=== PATIENT | female | born 1955 | race Caucasian/White ===

== ENCOUNTER → 2020-01-24 09:53 | Outpatient (BNVA) | payer OTHER, MEDICARE, SELFPAY | PROVIDERS: PCP Pediatrics; Referring Provider Pediatrics; Visit Provider Internal Medicine Cardiovascular Disease | DX: Z76.89 Persons encountering health services in other specified circumstances (principal) ==

== ENCOUNTER → 2020-04-17 13:30 | Outpatient (BNVA) | payer MEDICARE, OTHER, SELFPAY | PROVIDERS: PCP Pediatrics; Visit Provider Internal Medicine Cardiovascular Disease | DX: I10 Essential (primary) hypertension (principal); I63.9 Cerebral infarction, unspecified; R09.89 Other specified symptoms and signs involving the circulatory and respiratory systems | CPT/HCPCS: 93005; 99212 ==

== ENCOUNTER 2020-05-09 23:10 | Observation (INO) | payer MEDICARE, OTHER, SELFPAY ==
--- NOTE | ~2020-05-09 | CT_ITS ---
EXAMINATION: CT HEAD WITHOUT CONTRAST CLINICAL INFORMATION: Stroke protocol COMPARISON: 12/04/2018 TECHNIQUE: Contiguous axial imaging was performed from the skull base to vertex without intravenous contrast. This CT examination was performed using dose optimization techniques as appropriate, variously including the following: * Automated exposure control * Adjustment of mA and/or kV according to patient size (this includes techniques or standardized protocols for targeted exams where dose is matched to indication/reason for exam; i.e. extremities or head) Use of iterative reconstruction technique DLP: 652 mGy-cm. FINDINGS: There is no evidence of acute intracranial hemorrhage or territorial infarction. No abnormal mass effect or midline shift is seen. Garcia to white matter differentiation is well preserved. No extra-axial fluid collections are identified. No hydrocephalus. No significant volume loss. There is no abnormal attenuation within the brain parenchyma. The osseous structures and soft tissues are normal. The mastoid air cells and visualized portions of the paranasal sinuses are well aerated. CT/CT head for stroke IMPRESSION: No acute intracranial pathology. This critical result was discussed with KRISTEN Calvert by telephone at 05/09/2020 11:25 PM and it was ascertained that the content and urgency of the report was understood at the time of direct communication.
--- NOTE | 2020-05-09 23:13 | ECG_ITS ---
Test Reason : STROKE Blood Pressure : / mmHG Vent. Rate : 106 BPM Atrial Rate : 106 BPM P-R Int : 144 ms QRS Dur : 082 ms QT Int : 326 ms P-R-T Axes : 062 007 144 degrees QTc Int : 433 ms Sinus tachycardia Cannot rule out Inferior infarct (cited on or before 04-DEC-2018) Possible Anterior infarct , age undetermined T wave abnormality, consider lateral ischemia Abnormal ECG When compared with ECG of 04-DEC-2018 15:01, Inverted T waves have replaced nonspecific T wave abnormality in Inferior leads Referred By: Monie Tan Electronically Signed By:MAYA ROMO MD
--- NOTE | 2020-05-09 23:17 | ED_ITS ---
HPI - Neuro Symptoms/Deficit General Chief Complaint: Stroke Stated Complaint: stroke alert Time Seen by Provider: 05/09/20 23:13 Source: patient Mode of arrival: EMS History of Present Illness HPI Narrative: Reports similar symptoms as 3 weeks ago when she was diagnosed with stroke at [facility] although she said her entire right side at that time had numbness. Was in bed reading when she developed right upper facial numbness extending across the temporal region without speech or facial symmetry deficits, and reports of numbness into right upper extremity but denies any right lower extremity symptoms. Patient states that her symptoms have improved since onset and denies any visual deficits associated with this occurrence. Related Data Home Medications Medication Instructions Recorded Confirmed albuterol sulfate 90 mcg/actuation INHALATION 01/24/20 04/17/20 aerosol inhaler diltiazem HCl 360 mg capsule,24 mg PO 01/24/20 04/17/20 hr,extended release fenofibrate micronized 200 mg 200 mg PO DAILY 01/24/20 04/17/20 capsule fluticasone propionate 50 INTRANASAL 01/24/20 04/17/20 mcg/actuation nasal spray,suspension fluvastatin 80 mg tablet,extended 80 mg PO DAILY 01/24/20 04/17/20 release 24 hr losartan 50 mg tablet 50 mg PO DAILY 01/24/20 04/17/20 alprazolam 1 mg tablet 1 mg PO DAILY PRN 04/17/20 04/17/20 cyclobenzaprine 5 mg tablet 5 mg PO BID PRN 04/17/20 04/17/20 Allergies Allergy/AdvReac Type Severity Reaction Status Date / Time metoprolol [METOPROLOL] Allergy Severe angioedema Verified 05/09/20 23:31 acetaminophen [Percocet] Allergy Unknown Unknown Verified 05/09/20 23:31 amoxicillin [AMOXICILLIN] Allergy Unknown UNKNOWN Verified 05/09/20 23:31 bupropion [BUPROPION] Allergy Unknown UNKNOWN Verified 05/09/20 23:31 cephalexin [From KEFLEX] Allergy Unknown UNKNOWN Verified 05/09/20 23:31 Cephalosporins Allergy Unknown UNKNOWN Verified 05/09/20 23:31 [CEPHALOSPORINS] codeine [CODEINE] Allergy Unknown UNKNOWN Verified 05/09/20 23:31 dicyclomine [DICYCLOMINE] Allergy Unknown UNKNOWN Verified 05/09/20 23:31 doxycycline Allergy Unknown Unknown Verified 05/09/20 23:31 erythromycin base Allergy Unknown UNKNOWN Verified 05/09/20 23:31 [ERYTHROMYCIN BASE] Iodinated Contrast Media Allergy Unknown UNKNOWN Verified 05/09/20 23:31 [IV CONTRAST] lansoprazole [LANSOPRAZOLE] Allergy Unknown UNKNOWN Verified 05/09/20 23:31 meperidine [From DEMEROL] Allergy Unknown ANAPHYLAXIS Verified 05/09/20 23:31 oxycodone [OXYCODONE] Allergy Unknown UNKNOWN Verified 05/09/20 23:31 simvastatin [SIMVASTATIN] Allergy Unknown UNKNOWN Verified 05/09/20 23:31 Sulfa (Sulfonamide Allergy Unknown UNKNOWN Verified 05/09/20 23:31 Antibiotics) [SULFA (SULFONAMIDE ANTIBIOTICS)] tramadol [TRAMADOL] Allergy Unknown UNKNOWN Verified 05/09/20 23:31 verapamil [VERAPAMIL] Allergy Unknown ANAPHYLAXIS Verified 05/09/20 23:31 BuPROPion HCl Allergy Unknown Unknown Uncoded 05/09/20 23:31 cephalosporins Allergy Unknown Unknown Uncoded 05/09/20 23:31 Erythromycin Allergy Unknown Unknown Uncoded 05/09/20 23:31 IVP Dye Allergy Unknown Unknown Uncoded 05/09/20 23:31 Lansoprazole Allergy Unknown Unknown Uncoded 05/09/20 23:31 shellfish Allergy Unknown Unknown Uncoded 05/09/20 23:31 sulfa Allergy Unknown Unknown Uncoded 05/09/20 23:31 Review of Systems Review of Systems: Pertinent positives and negatives as stated in HPI and 10 point review of systems is otherwise negative. PMFSH Past Medical History Source: nursing notes reviewed Surgical History H/O pelvic surgery H/O: hysterectomy Social History Social History Smoking Status: Never smoker Advance Directives: No Physical Exam Vital Signs: Vital Signs: Last Vital Signs Temp 98.4 F 05/09/20 23:18 Pulse 102 H 05/09/20 23:51 Resp 16 05/09/20 23:51 BP 144/79 H 05/09/20 23:51 Pulse Ox 99 05/09/20 23:51 Body Mass Index 27.8 VITAL SIGNS: Reviewed. GENERAL: Well developed, well nourished, in no acute distress. HEAD: Normocephalic/atraumatic, EYES: PERRLA, EOMI intact without pain, no nystagmus OROPHARYNX: no oral lesions noted, posterior pharynx clear NECK: Supple, no adenopathy LUNGS: Normal breath sounds. No adventitious sounds or accessory muscle use. SpO2<99> CARDIOVASCULAR: Regular rate and rhythm without noted murmurs ABDOMEN: Soft, non-tender, non-distended with bowel sounds. MUSCULOSKELETAL: No tenderness, deformities, or effusions noted on gross inspection. SKIN: Inspection of the skin reveals no rashes NEUROLOGIC: Alert and oriented x 4. Please see NIH scale for details Course Course Course Narrative: This is a 65-year-old female with history and clinical presentation consistent with TIA-like symptoms. Please refer to discussion with Neurology below. I reviewed all documentation from [facility] in regards to patient's reports of stroke while at [facility] on or about April 16 as well as reported atrial fibrillation and mitral valve mass. 1. CVA: On review of all documentation it would appear that the identified ischemic area was likely the prior area identified by patient's PCP on imaging studies obtained in March 2020. 2. Atrial fibrillation: No documentation found of atrial fibrillation during chuyita diaz's stay at [facility] as well as review of available EKGs here at [facility] which primarily show SVT and would explain why patient does not have anticoagulation prescribed. 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 In addition, blood cultures were not noted to have any growth (however, this is not a definitive in terms of possible vegetation). Review of all investigations is negative for any acute findings and CT scan is negative for intracranial pathology. CTA was not completed secondary to patient's IV contrast allergy. This case was discussed with the inpatient hospitalist team who is agreeable for admission. Reevaluation(s) Reevaluation #1: I discussed the case with Neurology, Dr Grace, who recommen ds observation and has determined she is not a tPA candidate as symptoms are improving and there are no motor symptoms. Time: 23:30 [facility] - Neuro Symptoms/Deficit Lab Data Result diagrams: 05/09/20 23:42 05/09/20 23:42 Labs: Lab Results 05/09/20 05/09/20 05/09/20 Range/Units 23:39 23:42 23:42 WBC 8.7 (4.8-10.8) X10*3/uL RBC 4.19 L (4.20-5.50) X10*6/uL Hgb 12.6 (12.0-16.0) g/dl Hct 38.5 (37-47) % MCV 91.9 (80-98) fL MCH 30.1 (27.0-33.0) pg MCHC 32.7 (31.0-35.0) g/dl RDW 12.6 (11.0-16.0) % Plt Count 384 (160-400) X10*3/uL MPV 9.3 L (9.4-12.3) fL Immature Gran % (Auto) 0.1 (0.0-0.4) % Neut % (Auto) 45.0 (45-73) % Lymph % (Auto) 42.7 H (20-40) % [place] % (Auto) 9.6 (2-11) % Eos % (Auto) 2.4 (0-4) % Baso % (Auto) 0.2 (0-2) % Lymph # (Auto) 3.7 (1.2-4.9) X10*3/uL [place] # (Auto) 0.8 (0.1-1.2) X10*3/uL Eos # (Auto) 0.2 (0.0-0.4) X10*3/uL Baso # (Auto) 0.0 (0.0-0.2) X10*3/uL Abs Immat Gran (auto) 0.01 (0.00-0.03) X10*3/uL Absolute Neuts (auto) 3.9 (2.0-8.3) X10*3/uL Absolute Nucleated RBC 0.000 (0.0-0.012) X10*3/uL Nucleated RBC % (auto) 0.0 (0.0-0.2) /100WBC PT 11.8 (10.8-13.0) SEC INR 1.0 (0.9-1.1) APTT 35.0 (24.1-38.0) SEC Sodium (135-145) mmol/L Potassium (3.3-5.1) mmol/L Chloride (96-108) mmol/L Carbon Dioxide (22-29) mmol/L Anion Gap (12-20) BUN (9-16) mg/dL Creatinine (0.5-1.4) mg/dL Estim Creat Clear Calc Estimated GFR POC Glucose 129 H (60-115) mg/dL Random Glucose (60-115) mg/dL Calcium (8.4-10.2) mg/dL Total Creatine Kinase (26-140) U/L Troponin I High Sens (<3.5-17.0) ng/L COVID-19 (YAQUELIN) (Negative) COVID-19 Clin Com 05/09/20 05/09/20 05/09/20 Range/Units 23:42 23:42 23:45 WBC (4.8-10.8) X10*3/uL RBC (4.20-5.50) X10*6/uL Hgb (12.0-16.0) g/dl Hct (37-47) % MCV (80-98) fL MCH (27.0-33.0) pg MCHC (31.0-35.0) g/dl RDW (11.0-16.0) % Plt Count (160-400) X10*3/uL MPV (9.4-12.3) fL Immature Gran % (Auto) (0.0-0.4) % Neut % (Auto) (45-73) % Lymph % (Auto) (20-40) % [place] % (Auto) (2-11) % Eos % (Auto) (0-4) % Baso % (Auto) (0-2) % Lymph # (Auto) (1.2-4.9) X10*3/uL [place] # (Auto) (0.1-1.2) X10*3/uL Eos # (Auto) (0.0-0.4) X10*3/uL Baso # (Auto) (0.0-0.2) X10*3/uL Abs Immat Gran (auto) (0.00-0.03) X10*3/uL Absolute Neuts (auto) (2.0-8.3) X10*3/uL Absolute Nucleated RBC (0.0-0.012) X10*3/uL Nucleated RBC % (auto) (0.0-0.2) /100WBC PT (10.8-13.0) SEC INR (0.9-1.1) APTT (24.1-38.0) SEC Sodium 140 (135-145) mmol/L Potassium 4.0 (3.3-5.1) mmol/L Chloride 103 (96-108) mmol/L Carbon Dioxide 24 (22-29) mmol/L Anion Gap 17 (12-20) BUN 18 H (9-16) mg/dL Creatinine 0.81 (0.5-1.4) mg/dL Estim Creat Clear Calc 59.7 Estimated GFR > 60 POC Glucose (60-115) mg/dL Random Glucose 125 H (60-115) mg/dL Calcium 9.3 (8.4-10.2) mg/dL Total Creatine Kinase 55 (26-140) U/L Troponin I High Sens 3.9 (<3.5-17.0) ng/L COVID-19 (YAQUELIN) Negative (Negative) COVID-19 Clin Com See Note NIH Stroke Scale Internal: Initial- Upon Arrival Time: 23:05 Level of Consciousness: Alert Level of Consciousness Questions: Answers both questions correctly Level of Consciousness Commands: Performs both tasks correctly Best Gaze: Normal Visual: No visual loss Facial Palsy: Normal Motor Arm (Right): No drift Motor Arm (Left): No drift Motor Leg (Right): No drift Motor Leg (Left): No drift Limb Ataxia: Absent Sensory: Mild to moderate sensory loss Best Language: No aphasia Dysarthia: Normal Extinction and Inattention: No abnormality Score: 1 Discharge Plan Discharge Clinical Impression: CVA (cerebral vascular accident) Patient Disposition: Admitted As Inpatient Prescriptions: No Action diltiazem HCl 360 mg capsule,extended release 24 hr PO RF: 0 fluvastatin 80 mg tablet extended release 24 hr 80 mg PO DAILY RF: 0 fenofibrate micronized 200 mg capsule 200 mg PO DAILY RF: 0 fluticasone propionate 50 mcg/actuation spray,suspension intranasal RF: 0 albuterol sulfate 90 mcg/actuation HFA aerosol inhaler inhalation RF: 0 losartan 50 mg tablet 50 mg PO DAILY RF: 0 cyclobenzaprine 5 mg tablet 5 mg PO BID PRN (Reason: muscle spasm) RF: 0 alprazolam 1 mg tablet 1 mg PO DAILY PRN (Reason: anxiety) RF: 0
[2020-05-09 23:18] VITALS: BP 145/103; BP 176/77; PULSE 111; PULSE 120; RESP 18; TEMP 36.9; O2SAT 100; O2SAT 99; BMI 27.8
[2020-05-09 23:48] LABS: Glucose, Whole Blood 129 mg/dL (60-115)
[2020-05-09 23:51] VITALS: BP 144/79; PULSE 102; RESP 16; O2SAT 99
[2020-05-09 23:51] LABS: MANUAL DIFF FLAG NO
[2020-05-09 23:54] LABS: Basophils Percent Auto 0.2 % (0-2); Eosinophils Absolute Auto 0.2 X10*3/uL (0.0-0.4); Eosinophils Percent Auto 2.4 % (0-4); Hematocrit 38.5 % (37-47); Hemoglobin 12.6 g/dl (12.0-16.0); Imm Gran Abs Auto 0.01 X10*3/uL (0.00-0.03); Imm Gran Pct Auto 0.1 % (0.0-0.4); Lymphocytes Absolute Auto 3.7 X10*3/uL (1.2-4.9); Lymphocytes Percent Auto 42.7 % (20-40); Mean Corpuscular HGB Conc 32.7 g/dl (31.0-35.0); Mean Corpuscular Hemoglobin 30.1 pg (27.0-33.0); Mean Corpuscular Volume 91.9 fL (80-98); Mean Platelet Volume 9.3 fL (9.4-12.3); Monocytes Absolute Auto 0.8 X10*3/uL (0.1-1.2); Monocytes Percent Auto 9.6 % (2-11); Neutrophils Absolute Auto 3.9 X10*3/uL (2.0-8.3); Platelet Count 384 X10*3/uL (160-400); Red Blood Count 4.19 X10*6/uL (4.20-5.50); Red Cell Distribution Width 12.6 % (11.0-16.0); White Blood Count 8.7 X10*3/uL (4.8-10.8)
[2020-05-10 00:06] LABS: Prothrombin Time 11.8 SEC (10.8-13.0)
[2020-05-10 00:10] LABS: COVID-19 Test Negative (Negative)
[2020-05-10 00:17] LABS: Anion Gap 17 (12-20); Blood Urea Nitrogen 18 mg/dL (9-16); Calcium 9.3 mg/dL (8.4-10.2); Carbon Dioxide 24 mmol/L (22-29); Chloride 103 mmol/L (96-108); Creatinine Clr Calc Pharmacy 59.7; Estimated Glomerular Filt Rate > 60; Glucose Random 125 mg/dL (60-115); Sodium 140 mmol/L (135-145)
[2020-05-10 00:20] LABS: Troponin-I High Sensitivity 3.9 ng/L (<3.5-17.0)
[2020-05-10 00:39] LABS: Stroke Lab Use COMPLETE
[2020-05-10 01:59] VITALS: BP 133/73; PULSE 96; RESP 20; O2SAT 97
[2020-05-10] MEDS: Heparin Sodium,Porcine 5,000 UNIT/ML VIAL 5000 UNIT SUBCUT ×2 (02:11→14:39)
--- NOTE | 2020-05-10 03:58 | PC.NURSE ---
PT RESTING COMFORTABLY AT THIS TIME, HAS BEEN UPDATED ON PLAN OF CARE FOR ADMISSION TO HOSPITAL FOR OBSERVATION. PT AMBULATED TO AND FROM W/RN AT SIDE BUT NOT REQUIRING ANY ASSISTANCE, PT PASSED SWALLOW EVAL W/O DIFFCULTY
--- NOTE | 2020-05-10 05:13 | P.HPHOSP_ITS ---
History of Present Illness Date of Service: 05/10/20 Chief Complaint: Facial and upper extremity weakness This is a 65-year-old female with past medical history of migraine headaches, toxic multinodular goiter, hypertension, diet-controlled diabetes, hyperlipidemia who presents to the hospital with complaints of which she felt to be stroke. Patient reports that this is the 4th episode this happens to her since the new year's. She was laying in bed reading a book around 10 p.m. when she all of a sudden felt crawling numbness from her head to the rest of her right face, she then felt numbness and tingling as well as mild weakness in her right arm. She felt a weird sensation. The lasted till the time she reached to the ED and resolved but she still feels a very weird sensation in her head specially when she turns her head from side to side. She denies having any blurred or double vision, having any slurred or garbled speech, has any drooping of her face. She denies having any weakness in her leg. She denies any nausea or vomiting, no chest pain, shortness of breath, no abdominal pain , no diarrhea constipation. No urinary symptoms and no lower extremity edema. Of note patient was seen at [facility] few weeks ago for the same exact presentation but at that time she had right upper and lower extremity weakness. At that time she underwent MRI, MRA, echocardiogram and no real evidence of stroke was identified. She had no occlusion of any vessels on the MRA. She was also told that she may have had am mass on her heart, she underwent KATHY but that mass was not identified. Patient was told that she will have a consult with a different data management engineer but reports that that has not happened yet. She also reports that she was told the reasons for her recurrent strokes was AFib and when she asked her PCP why she is not on anticoagulation she was told that they believe her A fib is due to her thyroid ds and when they fix the thyroid, the a fib will resolve, therefore does not need AC. Patient already on aspirin as well as statin. Neurology was consulted by the ED and recommended patient be admitted for observation. Past medical history as below confirmed with patient Review of Systems Review of Systems: Yes all other systems are reviewed and are negative [facility] Medical History (Updated 05/10/20 @ 05:25 by Candido Marion MD) Diet-controlled diabetes mellitus Hyperlipidemia Hypertension Migraine headache Toxic multinodular goiter Pertinent family history: Father and mother both had coronary artery disease, father had CVA Surgical History H/O pelvic surgery H/O: hysterectomy Social History (Updated 05/10/20 @ 05:23 by Candido Marion MD) Alcohol intake: never Smoking Status: Never smoker Use of substances other than those prescribed or required for medical reasons: No Advance Directives: No Meds Allergies Allergy/AdvReac Type Severity Reaction Status Date / Time metoprolol [METOPROLOL] Allergy Severe angioedema Verified 05/09/20 23:31 acetaminophen [Percocet] Allergy Unknown Unknown Verified 05/09/20 23:31 amoxicillin [AMOXICILLIN] Allergy Unknown UNKNOWN Verified 05/09/20 23:31 bupropion [BUPROPION] Allergy Unknown UNKNOWN Verified 05/09/20 23:31 cephalexin [From KEFLEX] Allergy Unknown UNKNOWN Verified 05/09/20 23:31 Cephalosporins Allergy Unknown UNKNOWN Verified 05/09/20 23:31 [CEPHALOSPORINS] codeine [CODEINE] Allergy Unknown UNKNOWN Verified 05/09/20 23:31 dicyclomine [DICYCLOMINE] Allergy Unknown UNKNOWN Verified 05/09/20 23:31 doxycycline Allergy Unknown Unknown Verified 05/09/20 23:31 erythromycin base Allergy Unknown UNKNOWN Verified 05/09/20 23:31 [ERYTHROMYCIN BASE] Iodinated Contrast Media Allergy Unknown UNKNOWN Verified 05/09/20 23:31 [IV CONTRAST] lansoprazole [LANSOPRAZOLE] Allergy Unknown UNKNOWN Verified 05/09/20 23:31 meperidine [From DEMEROL] Allergy Unknown ANAPHYLAXIS Verified 05/09/20 23:31 oxycodone [OXYCODONE] Allergy Unknown UNKNOWN Verified 05/09/20 23:31 simvastatin [SIMVASTATIN] Allergy Unknown UNKNOWN Verified 05/09/20 23:31 Sulfa (Sulfonamide Allergy Unknown UNKNOWN Verified 05/09/20 23:31 Antibiotics) [SULFA (SULFONAMIDE ANTIBIOTICS)] tramadol [TRAMADOL] Allergy Unknown UNKNOWN Verified 05/09/20 23:31 verapamil [VERAPAMIL] Allergy Unknown ANAPHYLAXIS Verified 05/09/20 23:31 BuPROPion HCl Allergy Unknown Unknown Uncoded 05/09/20 23:31 cephalosporins Allergy Unknown Unknown Uncoded 05/09/20 23:31 Erythromycin Allergy Unknown Unknown Uncoded 05/09/20 23:31 IVP Dye Allergy Unknown Unknown Uncoded 05/09/20 23:31 Lansoprazole Allergy Unknown Unknown Uncoded 05/09/20 23:31 shellfish Allergy Unknown Unknown Uncoded 05/09/20 23:31 sulfa Allergy Unknown Unknown Uncoded 05/09/20 23:31 Active Medications: Current Medications Generic Name Dose Route Start Last Admin Trade Name Freq PRN Reason Stop Dose Admin Docusate Sodium 100 mg 05/10/20 01:32 Docusate Sodium 100 Mg Capsule PO DAILY PRN Constipation Heparin Sodium (Porcine) 5,000 unit 05/10/20 02:00 05/10/20 02:11 Heparin Sodium,Porcine 5,000 Unit/Ml Vial SUBCUT 5,000 unit Q12H SELENE Administration Ondansetron HCl 4 mg 05/10/20 01:32 Ondansetron Hcl 4 Mg/2 Ml Vial IVPUSH Q8H PRN Nausea and Vomiting Sodium Chloride 3 ml 05/10/20 08:00 0.9 % Sodium Chloride Flush 3 Ml Syringe IVFLUSH [facility] Home Medications Medication Instructions Recorded Confirmed Last Taken Type albuterol sulfate 90 mcg/actuation 90 mcg INHALATION NEEDED 01/24/20 05/10/20 05/09/20 History aerosol inhaler diltiazem HCl 360 mg capsule,24 360 mg PO DAILY 01/24/20 05/10/20 05/09/20 History hr,extended release fenofibrate micronized 200 mg 200 mg PO DAILY 01/24/20 05/10/20 05/09/20 History capsule fluticasone propionate 50 50 mcg INTRANASAL DAILY 01/24/20 05/10/20 05/09/20 History mcg/actuation nasal spray,suspension fluvastatin 80 mg tablet,extended 80 mg PO DAILY 01/24/20 05/10/20 05/09/20 History release 24 hr losartan 50 mg tablet 50 mg PO DAILY 01/24/20 05/10/20 05/09/20 History alprazolam 1 mg tablet 1 mg PO DAILY PRN 04/17/20 05/10/20 05/09/20 History cyclobenzaprine 5 mg tablet 5 mg PO BID PRN 04/17/20 05/10/20 05/09/20 History aspirin 1 tab PO DAILY 02/05/10/20 05/09/20 History Physical Exam Vital Signs and Narrative: Vital Signs: Last Vital Signs Temp 98.4 F 05/09/20 23:18 Pulse 96 05/10/20 01:59 Resp 20 05/10/20 01:59 BP 133/73 05/10/20 01:59 Pulse Ox 97 05/10/20 01:59 Body Mass Index 27.8 Const: General: cooperative and no acute distress Orientation/ consciousness: patient oriented x3 Eyes: Other: Has peripheral right visual field hemianopsia General: appearance normal, both eyes and all related structures Resp: Effort & Inspection: normal respiratory effort and able to speak in complete sentences Cardio: Rate: regular rate Rhythm: regular rhythm GI: Palpation (GI): Soft to palpation Auscultation: normal bowel sounds Skin: General skin exam: no rashes or lesions noted Neuro: Other: Strength is exact in all 4 extremities, no facial droop, no slurred or effected speech, General: patient oriented x3 Cognition (Neuro): normal cognition Extrem: General: Yes normal to inspection and Yes no pedal edema Results Labs CBC and Chem 7: 05/09/20 23:42 05/09/20 23:42 Labs: Laboratory Results - last 24 hr 05/09/20 05/09/20 05/09/20 23:39 23:42 23:42 MCV 91.9 MCH 30.1 MCHC 32.7 RDW 12.6 Plt Count 384 MPV 9.3 L Immature Gran % (Auto) 0.1 Neut % (Auto) 45.0 Lymph % (Auto) 42.7 H [place] % (Auto) 9.6 Eos % (Auto) 2.4 Baso % (Auto) 0.2 Lymph # (Auto) 3.7 [place] # (Auto) 0.8 Eos # (Auto) 0.2 Baso # (Auto) 0.0 Abs Immat Gran (auto) 0.01 Absolute Neuts (auto) 3.9 Absolute Nucleated RBC 0.000 Nucleated RBC % (auto) 0.0 PT 11.8 INR 1.0 APTT 35.0 Anion Gap Estim Creat Clear Calc Estimated GFR POC Glucose 129 H Random Glucose Calcium Total Creatine Kinase Troponin I High Sens COVID-19 (YAQUELIN) COVID-19 Clin Com 05/09/20 05/09/20 05/09/20 23:42 23:42 23:45 MCV MCH MCHC RDW Plt Count MPV Immature Gran % (Auto) Neut % (Auto) Lymph % (Auto) [place] % (Auto) Eos % (Auto) Baso % (Auto) Lymph # (Auto) [place] # (Auto) Eos # (Auto) Baso # (Auto) Abs Immat Gran (auto) Absolute Neuts (auto) Absolute Nucleated RBC Nucleated RBC % (auto) PT INR APTT Anion Gap 17 Estim Creat Clear Calc 59.7 Estimated GFR > 60 POC Glucose Random Glucose 125 H Calcium 9.3 Total Creatine Kinase 55 Troponin I High Sens 3.9 COVID-19 (YAQUELIN) Negative COVID-19 Clin Com See Note Imaging Radiologist's Impressions: Impressions Head CT 05/09/20 23:13 IMPRESSION: No acute intracranial pathology. This critical result was discussed with KRISTEN Calvert by telephone at 05/09/2020 11:25 PM and it was ascertained that the content and urgency of the report was understood at the time of direct communication. Assessment and Plan (1) CVA (cerebral vascular accident): Qualifiers: CVA mechanism: unspecified Qualified Code(s): I63.9 - Cerebral infarction, unspecified Status: Acute This is a 65-year-old female with past medical history as mentioned above who presents to the hospital with complaints of right facial and upper extremity weakness numbness and tingling # TIA? - patient reports that this is her 4th episode of a similar finding - according to the patient she has been told that this is due to AFib although no EKG evidence of above - she reports history of toxic multinodular goiter which according to the patie nt is leading to her strokes - she is already on aspirin and high dose statin Plan: - neurology to follow - will admit to telemetry - continue aspirin and statin - patient willing to undergo MRI if given Xanax to relax her as she has claustrophobia - may need a 30 day event monitor and discharge # toxic multinodular goiter - will obtain TSH # hypertension - stable - continue diltiazem and losartan DVT prophylaxis: Heparin subQ
--- NOTE | 2020-05-10 07:05 | PC.NURSE ---
Nurse to Nurse report received from Boyd RN. Pt alert, offers no complaints at this time. Respirations even/unlabored bilaterally. Will continue to monitor. Awaiting Bed Assignment.
[2020-05-10 07:36] LABS: Thyroid Stimulating Hormone < 0.01 uIU/mL (0.32-4.0)
[2020-05-10] MEDS: Fluticasone Propionate Nasal 16 GM SPRAY 1 SPRAY NOSTRIL-B (09:42)
[2020-05-10 09:43] VITALS: BP 142/60; PULSE 97
[2020-05-10] MEDS: Aspirin Enteric Coated 81 MG TABLET.DR PO (09:43)
[2020-05-10] MEDS: dilTIAZem HCL CD 180 MG CAP.ER.24H 360 MG PO (09:43)
[2020-05-10] MEDS: Losartan Potassium 50 MG TABLET PO (09:43)
[2020-05-10] MEDS: 0.9 % Sodium Chloride Flush 3 ML SYRINGE IVFLUSH (09:43)
[2020-05-10] MEDS: Pravastatin Sodium 40 MG TABLET PO (09:44)
--- NOTE | 2020-05-10 11:41 | MHC.STROKE ---
05/09/20 at 2307 EMS PRE-NOTIFICATION OF STROKE ALERT ARRIVED AT 2310, DIRECT TO CT. INITIAL NIHSS = 1. I MET WITH THE PATIENT AND CLARIFIED EVENTS. AT 2215 SHE WAS READING IN BED WHEN ALL OF A SUDDEN SHE BEGAN HAVING A RIGHT SIDED NAILS, RIGHT VISUAL DISTURBANCES TO HER PERIPHERAL VISION, RIGHT FACE/ARM TINGLING SENSATION AND HER DYSPHAGIA. SHE CALLED 911. 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 SHE HAS BEEN HAVING INTERMITTENT SYMPTOMS SINCE THAT EVENT AND THE SYMPTOMS SEEM TO BE GETTING WORSE. SHE IS ON ONLY ASPIRIN, ANTIHYPERTENSIVE AGENTS AND A STATIN. IN REVIEWING HER MEDICAL RECORD FROM [facility], THERE WAS A ? OF AFIB OR PAF, MITRAL VALVE MASS (KATHY DONE, NOT VERIFIED). LEFT PLUMBING CONTRACTOR STENOSIS AND + MRI FOR ACUTE STROKE. SHE ALSO HAS HASTIMOTO'S THYROIDITIS, HTN, HLD, DM, SVT,DYSPHAGIA, GERD, PROLAPSED BLADDER, SHE WAS INSTRUCTED NOT TO DRIVE AND HER GAIT IS TENUOUS. OT IS RECOMMENDED. STROKE EDUCATION PROVIDED. I GAVE HER A COPY OF THE [facility] RECORDS. I DID RELAY THE PATIENTS ANXIETY REGARDING THAT THE SYMPTOMS HAVE NOT GOTTEN ANY BETTER AND MORE SEVERE WHEN THEY OCCUR. THE SYMPTOMS COME AND GO. HR IS TACHYCARDIC IN THE ED, SHE IS FEELING VERY ANXIOUS, I PROVIDED REASSURANCE AND EDUCATION. WE REVIEWED THE PLAN OF CARE. I WALKED HER TO THE BATHROOM, HER GAIT IS SLOW AND SHE DOES C/O A SPINNING FEELING. SHE ASKED ABOUT ANTICOAGULATION, SHE IS REQUESTING A NO SALT, NO IODINE DIET. I REVIEWED ALL OF THIS INFORMATION TO DR CUETO. NEUROLOGY PENDING. RECOMMEND LIPID PANEL, CARDIOLOGY CONSULT FOR HOLTER MONITOR OR LINQ RECORDER POSSIBLE AFIB, PAF, I WILL CONTINUE TO FOLLOW.
--- NOTE | 2020-05-10 14:23 | MHC.CM.PN ---
pt lives alone in her home. she reports that she is independent in her care, including still driving car. pt has family that live in the area, including a son , which can help her c her needs including a ride home. pt is active [facility] for which a ref. has been made. dc plan is home [facility]. cm to cont. to follow.
[2020-05-10 14:32] LABS: ~PT, ~INR - Anti Coag Clinic 0.9 (0.9-1.1)
--- NOTE | 2020-05-10 16:14 | PM.NEUROCN ---
History of Present Illness Data of Consult Service Date: 05/10/20 Primary Care Provider: Unknown Physician HPI Reason for consult: Transient episode of right face and upper extremity numbness and weird sens This is a 65-year-old woman with a history of diet-controlled diabetes, hypertension and hyperlipidemia as well as migraines with visual aura x15 yrs, who comes in with a transient 45 min. episode, while reading last night, of numbness involving the right face and right arm followed by a headache which has still not cleared. The numbness has gone but she feels foggy in her head and has a headache. On April 22 , she was admitted with a similar but more severe episode to [facility] with right-sided numbness and weakness to the point that she fell to the floor but was able to get back up. She also had a headache with that. Work up during her admission to [facility] showed a normal brain MRI with no acute stroke. MRA showed no carotid disease. 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 The left vertebral artery is dominant, and the right vertebral artery only supplies cerebellar branches. MRI did not show any posterior circulation stroke. 3 weeks before that, an MRI of the brain on 03/31/20 after another episode of right-sided numbness showed nonspecific white matter abnormality and microangiopathic changes and on one slice a possibility of a 3 mm lacune in the vaughan radiate to her mid left frontal region. There was some issue with the echocardiogram showing a possible lesion on the mitral valve, however a KATHY subsequently showed no abnormality. The patient has not been on anticoagulants and is on aspirin only. Review of Systems Eyes: Eyes: Reports no additional eye complaints ENT: Reports system reviewed and no additional complaints, except as documented and Reports Normal hearing present Cardiovascular: Cardiovascular: Reports no additional cardiovascular complaints Respiratory: Respiratory: Reports no additional respiratory complaints Gastrointestinal: Gastrointestinal: Reports no additional gastrointestinal complaints Musculoskeletal: Musculoskeletal: Reports no additional musculoskeletal complaints Integumentary/Breasts: Skin/Breast: Reports system reviewed and no additional complaints, except as docu Neurologic: Reports as per HPI and Reports Normal hearing present Psychiatric: Psychiatric: Reports as per HPI Endocrine: Endocrine: Reports no additional endocrine complaints Hematologic/Lymphatic: Hematologic/Lymphatic: Reports no additional hematologic/lymphatic complaints Allergic/Immunologic: Allergic/Immunologic: Reports no additional allergic/immunologic complaints [facility] Past Medical History Medical History (Updated 05/10/20 @ 16:29 by Joanne Grace MD) Diet-controlled diabetes mellitus Hyperlipidemia Hypertension Migraine headache Toxic multinodular goiter Surgical History Surgical History H/O pelvic surgery H/O: hysterectomy Social History Social History (Updated 05/10/20 @ 05:23 by Candido Marion MD) Alcohol intake: never Smoking Status: Never smoker Use of substances other than those prescribed or required for medical reasons: No Advance Directives: No service: No Current occupational status: retired Meds Allergies Allergy/AdvReac Type Severity Reaction Status Date / Time metoprolol [METOPROLOL] Allergy Severe angioedema Verified 05/09/20 23:31 acetaminophen [Percocet] Allergy Unknown Unknown Verified 05/09/20 23:31 amoxicillin [AMOXICILLIN] Allergy Unknown UNKNOWN Verified 05/09/20 23:31 bupropion [BUPROPION] Allergy Unknown UNKNOWN Verified 05/09/20 23:31 cephalexin [From KEFLEX] Allergy Unknown UNKNOWN Verified 05/09/20 23:31 Cephalosporins Allergy Unknown UNKNOWN Verified 05/09/20 23:31 [CEPHALOSPORINS] codeine [CODEINE] Allergy Unknown UNKNOWN Verified 05/09/20 23:31 dicyclomine [DICYCLOMINE] Allergy Unknown UNKNOWN Verified 05/09/20 23:31 doxycycline Allergy Unknown Unknown Verified 05/09/20 23:31 erythromycin base Allergy Unknown UNKNOWN Verified 05/09/20 23:31 [ERYTHROMYCIN BASE] Iodinated Contrast Media Allergy Unknown UNKNOWN Verified 05/09/20 23:31 [IV CONTRAST] lansoprazole [LANSOPRAZOLE] Allergy Unknown UNKNOWN Verified 05/09/20 23:31 meperidine [From DEMEROL] Allergy Unknown ANAPHYLAXIS Verified 05/09/20 23:31 oxycodone [OXYCODONE] Allergy Unknown UNKNOWN Verified 05/09/20 23:31 simvastatin [SIMVASTATIN] Allergy Unknown UNKNOWN Verified 05/09/20 23:31 Sulfa (Sulfonamide Allergy Unknown UNKNOWN Verified 05/09/20 23:31 Antibiotics) [SULFA (SULFONAMIDE ANTIBIOTICS)] tramadol [TRAMADOL] Allergy Unknown UNKNOWN Verified 05/09/20 23:31 verapamil [VERAPAMIL] Allergy Unknown ANAPHYLAXIS Verified 05/09/20 23:31 BuPROPion HCl Allergy Unknown Unknown Uncoded 05/09/20 23:31 cephalosporins Allergy Unknown Unknown Uncoded 05/09/20 23:31 Erythromycin Allergy Unknown Unknown Uncoded 05/09/20 23:31 IVP Dye Allergy Unknown Unknown Uncoded 05/09/20 23:31 Lansoprazole Allergy Unknown Unknown Uncoded 05/09/20 23:31 shellfish Allergy Unknown Unknown Uncoded 05/09/20 23:31 sulfa Allergy Unknown Unknown Uncoded 05/09/20 23:31 Active Medications: Current Medications Generic Name Dose Route Start Last Admin Trade Name Freq PRN Reason Stop Dose Admin Albuterol Sulfate 1 puff 05/10/20 05:30 Albuterol Sulfate 90 Mcg 8 Gm Inhaler INHALE Q4H PRN Shortness of Breath/Wheezing Alprazolam 1 mg 05/10/20 05:27 Alprazolam 0.5 Mg Tablet PO DAILY PRN anxiety Aspirin 81 mg 05/10/20 09:00 05/10/20 09:43 Aspirin Enteric Coated 81 Mg Tablet.Dr PO 81 mg DAILY SELENE Administration Cyclobenzaprine HCl 5 mg 05/10/20 05:27 Cyclobenzaprine Hcl 5 Mg Tablet PO BID PRN muscle spasm Diltiazem HCl 360 mg 05/10/20 09:00 05/10/20 09:43 Diltiazem Hcl Cd 180 Mg Cap.Er.24h PO 360 mg DAILY SELENE Administration Protocol Docusate Sodium 100 mg 05/10/20 01:32 Docusate Sodium 100 Mg Capsule PO DAILY PRN Constipation Fluticasone Propionate 1 spray 05/10/20 09:00 05/10/20 09:42 Fluticasone Propionate Nasal 16 Gm [place] NOSTRIL-B 1 spray DAILY SELENE Administration Heparin Sodium (Porcine) 5,000 unit 05/10/20 02:00 05/10/20 14:39 Heparin Sodium,Porcine 5,000 Unit/Ml Vial SUBCUT 5,000 unit Q12H SELENE Administration Losartan Potassium 50 mg 05/10/20 09:00 05/10/20 09:43 Losartan Potassium 50 Mg Tablet PO 50 mg DAILY SELENE Administration Protocol Ondansetron HCl 4 mg 05/10/20 01:32 Ondansetron Hcl 4 Mg/2 Ml Vial IVPUSH Q8H PRN Nausea and Vomiting Pravastatin Sodium 40 mg 05/10/20 09:00 05/10/20 09:44 Pravastatin Sodium 40 Mg Tablet PO 40 mg DAILY [facility] Administration Sodium Chloride 3 ml 05/10/20 08:00 05/10/20 09:43 0.9 % Sodium Chloride Flush 3 Ml Syringe IVFLUSH 3 ml QSHIFT [facility] Administration Home Medications Medication Instructions Recorded Confirmed Last Taken Type albuterol sulfate 90 mcg/actuation 90 mcg INHALATION NEEDED 01/24/20 05/10/20 05/09/20 History aerosol inhaler diltiazem HCl 360 mg capsule,24 360 mg PO DAILY 01/24/20 05/10/20 05/09/20 History hr,extended release fenofibrate micronized 200 mg 200 mg PO DAILY 01/24/20 05/10/20 05/09/20 History capsule fluticasone propionate 50 50 mcg INTRANASAL DAILY 01/24/20 05/10/20 05/09/20 History mcg/actuation nasal spray,suspension fluvastatin 80 mg tablet,extended 80 mg PO DAILY 01/24/20 05/10/20 05/09/20 History release 24 hr losartan 50 mg tablet 50 mg PO DAILY 01/24/20 05/10/20 05/09/20 History alprazolam 1 mg tablet 1 mg PO DAILY PRN 04/17/20 05/10/20 05/09/20 History cyclobenzaprine 5 mg tablet 5 mg PO BID PRN 04/17/20 05/10/20 05/09/20 History aspirin 1 tab PO DAILY 05/10/20 05/10/20 05/09/20 History Physical Exam Vital Signs: Vital Signs: Last Vital Signs Temp 98.4 F 05/09/20 23:18 Pulse 97 05/10/20 09:43 Resp 20 05/10/20 01:59 BP 142/60 H 05/10/20 09:43 Pulse Ox 97 05/10/20 01:59 Body Mass Index 27.8 Const: General: cooperative, comfortable, no acute distress, well developed, alert and awake Nutritional Appearance: well nourished Orientation/consciousness: oriented to person, oriented to place and oriented to time Limitations: no limitations HENMT: Head: Yes normal to inspection, Yes normocephalic and Yes atraumatic Ears: hearing grossly normal bilaterally General nose exam: Normal external nose present Face and sinus: Yes normal facial exam Mouth: Normal oral and palatal mucosa present Eyes: General: appearance normal, both eyes and all related structures Visual De La Cruz: normal visual de la cruz by confrontation Alignment and Position: alignment normal Periorbital: periorbital findings normal Eyelids: Yes eyelids normal Conjunctivae: conjunctivae normal Sclerae: sclerae normal Corneas: corneas normal Pupils: Equal, round and reactive pupils present and Pupil accommodation reflex normal EOM: EOMs intact bilaterally Direct Ophthalmoscopy: normal light reflex Neck: Neck: Yes normal visual inspection, Yes full ROM and Yes no meningeal signs Thyroid: Thyroid normal Carotids: normal carotid upstroke and bounding pulses Chest: Chest palpation & inspection: normal inspection of the chest Resp: Effort & Inspection: normal respiratory effort Auscultation: clear to auscultation bilaterally Cardio: Rate: regular rate Rhythm: regular rhythm Heart sounds: S1 normal heart sound present and S2 normal heart sound present Peripheral pulses: Peripheral pulses 2+ throughout GI: Inspection: Yes normal to inspection Percussion: Yes normal to percussion Auscultation: normal bowel sounds Rectal Exam - Female: deferred Back/Spine/Pelvis: Cervical Spine: normal cervical lordosis and cervical ROM normal Thoracic/Lumbar Spine: thoracic and lumbar spine normal to inspection Skin: General skin exam: no rashes or lesions noted Neuro: General: oriented to person, oriented to place, oriented to time, gait normal, tone normal, moves all extremities, Normal light touch and pain sensation, no meningeal signs, no focal motor deficits, CN's II-XI intact bilaterally, normal sensation to monofilament and deep tendon reflexes 2+ bilaterally Cranial nerves: Yes CN's II-XII intact bilaterally, Yes Equal, round and reactive pupils present, Yes Bilaterally intact EOM present, Yes Nystagmus not present, Yes Normal facial strength present, Yes Midline tongue present, Yes Normal gag reflex present, Yes Symmetric palate elevation present, Yes Normal hearing present and Yes Ability to bilaterally rotate head present Cognition (Neuro): normal cognition Speech: Other speech findings present (Neuro) Gait exam (Neuro): Normal gait present Motor exam (neuro): 5/5 motor strength present throughout, Pronator motor function not present, no tremor noted, no asterixis, Motor fasciculations not present, Normal motor muscle tone present throughout and Motor abnormalities not present Sensory Exam: Bilaterally intact graphesthesia Deep tendon reflexes (DTR's): Right triceps reflex intensity grade: 2+, Left triceps reflex intensity grade: 2+, Rt Biceps (C5, C6): 2+, Left biceps reflex intensity grade: 2+, Right brachioradialis reflex intensity grade: 2+, Left brachioradialis reflex intensity grade: 2+, Right patellar reflex intensity grade: 2+, Left patellar reflex intensity grade: 2+, Right ankle reflex intensity grade: 2+ and Left ankle reflex intensity grade: 2+ Plantar Reflex Responses: downgoing: right, left and bilateral Coordination: [id number] test normal, [id number] test normal, tandem gait normal and Romberg test negative Pupils: Normal pupillary reactivity/response: bilateral Extrem: General: Yes normal to inspection, Yes normal exam except as noted and Yes no pedal edema Psych: Appearance: grossly normal Mental Status: mental status grossly normal Speech and movement: Normal speech and movement present and Clear speech present Affect: normal affect Attitude: cooperative Thought process: Normal thought process present Results Labs CBC & Chem 7: 05/09/20 23:42 05/09/20 23:42 Labs: Short CBC 05/09/20 Range/Units 23:42 WBC 8.7 (4.8-10.8) X10*3/uL Hgb 12.6 (12.0-16.0) g/dl Hct 38.5 (37-47) % Plt Count 384 (160-400) X10*3/uL BMP 05/09/20 23:42 Sodium 140 Potassium 4.0 Chloride 103 Carbon Dioxide 24 BUN 18 H Creatinine 0.81 Calcium 9.3 Cardiac Enzymes 05/09/20 Range/Units 23:42 Total Creatine Kinase 55 (26-140) U/L Assessment and Plan (1) Migraine equivalent syndrome: Problem details: In view of her long history of migraines since age 11 with visual auras in the last 15 years occurring frequently about twice a month, I believe her current symptomatology of right-sided numbness followed by headache on these last 3 occasions her also migraine equivalents rather than ischemic events. Status: Acute No specific treatment other than symptomatic treatment with Fioricet for her headache is recommended at this time (2) CVA (cerebral vascular accident): Qualifiers: CVA mechanism: unspecified Qualified Code(s): I63.9 - Cerebral infarction, unspecified Problem details: There is some evidence of her intracranial vascular disease in the posture circulation on MRA however this does not correlate with the patient's current symptoms. In the single possible acute silicone identified on the MRI of 04/04/20 also does not correlate with her symptoms. The patient is petrified of having a stroke. I discussed with her the possibility of intermittent atrial fibrillation and embolization although this seems unlikely. I gave her the option of anticoagulation which she seems to want at this point. She feels she would be more comfortable with it. Status: Acute Cardiac monitoring for 24-48 hours for atrial fibrillation. No further neurological workup necessary. She can be started on Eliquis 5mg bid in addition to the aspirin. Procedures Date of Service Date of Service: 05/10/20
[2020-05-10 18:53] VITALS: BP 146/69; PULSE 89; RESP 14; TEMP 36.1; O2SAT 95
[2020-05-10] MEDS: Cyclobenzaprine HCl 5 MG TABLET PO (19:57)
[2020-05-11] VITALS: BP 132/57; PULSE 87; RESP 16; TEMP 36.6; O2SAT 97
[2020-05-11 03:46] VITALS: BP 112/53; PULSE 90; RESP 15; TEMP 36.8; O2SAT 97
[2020-05-11] MEDS: 0.9 % Sodium Chloride Flush 3 ML SYRINGE IVFLUSH ×2 (04:37→09:03)
[2020-05-11 06:55] LABS: MANUAL DIFF FLAG NO
[2020-05-11 07:08] LABS: Basophils Percent Auto 0.4 % (0-2); Eosinophils Absolute Auto 0.2 X10*3/uL (0.0-0.4); Eosinophils Percent Auto 2.8 % (0-4); Hematocrit 39.7 % (37-47); Hemoglobin 13.1 g/dl (12.0-16.0); Imm Gran Abs Auto 0.02 X10*3/uL (0.00-0.03); Imm Gran Pct Auto 0.3 % (0.0-0.4); Lymphocytes Absolute Auto 3.4 X10*3/uL (1.2-4.9); Lymphocytes Percent Auto 45.9 % (20-40); Mean Corpuscular Hemoglobin 30.1 pg (27.0-33.0); Mean Corpuscular Volume 91.3 fL (80-98); Mean Platelet Volume 9.7 fL (9.4-12.3); Monocytes Absolute Auto 0.7 X10*3/uL (0.1-1.2); Monocytes Percent Auto 9.6 % (2-11); Platelet Count 368 X10*3/uL (160-400); Red Blood Count 4.35 X10*6/uL (4.20-5.50); Red Cell Distribution Width 12.6 % (11.0-16.0); White Blood Count 7.4 X10*3/uL (4.8-10.8)
[2020-05-11 07:37] LABS: Anion Gap 14 (12-20); Blood Urea Nitrogen 16 mg/dL (9-16); Calcium 9.3 mg/dL (8.4-10.2); Carbon Dioxide 24 mmol/L (22-29); Chloride 106 mmol/L (96-108); Cholesterol 184 mg/dL; Estimated Glomerular Filt Rate > 60; Glucose Random 104 mg/dL (60-115); HDL Cholesterol 24 mg/dL; Potassium 4.6 mmol/L (3.3-5.1); Sodium 139 mmol/L (135-145); Triglycerides 424 mg/dL
[2020-05-11 08:00] VITALS: BP 120/60; PULSE 88; RESP 16; TEMP 36.8; O2SAT 97
[2020-05-11] MEDS: Apixaban 5 MG TABLET PO (09:02)
[2020-05-11] MEDS: Aspirin Enteric Coated 81 MG TABLET.DR PO (09:02)
[2020-05-11] MEDS: Pravastatin Sodium 40 MG TABLET PO (09:02)
[2020-05-11] MEDS: dilTIAZem HCL CD 180 MG CAP.ER.24H 360 MG PO (09:02)
[2020-05-11] MEDS: Losartan Potassium 50 MG TABLET PO (09:02)
[2020-05-11] MEDS: Fluticasone Propionate Nasal 16 GM SPRAY 1 SPRAY NOSTRIL-B (09:07)
[2020-05-11] MEDS: Butalb/Acetamin/Caff 50/325/40 TABLET 1 TAB PO (10:09)
--- NOTE | 2020-05-11 12:19 | MHC.CM.PN ---
CM met with pt to discuss DC plans and new Eliquis prescription. Pt will DC home with resumption of [facility]. She will be on Eliquis and was provided with a 30 day free trial coupon however she reports her pharmacy has already filled the meds. Pt is aware she may have a $30 copay. Her secondary insurance may cover it but this can not be verified until she picks up the medication. Pt will DC home this afternoon with resumption of her [facility] services family will transport
--- NOTE | 2020-05-11 17:30 | P.DS_ITS ---
DS: Providers Provider Date of Service: 05/11/20 Date of admission: 05/10/20 00:36 Primary care physician: Unknown Physician Consults: 05/10/20 01:32 Consult to Neurology Routine Consulting Provider: [facility] Reason for consultation: TIA Has provider been notified: Yes DS: Diagnosis Discharge Diagnosis (1) Migraine equivalent syndrome: Status: Acute Problem details: In view of her long history of migraines since age 11 with visual auras in the last 15 years occurring frequently about twice a month, I believe her current symptomatology of right-sided numbness followed by headache on these last 3 occasions her also migraine equivalents rather than ischemic events. (2) CVA (cerebral vascular accident): Status: Acute Problem details: There is some evidence of her intracranial vascular disease in the posture circulation on MRA however this does not correlate with the patient's current symptoms. In the single possible acute silicone identified on the MRI of 04/04/20 also does not correlate with her symptoms. The patient is petrified of having a stroke. I discussed with her the possibility of intermittent atrial fibrillation and embolization although this seems unlikely. I gave her the option of anticoagulation which she seems to want at this point. She feels she would be more comfortable with it. DS: Medications Discharge Medications Home Medications: Home Medications Medication Instructions Recorded Confirmed albuterol sulfate 90 mcg/actuation 90 mcg INHALATION NEEDED 01/24/20 05/10/20 aerosol inhaler diltiazem HCl 360 mg capsule,24 360 mg PO DAILY 01/24/20 05/10/20 hr,extended release fenofibrate micronized 200 mg 200 mg PO DAILY 01/24/20 05/10/20 capsule fluticasone propionate 50 50 mcg INTRANASAL DAILY 01/24/20 05/10/20 mcg/actuation nasal spray,suspension fluvastatin 80 mg tablet,extended 80 mg PO DAILY 01/24/20 05/10/20 release 24 hr losartan 50 mg tablet 50 mg PO DAILY 01/24/20 05/10/20 alprazolam 1 mg tablet 1 mg PO DAILY PRN 04/17/20 05/10/20 cyclobenzaprine 5 mg tablet 5 mg PO BID PRN 04/17/20 05/10/20 aspirin 1 tab PO DAILY 05/10/20 05/10/20 Previous Rx's Medication Instructions Recorded apixaban [Eliquis] 5 mg PO BID #60 tab 05/11/20 DS: Summary Hospital Course Hospital Course: History of presenting illness Chief Complaint: Facial and upper extremity weakness This is a 65-year-old female with past medical history of migraine headaches, toxic multinodular goiter, hypertension, diet-controlled diabetes, hyperlipidemia who presents to the hospital with complaints of which she felt to be stroke. Patient reports that this is the 4th episode this happens to her since the new year's. She was laying in bed reading a book around 10 p.m. when she all of a sudden felt crawling numbness from her head to the rest of her right face, she then felt numbness and tingling as well as mild weakness in her right arm. She felt a weird sensation. The lasted till the time she reached to the ED and resolved but she still feels a very weird sensation in her head specially when she turns her head from side to side. She denies having any blurred or double vision, having any slurred or garbled speech, has any drooping of her face. She denies having any weakness in her leg. She denies any nausea or vomiting, no chest pain, shortness of breath, no abdominal pain , no diarrhea constipation. No urinary symptoms and no lower extremity edema. Of note patient was seen at [facility] few weeks ago for the same exact presentation but at that time she had right upper and lower extremity weakness. At that time she underwent MRI, MRA, echocardiogram and no real evidence of stroke was identified. She had no occlusion of any vessels on the MRA. She was also told that she may have had am mass on her heart, she underwent KATHY but that mass was not identified. Patient was told that she will have a consult with a different director independent but reports that that has not happened yet. She also reports that she was told the reasons for her recurrent strokes was AFib and when she asked h er PCP why she is not on anticoagulation she was told that they believe her A fib is due to her thyroid ds and when they fix the thyroid, the a fib will resolve, therefore does not need AC. Hospital course Migraine equivalent syndrome Due to symptoms of right facial and right upper extremity numbness associated with headache patient was admitted to medical floor her neurological examination was essentially unremarkable, tele monitor showed no arrhythmia, no atrial fibrillation noted, she remained in normal sinus rhythm, patient was seen in consultation by neurologist Dr. Grace he felt that patient current symptomatology of right-sided numbness followed by headaches on last 3 occasions is more consistent with migraine equivalents rather than ischemic events, patient was noted to have some evidence of intracranial vascular disease in posterior circulation as noted on MRA but it did not correlate with her current symptoms since patient was concerned about a stroke with the possibility of intermittent atrial fibrillation and embolization patient was placed on Eliquis since she felt she will be more comfortable being on anticoagulation, she has been recommended to have outpatient follow-up with Dr. Vargas for event recorder, patient has been instructed to use arm Fioricet/Imitrex for her migraine headache. Time Spent with Patient Time attestation: Total time spent providing and/or coordinating discharge services: Discharge coordination time: Greater than 30 minutes Physical Exam Vital Signs: Vital Signs: Last Vital Signs Temp 98.3 F 05/11/20 08:00 Pulse 88 05/11/20 08:00 Resp 16 05/11/20 08:00 BP 120/60 05/11/20 08:00 Pulse Ox 97 05/11/20 08:00 Body Mass Index 27.8 General patient resting comfortably in no acute distress. Neck is supple no JVD. CVS regular rate rhythm, Respiratory lungs clear to auscultation, no respiratory distress, no wheeze, no rhonchi. Gastrointestinal abdomen soft, nontender, bowel sounds audible, no no guarding , no rigidity. Extremities no clubbing cyanosis or edema. Neuro nonfocal no motor or sensory deficit noted, speech clear, steady gait Skin no rash DS: Data Data Completed and Pending Labs on day of discharge: Laboratory Results - last 24 hr 05/11/20 05/11/20 06:04 06:04 WBC 7.4 RBC 4.35 Hgb 13.1 Hct 39.7 MCV 91.3 MCH 30.1 MCHC 33.0 RDW 12.6 Plt Count 368 MPV 9.7 Immature Gran % (Auto) 0.3 Neut % (Auto) 41.0 L Lymph % (Auto) 45.9 H Nicholas % (Auto) 9.6 Eos % (Auto) 2.8 Baso % (Auto) 0.4 Lymph # (Auto) 3.4 Nicholas # (Auto) 0.7 Eos # (Auto) 0.2 Baso # (Auto) 0.0 Abs Immat Gran (auto) 0.02 Absolute Neuts (auto) 3.0 Absolute Nucleated RBC 0.000 Nucleated RBC % (auto) 0.0 Sodium 139 Potassium 4.6 Chloride 106 Carbon Dioxide 24 Anion Gap 14 BUN 16 Creatinine 0.70 Estim Creat Clear Calc 69.0 Estimated GFR > 60 Random Glucose 104 Calcium 9.3 Triglycerides 424 Cholesterol 184 LDL Cholesterol, Calc TNP HDL Cholesterol 24 Discharge Plan Discharge Patient Disposition: Home, Self-Care Referrals: Physician,Unknown [Primary Care Provider] - Discharge Medications: New Eliquis 5 mg Tablet 5 mg PO BID Qty: 60 RF: 0 Continued aspirin 81 mg tablet,delayed release (DR/EC) 1 tab PO DAILY RF: 0 diltiazem HCl 360 mg capsule,extended release 24 hr 360 mg PO DAILY RF: 0 fluvastatin 80 mg tablet extended release 24 hr 80 mg PO DAILY RF: 0 fenofibrate micronized 200 mg capsule 200 mg PO DAILY RF: 0 fluticasone propionate 50 mcg/actuation spray,suspension 50 mcg intranasal DAILY RF: 0 albuterol sulfate 90 mcg/actuation HFA aerosol inhaler 90 mcg inhalation NEEDED RF: 0 losartan 50 mg tablet 50 mg PO DAILY RF: 0 cyclobenzaprine 5 mg tablet 5 mg PO BID PRN (Reason: muscle spasm) RF: 0 alprazolam 1 mg tablet 1 mg PO DAILY PRN (Reason: anxiety) RF: 0 Discharge Orders: Discharge Order (Routine); Ordered 05/11/20 Ordered By: Lexus Monet Diet: advance to usual diet Activity on Discharge: As tolerated Stand Alone Forms: Patient Portal Discharge page Care Plan Goals: Outpatient follow-up with Cardiology Dr. Vargas for event recorder Health Concerns: Migraine syndrome/history of CVA take eliquis and asa Plan of Treatment: Outpatient follow-up with primary care physician cardiology Discharge Date/Time: 05/11/20 15:37
== END 2020-05-11 15:37 | disposition home or self-care (01) ==
LOC: HO.ED 05-10 00:45 → HO.EDOVER 05-10 00:50 → HO.IMC 05-10 17:22
PROVIDERS: Admitting Provider Internal Medicine; Emergency Provider Student in an Organized Health Care Education/Training Program; Visit Provider Hospitalist
DX: G43.109 Migraine with aura, not intractable, without status migrainosus (principal); R20.0 Anesthesia of skin; Z20.822 Contact with and (suspected) exposure to COVID-19; G83.21 Monoplegia of upper limb affecting right dominant side; E05.20 Thyrotoxicosis with toxic multinodular goiter without thyrotoxic crisis or storm; Z88.2 Allergy status to sulfonamides; Z88.5 Allergy status to narcotic agent; Z79.01 Long term (current) use of anticoagulants; Z79.52 Long term (current) use of systemic steroids; Z79.82 Long term (current) use of aspirin; Z79.899 Other long term (current) drug therapy
CPT/HCPCS: 36415; 70450; 80048; 80061; 82550; 82947; 84443; 84484; 85025; 85610; 85730; 87635; 93005; 99219; 99285

== ENCOUNTER → 2020-05-15 09:53 | Outpatient (BNVA) | payer MEDICARE, OTHER, SELFPAY | PROVIDERS: PCP Pediatrics; Visit Provider Nurse Practitioner Family | DX: I63.9 Cerebral infarction, unspecified (principal); R00.2 Palpitations; I10 Essential (primary) hypertension; R09.89 Other specified symptoms and signs involving the circulatory and respiratory systems; E78.5 Hyperlipidemia, unspecified; E05.20 Thyrotoxicosis with toxic multinodular goiter without thyrotoxic crisis or storm; G43.109 Migraine with aura, not intractable, without status migrainosus | CPT/HCPCS: 99212 ==

== ENCOUNTER 2020-06-04 09:50 | Outpatient (REF) | payer MEDICARE, OTHER, SELFPAY ==
[2020-06-04 13:45] LABS: TSH reflex Free T4 < 0.01 uIU/mL (0.32-4.0)
[2020-06-04 14:20] LABS: Free T4 (Free Thyroxine) 2.11 ng/dL (0.71-1.85)
[2020-06-05 18:41] LABS: Triiodothyronine T3 Free 8.2 pg/mL (2.3-4.2)
== END 2020-06-04 09:51 | disposition home or self-care (01) ==
LOC: HO.LAB 09:50
PROVIDERS: PCP Pediatrics; Visit Provider Nurse Practitioner Family
DX: R00.2 Palpitations (principal); R00.0 Tachycardia, unspecified; R09.89 Other specified symptoms and signs involving the circulatory and respiratory systems; G43.109 Migraine with aura, not intractable, without status migrainosus; I10 Essential (primary) hypertension; E78.5 Hyperlipidemia, unspecified; E05.20 Thyrotoxicosis with toxic multinodular goiter without thyrotoxic crisis or storm; Z86.73 Personal history of transient ischemic attack (TIA), and cerebral infarction without residual deficits
CPT/HCPCS: 36415; 84439; 84443; 84481; 93005; 99212

== ENCOUNTER → 2020-06-06 12:50 | Outpatient (REF) | payer MEDICARE, OTHER, SELFPAY ==
--- NOTE | ~2020-06-06 | US_ITS ---
EXAMINATION: US EXTRACRANIAL CAROTID DUPLEX, BILATERAL CLINICAL INFORMATION: Right carotid bruit COMPARISON: None TECHNIQUE: Real-time ultrasound and Doppler techniques (integrating B-mode 2-D vascular images, Doppler spectral analysis and color-flow Doppler imaging) were utilized to interrogate the extracranial carotid arteries, the vertebral arteries and proximal subclavian arteries bilaterally. The degree of stenosis is determined by criteria similar to NASCET. FINDINGS: Right Side: 1. There is hard shadowing atherosclerotic plaque seen in the bifurcation/proximal ICA region. 2. The common carotid artery PSV proximally is 114 cm/s and distally 74 cm/s. 3. The proximal internal carotid artery velocities are 58 cm/s systolic and 18 cm/s diastolic. 4. The proximal external carotid artery PSV is 103 cm/s. 5. The vertebral artery shows antegrade flow. 6. The subclavian artery waveforms are normal. Left Side: There is left high bifurcation limiting evaluation. 1. There is hard atherosclerotic plaque seen in the bifurcation/proximal ICA region. 2. The common carotid artery PSV proximally is 98 cm/s and distally 29 cm/s. 3. The proximal internal carotid artery velocities are 98 cm/s systolic and 29 cm/s diastolic. 4. The proximal external carotid artery PSV is 88 cm/s. 5. The vertebral artery shows 70 flow. 6. The subclavian artery waveforms are 115. US/US carotid duplex BI IMPRESSION: 1. RIGHT: 0-49% range stenosis right internal carotid. 2. LEFT: 0-49% range stenosis left internal carotid. 3. Antegrade flow seen in both vertebral arteries.
--- NOTE | 2020-06-06 12:54 | HM_ITS ---
REQUESTING PROVIDER: Abby Cooley NP INDICATION FOR THE TEST: Transient cerebral ischemic attack. TECHNIQUE: The patient was hooked up to cardiac event monitor with reporting and monitoring with enrollment period from 06/06/2020 to 07/09/2020 for a total period of 33 days. FINDINGS: Baseline rhythm is normal sinus rhythm with heart rate ranging from 71 beats per minute to 143 beats per minute. Rare isolated PACs and atrial couplets noted. There were also isolated PVCs noted. There was 1 episode of 8-beat run of PSVT at 142 beats per minute. The patient reported multiple events of palpitations most of which correlated with sinus rhythm or sinus tachycardia. One episode of racing fluttering correlated with PSVT of 8 beats. There were no episodes of atrial fibrillation noted. CONCLUSION: Event monitor is remarkable. 1. Baseline normal sinus rhythm. 2. Rare PACs, PVCs and 1 episode of 8-beat run of PSVT at 142 beats per minute. 3. The patient reported most of the events of palpitations correlated with sinus rhythm. One episode of correlating PSVT. 4. No episodes of atrial fibrillation. Herrera García MD NRS/MODL / [id number]
== END ==
LOC: HO.CARD 12:50
PROVIDERS: Visit Provider Nurse Practitioner Family
DX: R00.2 Palpitations (principal); I63.9 Cerebral infarction, unspecified; R09.89 Other specified symptoms and signs involving the circulatory and respiratory systems; E05.90 Thyrotoxicosis, unspecified without thyrotoxic crisis or storm; G43.109 Migraine with aura, not intractable, without status migrainosus; Z86.79 Personal history of other diseases of the circulatory system
CPT/HCPCS: 93270; 93272; 93880

== ENCOUNTER → 2020-07-22 13:36 | Outpatient (BNVA) | payer MEDICARE, OTHER, SELFPAY | PROVIDERS: PCP Pediatrics; Visit Provider Internal Medicine Cardiovascular Disease | DX: R00.0 Tachycardia, unspecified (principal); E05.90 Thyrotoxicosis, unspecified without thyrotoxic crisis or storm; Z86.79 Personal history of other diseases of the circulatory system; Z79.899 Other long term (current) drug therapy | CPT/HCPCS: 99212 ==

== ENCOUNTER 2020-07-24 13:38 | Outpatient (REF) | payer MEDICARE, OTHER, SELFPAY ==
[2020-07-24 13:39] VITALS: BP 129/61; PULSE 61; RESP 19; TEMP 36.7; O2SAT 98; BMI 28.0
--- NOTE | 2020-07-24 14:25 | P.BOP_ITS ---
Brief Operative Note Date of Service: 07/24/20 Pre-op diagnosis: CVA Post-op diagnosis: same Procedure: Implantable loop recorder placement Implants: After obtaining consent patient was brought to the minor surgery room. Patient was then laid in a supine position on the operating table. Patient's precordial area was then prepped and draped in a sterile fashion. Patient was then given 2% lidocaine with epinephrine intradermally and subcutaneously in the 4th intercostal space. A [employer] implantable loop recorder was then placed using Seldinger technique in the subcutaneous space. Serial number [id number]. measured R-wave 0.93-0.99 mV Surgeon: Herrera García MD Anesthesia: local Was an Staff Psychologist used for this Procedure?: No Estimated blood loss (mL): 1 Pathology: none sent Condition: stable Disposition: same day
== END 2020-07-24 13:39 | disposition home or self-care (01) ==
LOC: HO.MS 13:38
PROVIDERS: PCP Pediatrics; Visit Provider Internal Medicine Cardiovascular Disease
PROC: (CPT 33285; principal; 2020-07-24 14:00)
DX: I63.9 Cerebral infarction, unspecified (principal); I10 Essential (primary) hypertension; Z79.899 Other long term (current) drug therapy; Z88.0 Allergy status to penicillin; Z88.2 Allergy status to sulfonamides; Z88.8 Allergy status to other drugs, medicaments and biological substances
CPT/HCPCS: 33285; C1764

== ENCOUNTER → 2020-07-25 10:07 | Outpatient (BNVA) | payer MEDICARE, OTHER, SELFPAY | PROVIDERS: PCP Pediatrics; Visit Provider Nurse Practitioner Family | DX: Z51.89 Encounter for other specified aftercare (principal); I63.9 Cerebral infarction, unspecified | CPT/HCPCS: 99212 ==

== ENCOUNTER → 2020-07-31 09:51 | Outpatient (BNVA) | payer MEDICARE, OTHER, SELFPAY | PROVIDERS: PCP Pediatrics; Visit Provider Nurse Practitioner Family | DX: R00.0 Tachycardia, unspecified (principal); I63.9 Cerebral infarction, unspecified; G43.109 Migraine with aura, not intractable, without status migrainosus; R09.89 Other specified symptoms and signs involving the circulatory and respiratory systems; I10 Essential (primary) hypertension; R00.2 Palpitations; E78.5 Hyperlipidemia, unspecified; E05.20 Thyrotoxicosis with toxic multinodular goiter without thyrotoxic crisis or storm; Z51.89 Encounter for other specified aftercare | CPT/HCPCS: 99212 ==

== ENCOUNTER 2020-08-08 15:18 | Outpatient (REF) | payer MEDICARE, OTHER, SELFPAY ==
[2020-08-08 18:08] LABS: Free T4 (Free Thyroxine) 0.76 ng/dL (0.71-1.85); Thyroid Stimulating Hormone 35.32 uIU/mL (0.32-4.0); Vitamin D 25-OH Total 34.4 ng/mL (>30)
[2020-08-09 04:42] LABS: Triiodothyronine T3 Total 74 ng/dL (76-181)
[2020-08-09 07:07] LABS: Thyroglobulin Antibodies 2 IU/mL (< or = 1); Thyroid Peroxidase Antibodies >900 IU/mL (<9)
[2020-08-12 09:41] LABS: Thyrotropin Receptor Antibody 14.88 IU/L (<=2.00)
[2020-08-15 15:53] LABS: Thyroid Stimulating Immunoglob 192 % baseline (<140)
== END 2020-08-08 15:19 | disposition home or self-care (01) ==
LOC: HO.LAB 15:18
PROVIDERS: PCP Pediatrics; Visit Provider Internal Medicine
DX: E89.0 Postprocedural hypothyroidism (principal); E05.20 Thyrotoxicosis with toxic multinodular goiter without thyrotoxic crisis or storm; E55.9 Vitamin D deficiency, unspecified; Z79.899 Other long term (current) drug therapy
CPT/HCPCS: 36415; 82306; 83520; 84439; 84443; 84445; 84480; 86376; 86800; 99202

== ENCOUNTER 2020-08-14 16:25 | Outpatient (REF) | payer MEDICARE, OTHER, SELFPAY ==
[2020-08-14 17:16] LABS: Albumin Level 4.6 g/dL (3.5-5.0); Calcium 10.2 mg/dL (8.4-10.2); Phosphorus 4.3 mg/dL (2.7-4.5)
[2020-08-14 17:41] LABS: Free T4 (Free Thyroxine) 1.09 ng/dL (0.71-1.85); Thyroid Stimulating Hormone 12.35 uIU/mL (0.32-4.0); Vitamin D 25-OH Total 34.8 ng/mL (>30)
[2020-08-15 10:36] LABS: Triiodothyronine T3 Total 73 ng/dL (76-181)
[2020-08-15 13:27] LABS: Calcium (PTHI) 9.9 mg/dL (8.6-10.4); PTHI 25 pg/mL (14-64)
== END 2020-08-14 16:26 | disposition home or self-care (01) ==
LOC: HO.LAB 16:25
PROVIDERS: PCP Pediatrics; Visit Provider Internal Medicine
DX: E55.9 Vitamin D deficiency, unspecified (principal); E89.0 Postprocedural hypothyroidism; E05.20 Thyrotoxicosis with toxic multinodular goiter without thyrotoxic crisis or storm
CPT/HCPCS: 36415; 82040; 82306; 82310; 83970; 84100; 84439; 84443; 84480

== ENCOUNTER 2020-09-24 12:58 | Outpatient (REF) | payer MEDICARE, OTHER, SELFPAY ==
[2020-09-24 14:05] LABS: Free T4 (Free Thyroxine) 1.23 ng/dL (0.71-1.85); Thyroid Stimulating Hormone 0.06 uIU/mL (0.32-4.0)
[2020-09-26 01:33] LABS: Triiodothyronine T3 Total 97 ng/dL (76-181)
== END 2020-09-24 12:59 | disposition home or self-care (01) ==
LOC: HO.LAB 12:58
PROVIDERS: PCP Pediatrics; Visit Provider Internal Medicine
DX: E89.0 Postprocedural hypothyroidism (principal)
CPT/HCPCS: 36415; 84439; 84443; 84480

== ENCOUNTER 2020-11-05 14:00 | Outpatient (REF) | payer MEDICARE, OTHER, SELFPAY ==
[2020-11-05 15:18] LABS: Cholesterol 190 mg/dL; HDL Cholesterol 30 mg/dL; LDL Cholesterol Calculated 103 mg/dl; Triglycerides 288 mg/dL
[2020-11-05 15:40] LABS: Free T4 (Free Thyroxine) 1.12 ng/dL (0.71-1.85)
== END 2020-11-05 14:01 | disposition home or self-care (01) ==
LOC: HO.LAB 14:00
PROVIDERS: Absent Provider Nurse Practitioner Family; PCP Pediatrics; Visit Provider Internal Medicine
DX: E78.5 Hyperlipidemia, unspecified (principal); E89.0 Postprocedural hypothyroidism
CPT/HCPCS: 36415; 80061; 84439; 84443

== ENCOUNTER → 2020-12-04 09:17 | Outpatient (BNVA) | payer MEDICARE, OTHER, SELFPAY | PROVIDERS: PCP Pediatrics; Visit Provider Internal Medicine Cardiovascular Disease | DX: I63.9 Cerebral infarction, unspecified (principal); R00.2 Palpitations; Z86.79 Personal history of other diseases of the circulatory system | CPT/HCPCS: 99212 ==

== ENCOUNTER → 2020-12-11 09:31 | Outpatient (BNVA) | payer MEDICARE, OTHER, SELFPAY | PROVIDERS: PCP Pediatrics; Visit Provider Internal Medicine | DX: Z13.89 Encounter for screening for other disorder (principal) | CPT/HCPCS: Q3014 ==

== ENCOUNTER 2020-12-26 12:02 | Outpatient (REF) | payer MEDICARE, OTHER, SELFPAY ==
[2020-12-26 13:21] LABS: Free T4 (Free Thyroxine) 1.03 ng/dL (0.71-1.85)
== END 2020-12-26 12:03 | disposition home or self-care (01) ==
LOC: HO.LAB 12:02
PROVIDERS: PCP Pediatrics; Visit Provider Internal Medicine
DX: E89.0 Postprocedural hypothyroidism (principal); E05.20 Thyrotoxicosis with toxic multinodular goiter without thyrotoxic crisis or storm
CPT/HCPCS: 36415; 84439; 84443

== ENCOUNTER 2021-01-08 12:21 | Outpatient (REF) | payer MEDICARE, OTHER, SELFPAY ==
--- NOTE | ~2021-01-08 | US_ITS ---
EXAMINATION: US THYROID CLINICAL INFORMATION: Thyrotoxicosis with toxic multinodular goiter without thyrotoxic crisis or storm. COMPARISON: None TECHNIQUE: Linear transducer grayscale and color Doppler examination with attention to the region of the thyroid. FINDINGS: SIZE: Measurements of the thyroid lobes and nodules are given in sagittal, anteroposterior and transverse dimensions respectively. Right Thyroid Lobe: 2.1 x 0.7 x 1.0 cm, volume 0.7 mL. Parenchyma: The gland echotexture is homogeneous. Thyroid vascularity is normal. Left Thyroid Lobe: 2.2 x 0.7 x 1.0 cm, volume 0.9 mL. Parenchyma: The gland echotexture is homogeneous. Thyroid vascularity is normal. Isthmus: 0.2 cm in maximum AP dimension. Estimated total number of nodules greater than or equal to 1 cm: 0. Aquatic Facility Manager nodules are described as follows: 1. Location: Left lower pole. Size: 0.6 x 0.5 x 0.5 cm, volume 0.08 mL. Nodule characteristics: Composition: Solid/almost completely solid (2). Echogenicity: Hyperechoic (1). Shape: Not taller than wide (0). Margins: Smooth (0). Echogenic Foci: None (0). ACR TI-RADS total points: 3 ACR TI-RADS category: 3 NODES: No lymphadenopathy is seen in the tissue surrounding the thyroid gland. US/US thyroid IMPRESSION: Small thyroid gland. Solitary 6 mm left thyroid nodule. ACR TI-RADS RECOMMENDATION REFERENCE: Ultrasound-guided fine-needle aspiration, followup ultrasound, no further follow up. * TR1 (0 point) and TR 2 (2 points): No FNA or follow up * TR3 (3 points): FNA if more than or equal to 2.5 cm in maximum dimension, followup ultrasound in 1, 3 and 5 years if 1.5 to 2.4 cm in maximum dimension. * TR4 (4-6 points): FNA if more than or equal to 1.5 cm in maximum dimension, followup ultrasound in 1, 2, 3 and 5 years if 1 to 1.4 cm in maximum dimension. * TR5 (more than or equal to 7 points): FNA if more than or equal to 1 cm in maximum dimension, followup ultrasound every year for 5 years if 0.5 to 0.9 cm in maximum dimension. * TR3, TR4 or TR5 nodules that are below the size threshold for follow up receive no follow up.
== END 2021-01-08 12:22 | disposition home or self-care (01) ==
LOC: HO.US 12:21
PROVIDERS: PCP Pediatrics; Visit Provider Internal Medicine
DX: E05.20 Thyrotoxicosis with toxic multinodular goiter without thyrotoxic crisis or storm (principal)
CPT/HCPCS: 76536

== ENCOUNTER → 2021-04-03 13:33 | Outpatient (BNVA) | payer MEDICARE, OTHER, SELFPAY | PROVIDERS: PCP Pediatrics; Visit Provider Internal Medicine Cardiovascular Disease | DX: Z13.89 Encounter for screening for other disorder (principal) | CPT/HCPCS: 93005; 99212 ==

== ENCOUNTER 2021-04-03 14:20 | Outpatient (REF) | payer MEDICARE, OTHER, SELFPAY ==
[2021-04-03 15:39] LABS: Free T4 (Free Thyroxine) 1.23 ng/dL (0.71-1.85); Thyroid Stimulating Hormone 0.79 uIU/mL (0.32-4.0)
== END 2021-04-03 14:21 | disposition home or self-care (01) ==
LOC: HO.LAB 14:20
PROVIDERS: PCP Pediatrics; Visit Provider Internal Medicine
DX: E05.20 Thyrotoxicosis with toxic multinodular goiter without thyrotoxic crisis or storm (principal); E89.0 Postprocedural hypothyroidism; E55.9 Vitamin D deficiency, unspecified
CPT/HCPCS: 36415; 82306; 84439; 84443; 93005; 99212

== ENCOUNTER → 2021-04-10 09:32 | Outpatient (BNVA) | payer MEDICARE, OTHER, SELFPAY | PROVIDERS: PCP Pediatrics; Visit Provider Internal Medicine | DX: E04.1 Nontoxic single thyroid nodule (principal); E55.9 Vitamin D deficiency, unspecified; E89.0 Postprocedural hypothyroidism | CPT/HCPCS: Q3014 ==

== ENCOUNTER 2021-05-20 10:22 | Outpatient (REF) | payer MEDICARE, OTHER, SELFPAY ==
--- NOTE | ~2021-05-20 | XR_ITS ---
EXAMINATION: XR TIBIA AND FIBULA, LEFT CLINICAL INFORMATION: Fall COMPARISON: None TECHNIQUE: AP and lateral views of the left tibia and fibula were obtained. FINDINGS: The bones and soft tissues are normal. No fracture. No osseous lesions. XR/XR tibia fibula LT 2V IMPRESSION: Normal left tibia and fibula.
== END 2021-05-20 10:23 | disposition home or self-care (01) ==
LOC: HO.HMGCX 10:22
PROVIDERS: PCP Pediatrics; Visit Provider Physician Assistant
DX: Z91.81 History of falling (principal)
CPT/HCPCS: 73590

== ENCOUNTER 2021-07-08 10:15 | Outpatient (REF) | payer MEDICARE, OTHER, SELFPAY ==
[2021-07-08 12:51] LABS: Free T4 (Free Thyroxine) 1.12 ng/dL (0.71-1.85); Thyroid Stimulating Hormone 1.03 uIU/mL (0.32-4.0)
== END 2021-07-08 10:16 | disposition home or self-care (01) ==
LOC: HO.LAB 10:15
PROVIDERS: Visit Provider Internal Medicine
DX: E89.0 Postprocedural hypothyroidism (principal)
CPT/HCPCS: 36415; 84439; 84443

== ENCOUNTER → 2021-07-09 11:04 | Outpatient (BNVA) | payer MEDICARE, OTHER, SELFPAY | PROVIDERS: PCP Pediatrics; Visit Provider Internal Medicine | DX: E89.0 Postprocedural hypothyroidism (principal); E04.1 Nontoxic single thyroid nodule; E55.9 Vitamin D deficiency, unspecified | CPT/HCPCS: Q3014 ==

== ENCOUNTER → 2021-11-25 13:01 | Outpatient (BNVA) | payer MEDICARE, OTHER, SELFPAY | PROVIDERS: PCP Pediatrics; Visit Provider Nurse Practitioner Family | DX: I48.0 Paroxysmal atrial fibrillation (principal); I45.5 Other specified heart block; I10 Essential (primary) hypertension; E11.9 Type 2 diabetes mellitus without complications; Z86.73 Personal history of transient ischemic attack (TIA), and cerebral infarction without residual deficits; Z86.79 Personal history of other diseases of the circulatory system; Z79.01 Long term (current) use of anticoagulants; Z95.818 Presence of other cardiac implants and grafts | CPT/HCPCS: 99212 ==

== ENCOUNTER 2022-03-02 10:41 | Outpatient (REF) | payer MEDICARE, OTHER, SELFPAY ==
--- NOTE | ~2022-03-02 | XR_ITS ---
EXAMINATION: XR CHEST CLINICAL INFORMATION: Chest pain COMPARISON: 12/04/2018 TECHNIQUE: 2 views of the chest were obtained. FINDINGS: Lungs are clear. No focal consolidation or mass. Normal pulmonary vascularity. No pleural effusion or pneumothorax. Calcified aortic arch. Normal heart size. Implantable loop recorder. No acute osseous abnormality. XR/XR chest 2V IMPRESSION: No acute pulmonary disease.
== END 2022-03-02 10:42 | disposition home or self-care (01) ==
LOC: HO.HMGCX 10:41
PROVIDERS: PCP Pediatrics; Visit Provider Internal Medicine
DX: Z13.89 Encounter for screening for other disorder (principal)
CPT/HCPCS: 71046

== ENCOUNTER 2022-03-02 11:56 | Inpatient (IN) | payer MEDICARE, OTHER, SELFPAY ==
--- NOTE | ~2022-03-02 | XR_ITS ---
EXAMINATION: XR CHEST CLINICAL INFORMATION: Chest pain COMPARISON: 03/02/2022, earlier the same day at 10:52 AM TECHNIQUE: Frontal view of the chest was obtained at 12:45 PM. XR/XR chest 1V FINDINGS/IMPRESSION: No acute pulmonary disease. No significant change from prior study at 10:52 AM.
--- NOTE | 2022-03-02 12:01 | ECG_ITS ---
Test Reason : ches pain Blood Pressure : / mmHG Vent. Rate : 099 BPM Atrial Rate : 099 BPM P-R Int : 126 ms QRS Dur : 074 ms QT Int : 326 ms P-R-T Axes : 039 013 089 degrees QTc Int : 418 ms Normal sinus rhythm Nonspecific ST and T wave abnormality Abnormal ECG When compared with ECG of 09-MAY-2020 23:31, Minimal criteria for Inferior infarct are no longer Present T wave inversion no longer evident in Inferior leads T wave inversion no longer evident in Lateral leads Referred By: Generic ED Physician Electronically Signed By:Robles Vargas
[2022-03-02 12:04] VITALS: BP 151/76; PULSE 102; RESP 15; TEMP 37.2; O2SAT 97; BMI 28.9
[2022-03-02 12:37] LABS: MANUAL DIFF FLAG NO
[2022-03-02 12:39] LABS: Basophils Percent Auto 0.4 % (0-2); Eosinophils Absolute Auto 0.1 X10*3/uL (0.0-0.4); Eosinophils Percent Auto 0.9 % (0-4); Hemoglobin 13.7 g/dl (12.0-16.0); Imm Gran Abs Auto 0.02 X10*3/uL (0.00-0.03); Imm Gran Pct Auto 0.2 % (0.0-0.4); Lymphocytes Absolute Auto 2.2 X10*3/uL (1.2-4.9); Mean Corpuscular HGB Conc 32.6 g/dl (31.0-35.0); Mean Corpuscular Hemoglobin 29.9 pg (27.0-33.0); Mean Corpuscular Volume 91.7 fL (80.0-98.0); Mean Platelet Volume 9.2 fL (9.4-12.3); Monocytes Absolute Auto 0.6 X10*3/uL (0.1-1.2); Neutrophils Absolute Auto 6.3 x10*3/uL (2.0-8.3); Neutrophils Percent Auto 68.5 % (45-73); Platelet Count 400 X10*3/uL (160-400); Red Blood Count 4.58 X10*6/uL (4.20-5.50); Red Cell Distribution Width 13.2 % (11.0-16.0); White Blood Count 9.1 X10*3/uL (4.8-10.8)
[2022-03-02 12:45] LABS: INTERNATIONAL NORM RATIO 1.3 (0.9-1.1); Prothrombin Time 14.9 SEC (10.0-13.1)
[2022-03-02 12:47] LABS: Partial Thromboplastin Time 38.7 SEC (26.0-36.4)
[2022-03-02 13:04] LABS: B Type Natriuretic Peptide < 10 pg/mL (<100)
[2022-03-02 13:08] LABS: Alanine Aminotransferase 22 U/L (0-31); Albumin Level 4.6 g/dL (3.5-5.0); Alkaline Phosphatase 67 U/L (39-117); Anion Gap 14 (12-20); Aspartate Amino Transferase 31 U/L (5-31); Bilirubin Total 0.3 mg/dL (0.0-1.0); Blood Urea Nitrogen 18 mg/dL (9-16); Calcium 10.1 mg/dL (8.4-10.2); Carbon Dioxide 27 mmol/L (22-29); Chloride 101 mmol/L (96-108); Creatinine Clr Calc Pharmacy 59.2; Estimated Glomerular Filt Rate > 60; Glucose Random 92 mg/dL (60-115); Potassium 4.7 mmol/L (3.3-5.1); Sodium 137 mmol/L (135-145); Total Protein 7.6 g/dL (6.5-8.0); Troponin-I High Sensitivity 4.3 ng/L (<3.5-17.0)
--- NOTE | 2022-03-02 13:25 | PC.NURSE ---
patient alert, oriented x4. VSS. chest pain resolved. ambulating to and from bathroom with strong steady gait. able to make needs known. call rock within reach
[2022-03-02 13:31] LABS: Influenza A PCR NEGATIVE (Negative); Influenza B PCR NEGATIVE (Negative); Resp Syncy Virus RNA Qual PCR NEGATIVE (Negative); SARS COV2 PCR INHOUSE NEGATIVE (Negative)
--- NOTE | 2022-03-02 14:32 | ED_ITS ---
HPI - Chest Pain General Chief Complaint: Chest Pain Stated Complaint: CP X'S 3 DAYS FROM URGENT CARE PER EMS Time Seen by Provider: 03/02/22 12:13 Source: patient Mode of arrival: ambulatory Limitations: no limitations History of Present Illness HPI narrative: 66-year-old female history of stroke, SVT, palpitations, hypothyroidism presents to ED for intermittent pressure-like chest pain for the past 6 days. Patient states chest pain comes and go. She denies any leg swelling, calf pain, coughing up blood, or pleurisy. Patient was seen at urgent care who referred her to the hospital. Urgent care provider Dr. Rosario spoke with her rfid systems engineer Dr. Weston nielson recommend patient be sent to the ED for evaluation. Patient states presently she has no chest pain and the last time she had chest pain was on the ambulance. Patient was given aspirin at urgent care. Related Data Home Medications Medication Instructions Recorded Confirmed albuterol sulfate 90 mcg/actuation 90 mcg inhalation NEEDED 01/24/20 03/02/22 aerosol inhaler fenofibrate micronized 200 mg 200 mg PO BEDTIME 01/24/20 03/02/22 capsule fluticasone propionate 50 50 mcg intranasal DAILY 01/24/20 03/02/22 mcg/actuation nasal spray,suspension fluvastatin 80 mg tablet,extended 80 mg PO BEDTIME 01/24/20 03/02/22 release 24 hr cyclobenzaprine 5 mg tablet 5 mg PO BEDTIME 04/17/20 03/02/22 omeprazole 20 mg capsule,delayed 20 mg PO BEDTIME 08/08/20 03/02/22 release aspirin 81 mg tablet,delayed 81 mg PO DAILY 11/25/21 03/02/22 release riboflavin (vitamin B2) 100 mg 400 mg PO DAILY 11/25/21 03/02/22 tablet (Vitamin B-2) acetaminophen 325 mg tablet 650 mg PO Q6H PRN Pain 03/02/22 03/02/22 levothyroxine 75 mcg tablet 75 mcg PO DAILY@0600 03/02/22 03/02/22 ubrogepant 50 mg tablet (Ubrelvy) 50 mg PO DAILY 03/02/22 03/02/22 Previous Rx's Medication Instructions Recorded apixaban 5 mg tablet (Eliquis) 5 mg PO BID #60 tabs 05/11/20 diltiazem HCl 360 mg capsule,24 360 mg PO DAILY #90 caps 07/08/21 hr,extended release losartan 50 mg tablet 50 mg PO DAILY #90 tabs 11/12/21 Allergies Allergy/AdvReac Type Severity Reaction Status Date / Time metoprolol [METOPROLOL] Allergy Severe angioedema Verified 03/02/22 10:13 amoxicillin [AMOXICILLIN] Allergy Unknown UNKNOWN Verified 03/02/22 10:13 bupropion [BUPROPION] Allergy Unknown UNKNOWN Verified 03/02/22 10:13 cephalexin [From KEFLEX] Allergy Unknown UNKNOWN Verified 03/02/22 10:13 Cephalosporins Allergy Unknown UNKNOWN Verified 03/02/22 10:13 [CEPHALOSPORINS] codeine [CODEINE] Allergy Unknown UNKNOWN Verified 03/02/22 10:13 dicyclomine [DICYCLOMINE] Allergy Unknown UNKNOWN Verified 03/02/22 10:13 doxycycline Allergy Unknown Unknown Verified 03/02/22 10:13 erythromycin base Allergy Unknown UNKNOWN Verified 03/02/22 10:13 [ERYTHROMYCIN BASE] Iodinated Contrast Media Allergy Unknown UNKNOWN Verified 03/02/22 10:13 [IV CONTRAST] lansoprazole [LANSOPRAZOLE] Allergy Unknown UNKNOWN Verified 03/02/22 10:13 meperidine [From DEMEROL] Allergy Unknown ANAPHYLAXIS Verified 03/02/22 10:13 oxycodone [OXYCODONE] Allergy Unknown UNKNOWN Verified 03/02/22 10:13 shellfish derived Allergy Unknown Unknown Verified 03/02/22 16:31 simvastatin [SIMVASTATIN] Allergy Unknown UNKNOWN Verified 03/02/22 10:13 Sulfa (Sulfonamide Allergy Unknown UNKNOWN Verified 03/02/22 10:13 Antibiotics) [SULFA (SULFONAMIDE ANTIBIOTICS)] tramadol [TRAMADOL] Allergy Unknown UNKNOWN Verified 03/02/22 10:13 verapamil [VERAPAMIL] Allergy Unknown ANAPHYLAXIS Verified 03/02/22 10:13 Review of Systems Review of Systems: intermittent chest pain. Presently asymptomatic Yes all other systems are reviewed and are negative [facility] Past Medical History Medical History (Updated 03/02/22 @ 18:27 by Angella Kumar RN) CVA (cerebral vascular accident) Diet-controlled diabetes mellitus H/O paroxysmal supraventricular tachycardia Hyperlipidemia Hypertension Hypothyroidism Migraine headache PAF (paroxysmal atrial fibrillation) Postablative hypothyroidism Thyroid nodule Toxic multinodular goiter Vitamin D deficiency Surgical History H/O bladder repair surgery H/O pelvic surgery H/O: hysterectomy Hx of appendectomy Family History Family History (Updated 03/02/22 @ 16:19 by KRISTEN Hernandez) Mother High blood sugar Myocardial infarction Father Diabetes Myocardial infarction Stroke Brother Myocardial infarction Social History Social History Household Members: None Housing: House Do you presently have visiting nurse or other home services: No Alcohol intake: never Patient Tobacco Use Status: Never used Tobacco e-Cigarette/Vaping Use: Never Used Second Hand Smoke Exposure: No Advance Directives Date on File: 03/02/22 service: No Current occupational status: retired Physical Exam Vital Signs: Vital Signs: Last Vital Signs Temp 97.6 F 03/03/22 08:00 Pulse 76 03/03/22 08:00 Resp 20 03/03/22 08:00 BP 142/61 H 03/03/22 08:00 Pulse Ox 97 03/03/22 08:00 O2 Del Method 03/03/22 08:00 BMI result Body Mass Index 28.9 Const: General: cooperative, healthy appearing, comfortable, no acute distress, well developed, alert, awake and Physically active Orientation/consciousness: oriented to person, oriented to place, oriented to time and patient oriented x3 HEENT: Head: Yes normal to inspection, Yes No palpable skull fracture present, Yes normocephalic, Yes atraumatic and No abrasion Eyes: General: appearance normal, both eyes and all related structures Neck: Neck: Yes normal visual inspection, Yes full ROM, Yes no lymphadenopathy, Yes no meningeal signs, Yes trachea midline, Yes supple, No anterior neck swelling and No tender Chest: Chest palpation & inspection: normal inspection of the chest and normal palpation of entire chest wall Resp: Effort & Inspection: normal respiratory effort and able to speak in complete sentences Auscultation: clear to auscultation bilaterally Cardio: Jugular venous distension: no JVD Heart sounds: S1 normal heart sound present and S2 normal heart sound present GI: Inspection: Yes normal to inspection and No abdominal wall ecchymosis Palpation (GI): Soft to palpation, not firm, nontender, no guarding and not rigid : General: No CVA tenderness and Yes no CVA tenderness Back/Spine/Pelvis: Back: no CVA tenderness, No CVA tenderness and No back tenderness Skin: General skin exam: no rashes or lesions noted and elasticity normal Neuro: Other: Negative neuro deficits. General: oriented to person, oriented to place, oriented to time, patient oriented x3, gait normal, tone normal, moves all extremities, Normal light touch and pain sensation, no meningeal signs and CN's II-XI intact bilaterally Cranial nerves: Yes CN's II-XII intact bilaterally Extrem: Other: Bilateral lower extremities negative for swelling, pitting edema, calf tenderness General: Yes normal to inspection and Yes full ROM Psych: Appearance: grossly normal, well kempt and not disheveled Course Course Course Narrative: Patient is symptomatic but due to age and risk factors we will do cardiac evaluation. Reevaluation(s) Reevaluation #1: Dr. Vargas evaluated patient in the ER and patient informed him that this morning she had like a diaphoretic chest pain episode and has had them intermittently for the past couple of days. He reviewed patient's EKG and labs. Recommends patient be admitted as unstable angina also recommends trans echo to be ordered. Also recommends patient be started on heparin ACS does. Chest x-ray negative pneumonia. He is aware patient is on Eliquis and still recommends patient to receive heparin. Patient admitted to hospitalist. EKG negative STEMI Time: 14:42 Reevaluation #2: Normal sinus rhythm. Ventricular rate 99. CT interval 126. QRS 74. QTC 418. Negative STEMI Medications Administered Generic Name Dose Route Start Last Admin Trade Name Freq PRN Reason Stop Dose Admin Acetaminophen 650 mg 03/02/22 16:03 03/03/22 05:45 Acetaminophen 325 Mg Tablet PO 650 mg Q6H PRN Administration Pain, Mild (Pain Scale 1-3) Aspirin 81 mg 03/03/22 09:00 03/03/22 10:07 Aspirin Enteric Coated 81 Mg Tablet. PO 81 mg DAILY SELENE Administration Cyclobenzaprine HCl 5 mg 03/02/22 21:00 03/02/22 19:47 Cyclobenzaprine Hcl 5 Mg Tablet PO 5 mg BEDTIME SELENE Administration Diltiazem HCl 360 mg 03/03/22 09:00 03/03/22 10:08 Diltiazem Hcl Cd 180 Mg Cap.Er.24h PO 360 mg DAILY SELENE Administration Protocol Fenofibrate 134 mg 03/02/22 21:00 03/02/22 19:47 Fenofibrate,Micronized 134 Mg Capsule PO 134 mg BEDTIME SELENE Administration Heparin Sodium (Porcine) 2,800 unit 03/02/22 16:09 03/03/22 06:44 Heparin Sodium,Porcine 5,000 Unit/Ml Vial 40 unit/kg (2800 unit) 2,800 unit IVPUSH Administration PROTOCOL BOLUS PRN 40 unit/kg - Heparin Protocol Protocol Heparin Sodium/Sodium Chloride 25,000 unit in 250 mls @ 0 mls/hr 03/02/22 16:15 03/03/22 06:50 Heparin Sodium,Porcine/1/2ns IVCONT 10 units/kg/hr .Q0M SELENE 6.94 mls/hr Titration Protocol Per Protocol Insulin Human Lispro 0 unit 03/02/22 16:30 03/03/22 07:45 Insulin Lispro 100 Unit/Ml 3 Ml Vial SUBCUT Not Given QIDACHS SELENE Protocol Isosorbide Mononitrate 30 mg 03/02/22 16:30 03/03/22 10:08 Isosorbide Mononitrate 30 Mg Tab.Er.24h PO 30 mg DAILY SELENE Administration Protocol Levothyroxine Sodium 75 mcg 03/03/22 06:00 03/03/22 05:42 Levothyroxine Sodium 75 Mcg Tablet PO 75 mcg DAILY@0600 SELENE Administration Omeprazole 20 mg 03/02/22 21:00 03/02/22 19:48 Omeprazole 20 Mg Capsule.Dr PO 20 mg BEDTIME SELENE Administration Pravastatin Sodium 40 mg 03/02/22 21:00 03/02/22 19:47 Pravastatin Sodium 40 Mg Tablet PO 40 mg BEDTIME SELENE Administration Sodium Chloride 3 ml 03/02/22 16:00 03/03/22 10:09 0.9 % Sodium Chloride Flush 3 Ml Syringe IVFLUSH Not Given QSHIFT SELENE Discontinued Medications Generic Name Dose Route Start Last Admin Trade Name Freq PRN Reason Stop Dose Admin Heparin Sodium (Porcine) 4,000 unit 03/02/22 15:45 03/02/22 16:55 Heparin Sodium,Porcine 5,000 Unit/Ml Vial IVPUSH 03/02/22 15:46 4,000 unit ONCE ONE Administration Medical Decision Making Lab Data Result Diagrams: 03/03/22 05:46 03/02/22 12:21 Labs: Lab Results 03/02/22 03/02/22 03/02/22 Range/Units 12:21 12:21 12:21 WBC 9.1 (4.8-10.8) X10*3/uL RBC 4.58 (4.20-5.50) X10*6/uL Hgb 13.7 (12.0-16.0) g/dl Hct 42.0 (37.0-47.0) % MCV 91.7 (80.0-98.0) fL MCH 29.9 (27.0-33.0) pg MCHC 32.6 (31.0-35.0) g/dl RDW 13.2 (11.0-16.0) % Plt Count 400 (160-400) X10*3/uL MPV 9.2 L (9.4-12.3) fL Immature Gran % (Auto) 0.2 (0.0-0.4) % Neut % (Auto) 68.5 (45-73) % Lymph % (Auto) 24.0 (20-40) % [place] % (Auto) 6.0 (2-11) % Eos % (Auto) 0.9 (0-4) % Baso % (Auto) 0.4 (0-2) % Lymph # (Auto) 2.2 (1.2-4.9) X10*3/uL [place] # (Auto) 0.6 (0.1-1.2) X10*3/uL Eos # (Auto) 0.1 (0.0-0.4) X10*3/uL Baso # (Auto) 0.0 (0.0-0.2) X10*3/uL Abs Immat Gran (auto) 0.02 (0.00-0.03) X10*3/uL Absolute Neuts (auto) 6.3 (2.0-8.3) x10*3/uL Absolute Nucleated RBC 0.000 (0.0-0.012) X10*3/uL Nucleated RBC % (auto) 0.0 (0.0-0.2) /100WBC PT 14.9 H (10.0-13.1) SEC INR 1.3 H (0.9-1.1) APTT 38.7 H (26.0-36.4) SEC Sodium 137 (135-145) mmol/L Potassium 4.7 (3.3-5.1) mmol/L Chloride 101 (96-108) mmol/L Carbon Dioxide 27 (22-29) mmol/L Anion Gap 14 (12-20) BUN 18 H (9-16) mg/dL Creatinine 0.82 (0.5-1.4) mg/dL Estim Creat Clear Calc 59.2 Estimated GFR > 60 Random Glucose 92 (60-115) mg/dL Calcium 10.1 (8.4-10.2) mg/dL Total Bilirubin 0.3 (0.0-1.0) mg/dL AST 31 (5-31) U/L ALT 22 (0-31) U/L Alkaline Phosphatase 67 (39-117) U/L Troponin I High Sens (<3.5-17.0) ng/L B-Natriuretic Peptide (<100) pg/mL Total Protein 7.6 (6.5-8.0) g/dL Albumin 4.6 (3.5-5.0) g/dL Influenza Type A (PCR) (Negative) Influenza Type B (PCR) (Negative) RSV RNA Qual (PCR) (Negative) SARS-CoV-2 RNA (RT-PCR) (Negative) 03/02/22 03/02/22 03/02/22 Range/Units 12:21 12:21 12:39 WBC (4.8-10.8) X10*3/uL RBC (4.20-5.50) X10*6/uL Hgb (12.0-16.0) g/dl Hct (37.0-47.0) % MCV (80.0-98.0) fL MCH (27.0-33.0) pg MCHC (31.0-35.0) g/dl RDW (11.0-16.0) % Plt Count (160-400) X10*3/uL MPV (9.4-12.3) fL Immature Gran % (Auto) (0.0-0.4) % Neut % (Auto) (45-73) % Lymph % (Auto) (20-40) % [place] % (Auto) (2-11) % Eos % (Auto) (0-4) % Baso % (Auto) (0-2) % Lymph # (Auto) (1.2-4.9) X10*3/uL [place] # (Auto) (0.1-1.2) X10*3/uL Eos # (Auto) (0.0-0.4) X10*3/uL Baso # (Auto) (0.0-0.2) X10*3/uL Abs Immat Gran (auto) (0.00-0.03) X10*3/uL Absolute Neuts (auto) (2.0-8.3) x10*3/uL Absolute Nucleated RBC (0.0-0.012) X10*3/uL Nucleated RBC % (auto) (0.0-0.2) /100WBC PT (10.0-13.1) SEC INR (0.9-1.1) APTT (26.0-36.4) SEC Sodium (135-145) mmol/L Potassium (3.3-5.1) mmol/L Chloride (96-108) mmol/L Carbon Dioxide (22-29) mmol/L Anion Gap (12-20) BUN (9-16) mg/dL Creatinine (0.5-1.4) mg/dL Estim Creat Clear Calc Estimated GFR Random Glucose (60-115) mg/dL Calcium (8.4-10.2) mg/dL Total Bilirubin (0.0-1.0) mg/dL AST (5-31) U/L ALT (0-31) U/L Alkaline Phosphatase (39-117) U/L Troponin I High Sens 4.3 (<3.5-17.0) ng/L B-Natriuretic Peptide < 10 (<100) pg/mL Total Protein (6.5-8.0) g/dL Albumin (3.5-5.0) g/dL Influenza Type A (PCR) NEGATIVE (Negative) Influenza Type B (PCR) NEGATIVE (Negative) RSV RNA Qual (PCR) NEGATIVE (Negative) SARS-CoV-2 RNA (RT-PCR) NEGATIVE (Negative) Discharge Plan Discharge Clinical Impression: Chest pain Patient Disposition: Admitted As Inpatient Interventions: Admission Worksheet (ED) Last Done: 03/02/22 18:25 Discharge Date/Time: 03/02/22 18:27
[2022-03-02 15:14] VITALS: BP 149/68; PULSE 79; RESP 20; O2SAT 94
--- NOTE | 2022-03-02 16:07 | P.HPHOSP_ITS ---
History of Present Illness Date of Service: 03/02/22 Attending physician on admission: Emily Barbosa Chief Complaint: chest pain 66-year-old female with history of diet-controlled type 2 diabetes, hyperlipidemia, hypertension, postablative hypothyroidism, migraines, PSVT, paroxysmal atrial fibrillation anticoagulated with Eliquis, and history CVA in 2019 presented to the ED via EMS for evaluation of chest pain. She states that she has had intermittent retrosternal chest pressure and left-sided chest ache rated as a 7/10 without any radiation ongoing for the last week. States pain can present intermittently for several hours before resolving spontaneously. This morning, states chest pain is worse associated with nausea, headache, and breathlessness prompting her to contact her production maintenance mechanic, Dr. Vargas, who advised ED, but patient went to urgent care and then was transferred to ED via EMS. Prior to this past week, she denies any history of similar chest pains. States she has had 2 positive stress test historically but cardiac catheterization was negative. States last episode of chest pain was within the last hour. This is both exertional and at rest. Denies any fevers, chills, orthopnea, dyspnea on exertion, PND, diaphoresis, vomiting, abdominal pain. On arrival, mild tachycardia 108, vitals otherwise normal. She is now mildly hypertensive at 149/68. Hematology studies unremarkable. Renal function electrolyte levels normal. Troponin 4.3, BNP negative. PT 14.9/INR 1.3, PTT 30.7. EKG with normal sinus rhythm, rate 99, nonspecific ST/T-wave abnormality, no ROD or depressions suggestive of acute ischemia. CXR without acute abnormality. ED discussed with Dr. Vargas and patient will be admitted for unstable angina. Review of Systems Review of Systems: General: No fevers, malaise, unintentional weight loss HEENT: No blurred vision, diplopia. No sore throat, nasal congestion, rhinorrhea, sinus pain, ear pain Cardiovascular: +chest pain. No palpitations, or leg edema Respiratory: +shortness of breath. No PLATA, PND, wheezing, cough GI: +nausea. No abdominal pain, vomiting, diarrhea, constipation, melena, hematochezia : No dysuria, hematuria, increased urinary frequency MSK: No myalgia, back pain Neuro: No headaches, weakness, paresthesias Skin: No rashes or lesions [facility] Medical History (Updated 03/02/22 @ 18:27 by Angella Kumar RN) CVA (cerebral vascular accident) Diet-controlled diabetes mellitus H/O paroxysmal supraventricular tachycardia Hyperlipidemia Hypertension Hypothyroidism Migraine headache PAF (paroxysmal atrial fibrillation) Postablative hypothyroidism Thyroid nodule Toxic multinodular goiter Vitamin D deficiency Family History (Updated 03/02/22 @ 16:19 by KRISTEN Hernandez) Mother High blood sugar Myocardial infarction Father Diabetes Myocardial infarction Stroke Brother Myocardial infarction Surgical History H/O bladder repair surgery H/O pelvic surgery H/O: hysterectomy Hx of appendectomy Social History Household Members: None Housing: House Do you presently have visiting nurse or other home services: No Alcohol intake: never Patient Tobacco Use Status: Never used Tobacco e-Cigarette/Vaping Use: Never Used Second Hand Smoke Exposure: No Advance Directives Date on File: 03/02/22 service: No Current occupational status: retired [employer] Allergies Allergy/AdvReac Type Severity Reaction Status Date / Time metoprolol [METOPROLOL] Allergy Severe angioedema Verified 03/02/22 10:13 amoxicillin [AMOXICILLIN] Allergy Unknown UNKNOWN Verified 03/02/22 10:13 bupropion [BUPROPION] Allergy Unknown UNKNOWN Verified 03/02/22 10:13 cephalexin [From KEFLEX] Allergy Unknown UNKNOWN Verified 03/02/22 10:13 Cephalosporins Allergy Unknown UNKNOWN Verified 03/02/22 10:13 [CEPHALOSPORINS] codeine [CODEINE] Allergy Unknown UNKNOWN Verified 03/02/22 10:13 dicyclomine [DICYCLOMINE] Allergy Unknown UNKNOWN Verified 03/02/22 10:13 doxycycline Allergy Unknown Unknown Verified 03/02/22 10:13 erythromycin base Allergy Unknown UNKNOWN Verified 03/02/22 10:13 [ERYTHROMYCIN BASE] Iodinated Contrast Media Allergy Unknown UNKNOWN Verified 03/02/22 10:13 [IV CONTRAST] lansoprazole [LANSOPRAZOLE] Allergy Unknown UNKNOWN Verified 03/02/22 10:13 meperidine [From DEMEROL] Allergy Unknown ANAPHYLAXIS Verified 03/02/22 10:13 oxycodone [OXYCODONE] Allergy Unknown UNKNOWN Verified 03/02/22 10:13 shellfish derived Allergy Unknown Unknown Verified 03/02/22 16:31 simvastatin [SIMVASTATIN] Allergy Unknown UNKNOWN Verified 03/02/22 10:13 Sulfa (Sulfonamide Allergy Unknown UNKNOWN Verified 03/02/22 10:13 Antibiotics) [SULFA (SULFONAMIDE ANTIBIOTICS)] tramadol [TRAMADOL] Allergy Unknown UNKNOWN Verified 03/02/22 10:13 verapamil [VERAPAMIL] Allergy Unknown ANAPHYLAXIS Verified 03/02/22 10:13 Active Medications: Current Medications Acetaminophen (Acetaminophen 325 Mg Tablet) 650 mg PO Q6H PRN PRN Reason: Pain, Mild (Pain Scale 1-3) Heparin Sodium/Sodium Chloride (Heparin Sodium,Porcine/1/2ns) 25,000 unit in 250 mls @ 0 mls/hr IVCONT .Q0M [facility]; Protocol Ondansetron HCl (Ondansetron Hcl 4 Mg/2 Ml Vial) 4 mg IVPUSH Q8H PRN PRN Reason: Nausea and Vomiting Pharmacy Consult (Consult Rx Perform Med Rec) 1 each MISCELLANE ONCE PRN PRN Reason: Consult order Sodium Chloride (0.9 % Sodium Chloride Flush 3 Ml Syringe) 3 ml IVFLUSH QSHIFT [facility] Home Medications Medication Instructions Recorded Confirmed Last Taken Type albuterol sulfate 90 mcg/actuation 90 mcg inhalation NEEDED 01/24/20 03/02/22 05/09/20 History aerosol inhaler fenofibrate micronized 200 mg 200 mg PO BEDTIME 01/24/20 03/02/22 03/01/22 History capsule fluticasone propionate 50 50 mcg intranasal DAILY 01/24/20 03/02/22 03/02/22 History mcg/actuation nasal spray,suspension fluvastatin 80 mg tablet,extended 80 mg PO BEDTIME 01/24/20 03/02/22 03/01/22 History release 24 hr cyclobenzaprine 5 mg tablet 5 mg PO BEDTIME 04/17/20 03/02/22 03/01/22 History omeprazole 20 mg capsule,delayed 20 mg PO BEDTIME 08/08/20 03/02/22 03/01/22 History release aspirin 81 mg tablet,delayed 81 mg PO DAILY 11/25/21 03/02/22 03/02/22 History release riboflavin (vitamin B2) 100 mg 400 mg PO DAILY 11/25/21 03/02/22 03/02/22 History tablet (Vitamin B-2) acetaminophen 325 mg tablet 650 mg PO Q6H PRN Pain 03/02/22 03/02/22 Unknown History levothyroxine 75 mcg tablet 75 mcg PO DAILY@0600 03/02/22 03/02/22 03/02/22 History ubrogepant 50 mg tablet (Ubrelvy) 50 mg PO DAILY 03/02/22 03/02/22 03/02/22 History Physical Exam Vital Signs and Narrative: Vital Signs: Last Vital Signs Temp 98.9 F 03/02/22 12:04 Pulse 79 03/02/22 15:14 Resp 20 03/02/22 15:14 BP 149/68 H 03/02/22 15:14 Pulse Ox 94 03/02/22 15:14 O2 Del Method 03/02/22 15:14 BMI result Body Mass Index 28.9 Constitutional - Awake and Alert, No apparent distress Eyes - PERRLA, EOMI Cardiovascular - S1S2, RRR, No edema, 2+ radial pulses Respiratory - Normal lung expansion, Normal respiratory effort, No respiratory distress, CTA bilaterally Gastrointestinal - NT / ND; +BS; No rebound or guarding Extremities - no calf tenderness bilaterally, no swelling Skin - Warm/Dry Neurological - Alert & oriented x3 Psychological - Appropriate affect Results Labs CBC and Chem 7: 03/03/22 05:46 03/02/22 12:21 Labs: Laboratory Results - last 24 hr 03/02/22 03/02/22 03/02/22 12:21 12:21 12:21 MCV 91.7 MCH 29.9 MCHC 32.6 RDW 13.2 Plt Count 400 MPV 9.2 L Immature Gran % (Auto) 0.2 Neut % (Auto) 68.5 Lymph % (Auto) 24.0 [place] % (Auto) 6.0 Eos % (Auto) 0.9 Baso % (Auto) 0.4 Lymph # (Auto) 2.2 [place] # (Auto) 0.6 Eos # (Auto) 0.1 Baso # (Auto) 0.0 Abs Immat Gran (auto) 0.02 Absolute Neuts (auto) 6.3 Absolute Nucleated RBC 0.000 Nucleated RBC % (auto) 0.0 PT 14.9 H INR 1.3 H APTT 38.7 H Anion Gap 14 Estim Creat Clear Calc 59.2 Estimated GFR > 60 Random Glucose 92 Calcium 10.1 Total Bilirubin 0.3 AST 31 ALT 22 Alkaline Phosphatase 67 Troponin I High Sens B-Natriuretic Peptide Total Protein 7.6 Albumin 4.6 Influenza Type A (PCR) Influenza Type B (PCR) RSV RNA Qual (PCR) SARS-CoV-2 RNA (RT-PCR) 03/02/22 03/02/22 03/02/22 12:21 12:21 12:39 MCV MCH MCHC RDW Plt Count MPV Immature Gran % (Auto) Neut % (Auto) Lymph % (Auto) [place] % (Auto) Eos % (Auto) Baso % (Auto) Lymph # (Auto) [place] # (Auto) Eos # (Auto) Baso # (Auto) Abs Immat Gran (auto) Absolute Neuts (auto) Absolute Nucleated RBC Nucleated RBC % (auto) PT INR APTT Anion Gap Estim Creat Clear Calc Estimated GFR Random Glucose Calcium Total Bilirubin AST ALT Alkaline Phosphatase Troponin I High Sens 4.3 B-Natriuretic Peptide < 10 Total Protein Albumin Influenza Type A (PCR) NEGATIVE Influenza Type B (PCR) NEGATIVE RSV RNA Qual (PCR) NEGATIVE SARS-CoV-2 RNA (RT-PCR) NEGATIVE Imaging Radiologist's Impressions: Impressions Chest X-Ray 03/02/22 12:49 FINDINGS/IMPRESSION: No acute pulmonary disease. No significant change from prior study at 10:52 AM. Assessment and Plan (1) Chest pain: Status: Acute Plan 66-year-old female with history of diet-controlled type 2 diabetes, hyperlipidemia, hypertension, postablative hypothyroidism, migraines, PSVT, par oxysmal atrial fibrillation anticoagulated with Eliquis, and history CVA in 2019 admitted for further management of unstable angina. # unstable angina -patient with intermittent retrosternal chest pressure and left-sided chest ache nonradiating, both exertional and at rest x1 week -Initial trop 4.9, repeat pending. EKG without any ischemic changes -heparin drip per protocol per Cardiology -hold Eliquis -continue aspirin, statin -BB contraindicated due to allergy -Add imdur 30mg daily -cardiac diet -admit to telemetry -appreciate cardiology input # paroxysmal atrial fibrillation-rate controlled -hold Eliquis, patient on heparin -continue diltiazem # hypertension-reasonably controlled -continue home meds. Add imdur as above # diet-controlled type 2 diabetes -POC glucose -diabetic diet -Humalog on sliding scale p.r.n. with meals # hypothyroidism -continue levothyroxine # HLD -continue statin #Migraines -continue prophylactic medications # GERD -continue meds Full code DVT prophylax-heparin drip per protocol Patient requires inpatient stay for at least 2 midnights due to unstable angina being managed with heparin drip per protocol requiring close monitoring and expert consultation Time Spent With Patient Time: Total time managing care of this patient today ____ minutes. Quality Stroke Does the patient have a stroke diagnosis?: No VTE Prior VTE?: No VTE Risk Level:: Medical - moderate - high VTE Device Contraindication: Treatment Not Indicated VTE Drug Contraindication: N/A - Med Ordered
--- NOTE | 2022-03-02 16:09 | PM.EVENT ---
Event Note Date of Service: 03/02/22 Event Note: Patient seen and examined with APC Came with the chest pain she says the chest pain is positional and reproducible, she is having chest pain from 5-6 days duration, intermittent. Says that the pain is more pressure-like.Ed d/w cardio-recomended admission for iv heparin/cardiac workup Lab imaging, EKG reviewed. h/h:13.7/42,platelet 400 bun: 18/0.8 troponin x1 neg ekg -seems fine Physical exam and assessment and plan coordinated in APCs note, Agree with the plan in addition: chest pain-?unstable angina tropsx1 ,ekg seems fie started on iv heparin , continue aspirin ,statin,hold eliquis,started,added imdur Time Spent With Patient Time: Total time managing care of this patient today ____ minutes.
--- NOTE | 2022-03-02 16:14 | P.CONCA_ITS ---
History of Present Illness History of Present Illness Date of Service: 03/02/22 Requesting physician: Denisa Graff Chief complaint: unstable angina Narrative: 66-year-old female who is here for chest discomfort. She has known history of hypertension, previous CVA and paroxysmal atrial fibrillation for which she has been on Eliquis. She took Eliquis this morning. She has multiple allergies including shellfish in iodine. She is also allergic to metoprolol. She said she should hold snow a week ago when it snowed. She was fine that day but the day after or 2 days later she started feeling a dull ache on the left side of her chest at rest. This would come and go but was happening at rest mostly. She does not do any significant physical activities otherwise but with ambulation she has not felt significant pain. These episodes kept happening and today she had central pressure like feeling with nausea and sweating. With these symptoms she went to urgent care and was sent to the emergency department. Her EKG did not have any significant changes. Her troponin is 4.3. Repeat is pending. No recent bleeding concerns. [facility] Past Medical History Medical History Diet-controlled diabetes mellitus Hyperlipidemia Hypertension Hypothyroidism Migraine headache Postablative hypothyroidism Thyroid nodule Toxic multinodular goiter Vitamin D deficiency Family History Family History Mother High blood sugar Myocardial infarction Father Diabetes Myocardial infarction Stroke Surgical History Surgical History H/O bladder repair surgery H/O pelvic surgery H/O: hysterectomy Hx of appendectomy Social History Social History Household Members: None Housing: House Do you presently have visiting nurse or other home services: Yes ([employer]) Alcohol intake: never Patient Tobacco Use Status: Never used Tobacco Smoked in Last 30 Days: No Use of substances other than those prescribed or required for medical reasons: No Advance Directives: Yes Advance Directives on File: No service: No Current occupational status: retired Meds Allergies Allergy/AdvReac Type Severity Reaction Status Date / Time metoprolol [METOPROLOL] Allergy Severe angioedema Verified 03/02/22 10:13 amoxicillin [AMOXICILLIN] Allergy Unknown UNKNOWN Verified 03/02/22 10:13 bupropion [BUPROPION] Allergy Unknown UNKNOWN Verified 03/02/22 10:13 cephalexin [From KEFLEX] Allergy Unknown UNKNOWN Verified 03/02/22 10:13 Cephalosporins Allergy Unknown UNKNOWN Verified 03/02/22 10:13 [CEPHALOSPORINS] codeine [CODEINE] Allergy Unknown UNKNOWN Verified 03/02/22 10:13 dicyclomine [DICYCLOMINE] Allergy Unknown UNKNOWN Verified 03/02/22 10:13 doxycycline Allergy Unknown Unknown Verified 03/02/22 10:13 erythromycin base Allergy Unknown UNKNOWN Verified 03/02/22 10:13 [ERYTHROMYCIN BASE] Iodinated Contrast Media Allergy Unknown UNKNOWN Verified 03/02/22 10:13 [IV CONTRAST] lansoprazole [LANSOPRAZOLE] Allergy Unknown UNKNOWN Verified 03/02/22 10:13 meperidine [From DEMEROL] Allergy Unknown ANAPHYLAXIS Verified 03/02/22 10:13 oxycodone [OXYCODONE] Allergy Unknown UNKNOWN Verified 03/02/22 10:13 shellfish derived Allergy Unknown Unknown Verified 03/02/22 16:31 simvastatin [SIMVASTATIN] Allergy Unknown UNKNOWN Verified 03/02/22 10:13 Sulfa (Sulfonamide Allergy Unknown UNKNOWN Verified 03/02/22 10:13 Antibiotics) [SULFA (SULFONAMIDE ANTIBIOTICS)] tramadol [TRAMADOL] Allergy Unknown UNKNOWN Verified 03/02/22 10:13 verapamil [VERAPAMIL] Allergy Unknown ANAPHYLAXIS Verified 03/02/22 10:13 Active Medications: Current Medications Acetaminophen (Acetaminophen 325 Mg Tablet) 650 mg PO Q6H PRN PRN Reason: Pain, Mild (Pain Scale 1-3) Heparin Sodium (Porcine) (Heparin Sodium,Porcine 5,000 Unit/Ml Vial) 2,800 unit 40 unit/kg (2800 unit) IVPUSH PROTOCOL BOLUS PRN; Protocol PRN Reason: 40 unit/kg - Heparin Protocol Heparin Sodium (Porcine) (Heparin Sodium,Porcine 5,000 Unit/Ml Vial) 5,600 unit 80 unit/kg (5600 unit) IVPUSH PROTOCOL BOLUS PRN; Protocol PRN Reason: 80 unit/kg - Heparin Protocol Heparin Sodium/Sodium Chloride (Heparin Sodium,Porcine/1/2ns) 25,000 unit in 250 mls @ 0 mls/hr IVCONT .Q0M SELENE; Protocol Ondansetron HCl (Ondansetron Hcl 4 Mg/2 Ml Vial) 4 mg IVPUSH Q8H PRN PRN Reason: Nausea and Vomiting Pharmacy Consult (Consult Rx Perform Med Rec) 1 each MISCELLANE ONCE PRN PRN Reason: Consult order Sodium Chloride (0.9 % Sodium Chloride Flush 3 Ml Syringe) 3 ml IVFLUSH QSHIFT [facility] Home Medications Medication Instructions Recorded Confirmed Last Taken Type albuterol sulfate 90 mcg/actuation 90 mcg inhalation NEEDED 01/24/20 11/26/21 05/09/20 History aerosol inhaler fenofibrate micronized 200 mg 200 mg PO DAILY 01/24/20 11/26/21 05/09/20 History capsule fluticasone propionate 50 50 mcg intranasal DAILY 01/24/20 11/26/21 05/09/20 History mcg/actuation nasal spray,suspension fluvastatin 80 mg tablet,extended 80 mg PO DAILY 01/24/20 11/26/21 05/09/20 History release 24 hr cyclobenzaprine 5 mg tablet 5 mg PO BID PRN muscle spasm 04/17/20 11/26/21 05/09/20 History omeprazole 20 mg capsule,delayed 20 mg PO DAILY 08/08/20 11/26/21 Unknown History release aspirin 81 mg tablet,delayed 81 mg PO DAILY 11/25/21 11/26/21 Unknown History release riboflavin (vitamin B2) 100 mg 400 mg PO DAILY 11/25/21 11/26/21 Unknown History tablet (Vitamin B-2) acetaminophen 325 mg tablet 650 mg PO Q6H PRN Pain 03/02/22 03/02/22 Unknown History levothyroxine 75 mcg tablet 75 mcg PO DAILY@0600 03/02/22 03/02/22 03/02/22 History ubrogepant 50 mg tablet (Ubrelvy) 50 mg PO DAILY 03/02/22 03/02/22 03/02/22 History Physical Exam Vital Signs: Vital Signs: Last Vital Signs Temp 98.9 F 03/02/22 12:04 Pulse 79 03/02/22 15:14 Resp 20 03/02/22 15:14 BP 149/68 H 03/02/22 15:14 Pulse Ox 94 03/02/22 15:14 O2 Del Method 03/02/22 15:14 BMI result Body Mass Index 28.9 GENERAL APPEARANCE: in no acute distress, pleasant. NECK: no carotid bruit, no jugular venous distention. SKIN: no suspicious lesions, warm and dry. HEART: no murmurs, regular rate and rhythm. LUNGS: clear to auscultation bilaterally. ABDOMEN: soft, nontender. EXTREMITIES: no edema. PERIPHERAL PULSES: equal. NEUROLOGIC: No gross deficits, AAO X 3 Objective Labs and Meds Result diagrams: 03/02/22 12:03/02/22 12:21 Lab results: Laboratory Results - last 24 hr 03/02/22 03/02/22 03/02/22 12:21 12:21 12:21 WBC 9.1 RBC 4.58 Hgb 13.7 Hct 42.0 MCV 91.7 MCH 29.9 MCHC 32.6 RDW 13.2 Plt Count 400 MPV 9.2 L Immature Gran % (Auto) 0.2 Neut % (Auto) 68.5 Lymph % (Auto) 24.0 [place] % (Auto) 6.0 Eos % (Auto) 0.9 Baso % (Auto) 0.4 Lymph # (Auto) 2.2 [place] # (Auto) 0.6 Eos # (Auto) 0.1 Baso # (Auto) 0.0 Abs Immat Gran (auto) 0.02 Absolute Neuts (auto) 6.3 Absolute Nucleated RBC 0.000 Nucleated RBC % (auto) 0.0 PT 14.9 H INR 1.3 H APTT 38.7 H Sodium 137 Potassium 4.7 Chloride 101 Carbon Dioxide 27 Anion Gap 14 BUN 18 H Creatinine 0.82 Estim Creat Clear Calc 59.2 Estimated GFR > 60 Random Glucose 92 Calcium 10.1 Total Bilirubin 0.3 AST 31 ALT 22 Alkaline Phosphatase 67 Troponin I High Sens B-Natriuretic Peptide Total Protein 7.6 Albumin 4.6 Influenza Type A (PCR) Influenza Type B (PCR) RSV RNA Qual (PCR) SARS-CoV-2 RNA (RT-PCR) 03/02/22 03/02/22 03/02/22 12:21 12:21 12:39 WBC RBC Hgb Hct MCV MCH MCHC RDW Plt Count MPV Immature Gran % (Auto) Neut % (Auto) Lymph % (Auto) [place] % (Auto) Eos % (Auto) Baso % (Auto) Lymph # (Auto) [place] # (Auto) Eos # (Auto) Baso # (Auto) Abs Immat Gran (auto) Absolute Neuts (auto) Absolute Nucleated RBC Nucleated RBC % (auto) PT INR APTT Sodium Potassium Chloride Carbon Dioxide Anion Gap BUN Creatinine Estim Creat Clear Calc Estimated GFR Random Glucose Calcium Total Bilirubin AST ALT Alkaline Phosphatase Troponin I High Sens 4.3 B-Natriuretic Peptide < 10 Total Protein Albumin Influenza Type A (PCR) NEGATIVE Influenza Type B (PCR) NEGATIVE RSV RNA Qual (PCR) NEGATIVE SARS-CoV-2 RNA (RT-PCR) NEGATIVE Imaging Radiologist's impression: Impressions Chest X-Ray 03/02/22 12:49 FINDINGS/IMPRESSION: No acute pulmonary disease. No significant change from prior study at 10:52 AM. Assessment and Plan (1) Unstable angina: Status: Acute Plan Pleasant 66 year female presenting with chest discomfort starting on the last 4- 5 days with pain at rest. She had central pressure like feeling along with nausea and sweating today. EKG is nonspecific currently. She has multiple allergies including contrast allergy. High sensitivity troponin level were 4.3. Repeat is pending. Given significant symptoms and risk factors for coronary disease I think her presentation is consistent with unstable angina until at proven otherwise. I have discussed with her about doing a diagnostic cardiac catheterization. She is agreeable. She took Eliquis today and we will hold further Eliquis. Given the fact that she received Eliquis we will have to hold off on procedure for 48 hours. I will potentially transfer to [facility] tomorrow for potential cardiac catheterization on Wednesday. We will given a contrast prep tomorrow for potential catheterization on when his stay. Continue baby aspirin as before. Add isosorbide 30 mg once a day. Continue home medications as before. Please check the allergy list before adding any new medications as she has multiple drug allergies including metoprolol. Thank you for allowing me to participate in the care of your patient. Please feel free to contact me if you have any questions. Time Spent With Patient Time: Total time managing care of this patient today ____ minutes. Procedures Date of Service Date of Service: 03/02/22
--- NOTE | 2022-03-02 16:20 | PHA.MEDREC ---
Pharmacy Consult ? Medication Reconciliation Pharmacy has completed the medication reconciliation.
[2022-03-02 16:26] LABS: Hematocrit 38.6 % (37.0-47.0); Hemoglobin 12.7 g/dl (12.0-16.0); Mean Corpuscular HGB Conc 32.9 g/dl (31.0-35.0); Mean Corpuscular Hemoglobin 30.1 pg (27.0-33.0); Mean Corpuscular Volume 91.5 fL (80.0-98.0); Mean Platelet Volume 8.9 fL (9.4-12.3); Platelet Count 356 X10*3/uL (160-400); Red Blood Count 4.22 X10*6/uL (4.20-5.50); Red Cell Distribution Width 13.2 % (11.0-16.0); White Blood Count 10.1 X10*3/uL (4.8-10.8)
[2022-03-02 16:32] LABS: INTERNATIONAL NORM RATIO 1.3 (0.9-1.1); Prothrombin Time 14.5 SEC (10.0-13.1)
[2022-03-02 16:35] LABS: PTT Heparin Drip 38.2 SEC (53-77.9)
[2022-03-02] MEDS: Heparin Sodium,Porcine/1/2NS 25,000 UNIT/250 ML IV.SOLN 8.33 UNIT IVCONT (16:51)
[2022-03-02] MEDS: Heparin Sodium,Porcine 5,000 UNIT/ML VIAL 4000 UNIT IVPUSH (16:55)
[2022-03-02] MEDS: Isosorbide Mononitrate 30 MG TAB.ER.24H PO (16:55)
[2022-03-02 17:11] LABS: Glucose, Whole Blood 101 mg/dL (60-115)
--- NOTE | 2022-03-02 17:54 | PC.NURSE ---
nurse to nurse report to [facility] Inna MARTIN
[2022-03-02 18:38] VITALS: BP 133/65; PULSE 74; RESP 20; TEMP 37.1; O2SAT 94
[2022-03-02 19:16] LABS: Glucose, Whole Blood 104 mg/dL (60-115)
[2022-03-02] MEDS: Fenofibrate,Micronized 134 MG CAPSULE PO (19:47)
[2022-03-02] MEDS: Cyclobenzaprine HCl 5 MG TABLET PO (19:47)
[2022-03-02] MEDS: Pravastatin Sodium 40 MG TABLET PO (19:47)
[2022-03-02] MEDS: Omeprazole 20 MG CAPSULE.DR PO (19:48)
[2022-03-02] MEDS: 0.9 % Sodium Chloride Flush 3 ML SYRINGE IVFLUSH (19:49)
[2022-03-02 22:38] LABS: PTT Heparin Drip 130.6 SEC (53-77.9)
[2022-03-02 23:50] VITALS: BP 116/56; PULSE 63; RESP 18; TEMP 36.4; O2SAT 93
[2022-03-03 00:18] LABS: PTT Heparin Drip 51.8 SEC (53-77.9)
[2022-03-03 03:48] VITALS: BP 104/55; PULSE 76; RESP 16; TEMP 36.3; O2SAT 97
[2022-03-03] MEDS: Levothyroxine Sodium 75 MCG TABLET PO (05:42)
[2022-03-03] MEDS: Acetaminophen 325 MG TABLET 650 MG PO (05:45)
[2022-03-03 06:16] LABS: Hematocrit 37.3 % (37.0-47.0); Hemoglobin 12.2 g/dl (12.0-16.0); Mean Corpuscular HGB Conc 32.7 g/dl (31.0-35.0); Mean Corpuscular Hemoglobin 30.4 pg (27.0-33.0); Mean Platelet Volume 9.1 fL (9.4-12.3); Platelet Count 354 X10*3/uL (160-400); Red Blood Count 4.01 X10*6/uL (4.20-5.50); Red Cell Distribution Width 13.2 % (11.0-16.0); White Blood Count 8.4 X10*3/uL (4.8-10.8)
[2022-03-03 06:25] LABS: INTERNATIONAL NORM RATIO 1.1 (0.9-1.1); Prothrombin Time 12.7 SEC (10.0-13.1)
[2022-03-03 06:27] LABS: PTT Heparin Drip 45.5 SEC (53-77.9)
[2022-03-03] MEDS: Heparin Sodium,Porcine 5,000 UNIT/ML VIAL 2800 UNIT IVPUSH (06:44)
--- NOTE | 2022-03-03 07:00 | CA_ITS ---
Transthoracic Echocardiogram Patient (Last, First, Middle): Bethanie Dillard, Gender: Female Date of : 1955 Age: 66 Procedure Date: 03/03/2022 Procedure Type: Transthoracic Echocardiogram [place] [facility] Height: 154.94 cm Weight: 69.4 kg BSA: 1.69 m2 Heart Rate: bpm BP: 104 / 55 mmHg Resin Mixer: DARRELL Referring MD: Travis PETERSON Symptoms: Unstable angina Study Quality: Adequate Conclusions: - Normal left ventricular size and systolic function. There is mildly increased left ventricular wall thickness. The visually estimated ejection fraction is between 55-60%. - There is no evidence of regional wall motion abnormalities. - Normal right ventricular cavity size and systolic function. Findings Left Ventricle Normal left ventricular size and systolic function. There is mildly increased left ventricular wall thickness. The visually estimated ejection fraction is between 55-60%. There is no evidence of regional wall motion abnormalities. Abnormal diastolic function is noted. Spectral Doppler is indicative of an impaired relaxation filling pattern. E/E prime ratio is between 8 and 15 consistent with indeterminate filling pressures. Right Ventricle Normal right ventricular cavity size and systolic function. Atria The left atrium is normal in size. Aortic Valve Normal aortic valve structure and function. There is no aortic valve stenosis. There is mild aortic valve regurgitation. Mitral Valve There is moderate mitral annular calcification. There is trace mitral valve regurgitation. There is no mitral valve stenosis. Pulmonic Valve The pulmonic valve is likely normal. Tricuspid Valve Normal tricuspid valve structure. There is trace tricuspid valve regurgitation. Normal right atrial pressure. There is no evidence of pulmonary hypertension. Great Vessels All visible segments of the aorta are normal in size. The visualized portions of the pulmonary artery and branches are normal. Venous The inferior vena cava is normal in size and collapses greater than 50% with inspiration. Pericardium/Pleural There is no evidence of pericardial effusion. Measurements 2D Linear Measurements IVSd: 1.13 0.6-0.9/0.6-1.0 cm LVIDd: 3.86 3.9-5.3/4.2-5.9 cm LVIDd Index: 2.28 2.4-3.2/2.2-3.1 cm/m2 LVIDs: 2.51 2.0-3.6 cm LVPWd: 1.14 0.7-1.1 cm LA Diam: 2.50 2.7-3.8/3.0-4.0 cm LAIDs Index: 1.48 1.5-2.3 cm/m2 LV Mass: 179.75 67-162/88-224 g LV Mass Index: 106.36 43-95/49-115 g/m2 LVOT Diam: 2.00 3.0+(-)1.3 cm 2D Systolic Function EF 4C: 57.50 >55% EF 2C: 62.60 >55% EF BiP: 60.50 >55% Mitral Valve MV Pk E: 0.88 MV PK A: 1.09 MV Decel Time: 244.00 E/A: 0.80 E'Lateral: 6.74 E'Medial: 6.64 E/E' Med: 13.20 E/E' Lat: 13.00 PHT: 71.00 MVA PHT: 3.10 Decel [place]: 3.59 Aortic Valve AoV Pk Samson: 1.43 AoV Mn Samson: 0.91 AoV VTI: 0.25 AoV Pk Grad: 8.00 Aov Mn Grad: 4.00 ADITYA Cont.VTI: 2.70 AI Pk Samson: 3.94 AI [place]: 2.66 LVOT LVOT Pk Samson: 0.97 LVOT Mn Samson: 0.67 LVOT VTI: 0.21 LVOT Pk Grad: 4.00 LVOT Mn Grad: 2.00 LVOT Diam: 2.00 LVOT Area: 3.14 Diastolic Function MV Pk E: 0.88 MV Pk A: 1.09 E/A: 0.80 E'Medial: 6.64 E/E' Med: 13.20 E' Laterial: 6.74 E/E' Lat: 13.00 Right Ventricle TAPSE (mm): 20.00 TVS' Samson: 13.40 Tricuspid Valve TR Pk Samson: 1.98 TR Pk Grad: 16.00 RA Press: 3.00 RVSP: 19.00 Great Vessels Aorta Sinus of Valsalva: 2.84 2.0-3.[address] [place]: 2.47 1.7-3.4 cm Ao Asc: 3.00 2.1-3.4 cm Updated in Other Vendor System with Status of Final Robles Vargas MD electronically signed on 03/03/2022 9:46:35 PM with status of Final
[2022-03-03 07:24] LABS: Glucose, Whole Blood 115 mg/dL (60-115)
[2022-03-03 08:00] VITALS: BP 142/61; PULSE 76; RESP 20; TEMP 36.4; O2SAT 97
[2022-03-03] MEDS: Aspirin Enteric Coated 81 MG TABLET.DR PO (10:07)
[2022-03-03] MEDS: dilTIAZem HCL CD 180 MG CAP.ER.24H 360 MG PO (10:08)
[2022-03-03] MEDS: Isosorbide Mononitrate 30 MG TAB.ER.24H PO (10:08)
[2022-03-03] MEDS: TiZANidine HCL 4 MG TABLET PO (10:56)
[2022-03-03] MEDS: ondansetron HCL 4 MG/2 ML VIAL IVPUSH (10:57)
[2022-03-03 11:14] LABS: Glucose, Whole Blood 159 mg/dL (60-115)
[2022-03-03 11:23] VITALS: BP 130/62; PULSE 81; RESP 18; TEMP 36.4; O2SAT 94
[2022-03-03 11:27] LABS: Troponin-I High Sensitivity 3.3 ng/L (<3.5-17.0)
[2022-03-03 11:54] LABS: PTT Heparin Drip 62.4 SEC (53-77.9)
--- NOTE | 2022-03-03 13:19 | MHC.CM.PN ---
met with pt who lives alone she is independent is whit vax x 5 has own ride home will not need servceis when dcd
--- NOTE | 2022-03-03 13:48 | P.PNIM_ITS ---
Subjective Subjective Date of Service: 03/03/22 Interval History: Seen in follow up for unstable angina Interval history: Reports ongoing intermittent retrosternal chest pain described as ache/pressure, no radiation, at rest and with exertion. Endorsing nausea, no other associated symptoms as before. Continues on heparin drip. Denies bleeding episodes. Reporting persistent bandlike pressure headache bilaterally radiating from base of skull Review of Systems General: No fevers, malaise, unintentional weight loss Cardiovascular: +chest pain. No palpitations, or leg edema Respiratory: No shortness of breath, wheezing, cough GI: +nausea. No abdominal pain, vomiting, diarrhea, constipation, melena, hematochezia MSK: No myalgia, back pain Neuro: No headaches, weakness, paresthesias Skin: No rashes or lesions Physical Exam Vital Signs: Vital Signs: Last Vital Signs Temp 97.5 F 03/03/22 11:23 Pulse 81 03/03/22 11:23 Resp 18 03/03/22 11:23 BP 130/62 03/03/22 11:23 Pulse Ox 94 03/03/22 11:23 O2 Del Method 03/03/22 11:23 BMI result Body Mass Index 28.9 Constitutional - Awake and Alert, No apparent distress Eyes - PERRLA, EOMI Cardiovascular - S1S2, RRR, No edema Chest: mild ttp left chest Respiratory - Normal lung expansion, Normal respiratory effort, No respiratory distress, CTA bilaterally Gastrointestinal - NT / ND; +BS; No rebound or guarding Extremities - no calf tenderness bilaterally, no swelling Skin - Warm/Dry Neurological - Alert & oriented x3 Psychological - Appropriate affect Objective Data Active Medications Acetaminophen (Acetaminophen 325 Mg Tablet) 650 mg PO Q6H PRN PRN Reason: Pain, Mild (Pain Scale 1-3) Last Admin: 03/03/22 05:45 Dose: 650 mg Documented By: SEBAS Albuterol Sulfate (Albuterol Sulfate 90 Mcg 8 Gm Inhaler) 2 puff INHALE Q4H PRN PRN Reason: Wheezing Aspirin (Aspirin Enteric Coated 81 Mg Tablet.) 81 mg PO DAILY [facility] Last Admin: 03/03/22 10:07 Dose: 81 mg Documented By: RENA Cyclobenzaprine HCl (Cyclobenzaprine Hcl 5 Mg Tablet) 5 mg PO BEDTIME [facility] Last Admin: 03/02/22 19:47 Dose: 5 mg Documented By: SEBAS Dextrose (Dextrose 50 % 25 Gm/50 Ml Syringe) 25 gm IVPUSH Q15M PRN; Protocol PRN Reason: per Hypoglycemia Standing Ord. Diltiazem HCl (Diltiazem Hcl Cd 180 Mg Cap.Er.24h) 360 mg PO DAILY [facility]; Protocol Last Admin: 03/03/22 10:08 Dose: 360 mg Documented By: RENA Fenofibrate (Fenofibrate,Micronized 134 Mg Capsule) 134 mg PO BEDTIME [facility] Last Admin: 03/02/22 19:47 Dose: 134 mg Documented By: SEBAS Fluticasone Propionate (Fluticasone Propionate Nasal 16 Gm [place]) 1 spray NOSTRIL-B DAILY [facility] Last Admin: 03/03/22 11:00 Dose: Not Given Documented By: RENA Non-Admin Reason: not available at this time Glucose (Glucose Gel 15 Gm Gel..Gram.) 15 gm PO Q15M PRN; Protocol PRN Reason: per Hypoglycemia Standing Ord. Heparin Sodium (Porcine) (Heparin Sodium,Porcine 5,000 Unit/Ml Vial) 2,800 unit 40 unit/kg (2800 unit) IVPUSH PROTOCOL BOLUS PRN; Protocol PRN Reason: 40 unit/kg - Heparin Protocol Last Admin: 03/03/22 06:44 Dose: 2,800 unit Documented By: SEBAS Heparin Sodium (Porcine) (Heparin Sodium,Porcine 5,000 Unit/Ml Vial) 5,600 unit 80 unit/kg (5600 unit) IVPUSH PROTOCOL BOLUS PRN; Protocol PRN Reason: 80 unit/kg - Heparin Protocol Heparin Sodium/Sodium Chloride (Heparin Sodium,Porcine/1/2ns) 25,000 unit in 250 mls @ 0 mls/hr IVCONT .Q0M SELENE; Protocol Last Titration: 03/03/22 12:23 Dose: 10 units/kg/hr, 6.94 mls/hr Documented By: RENA Co-signed By: DEBBIPE Insulin Human Lispro (Insulin Lispro 100 Unit/Ml 3 Ml Vial) 0 unit SUBCUT QIDACHS [facility]; Protocol Last Admin: 03/03/22 12:59 Dose: Not Given Documented By: RENA Non-Admin Reason: Patient Refused Isosorbide Mononitrate (Isosorbide Mononitrate 30 Mg Tab.Er.24h) 30 mg PO DAILY [facility]; Protocol Last Admin: 03/03/22 10:08 Dose: 30 mg Documented By: RENA Levothyroxine Sodium (Levothyroxine Sodium 75 Mcg Tablet) 75 mcg PO DAILY@0600 [facility] Last Admin: 03/03/22 05:42 Dose: 75 mcg Documented By: SEBAS Morphine Sulfate (Morphine Sulfate 2 Mg/Ml Cartridge) 2 mg IVPUSH Q4H PRN; Protocol PRN Reason: Pain, Moderate (Pain Scale 4-6 Non-Formulary Medication (Ubrogepant [Ubrelvy]) 50 mg PO DAILY [facility] Omeprazole (Omeprazole 20 Mg Capsule.Dr) 20 mg PO BEDTIME [facility] Last Admin: 03/02/22 19:48 Dose: 20 mg Documented By: SEBAS Ondansetron HCl (Ondansetron Hcl 4 Mg/2 Ml Vial) 4 mg IVPUSH Q8H PRN PRN Reason: Nausea and Vomiting Last Admin: 03/03/22 10:57 Dose: 4 mg Documented By: RENA Pharmacy Consult (Consult Rx Perform Med Rec) 1 each MISCELLANE ONCE PRN PRN Reason: Consult order Pravastatin Sodium (Pravastatin Sodium 40 Mg Tablet) 40 mg PO BEDTIME [facility] Last Admin: 03/02/22 19:47 Dose: 40 mg Documented By: SEBAS Sodium Chloride (0.9 % Sodium Chloride Flush 3 Ml Syringe) 3 ml IVFLUSH QSHIFT [facility] Last Admin: 03/03/22 10:09 Dose: Not Given Documented By: RENA Non-Admin Reason: IV Running Labs CBC & Chem 7: 03/03/22 05:46 03/02/22 12:21 Labs: Laboratory Results - last 24 hr 03/02/22 03/02/22 03/02/22 12:39 16:21 16:21 MCV 91.5 MCH 30.1 MCHC 32.9 RDW 13.2 Plt Count 356 MPV 8.9 L Absolute Nucleated RBC 0.000 Nucleated RBC % (auto) 0.0 PT 14.5 H INR 1.3 H aPTT Heparin Protocol 38.2 L POC Glucose Troponin I High Sens Influenza Type A (PCR) NEGATIVE Influenza Type B (PCR) NEGATIVE RSV RNA Qual (PCR) NEGATIVE SARS-CoV-2 RNA (RT-PCR) NEGATIVE 03/02/22 03/02/22 03/02/22 17:05 18:52 21:53 MCV MCH MCHC RDW Plt Count MPV Absolute Nucleated RBC Nucleated RBC % (auto) PT INR aPTT Heparin Protocol 130.6 H* D POC Glucose 101 104 Troponin I High Sens Influenza Type A (PCR) Influenza Type B (PCR) RSV RNA Qual (PCR) SARS-CoV-2 RNA (RT-PCR) 03/02/22 03/03/22 03/03/22 23:49 05:46 05:46 MCV 93.0 MCH 30.4 MCHC 32.7 RDW 13.2 Plt Count 354 MPV 9.1 L Absolute Nucleated RBC 0.000 Nucleated RBC % (auto) 0.0 PT 12.7 INR 1.1 aPTT Heparin Protocol 51.8 L D POC Glucose Troponin I High Sens Influenza Type A (PCR) Influenza Type B (PCR) RSV RNA Qual (PCR) SARS-CoV-2 RNA (RT-PCR) 03/03/22 03/03/22 03/03/22 05:46 07:20 08:20 MCV MCH MCHC RDW Plt Count MPV Absolute Nucleated RBC Nucleated RBC % (auto) PT INR aPTT Heparin Protocol 45.5 L POC Glucose 115 Troponin I High Sens 3.3 Influenza Type A (PCR) Influenza Type B (PCR) RSV RNA Qual (PCR) SARS-CoV-2 RNA (RT-PCR) 03/03/22 03/03/22 11:08 11:30 MCV MCH MCHC RDW Plt Count MPV Absolute Nucleated RBC Nucleated RBC % (auto) PT INR aPTT Heparin Protocol 62.4 D POC Glucose 159 H Troponin I High Sens Influenza Type A (PCR) Influenza Type B (PCR) RSV RNA Qual (PCR) SARS-CoV-2 RNA (RT-PCR) Assessment and Plan (1) Unstable angina: Status: Acute Plan 66-year-old female with history of diet-controlled type 2 diabetes, hyperlipidemia, hypertension, postablative hypothyroidism, migraines, PSVT, paroxysmal atrial fibrillation anticoagulated with Eliquis, and history CVA in 2019 admitted for further management of unstable angina. # unstable angina -patient with intermittent retrosternal chest pressure and left-sided chest ache nonradiating, both exertional and at rest x1 week -Trops flat EKG without any ischemic changes -heparin drip per protocol per Cardiology -hold Eliquis -continue aspirin, statin -BB contraindicated due to allergy -Continue imdur 30mg daily -cardiac diet -appreciate cardiology input- ?[facility] #Headache- consistent with tension headache -Tizanidine 4mg -Tylenol prn # paroxysmal atrial fibrillation-rate controlled -hold Eliquis, patient on heparin -continue diltiazem # hypertension-reasonably controlled -continue home meds.? Add imdur as above # diet-controlled type 2 diabetes -POC glucose -diabetic diet -Humalog on sliding scale p.r.n. with meals # hypothyroidism -continue levothyroxine # HLD -continue statin #Migraines -continue prophylactic medications # GERD -continue meds Full code DVT prophylax-heparin drip per protocol Patient requires ongoing inpatient stay for management of unstable angina being managed with heparin drip per protocol requiring close monitoring and expert consultation Time Spent With Patient Time: Total time managing care of this patient today ____ minutes. Quality Stroke Does the patient have a stroke diagnosis?: No VTE Prior VTE?: No VTE Risk Level:: Medical - moderate - high VTE Device Contraindication: Treatment Not Indicated VTE Drug Contraindication: N/A - Med Ordered
--- NOTE | 2022-03-03 14:30 | PM.PNCARD ---
Subjective Subjective Date of Service: 03/03/22 Interval history: Seen and examined at bedside. Clinically stable. On heparin drip. For transfer to [facility] today Physical Exam Vital Signs: Last Vital Signs Temp 97.5 F 03/03/22 11:23 Pulse 81 03/03/22 11:23 Resp 18 03/03/22 11:23 BP 130/62 03/03/22 11:23 Pulse Ox 94 03/03/22 11:23 O2 Del Method 03/03/22 11:23 BMI result Body Mass Index 28.9 GENERAL APPEARANCE: in no acute distress, pleasant. NECK: no carotid bruit, no jugular venous distention. SKIN: no suspicious lesions, warm and dry. HEART: no murmurs, regular rate and rhythm. LUNGS: clear to auscultation bilaterally. ABDOMEN: soft, nontender. EXTREMITIES: no edema. PERIPHERAL PULSES: equal. NEUROLOGIC: No gross deficits, AAO X 3 Objective Labs and Meds Result diagrams: 03/03/22 05:46 03/02/22 12:21 Lab results: Laboratory Results - last 24 hr 03/02/22 03/02/22 03/02/22 16:21 16:21 17:05 WBC 10.1 RBC 4.22 Hgb 12.7 Hct 38.6 MCV 91.5 MCH 30.1 MCHC 32.9 RDW 13.2 Plt Count 356 MPV 8.9 L Absolute Nucleated RBC 0.000 Nucleated RBC % (auto) 0.0 PT 14.5 H INR 1.3 H aPTT Heparin Protocol 38.2 L POC Glucose 101 Troponin I High Sens 03/02/22 03/02/22 03/02/22 18:52 21:53 23:49 WBC RBC Hgb Hct MCV MCH MCHC RDW Plt Count MPV Absolute Nucleated RBC Nucleated RBC % (auto) PT INR aPTT Heparin Protocol 130.6 H* D 51.8 L D POC Glucose 104 Troponin I High Sens 03/03/22 03/03/22 03/03/22 05:46 05:46 05:46 WBC 8.4 RBC 4.01 L Hgb 12.2 Hct 37.3 MCV 93.0 MCH 30.4 MCHC 32.7 RDW 13.2 Plt Count 354 MPV 9.1 L Absolute Nucleated RBC 0.000 Nucleated RBC % (auto) 0.0 PT 12.7 INR 1.1 aPTT Heparin Protocol 45.5 L POC Glucose Troponin I High Sens 03/03/22 03/03/22 03/03/22 07:20 08:20 11:08 WBC RBC Hgb Hct MCV MCH MCHC RDW Plt Count MPV Absolute Nucleated RBC Nucleated RBC % (auto) PT INR aPTT Heparin Protocol POC Glucose 115 159 H Troponin I High Sens 3.3 03/03/22 11:30 WBC RBC Hgb Hct MCV MCH MCHC RDW Plt Count MPV Absolute Nucleated RBC Nucleated RBC % (auto) PT INR aPTT Heparin Protocol 62.4 D POC Glucose Troponin I High Sens Progress Note: A&P Assessment and plan (1) Unstable angina: Status: Acute (2) PAF (paroxysmal atrial fibrillation): Status: Acute Plan Pleasant 66 female presenting with chest pain and unstable angina. She has been on heparin drip. Clinically stable. She has been on Eliquis for atrial fibrillation and took last dose yesterday morning. She has been off Eliquis since yesterday morning. Our plan is to transfer to [facility] and do cardiac catheterization tomorrow. She has contrast allergy. She also has prednisone allergy. We will use Decadron 7.5 mg 13 hours, 7 hours and 1 hour before the procedure. She will also receive some Pepcid and Benadryl. I will relay her care at [facility]. She has already been added to the cath this for tomorrow. Thank you for allowing me to participate in the care of your patient. Please feel free to contact me if you have any questions. Time Spent With Patient Time: Total time managing care of this patient today ____ minutes. Progress Note: Quality Stroke Does the patient have a stroke diagnosis?: No Procedures Date of Service Date of Service: 03/03/22
[2022-03-03 15:25] VITALS: BP 103/55; PULSE 86; RESP 16; TEMP 36; O2SAT 96
[2022-03-03 15:33] LABS: Glucose, Whole Blood 123 mg/dL (60-115)
--- NOTE | 2022-03-03 16:34 | PM.DS ---
DS: Providers Provider Date of Service: 03/03/22 Date of admission: 03/02/22 16:00 Date of discharge: 03/03/22 Primary care physician: Karo Tang MD Admitting clinician: Denisa Graff Attending physician on admission: Emily Barbosa Consults: 03/02/22 14:26 Consult to Cardiology Stat Consulting Provider: Robles Vargas Reason for consultation: unstable angina Has provider been notified: Yes 03/02/22 16:06 Consult to Cardiology Routine Consulting Provider: Robles Vargas Reason for consultation: unstable angina [facility] Denisa Graff DS: Diagnosis Discharge Diagnosis (1) Unstable angina: Status: Acute (2) PAF (paroxysmal atrial fibrillation): Status: Acute DS: Summary Hospital Course Hospital Course: HPI on admission 03/03/22: 66-year-old female with history of diet-controlled type 2 diabetes, hyperlipidemia, hypertension, postablative hypothyroidism, migraines, PSVT, paroxysmal atrial fibrillation anticoagulated with Eliquis, and history CVA in 2019 presented to the ED via EMS for evaluation of chest pain.? She states that she has had intermittent retrosternal chest pressure and left-sided chest ache rated as a 7/10 without any radiation ongoing for the last week.? States pain can present intermittently for several hours before resolving spontaneously.? 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 Vargas, who advised ED, but patient went to urgent care and then was transferred to ED via EMS.? Prior to this past week, she denies any history of similar chest pains.? States she has had 2 positive stress test historically but cardiac catheterization was negative.? States last episode of chest pain was within the last hour.? This is both exertional and at rest.? Denies any fevers, chills, orthopnea, dyspnea on exertion, PND, diaphoresis, vomiting, abdominal pain.? On arrival, mild tachycardia 108, vitals otherwise normal.? She is now mildly hypertensive at 149/68.? Hematology studies unremarkable.? Renal function electrolyte levels normal.? Troponin 4.3, BNP negative.? PT 14.9/INR 1.3, PTT 30.7.? EKG with normal sinus rhythm, rate 99, nonspecific ST/T-wave abnormality, no ROD or depressions suggestive of acute ischemia. CXR without acute abnormality. ED discussed with Dr. Vargas and patient will be admitted for unstable angina. Hospital Course: Patient placed on heparin drip per protocol. PTT 62.4 this am. H/H & PLT stable 12.2/37.3%, 354. Throughout admission, patient continues with report retrosternal chest pain described as ache/pressure, also in left chest. Nonradiating, both at rest and exertional. Associated with nausea. Has also been started on Imdur 30mg daily. VS on discharge: BP 103/55, 96.8, HR 86, 16, 96% on RA. AFib remained rate controlled with po dilt. Eliquis on hold. Continued on asa 81mg daily. Followed by cardiology, Dr. Vargas, during admission (also follows with her outpt), recommending transfer to [facility] for cardiac catheterization and he will continue following patient in consult at [facility] and perform procedure tomorrow. Of note, patient has a significant number of allergies and will require contrast prior to procedure tomorrow. Allergic to prednisone. Dr. Vargas recommending Decadron 7.5 mg 13 hours, 7 hours, and 1 hour prior to procedure and should also receive pepcid and benadryl. She will be transferring to [facility] via EMS on heparin drip. Status at Discharge Functional status at discharge: independent ambulation Overall status at discharge: patient is not back to baseline Time Spent with Patient Time attestation: Total time managing care of this patient today ____ minutes. Discharge coordination time: Greater than 30 minutes Quality: Safe Use of Opioids Does Pt have an Active Cancer Diagnosis on the Problem List?: No Quality: Stroke Does the patient have a stroke diagnosis?: No Physical Exam Vital Signs: Vital Signs: Last Vital Signs Temp 96.8 F 03/03/22 15:25 Pulse 86 03/03/22 15:25 Resp 16 03/03/22 15:25 BP 103/55 L 03/03/22 15:25 Pulse Ox 96 03/03/22 15:25 O2 Del Method 03/03/22 15:25 BMI result Body Mass Index 28.9 Constitutional - Awake and Alert, No apparent distress Eyes - PERRLA, EOMI Cardiovascular - S1S2, RRR, No edema Respiratory - Normal lung expansion, Normal respiratory effort, No respiratory distress, CTA bilaterally Gastrointestinal - NT / ND; +BS; No rebound or guarding Extremities - no calf tenderness bilaterally, no swelling Skin - Warm/Dry Neurological - Alert & oriented x 3 Psychological - Appropriate affect DS: Data Data Completed and Pending Labs on day of discharge: Laboratory Results - last 24 hr 03/02/22 03/02/22 03/02/22 16:21 17:05 18:52 WBC RBC Hgb Hct MCV MCH MCHC RDW Plt Count MPV Absolute Nucleated RBC Nucleated RBC % (auto) PT 14.5 H INR 1.3 H aPTT Heparin Protocol 38.2 L POC Glucose 101 104 Troponin I High Sens 03/02/22 03/02/22 03/03/22 21:53 23:49 05:46 WBC 8.4 RBC 4.01 L Hgb 12.2 Hct 37.3 MCV 93.0 MCH 30.4 MCHC 32.7 RDW 13.2 Plt Count 354 MPV 9.1 L Absolute Nucleated RBC 0.000 Nucleated RBC % (auto) 0.0 PT INR aPTT Heparin Protocol 130.6 H* D 51.8 L D POC Glucose Troponin I High Sens 03/03/22 03/03/22 03/03/22 05:46 05:46 07:20 WBC RBC Hgb Hct MCV MCH MCHC RDW Plt Count MPV Absolute Nucleated RBC Nucleated RBC % (auto) PT 12.7 INR 1.1 aPTT Heparin Protocol 45.5 L POC Glucose 115 Troponin I High Sens 03/03/22 03/03/22 03/03/22 08:20 11:08 11:30 WBC RBC Hgb Hct MCV MCH MCHC RDW Plt Count MPV Absolute Nucleated RBC Nucleated RBC % (auto) PT INR aPTT Heparin Protocol 62.4 D POC Glucose 159 H Troponin I High Sens 3.3 03/03/22 15:28 WBC RBC Hgb Hct MCV MCH MCHC RDW Plt Count MPV Absolute Nucleated RBC Nucleated RBC % (auto) PT INR aPTT Heparin Protocol POC Glucose 123 H Troponin I High Sens Discharge Plan Discharge Anticipated Discharge Date/Time: 03/03/22 16:21 Patient Disposition: Home, Self-Care Discharge Diagnosis: Unstable angina Referrals: Karo Tang MD [Primary Care Provider] - 1 Week Sam,Robles, MD [Physician] - 1 Week Discharge Medications: New heparin(porcine) in 0.45% NaCl 25,000 unit/250 mL Parenteral Solution 25,000 unit continuous IV infusion .Q0M Qty: 250 0RF heparin (porcine) 5,000 unit/mL Solution 5,600 unit IVPUSH PROTOCOL BOLUS PRN (Reason: 80 Unit/Kg - Heparin Protocol) Qty: 1.12 0RF heparin (porcine) 5,000 unit/mL Solution 2,800 unit IVPUSH PROTOCOL BOLUS PRN (Reason: 40 Unit/Kg - Heparin Protocol) Qty: 0.56 0RF Continued diltiazem HCl 360 mg capsule,extended release 24 hr 360 mg PO DAILY Qty: 90 2RF losartan 50 mg tablet 50 mg PO DAILY Qty: 90 2RF aspirin 81 mg tablet,delayed release (DR/EC) 81 mg PO DAILY levothyroxine 75 mcg tablet 75 mcg PO DAILY@0600 acetaminophen 325 mg Tablet 650 mg PO Q6H PRN (Reason: Pain) Ubrelvy 50 mg tablet 50 mg PO DAILY fluvastatin 80 mg tablet extended release 24 hr 80 mg PO BEDTIME fenofibrate micronized 200 mg capsule 200 mg PO BEDTIME fluticasone propionate 50 mcg/actuation spray,suspension 50 mcg intranasal DAILY albuterol sulfate 90 mcg/actuation HFA aerosol inhaler 90 mcg inhalation NEEDED cyclobenzaprine 5 mg tablet 5 mg PO BEDTIME omeprazole 20 mg capsule,delayed release(DR/EC) 20 mg PO BEDTIME riboflavin (vitamin B2) [Vitamin B-2] 100 mg tablet 400 mg PO DAILY Held Eliquis 5 mg Tablet 5 mg PO BID Qty: 60 0RF Hold Instructions: Resume on 03/04/22. Discharge Orders: Discharge Order (Routine); Ordered 03/03/22 Ordered By: Denisa Graff Diet: cardiac diet Activity on Discharge: As tolerated Stand Alone Forms: Patient Portal Discharge page Care Plan Goals: Transfer to [facility] for cardiac catheterization tomorrow Follow up outpatient with Dr. Vargas on discharge Health Concerns: Unstable angina Plan of Treatment: You were treated with heparin, a blood thinner, to manage your chest pains which are likely related to unstable angina. Your cardiac enzymes have all been normal and your EKG was unremarkable overall. We will continue holding your eliquis while you are on the heparin. You will be transferred to [facility] for a cardiac catheterization. Given your allergies we will treat you prior to the catheterization to prevent reaction. Assessment: As above
--- NOTE | 2022-03-03 17:25 | PC.NURSE ---
Attempted to call report to [facility] RN not able to take report ,requested to call back in 1/2 hr
[2022-03-03 17:33] LABS: PTT Heparin Drip 54.3 SEC (53-77.9)
== END 2022-03-03 19:07 | disposition short-term general hospital (02) | DRG 311 ==
LOC: HO.ED 13:13 → HO.EDOVER 16:09 → HO.IMC 16:56
PROVIDERS: Internal Medicine; Physician Assistant; Admitting Provider Physician Assistant; Emergency Provider Emergency Medicine; PCP Pediatrics; Visit Provider Physician Assistant
DX: I20.0 Unstable angina (principal); E78.5 Hyperlipidemia, unspecified; I10 Essential (primary) hypertension; E11.9 Type 2 diabetes mellitus without complications; E89.0 Postprocedural hypothyroidism; G44.209 Tension-type headache, unspecified, not intractable; Z20.822 Contact with and (suspected) exposure to COVID-19; Z86.73 Personal history of transient ischemic attack (TIA), and cerebral infarction without residual deficits; Z88.1 Allergy status to other antibiotic agents; Z88.2 Allergy status to sulfonamides; Z88.5 Allergy status to narcotic agent; Z88.8 Allergy status to other drugs, medicaments and biological substances; Z79.01 Long term (current) use of anticoagulants; Z79.82 Long term (current) use of aspirin; Z79.890 Hormone replacement therapy; Z79.899 Other long term (current) drug therapy
CPT/HCPCS: 0241U; 36415; 71045; 71046; 80053; 82947; 83880; 84484; 85025; 85027; 85610; 85730; 93005; 93306; 99285; J2405; Q9957

== ENCOUNTER → 2022-03-18 14:55 | Outpatient (BNVA) | payer MEDICARE, OTHER, SELFPAY | PROVIDERS: PCP Pediatrics; Visit Provider Internal Medicine Cardiovascular Disease | DX: I48.0 Paroxysmal atrial fibrillation (principal); I20.0 Unstable angina; Z79.01 Long term (current) use of anticoagulants; Z79.02 Long term (current) use of antithrombotics/antiplatelets; Z98.61 Coronary angioplasty status | CPT/HCPCS: 99212 ==

== ENCOUNTER 2022-03-24 12:19 | Emergency (ER) | payer MEDICARE, OTHER, SELFPAY ==
--- NOTE | ~2022-03-24 | US_ITS ---
EXAMINATION: US VENOUS WITH DOPPLER UPPER EXTREMITY, RIGHT CLINICAL INFORMATION: Swelling. Pain. History of cardiac catheterization 3 weeks ago. COMPARISON: None TECHNIQUE: Ultrasound of the upper extremity is performed using compression sonography and color and pulse Doppler flow with assessment of augmentation of flow. There is also imaging and Doppler assessment of the jugular and subclavian veins. Spectral analysis with color-flow imaging is performed. FINDINGS: Respiratory variation, normal compression, and augmented flow are noted throughout the upper extremity including the axillary, brachial, cubital, and radial and ulnar veins. There is normal flow in the internal jugular and subclavian veins. There is no visible deep or superficial thrombophlebitis. If the patient's symptoms progress, a followup ultrasound in 5 -7 days might be of value to exclude proximal propagation from a nonvisualized distal arm vein. US/US venous duplex UE RT IMPRESSION: No DVT demonstrated in the right upper extremity
--- NOTE | ~2022-03-24 | XR_ITS ---
EXAMINATION: XR CHEST CLINICAL INFORMATION: Chest pain COMPARISON: 03/02/2022 TECHNIQUE: Frontal view of the chest was obtained. FINDINGS: No significant abnormality is noted involving the heart, lungs, mediastinum, bony thorax or soft tissues. Implantable loop recorder. XR/XR chest 1V IMPRESSION: No acute cardiopulmonary process.
--- NOTE | 2022-03-24 12:20 | ECG_ITS ---
Test Reason : CHEST PAIN Blood Pressure : / mmHG Vent. Rate : 102 BPM Atrial Rate : 102 BPM P-R Int : 148 ms QRS Dur : 070 ms QT Int : 340 ms P-R-T Axes : 063 020 119 degrees QTc Int : 443 ms Sinus tachycardia Low voltage QRS Cannot rule out Anterior infarct , age undetermined Abnormal ECG When compared with ECG of 02-MAR-2022 12:06, No significant change was found Referred By: Naya Medina Electronically Signed By:Robles Vargas
[2022-03-24 12:22] VITALS: BP 184/76; PULSE 100; RESP 19; TEMP 36.6; O2SAT 99; BMI 28.0
--- NOTE | 2022-03-24 12:22 | ED.CHESTPAIN ---
HPI - Chest Pain General Chief Complaint: Chest Pain <KRISTEN Burns - Last Filed: 03/24/22 12:24> Stated Complaint: Heart attack? <KRISTEN Burns - Last Filed: 03/24/22 12:24> Time Seen by Provider: 03/24/22 13:04 <KRISTEN Burns - Last Filed: 03/24/22 12:24> Source: patient <Jean Angel MD - Last Filed: 03/24/22 23:50> Mode of arrival: ambulatory <Jean Angel MD - Last Filed: 03/24/22 23:50> Limitations: no limitations <Jean Angel MD - Last Filed: 03/24/22 23:50> History of Present Illness HPI narrative: 66-year-old female who presents emergency department for evaluation of 4 days of chest pain, 2 days of right distal forearm and wrist pain with numbness of her right thumb, index, middle and ring finger. The patient had a myocardial infarction on 03/02/2023 after shoveling. She came to the emergency department and was transferred to [facility] where she had a cardiac catheterization, the patient had a mid LAD lesion which was treated with a drug-eluting stent. The patient has been on Eliquis for atrial fibrillation and she is now also on Plavix. He states the chest pain started 4 days prior while she was at rest, came on gradually, the pain is been constant but waxes and wanes in intensity. The pain is 8/10 at its worst. Currently the pain is 2/10. Patient states that 3 days prior she had some left shoulder pain but this resolved, she had no associated back pain. She states that the pain does not change with respiration but she does feel short of breath and does have dyspnea on exertion. Pain is not worse lying down flat, seems to be worse if she is sitting up. Patient states that yesterday she developed right distal forearm pain and wrist pain in the area where she had the cardiac catheterization. She states she is also feeling numbness of her thumb, index, middle and ring fingers. She has had no loss of strength. She states that she may have had a low-grade fever, she denied chills. She states she has had rhinorrhea, sore throat and a cough x4 days which is nonproductive. Patient has had nausea with no vomiting. States yesterday she had at least 10 loose stools with no dark stools or bloody stools. She states that she does have myalgias arthralgias but she attributes this to her fibromyalgia. <Jean Angel MD - Last Filed: 03/24/22 23:50> Related Data Home Medications: Home Medications Medication Instructions Recorded Confirmed albuterol sulfate 90 mcg/actuation 90 mcg inhalation NEEDED 01/24/20 03/18/22 aerosol inhaler fenofibrate micronized 200 mg 200 mg PO BEDTIME 01/24/20 03/18/22 capsule fluticasone propionate 50 50 mcg intranasal DAILY 01/24/20 03/18/22 mcg/actuation nasal spray,suspension fluvastatin 80 mg tablet,extended 80 mg PO BEDTIME 01/24/20 03/18/22 release 24 hr cyclobenzaprine 5 mg tablet 5 mg PO BEDTIME 04/17/20 03/18/22 omeprazole 20 mg capsule,delayed 20 mg PO BEDTIME 08/08/20 03/18/22 release riboflavin (vitamin B2) 100 mg 400 mg PO DAILY 11/25/21 03/18/22 tablet (Vitamin B-2) acetaminophen 325 mg tablet 650 mg PO Q6H PRN Pain 03/02/22 03/18/22 levothyroxine 75 mcg tablet 75 mcg PO DAILY@0600 03/02/22 03/18/22 ubrogepant 50 mg tablet (Ubrelvy) 50 mg PO DAILY 03/02/22 03/18/22 Previous Rx's Medication Instructions Recorded apixaban 5 mg tablet (Eliquis) 5 mg PO BID #60 tabs 05/11/20 diltiazem HCl 360 mg capsule,24 360 mg PO DAILY #90 caps 07/08/21 hr,extended release losartan 50 mg tablet 50 mg PO DAILY #90 tabs 11/12/21 clopidogrel 75 mg tablet 75 mg PO DAILY #90 tabs 03/18/22 <KRISTEN Burns - Last Filed: 03/24/22 12:24> Allergies/Adverse Reactions: Allergies Allergy/AdvReac Type Severity Reaction Status Date / Time metoprolol [METOPROLOL] Allergy Severe angioedema Verified 03/18/22 15:18 amoxicillin [AMOXICILLIN] Allergy Unknown UNKNOWN Verified 03/18/22 15:18 bupropion [BUPROPION] Allergy Unknown UNKNOWN Verified 03/18/22 15:18 cephalexin [From KEFLEX] Allergy Unknown UNKNOWN Verified 03/18/22 15:18 Cephalosporins Allergy Unknown UNKNOWN Verified 03/18/22 15:18 [CEPHALOSPORINS] codeine [CODEINE] Allergy Unknown UNKNOWN Verified 03/18/22 15:18 dicyclomine [DICYCLOMINE] Allergy Unknown UNKNOWN Verified 03/18/22 15:18 doxycycline Allergy Unknown Unknown Verified 03/18/22 15:18 erythromycin base Allergy Unknown UNKNOWN Verified 03/18/22 15:18 [ERYTHROMYCIN BASE] Iodinated Contrast Media Allergy Unknown UNKNOWN Verified 03/18/22 15:18 [IV CONTRAST] lansoprazole [LANSOPRAZOLE] Allergy Unknown UNKNOWN Verified 03/18/22 15:18 meperidine [From DEMEROL] Allergy Unknown ANAPHYLAXIS Verified 03/18/22 15:18 oxycodone [OXYCODONE] Allergy Unknown UNKNOWN Verified 03/18/22 15:18 shellfish derived Allergy Unknown Unknown Verified 03/18/22 15:18 simvastatin [SIMVASTATIN] Allergy Unknown UNKNOWN Verified 03/18/22 15:18 Sulfa (Sulfonamide Allergy Unknown UNKNOWN Verified 03/18/22 15:18 Antibiotics) [SULFA (SULFONAMIDE ANTIBIOTICS)] tramadol [TRAMADOL] Allergy Unknown UNKNOWN Verified 03/18/22 15:18 verapamil [VERAPAMIL] Allergy Unknown ANAPHYLAXIS Verified 03/18/22 15:18 <KRISTEN Burns - Last Filed: 03/24/22 12:24> Review of Systems Review of Systems: Yes all other systems are reviewed and are negative <Jean Angel MD - Last Filed: 03/24/22 23:50> [facility] Past Medical History Medical History: Medical History CVA (cerebral vascular accident) Diet-controlled diabetes mellitus H/O paroxysmal supraventricular tachycardia Hyperlipidemia Hypertension Hypothyroidism Migraine headache PAF (paroxysmal atrial fibrillation) Postablative hypothyroidism Thyroid nodule Toxic multinodular goiter Vitamin D deficiency <KRISTEN Burns - Last Filed: 03/24/22 12:24> Surgical History: Surgical History H/O bladder repair surgery H/O pelvic surgery H/O: hysterectomy History of cardiac cath Hx of appendectomy <KRISTEN Burns - Last Filed: 03/24/22 12:24> Family History Family History: Family History Mother High blood sugar Myocardial infarction Father Diabetes Myocardial infarction Stroke Brother Myocardial infarction <KRISTEN Burns - Last Filed: 03/24/22 12:24> Social History Social History: Social History Household Members: None Housing: House Do you presently have visiting nurse or other home services: No Alcohol intake: never Patient Tobacco Use Status: Never used Tobacco e-Cigarette/Vaping Use: Never Used Second Hand Smoke Exposure: No Advance Directives: Yes Advance Directives on File: Yes Advance Directives Date on File: 03/02/22 service: No Current occupational status: retired <KRISTEN Burns - Last Filed: 03/24/22 12:24> Physical Exam Vital Signs: Vital Signs: Last Vital Signs Temp 98.9 F 03/24/22 15:38 Pulse 94 03/24/22 15:38 Resp 20 03/24/22 15:38 BP 142/73 H 03/24/22 15:38 Pulse Ox 97 03/24/22 15:38 O2 Del Method 03/24/22 15:38 BMI result Body Mass Index 28.0 <KRISTEN Burns - Last Filed: 03/24/22 12:24> Vital Signs: Last Vital Signs Temp 98.9 F 03/24/22 15:38 Pulse 94 03/24/22 15:38 Resp 20 03/24/22 15:38 BP 142/73 H 03/24/22 15:38 Pulse Ox 97 03/24/22 15:38 O2 Del Method 03/24/22 15:38 BMI result Body Mass Index 28.0 <Jean Angel MD - Last Filed: 03/24/22 23:50> Const: General: cooperative and no acute distress <Jean Angel MD - Last Filed: 03/24/22 23:50> Orientation/consciousness: oriented to person and oriented to place <Jean Angel MD - Last Filed: 03/24/22 23:50> Limitations: no limitations <MD Quan Parr Last Filed: 03/24/22 23:50> HEENT: Head: Yes normal to inspection, Yes normocephalic and Yes atraumatic <Jean Angel MD - Last Filed: 03/24/22 23:50> Ears: external ears normal <Jean Angel MD - Last Filed: 03/24/22 23:50> General nose exam: Normal external nose present <MD Quan Parr Last Filed: 03/24/22 23:50> Face and sinus: Yes normal facial exam <MD Quan Parr Last Filed: 03/24/22 23:50> Mouth: Normal oral and palatal mucosa present <MD Quan Parr Last Filed: 03/24/22 23:50> Throat: Yes posterior oropharynx normal <MD Quan Parr Last Filed: 03/24/22 23:50> Eyes: General: appearance normal, both eyes and all related structures <MD Quan Parr Last Filed: 03/24/22 23:50> Pupils: Equal, round and reactive pupils present <MD Quan Parr Last Filed: 03/24/22 23:50> Neck: Neck: Yes normal visual inspection, Yes no lymphadenopathy, Yes trachea midline and Yes supple <MD Quan Parr Last Filed: 03/24/22 23:50> Chest: Chest palpation & inspection: normal inspection of the chest and normal palpation of entire chest wall <MD Quan Parr Last Filed: 03/24/22 23:50> Resp: Effort & Inspection: normal respiratory effort and able to speak in complete sentences <MD Quan Parr Last Filed: 03/24/22 23:50> Auscultation: clear to auscultation bilaterally <MD Quan Parr Last Filed: 03/24/22 23:50> Cardio: Rate: regular rate <Jean Angel MD - Last Filed: 03/24/22 23:50> Rhythm: regular rhythm <Jean Angel MD - Last Filed: 03/24/22 23:50> Heart sounds: S1 normal heart sound present, S2 normal heart sound present and no murmurs <Jean Angel MD - Last Filed: 03/24/22 23:50> GI: Inspection: Yes normal to inspection <Jean Angel MD - Last Filed: 03/24/22 23:50> Palpation (GI): Soft to palpation, nontender and no guarding <Jean Angel MD - Last Filed: 03/24/22 23:50> Auscultation: normal bowel sounds <Jean Angel MD - Last Filed: 03/24/22 23:50> : General: Yes no CVA tenderness <Jean Angel MD - Last Filed: 03/24/22 23:50> Back/Spine/Pelvis: Back: no CVA tenderness <Jean Angel MD - Last Filed: 03/24/22 23:50> Skin: General skin exam: no rashes or lesions noted <Jean Angel MD - Last Filed: 03/24/22 23:50> Neuro: General: oriented to person and oriented to place <Jean Angel MD - Last Filed: 03/24/22 23:50> Cranial nerves: Yes CN's II-XII intact bilaterally and Yes Equal, round and reactive pupils present <Jean Angel MD - Last Filed: 03/24/22 23:50> Cognition (Neuro): normal cognition <MD Quan Parr Last Filed: 03/24/22 23:50> Motor exam (neuro): 5/5 motor strength present throughout <Jean Angel MD - Last Filed: 03/24/22 23:50> Extrem: Other: The puncture site on the flexor aspect the wrist is detectable. Patient has symmetric radial and ulnar pulses bilaterally, there is no change in warmth between the right versus left upper extremity. The patient has normal strength of her right hand, she can make an okay sign and has good opponents with normal strength. <Jean Angel MD - Last Filed: 03/24/22 23:50> Psych: Appearance: grossly normal <Jean Angel MD - Last Filed: 03/24/22 23:50> Speech and movement: Normal speech and movement present <Jean Angel MD - Last Filed: 03/24/22 23:50> Affect: normal affect <Jean Angel MD - Last Filed: 03/24/22 23:50> Attitude: cooperative <Jean Angel MD - Last Filed: 03/24/22 23:50> Thought process: Normal thought process present <Jean Angel MD - Last Filed: 03/24/22 23:50> Thought content: Normal thought content present <Jean Angel MD - Last Filed: 03/24/22 23:50> Course Course Course Narrative: RME - 66 yo female with history of unstable angina with recent UT s/p GRISEL to the mid LAD a few weeks ago currently on Plavix and Eliquis, hx paroxysmal AFib who presents to the ER for evaluation of worsening central chest pain for the last [address] Vargas instructed her to come to the ER. Patient brought back to get EKG & labs done. <KRISTEN Burns - Last Filed: 03/24/22 12:24> Medical Decision Making Medical Decision Making MDM Narrative: 66-year-old female with multiple medical problems, was approximately 3 weeks post myocardial infarction, status post cardiac catheterization with mid LAD GRISEL stent who is currently on Plavix and also has been taking Eliquis for years for her atrial fibrillation who presents emergency department for evaluation of 4 days of constant midsternal burning like chest pain and 2 days of right distal forearm and wrist pain with numbness of her right thumb, index, middle and 4th finger. Patient's physical exam is unremarkable and her extremities are neurovascular intact. I ordered a CBC, CMP, PT/INR, PTT, D-dimer, troponin, 12 EKG, chest x-ray. 1714: My independent interpretation of the patient's laboratory and radiology studies are as follows: CBC was normal.CMP was normal. The patient's 1st high sensitivity troponin I was detectable at 7.3, the repeat 3 hour was 6.0 which not reveal a significant change which is reassuring suggesting she does not have myocardial injury is the cause of her chest pain. Patient's D-dimer was not elevated suggests she does not have pulmonary embolism as to cause for pain. One-view chest x-ray, my interpretation was that there was no acute disease Ms. Correlates with the radiology interpretation. Radiology interpretation of the patient's duplex ultrasound of the right upper extremity revealed no acute findings. 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 Also I believe that the patient's right wrist/forearm pain and numbness of her fingers secondary to median nerve inflammation possibly carpal tunnel syndrome or possibly related to the cardiac catheterization. Patient was placed in a wrist splint and told to wear this for 2 weeks. She is on Eliquis so she cannot take anti-inflammatory medications but she was advised to take Tylenol for her wrist pain in her chest pain. <Jean Angel MD - Last Filed: 03/24/22 23:50> Differential Diagnosis Differential diagnosis includes was not limited to Preethi's syndrome, myocardial infarction, angina, pericarditis, pulmonary embolism, right upper extremity DVT, right upper extremity arterial compromise, right median nerve hematoma or swelling costochondritis, pneumonia <Jean Angel MD - Last Filed: 03/24/22 23:50> Lab Data [facility] Lab Attestation statement: I reviewed the patient's lab results. <Jean Angel MD - Last Filed: 03/24/22 23:50> Please see [facility] for my discussion <Jean Angel MD - Last Filed: 03/24/22 23:50> Result Diagrams: 03/24/22 12:35 03/24/22 12:35 <KRISTEN Burns - Last Filed: 03/24/22 12:24> Labs: Lab Results 03/24/22 03/24/22 03/24/22 Range/Units 12:35 12:35 12:35 WBC 9.6 (4.8-10.8) X10*3/uL RBC 4.22 (4.20-5.50) X10*6/uL Hgb 12.8 (12.0-16.0) g/dl Hct 39.3 (37.0-47.0) % MCV 93.1 (80.0-98.0) fL MCH 30.3 (27.0-33.0) pg MCHC 32.6 (31.0-35.0) g/dl RDW 13.4 (11.0-16.0) % Plt Count 405 H (160-400) X10*3/uL MPV 8.8 L (9.4-12.3) fL Immature Gran % (Auto) 0.3 (0.0-0.4) % Neut % (Auto) 65.9 (45-73) % Lymph % (Auto) 24.8 (20-40) % [place] % (Auto) 6.7 (2-11) % Eos % (Auto) 1.9 (0-4) % Baso % (Auto) 0.4 (0-2) % Lymph # (Auto) 2.4 (1.2-4.9) X10*3/uL [place] # (Auto) 0.7 (0.1-1.2) X10*3/uL Eos # (Auto) 0.2 (0.0-0.4) X10*3/uL Baso # (Auto) 0.0 (0.0-0.2) X10*3/uL Abs Immat Gran (auto) 0.03 (0.00-0.03) X10*3/uL Absolute Neuts (auto) 6.3 (2.0-8.3) x10*3/uL Absolute Nucleated RBC 0.000 (0.0-0.012) X10*3/uL Nucleated RBC % (auto) 0.0 (0.0-0.2) /100WBC PT (10.0-13.1) SEC INR (0.9-1.1) APTT (26.0-36.4) SEC D-Dimer High Sensitivty NG/ML Sodium 137 (135-145) mmol/L Potassium 4.3 (3.3-5.1) mmol/L Chloride 102 (96-108) mmol/L Carbon Dioxide 25 (22-29) mmol/L Anion Gap 14 (12-20) BUN 17 H (9-16) mg/dL Creatinine 0.81 (0.5-1.4) mg/dL Estim Creat Clear Calc 61.5 Estimated GFR > 60 Random Glucose 138 H (60-115) mg/dL Calcium 9.9 (8.4-10.2) mg/dL Magnesium 1.9 (1.6-2.6) mg/dL Total Bilirubin 0.4 (0.0-1.0) mg/dL Direct Bilirubin < 0.2 (0.0-0.5) mg/dL AST 26 (5-31) U/L ALT 19 (0-31) U/L Alkaline Phosphatase 68 (39-117) U/L Troponin I High Sens 7.3 D (<3.5-17.0) ng/L B-Natriuretic Peptide (<100) pg/mL Total Protein 7.2 (6.5-8.0) g/dL Albumin 4.4 (3.5-5.0) g/dL Urine Color Urine Appearance Urine pH (5.0-9.0) Ur Specific [place] (1.005-1.025) Urine Protein (Neg-Trace) mg/dL Urine Glucose (UA) (Negative) mg/dL Urine Ketones (Negative) mg/dL Urine Blood (Negative) Urine Nitrite (Negative) Ur Leukocyte Esterase (Negative) Urine RBC (0-2) /HPF Urine WBC (0-5) /HPF Ur Squamous Epith Cells (0-2) /HPF Urine Bacteria (None Seen) Hyaline Casts (0-2) /LPF COVID-19 (YAQUELIN) (Negative) COVID-19 Clin Com 03/24/22 03/24/22 03/24/22 Range/Units 12:35 12:35 12:35 WBC (4.8-10.8) X10*3/uL RBC (4.20-5.50) X10*6/uL Hgb (12.0-16.0) g/dl Hct (37.0-47.0) % MCV (80.0-98.0) fL MCH (27.0-33.0) pg MCHC (31.0-35.0) g/dl RDW (11.0-16.0) % Plt Count (160-400) X10*3/uL MPV (9.4-12.3) fL Immature Gran % (Auto) (0.0-0.4) % Neut % (Auto) (45-73) % Lymph % (Auto) (20-40) % [place] % (Auto) (2-11) % Eos % (Auto) (0-4) % Baso % (Auto) (0-2) % Lymph # (Auto) (1.2-4.9) X10*3/uL [place] # (Auto) (0.1-1.2) X10*3/uL Eos # (Auto) (0.0-0.4) X10*3/uL Baso # (Auto) (0.0-0.2) X10*3/uL Abs Immat Gran (auto) (0.00-0.03) X10*3/uL Absolute Neuts (auto) (2.0-8.3) x10*3/uL Absolute Nucleated RBC (0.0-0.012) X10*3/uL Nucleated RBC % (auto) (0.0-0.2) /100WBC PT 14.5 H (10.0-13.1) SEC INR 1.3 H (0.9-1.1) APTT 37.6 H (26.0-36.4) SEC D-Dimer High Sensitivty < 150 NG/ML Sodium (135-145) mmol/L Potassium (3.3-5.1) mmol/L Chloride (96-108) mmol/L Carbon Dioxide (22-29) mmol/L Anion Gap (12-20) BUN (9-16) mg/dL Creatinine (0.5-1.4) mg/dL Estim Creat Clear Calc Estimated GFR Random Glucose (60-115) mg/dL Calcium (8.4-10.2) mg/dL Magnesium (1.6-2.6) mg/dL Total Bilirubin (0.0-1.0) mg/dL Direct Bilirubin (0.0-0.5) mg/dL AST (5-31) U/L ALT (0-31) U/L Alkaline Phosphatase (39-117) U/L Troponin I High Sens (<3.5-17.0) ng/L B-Natriuretic Peptide < 10 (<100) pg/mL Total Protein (6.5-8.0) g/dL Albumin (3.5-5.0) g/dL Urine Color Urine Appearance Urine pH (5.0-9.0) Ur Specific [place] (1.005-1.025) Urine Protein (Neg-Trace) mg/dL Urine Glucose (UA) (Negative) mg/dL Urine Ketones (Negative) mg/dL Urine Blood (Negative) Urine Nitrite (Negative) Ur Leukocyte Esterase (Negative) Urine RBC (0-2) /HPF Urine WBC (0-5) /HPF Ur Squamous Epith Cells (0-2) /HPF Urine Bacteria (None Seen) Hyaline Casts (0-2) /LPF COVID-19 (YAQUELIN) Negative (Negative) COVID-19 Clin Com See Note 03/24/22 03/24/22 Range/Units 14:02 14:54 WBC (4.8-10.8) X10*3/uL RBC (4.20-5.50) X10*6/uL Hgb (12.0-16.0) g/dl Hct (37.0-47.0) % MCV (80.0-98.0) fL MCH (27.0-33.0) pg MCHC (31.0-35.0) g/dl RDW (11.0-16.0) % Plt Count (160-400) X10*3/uL MPV (9.4-12.3) fL Immature Gran % (Auto) (0.0-0.4) % Neut % (Auto) (45-73) % Lymph % (Auto) (20-40) % [place] % (Auto) (2-11) % Eos % (Auto) (0-4) % Baso % (Auto) (0-2) % Lymph # (Auto) (1.2-4.9) X10*3/uL [place] # (Auto) (0.1-1.2) X10*3/uL Eos # (Auto) (0.0-0.4) X10*3/uL Baso # (Auto) (0.0-0.2) X10*3/uL Abs Immat Gran (auto) (0.00-0.03) X10*3/uL Absolute Neuts (auto) (2.0-8.3) x10*3/uL Absolute Nucleated RBC (0.0-0.012) X10*3/uL Nucleated RBC % (auto) (0.0-0.2) /100WBC PT (10.0-13.1) SEC INR (0.9-1.1) APTT (26.0-36.4) SEC D-Dimer High Sensitivty NG/ML Sodium (135-145) mmol/L Potassium (3.3-5.1) mmol/L Chloride (96-108) mmol/L Carbon Dioxide (22-29) mmol/L Anion Gap (12-20) BUN (9-16) mg/dL Creatinine (0.5-1.4) mg/dL Estim Creat Clear Calc Estimated GFR Random Glucose (60-115) mg/dL Calcium (8.4-10.2) mg/dL Magnesium (1.6-2.6) mg/dL Total Bilirubin (0.0-1.0) mg/dL Direct Bilirubin (0.0-0.5) mg/dL AST (5-31) U/L ALT (0-31) U/L Alkaline Phosphatase (39-117) U/L Troponin I High Sens 6.0 (<3.5-17.0) ng/L B-Natriuretic Peptide (<100) pg/mL Total Protein (6.5-8.0) g/dL Albumin (3.5-5.0) g/dL Urine Color Yellow Urine Appearance Clear Urine pH 6.0 (5.0-9.0) Ur Specific [place] <= 1.005 (1.005-1.025) Urine Protein Negative (Neg-Trace) mg/dL Urine Glucose (UA) Negative (Negative) mg/dL Urine Ketones Negative (Negative) mg/dL Urine Blood Negative (Negative) Urine Nitrite Negative (Negative) Ur Leukocyte Esterase Trace H (Negative) Urine RBC 0-2 (0-2) /HPF Urine WBC 0-5 (0-5) /HPF Ur Squamous Epith Cells 0-2 (0-2) /HPF Urine Bacteria None Seen (None Seen) Hyaline Casts 0-2 (0-2) /LPF COVID-19 (YAQUELIN) (Negative) COVID-19 Clin Com <KRISTEN Burns - Last Filed: 03/24/22 12:24> Lab Results 03/24/22 03/24/22 03/24/22 Range/Units 12:35 12:35 12:35 WBC 9.6 (4.8-10.8) X10*3/uL RBC 4.22 (4.20-5.50) X10*6/uL Hgb 12.8 (12.0-16.0) g/dl Hct 39.3 (37.0-47.0) % MCV 93.1 (80.0-98.0) fL MCH 30.3 (27.0-33.0) pg MCHC 32.6 (31.0-35.0) g/dl RDW 13.4 (11.0-16.0) % Plt Count 405 H (160-400) X10*3/uL MPV 8.8 L (9.4-12.3) fL Immature Gran % (Auto) 0.3 (0.0-0.4) % Neut % (Auto) 65.9 (45-73) % Lymph % (Auto) 24.8 (20-40) % [place] % (Auto) 6.7 (2-11) % Eos % (Auto) 1.9 (0-4) % Baso % (Auto) 0.4 (0-2) % Lymph # (Auto) 2.4 (1.2-4.9) X10*3/uL [place] # (Auto) 0.7 (0.1-1.2) X10*3/uL Eos # (Auto) 0.2 (0.0-0.4) X10*3/uL Baso # (Auto) 0.0 (0.0-0.2) X10*3/uL Abs Immat Gran (auto) 0.03 (0.00-0.03) X10*3/uL Absolute Neuts (auto) 6.3 (2.0-8.3) x10*3/uL Absolute Nucleated RBC 0.000 (0.0-0.012) X10*3/uL Nucleated RBC % (auto) 0.0 (0.0-0.2) /100WBC PT (10.0-13.1) SEC INR (0.9-1.1) APTT (26.0-36.4) SEC D-Dimer High Sensitivty NG/ML Sodium 137 (135-145) mmol/L Potassium 4.3 (3.3-5.1) mmol/L Chloride 102 (96-108) mmol/L Carbon Dioxide 25 (22-29) mmol/L Anion Gap 14 (12-20) BUN 17 H (9-16) mg/dL Creatinine 0.81 (0.5-1.4) mg/dL Estim Creat Clear Calc 61.5 Estimated GFR > 60 Random Glucose 138 H (60-115) mg/dL Calcium 9.9 (8.4-10.2) mg/dL Magnesium 1.9 (1.6-2.6) mg/dL Total Bilirubin 0.4 (0.0-1.0) mg/dL Direct Bilirubin < 0.2 (0.0-0.5) mg/dL AST 26 (5-31) U/L ALT 19 (0-31) U/L Alkaline Phosphatase 68 (39-117) U/L Troponin I High Sens 7.3 D (<3.5-17.0) ng/L B-Natriuretic Peptide (<100) pg/mL Total Protein 7.2 (6.5-8.0) g/dL Albumin 4.4 (3.5-5.0) g/dL Urine Color Urine Appearance Urine pH (5.0-9.0) Ur Specific [place] (1.005-1.025) Urine Protein (Neg-Trace) mg/dL Urine Glucose (UA) (Negative) mg/dL Urine Ketones (Negative) mg/dL Urine Blood (Negative) Urine Nitrite (Negative) Ur Leukocyte Esterase (Negative) Urine RBC (0-2) /HPF Urine WBC (0-5) /HPF Ur Squamous Epith Cells (0-2) /HPF Urine Bacteria (None Seen) Hyaline Casts (0-2) /LPF COVID-19 (YAQUELIN) (Negative) COVID-19 Clin Com 03/24/22 03/24/22 03/24/22 Range/Units 12:35 12:35 12:35 WBC (4.8-10.8) X10*3/uL RBC (4.20-5.50) X10*6/uL Hgb (12.0-16.0) g/dl Hct (37.0-47.0) % MCV (80.0-98.0) fL MCH (27.0-33.0) pg MCHC (31.0-35.0) g/dl RDW (11.0-16.0) % Plt Count (160-400) X10*3/uL MPV (9.4-12.3) fL Immature Gran % (Auto) (0.0-0.4) % Neut % (Auto) (45-73) % Lymph % (Auto) (20-40) % [place] % (Auto) (2-11) % Eos % (Auto) (0-4) % Baso % (Auto) (0-2) % Lymph # (Auto) (1.2-4.9) X10*3/uL [place] # (Auto) (0.1-1.2) X10*3/uL Eos # (Auto) (0.0-0.4) X10*3/uL Baso # (Auto) (0.0-0.2) X10*3/uL Abs Immat Gran (auto) (0.00-0.03) X10*3/uL Absolute Neuts (auto) (2.0-8.3) x10*3/uL Absolute Nucleated RBC (0.0-0.012) X10*3/uL Nucleated RBC % (auto) (0.0-0.2) /100WBC PT 14.5 H (10.0-13.1) SEC INR 1.3 H (0.9-1.1) APTT 37.6 H (26.0-36.4) SEC D-Dimer High Sensitivty < 150 NG/ML Sodium (135-145) mmol/L Potassium (3.3-5.1) mmol/L Chloride (96-108) mmol/L Carbon Dioxide (22-29) mmol/L Anion Gap (12-20) BUN (9-16) mg/dL Creatinine (0.5-1.4) mg/dL Estim Creat Clear Calc Estimated GFR Random Glucose (60-115) mg/dL Calcium (8.4-10.2) mg/dL Magnesium (1.6-2.6) mg/dL Total Bilirubin (0.0-1.0) mg/dL Direct Bilirubin (0.0-0.5) mg/dL AST (5-31) U/L ALT (0-31) U/L Alkaline Phosphatase (39-117) U/L Troponin I High Sens (<3.5-17.0) ng/L B-Natriuretic Peptide < 10 (<100) pg/mL Total Protein (6.5-8.0) g/dL Albumin (3.5-5.0) g/dL Urine Color Urine Appearance Urine pH (5.0-9.0) Ur Specific [place] (1.005-1.025) Urine Protein (Neg-Trace) mg/dL Urine Glucose (UA) (Negative) mg/dL Urine Ketones (Negative) mg/dL Urine Blood (Negative) Urine Nitrite (Negative) Ur Leukocyte Esterase (Negative) Urine RBC (0-2) /HPF Urine WBC (0-5) /HPF Ur Squamous Epith Cells (0-2) /HPF Urine Bacteria (None Seen) Hyaline Casts (0-2) /LPF COVID-19 (YAQUELIN) Negative (Negative) COVID-19 Clin Com See Note 03/24/22 03/24/22 Range/Units 14:02 14:54 WBC (4.8-10.8) X10*3/uL RBC (4.20-5.50) X10*6/uL Hgb (12.0-16.0) g/dl Hct (37.0-47.0) % MCV (80.0-98.0) fL MCH (27.0-33.0) pg MCHC (31.0-35.0) g/dl RDW (11.0-16.0) % Plt Count (160-400) X10*3/uL MPV (9.4-12.3) fL Immature Gran % (Auto) (0.0-0.4) % Neut % (Auto) (45-73) % Lymph % (Auto) (20-40) % [place] % (Auto) (2-11) % Eos % (Auto) (0-4) % Baso % (Auto) (0-2) % Lymph # (Auto) (1.2-4.9) X10*3/uL [place] # (Auto) (0.1-1.2) X10*3/uL Eos # (Auto) (0.0-0.4) X10*3/uL Baso # (Auto) (0.0-0.2) X10*3/uL Abs Immat Gran (auto) (0.00-0.03) X10*3/uL Absolute Neuts (auto) (2.0-8.3) x10*3/uL Absolute Nucleated RBC (0.0-0.012) X10*3/uL Nucleated RBC % (auto) (0.0-0.2) /100WBC PT (10.0-13.1) SEC INR (0.9-1.1) APTT (26.0-36.4) SEC D-Dimer High Sensitivty NG/ML Sodium (135-145) mmol/L Potassium (3.3-5.1) mmol/L Chloride (96-108) mmol/L Carbon Dioxide (22-29) mmol/L Anion Gap (12-20) BUN (9-16) mg/dL Creatinine (0.5-1.4) mg/dL Estim Creat Clear Calc Estimated GFR Random Glucose (60-115) mg/dL Calcium (8.4-10.2) mg/dL Magnesium (1.6-2.6) mg/dL Total Bilirubin (0.0-1.0) mg/dL Direct Bilirubin (0.0-0.5) mg/dL AST (5-31) U/L ALT (0-31) U/L Alkaline Phosphatase (39-117) U/L Troponin I High Sens 6.0 (<3.5-17.0) ng/L B-Natriuretic Peptide (<100) pg/mL Total Protein (6.5-8.0) g/dL Albumin (3.5-5.0) g/dL Urine Color Yellow Urine Appearance Clear Urine pH 6.0 (5.0-9.0) Ur Specific [place] <= 1.005 (1.005-1.025) Urine Protein Negative (Neg-Trace) mg/dL Urine Glucose (UA) Negative (Negative) mg/dL Urine Ketones Negative (Negative) mg/dL Urine Blood Negative (Negative) Urine Nitrite Negative (Negative) Ur Leukocyte Esterase Trace H (Negative) Urine RBC 0-2 (0-2) /HPF Urine WBC 0-5 (0-5) /HPF Ur Squamous Epith Cells 0-2 (0-2) /HPF Urine Bacteria None Seen (None Seen) Hyaline Casts 0-2 (0-2) /LPF COVID-19 (YAQUELIN) (Negative) COVID-19 Clin Com <Jean Angel MD - Last Filed: 03/24/22 23:50> Independent Interpretation I performed an independent interpretation of an: EKG <Jean Angel MD - Last Filed: 03/24/22 23:50> Interpretation: My independent interpretation of the patient's 12 EKG done at 12:29 is as follows: Sinus tachycardia rate 102, normal MO interval, QRS duration QTC interval, no ST segment elevation, no ST segment depression, Q-waves in lead 3, V1 and V3 compared to EKG dated 03/02/2022 there is no significant change. <Jean Angel MD - Last Filed: 03/24/22 23:50> Discharge Plan Discharge Clinical Impression: Chest pain, Preethi syndrome, Right median nerve neuropathy <KRISTEN Burns - Last Filed: 03/24/22 12:24> Patient Disposition: Home, Self-Care <KRISTEN Burns - Last Filed: 03/24/22 12:24> Instructions: Chest Pain (ED), Peripheral Neuropathy (ED) <KRISTEN Burns - Last Filed: 03/24/22 12:24> Additional Instructions: Your high sensitivity troponin I was normal at 7.3 and the repeat 3 hour troponin was also normal at 6.0 without a significant change from the 1st troponin. This suggests that your chest pain is not secondary to a heart attack. This time I believe that your pain is caused by inflammation in the scab and surrounding the heart (pericarditis), this sometimes happens after a heart attack and this is called Preethi syndrome. Take Tylenol (acetaminophen) 500 mg pills, 2 pills every 4 to 6 hours as needed for pain. I believe that the numbness in the fingers of your right hand and the pain in your wrist is caused by inflammation of the median nerve (neuropathy). This is sometimes caused by over use of your wrist or this may be related to the cardiac catheterization. Wear the wrist splint for 2 weeks. Follow-up with your doctor in 2 days. Please return to the emergency department if your symptoms get worse or if you develop any symptoms that are concerning to you. <KRISTEN Burns - Last Filed: 03/24/22 12:24> Prescriptions: No Action diltiazem HCl 360 mg capsule,extended release 24 hr 360 mg PO DAILY Qty: 90 2RF losartan 50 mg tablet 50 mg PO DAILY Qty: 90 2RF clopidogrel 75 mg tablet 75 mg PO DAILY Qty: 90 1RF Eliquis 5 mg Tablet 5 mg PO BID Qty: 60 0RF Hold Instructions: Resume on 03/04/22. levothyroxine 75 mcg tablet 75 mcg PO DAILY@0600 acetaminophen 325 mg Tablet 650 mg PO Q6H PRN (Reason: Pain) Ubrelvy 50 mg tablet 50 mg PO DAILY fluvastatin 80 mg tablet extended release 24 hr 80 mg PO BEDTIME fenofibrate micronized 200 mg capsule 200 mg PO BEDTIME fluticasone propionate 50 mcg/actuation spray,suspension 50 mcg intranasal DAILY albuterol sulfate 90 mcg/actuation HFA aerosol inhaler 90 mcg inhalation NEEDED cyclobenzaprine 5 mg tablet 5 mg PO BEDTIME omeprazole 20 mg capsule,delayed release(DR/EC) 20 mg PO BEDTIME riboflavin (vitamin B2) [Vitamin B-2] 100 mg tablet 400 mg PO DAILY <KRISTEN Burns - Last Filed: 03/24/22 12:24> Interventions: ED Discharge Assessment Last Done: 03/24/22 18:00 <KRISTEN Burns - Last Filed: 03/24/22 12:24> Discharge Date/Time: 03/24/22 18:00 <KRISTEN Burns - Last Filed: 03/24/22 12:24>
[2022-03-24 12:47] LABS: MANUAL DIFF FLAG NO
[2022-03-24 12:52] LABS: Basophils Percent Auto 0.4 % (0-2); Eosinophils Absolute Auto 0.2 X10*3/uL (0.0-0.4); Eosinophils Percent Auto 1.9 % (0-4); Hematocrit 39.3 % (37.0-47.0); Hemoglobin 12.8 g/dl (12.0-16.0); Imm Gran Abs Auto 0.03 X10*3/uL (0.00-0.03); Imm Gran Pct Auto 0.3 % (0.0-0.4); Lymphocytes Absolute Auto 2.4 X10*3/uL (1.2-4.9); Lymphocytes Percent Auto 24.8 % (20-40); Mean Corpuscular HGB Conc 32.6 g/dl (31.0-35.0); Mean Corpuscular Hemoglobin 30.3 pg (27.0-33.0); Mean Corpuscular Volume 93.1 fL (80.0-98.0); Mean Platelet Volume 8.8 fL (9.4-12.3); Monocytes Absolute Auto 0.7 X10*3/uL (0.1-1.2); Monocytes Percent Auto 6.7 % (2-11); Neutrophils Absolute Auto 6.3 x10*3/uL (2.0-8.3); Neutrophils Percent Auto 65.9 % (45-73); Platelet Count 405 X10*3/uL (160-400); Red Blood Count 4.22 X10*6/uL (4.20-5.50); Red Cell Distribution Width 13.4 % (11.0-16.0); White Blood Count 9.6 X10*3/uL (4.8-10.8)
[2022-03-24 12:55] LABS: INTERNATIONAL NORM RATIO 1.3 (0.9-1.1); Prothrombin Time 14.5 SEC (10.0-13.1)
[2022-03-24 12:58] LABS: Partial Thromboplastin Time 37.6 SEC (26.0-36.4)
[2022-03-24 13:11] LABS: Alanine Aminotransferase 19 U/L (0-31); Albumin Level 4.4 g/dL (3.5-5.0); Alkaline Phosphatase 68 U/L (39-117); Anion Gap 14 (12-20); Aspartate Amino Transferase 26 U/L (5-31); Bilirubin Direct < 0.2 mg/dL (0.0-0.5); Bilirubin Total 0.4 mg/dL (0.0-1.0); Blood Urea Nitrogen 17 mg/dL (9-16); COVID-19 Test Negative (Negative); Calcium 9.9 mg/dL (8.4-10.2); Carbon Dioxide 25 mmol/L (22-29); Chloride 102 mmol/L (96-108); Creatinine Clr Calc Pharmacy 61.5; Estimated Glomerular Filt Rate > 60; Glucose Random 138 mg/dL (60-115); IDNOW Serial# 9DB6401D; Magnesium 1.9 mg/dL (1.6-2.6); Potassium 4.3 mmol/L (3.3-5.1); Sodium 137 mmol/L (135-145); Total Protein 7.2 g/dL (6.5-8.0)
[2022-03-24 13:12] LABS: B Type Natriuretic Peptide < 10 pg/mL (<100)
[2022-03-24 13:13] LABS: Troponin-I High Sensitivity 7.3 ng/L (<3.5-17.0)
[2022-03-24 13:54] VITALS: BP 144/82; PULSE 94; RESP 18; TEMP 37.3; O2SAT 96
[2022-03-24 14:28] LABS: Appearance Urine Clear; Color Urine Yellow; Glucose Urine UA Negative (Negative); Leukocyte Esterase Urine Trace (Negative); Nitrite Urine Negative (Negative); Specific Gravity - Urine <= 1.005 (1.005-1.025); UMIC TRIGGER UACC YES; Urine Blood Negative (Negative); Urine Ketones Negative (Negative); Urine Protein Negative (Neg-Trace)
[2022-03-24 14:31] LABS: Bacteria Urine None Seen (None Seen); Hyaline Casts Urine 0-2 /LPF (0-2); RBC Urine 0-2 /HPF (0-2); Squamous Epithelial Cell Urine 0-2 /HPF (0-2); WBC Urine 0-5 /HPF (0-5)
[2022-03-24 14:32] LABS: D Dimer High Sensitivity < 150 NG/ML
[2022-03-24 15:38] VITALS: BP 142/73; PULSE 94; RESP 20; TEMP 37.2; O2SAT 97
--- NOTE | 2022-03-24 17:59 | PC.NURSE ---
pt a&ox3, vss, pt currently declining pain medication, d/c instructions reviewed w pt, pt plans to follow up w cardiology.
== END 2022-03-24 18:00 | disposition home or self-care (01) ==
PROVIDERS: Physician Assistant; Emergency Provider Emergency Medicine Emergency Medical Services; PCP Pediatrics
DX: R07.9 Chest pain, unspecified (principal); I24.1 Dressler's syndrome; G56.11 Other lesions of median nerve, right upper limb; R00.0 Tachycardia, unspecified; R06.02 Shortness of breath; Z20.822 Contact with and (suspected) exposure to COVID-19; I10 Essential (primary) hypertension; E78.5 Hyperlipidemia, unspecified; I48.0 Paroxysmal atrial fibrillation; Z98.61 Coronary angioplasty status; Z86.73 Personal history of transient ischemic attack (TIA), and cerebral infarction without residual deficits; Z79.01 Long term (current) use of anticoagulants; Z79.02 Long term (current) use of antithrombotics/antiplatelets; Z79.899 Other long term (current) drug therapy
CPT/HCPCS: 36415; 71045; 80048; 80076; 81001; 83735; 83880; 84484; 85025; 85379; 85610; 85730; 87635; 93005; 93971; 99284

== ENCOUNTER → 2022-04-01 13:59 | Outpatient (BNVA) | payer MEDICARE, OTHER, SELFPAY | PROVIDERS: PCP Pediatrics; Visit Provider Internal Medicine Cardiovascular Disease | DX: I20.8 Other forms of angina pectoris (principal); I48.0 Paroxysmal atrial fibrillation; Z98.61 Coronary angioplasty status; Z79.01 Long term (current) use of anticoagulants; Z79.02 Long term (current) use of antithrombotics/antiplatelets | CPT/HCPCS: 99212 ==

== ENCOUNTER → 2022-09-03 13:37 | Outpatient (BNVA) | payer MEDICARE, OTHER, SELFPAY ==
[2022-08-04 10:18] VITALS: BP 122/60; BP 136/84; BP 144/70; BMI 28.1
== END ==
PROVIDERS: PCP Pediatrics; Referring Provider Pediatrics; Visit Provider Internal Medicine Cardiovascular Disease
DX: I20.8 Other forms of angina pectoris (principal); I10 Essential (primary) hypertension; I48.0 Paroxysmal atrial fibrillation; Z98.890 Other specified postprocedural states; Z98.61 Coronary angioplasty status
CPT/HCPCS: 93005; 99212

== ENCOUNTER → 2022-10-14 23:59 | Outpatient (BNV) | payer MEDICARE, OTHER, SELFPAY ==
[2022-08-04 10:18] VITALS: BP 122/60; BP 136/84; BP 144/70; BMI 28.1
--- NOTE | 2022-10-19 15:14 | MHC.OFFVIS ---
Intake Intake Visit Reasons: Remote ILR Check- [employer] Allergies metoprolol [METOPROLOL] Allergy (Severe, Verified 09/03/22 13:53) angioedema amoxicillin [AMOXICILLIN] Allergy (Unknown, Verified 09/03/22 13:53) UNKNOWN bupropion [BUPROPION] Allergy (Unknown, Verified 09/03/22 13:53) UNKNOWN cephalexin [From KEFLEX] Allergy (Unknown, Verified 09/03/22 13:53) UNKNOWN Cephalosporins [CEPHALOSPORINS] Allergy (Unknown, Verified 09/03/22 13:53) UNKNOWN codeine [CODEINE] Allergy (Unknown, Verified 09/03/22 13:53) UNKNOWN dicyclomine [DICYCLOMINE] Allergy (Unknown, Verified 09/03/22 13:53) UNKNOWN doxycycline Allergy (Unknown, Verified 09/03/22 13:53) Unknown erythromycin base [ERYTHROMYCIN BASE] Allergy (Unknown, Verified 09/03/22 13:53) UNKNOWN Iodinated Contrast Media [IV CONTRAST] Allergy (Unknown, Verified 09/03/22 13:53) UNKNOWN lansoprazole [LANSOPRAZOLE] Allergy (Unknown, Verified 09/03/22 13:53) UNKNOWN meperidine [From DEMEROL] Allergy (Unknown, Verified 09/03/22 13:53) ANAPHYLAXIS oxycodone [OXYCODONE] Allergy (Unknown, Verified 09/03/22 13:53) UNKNOWN shellfish derived Allergy (Unknown, Verified 09/03/22 13:53) Unknown simvastatin [SIMVASTATIN] Allergy (Unknown, Verified 09/03/22 13:53) UNKNOWN Sulfa (Sulfonamide Antibiotics) [SULFA (SULFONAMIDE ANTIBIOTICS)] Allergy (Unknown, Verified 09/03/22 13:53) UNKNOWN tramadol [TRAMADOL] Allergy (Unknown, Verified 09/03/22 13:53) UNKNOWN verapamil [VERAPAMIL] Allergy (Unknown, Verified 09/03/22 13:53) ANAPHYLAXIS PFSH Medical History CVA (cerebral vascular accident) Diet-controlled diabetes mellitus H/O paroxysmal supraventricular tachycardia Hyperlipidemia Hypertension Hypothyroidism Migraine headache PAF (paroxysmal atrial fibrillation) Postablative hypothyroidism Thyroid nodule Toxic multinodular goiter Vitamin D deficiency Surgical History H/O bladder repair surgery H/O pelvic surgery H/O: hysterectomy History of cardiac cath Hx of appendectomy Family History Mother High blood sugar Myocardial infarction Father Diabetes Myocardial infarction Stroke Brother Myocardial infarction Social History Household Members: None Housing: House Do you presently have visiting nurse or other home services: No Alcohol intake: never Patient Tobacco Use Status: Never used Tobacco e-Cigarette/Vaping Use: Never Used Second Hand Smoke Exposure: No Advance Directives Date on File: 03/02/22 service: No Current occupational status: retired Office Procedures Cardiac Device Check Cardiac Device Check Details: ILR No new alerts. [id number] Cardiac Interrogation, subcut cardiac rhythm monitor Procedure code (CPT) selection complete Assessment & Plan Assessment & Plan (1) History of loop recorder: Code(s): Z98.890 - Other specified postprocedural states Orders: Orders AMB Cardiac Device Follow-up 10/14/22 Z98.890 - Other specified postprocedural states Coding Level of Care Code Procedure Only Diagnoses History of loop recorder Z98.890 CPT Codes Cardiac Device Check - Cardiac Device 16: [id number] Cardiac Interrogation, subcut cardiac rhythm monitor ([id number])
== END ==
PROVIDERS: PCP Pediatrics; Visit Provider Internal Medicine Cardiovascular Disease
DX: I48.0 Paroxysmal atrial fibrillation (principal); Z98.890 Other specified postprocedural states
CPT/HCPCS: 93298

== ENCOUNTER 2022-10-19 14:29 | Outpatient (AMB) | payer MEDICARE, OTHER, SELFPAY ==
[2022-08-04 10:18] VITALS: BP 122/60; BP 136/84; BP 144/70; BMI 28.1
--- NOTE | 2022-10-19 14:34 | MHC.OFFVIS ---
Intake Vital Signs 10/19/22 14:35 10/19/22 14:45 10/19/22 14:46 Height 5 ft 1 in Weight 149 lb 7.574 oz BMI 28.2 BP 118/50 L 128/70 117/58 L Blood Pressure Location Lt brachial Lt brachial Lt brachial Position Supine Sitting Standing Pulse 85 79 84 Pulse Source Pulse Oximeter Pulse Oximeter Pulse Oximeter Pulse Oximetry (%) 96 96 97 Oxygen Delivery Method Room Air Intake Visit Reasons: [facility] [place] Intake Note: Patient is here for a [facility] [place], patient stated she had to go to [facility] after feeling dizzy and falling at home. Allergies metoprolol [METOPROLOL] Allergy (Severe, Verified 09/03/22 13:53) angioedema amoxicillin [AMOXICILLIN] Allergy (Unknown, Verified 09/03/22 13:53) UNKNOWN bupropion [BUPROPION] Allergy (Unknown, Verified 09/03/22 13:53) UNKNOWN cephalexin [From KEFLEX] Allergy (Unknown, Verified 09/03/22 13:53) UNKNOWN Cephalosporins [CEPHALOSPORINS] Allergy (Unknown, Verified 09/03/22 13:53) UNKNOWN codeine [CODEINE] Allergy (Unknown, Verified 09/03/22 13:53) UNKNOWN dicyclomine [DICYCLOMINE] Allergy (Unknown, Verified 09/03/22 13:53) UNKNOWN doxycycline Allergy (Unknown, Verified 09/03/22 13:53) Unknown erythromycin base [ERYTHROMYCIN BASE] Allergy (Unknown, Verified 09/03/22 13:53) UNKNOWN Iodinated Contrast Media [IV CONTRAST] Allergy (Unknown, Verified 09/03/22 13:53) UNKNOWN lansoprazole [LANSOPRAZOLE] Allergy (Unknown, Verified 09/03/22 13:53) UNKNOWN meperidine [From DEMEROL] Allergy (Unknown, Verified 09/03/22 13:53) ANAPHYLAXIS oxycodone [OXYCODONE] Allergy (Unknown, Verified 09/03/22 13:53) UNKNOWN shellfish derived Allergy (Unknown, Verified 09/03/22 13:53) Unknown simvastatin [SIMVASTATIN] Allergy (Unknown, Verified 09/03/22 13:53) UNKNOWN Sulfa (Sulfonamide Antibiotics) [SULFA (SULFONAMIDE ANTIBIOTICS)] Allergy (Unknown, Verified 09/03/22 13:53) UNKNOWN tramadol [TRAMADOL] Allergy (Unknown, Verified 09/03/22 13:53) UNKNOWN verapamil [VERAPAMIL] Allergy (Unknown, Verified 09/03/22 13:53) ANAPHYLAXIS Medication List - Last Reconciled 10/19/22 by Robles Vargas MD acetaminophen 650 mg PO Q6H PRN albuterol sulfate 90 mcg/actuation 90 mcg inhalation NEEDED apixaban (Eliquis) 5 mg PO BID clopidogrel 75 mg PO DAILY cyclobenzaprine 5 mg PO BEDTIME diltiazem HCl ER (Tiadylt ER) 360 mg PO DAILY fenofibrate micronized 200 mg PO BEDTIME fluticasone propionate 50 mcg/actuation 50 mcg intranasal DAILY fluvastatin ER 80 mg PO BEDTIME levothyroxine 75 mcg PO DAILY@0600 losartan 50 mg PO DAILY omeprazole 20 mg PO BEDTIME riboflavin (vitamin B2) (Vitamin B-2) 400 mg PO DAILY ubrogepant (Ubrelvy) 50 mg PO DAILY HPI HPI Comments History of Present Illness Details Pleasant 67-year-old female here for follow-up. She was recently seen at [facility] when she presented with chest discomfort. Her clinical story was consistent with unstable angina. After discussion she was taken for cardiac catheterization. Cardiac catheterization showed hazy 65-70% mid LAD lesion. We performed IFR which was abnormal and we stented with a drug-eluting stent. She was started on Plavix along with Eliquis and was discharged home. On follow-up she was doing well. After she some in the clinic she had sharp left-sided chest discomfort as well as some burning sensation the chest with chest pressure. She went to the emergency department with these symptoms and was ruled out. EKG did not show any dynamic changes 2. No CRP or ESR was performed and no echocardiography/imaging was done of the heart but she was felt to have pericarditis. She was sent home with this diagnosis. She is saying she has felt better since then on her own. On follow up doing well. No CP or SOB. Taking medications regularly. 10/19/22: She returns for follow-up. She was at [facility] end of September with dizziness and presyncope. She said she was feeling fine and went out to throw some vegetables in her composter when she started feeling nauseous and dizzy. She said she had on to something to prevent herself from falling. She said she was very weak and unsteady walking back to the house. She said she checked her blood pressure and it was high. She went to [facility] with she had workup which did not show any obvious issues. She was told that she probably had vasovagal syncope. She was feeling quite hot and was sweating 2. I agree that she likely had vasovagal syncope. She is saying that she drinks a lot of water. She is compliant with medications. She also had some chest pain in ambulance but workup was okay at [facility]. She has not had any further chest discomfort. [facility] Medical History CVA (cerebral vascular accident) Diet-controlled diabetes mellitus H/O paroxysmal supraventricular tachycardia Hyperlipidemia Hypertension Hypothyroidism Migraine headache PAF (paroxysmal atrial fibrillation) Postablative hypothyroidism Thyroid nodule Toxic multinodular goiter Vitamin D deficiency Surgical History H/O bladder repair surgery H/O pelvic surgery H/O: hysterectomy History of cardiac cath Hx of appendectomy Family History Mother High blood sugar Myocardial infarction Father Diabetes Myocardial infarction Stroke Brother Myocardial infarction Social History Household Members: None Housing: House Do you presently have visiting nurse or other home services: No Alcohol intake: never Patient Tobacco Use Status: Never used Tobacco e-Cigarette/Vaping Use: Never Used Second Hand Smoke Exposure: No Advance Directives Date on File: 03/02/22 service: No Current occupational status: retired Review of Systems Const Denies fatigue, Denies fever(s), Denies frequent falls, Denies weight gain and Denies weight loss ENT Reports dizziness Card Denies chest pain, Denies leg edema, Reports lightheadedness, Denies dyspnea, Denies dyspnea on exertion, Denies orthopnea and Reports other (loss of consciousness) Resp Denies cough, Denies dyspnea and Denies dyspnea on exertion GI Denies hematochezia and Denies change in bowel habits Musc Denies abnormal gait, Denies muscle weakness, Denies numbness, Denies radiating pain into limb and Denies tingling Neuro Denies abnormal gait, Reports dizziness, Denies frequent falls, Denies numbness and Denies tingling Endo Denies fatigue Physical Exam Vital Signs: Last Vital Signs Pulse 84 10/19/22 14:46 BP 117/58 L 10/19/22 14:46 Pulse Ox 97 10/19/22 14:46 Oxygen Delivery Method Room Air 10/19/22 14:35 BMI result Body Mass Index 28.2 GENERAL APPEARANCE: in no acute distress, pleasant. NECK: no carotid bruit, no jugular venous distention. SKIN: no suspicious lesions, warm and dry. HEART: no murmurs, regular rate and rhythm. LUNGS: clear to auscultation bilaterally. ABDOMEN: soft, nontender. EXTREMITIES: no edema. PERIPHERAL PULSES: equal. NEUROLOGIC: No gross deficits, AAO X 3 Assessment & Plan Assessment & Plan (1) Stable angina: Code(s): I20.8 - Other forms of angina pectoris (2) Vasovagal syncope: Code(s): R55 - Syncope and collapse Plan Pleasant 67 year female who is here for follow-up. She has background history of paroxysmal atrial fibrillation and TIA. She has been on apixaban and clopidogrel. She had LAD PCI and is currently on Plavix for that reason. Recent admission at [facility] with vasovagal syncope. I have advised her to decrease her diltiazem to 240 mg daily. I have also advised her to hydrate herself with water as well as 2 times a week Gatorade. She should avoid heat as much as possible as that can trigger vasovagal syncope. She will see us back in few months. Thank you for allowing me to participate in the care of your patient. Please feel free to contact me if you have any questions. Medications: New diltiazem HCl ER (Tiadylt ER) 240 mg PO DAILY 90 caps 3RF Discontinued diltiazem HCl ER (Tiadylt ER) Discontinued Reason: None 360 mg PO DAILY 90 caps 3RF Coding Level of Care Code Est Pt Level 4 (16206) Diagnoses Stable angina I20.8 Vasovagal syncope R55
[2022-10-19 14:35] VITALS: BP 118/50; PULSE 85; O2SAT 96; BMI 28.2
[2022-10-19 14:45] VITALS: BP 128/70; PULSE 79; O2SAT 96
[2022-10-19 14:46] VITALS: BP 117/58; PULSE 84; O2SAT 97
== END 2022-10-19 15:04 | disposition home or self-care (01) ==
PROVIDERS: PCP Pediatrics; Visit Provider Internal Medicine Cardiovascular Disease
DX: I20.8 Other forms of angina pectoris (principal); R55 Syncope and collapse
CPT/HCPCS: 99214

== ENCOUNTER → 2022-10-19 14:29 | Outpatient (BNVA) | payer MEDICARE, OTHER, SELFPAY ==
[2022-08-04 10:18] VITALS: BP 122/60; BP 136/84; BP 144/70; BMI 28.1
== END ==
PROVIDERS: PCP Pediatrics; Visit Provider Internal Medicine Cardiovascular Disease
DX: I20.8 Other forms of angina pectoris (principal); R55 Syncope and collapse; I48.0 Paroxysmal atrial fibrillation; Z86.73 Personal history of transient ischemic attack (TIA), and cerebral infarction without residual deficits; Z98.890 Other specified postprocedural states; Z95.5 Presence of coronary angioplasty implant and graft; Z79.01 Long term (current) use of anticoagulants
CPT/HCPCS: 99212

== ENCOUNTER 2022-11-11 09:39 | Outpatient (AMB) | payer MEDICARE, OTHER, SELFPAY ==
[2022-08-04 10:18] VITALS: BP 122/60; BP 136/84; BP 144/70; BMI 28.1
--- NOTE | 2022-11-11 11:11 | AM.OFFVISNUR ---
Intake Vital Signs 11/11/22 11:13 Height 5 ft 1 in Weight 149 lb BMI 28.2 BP 136/80 Blood Pressure Location Lt brachial Position Sitting Pulse 106 H Pulse Source Monitor Intake Visit Reasons: BP Check w home cuff comparison Bridal Gown Fitter Required: No Accompanied by: Self / Same As Patient Allergies metoprolol [METOPROLOL] Allergy (Severe, Verified 11/11/22 11:14) angioedema amoxicillin [AMOXICILLIN] Allergy (Unknown, Verified 11/11/22 11:14) UNKNOWN bupropion [BUPROPION] Allergy (Unknown, Verified 11/11/22 11:14) UNKNOWN cephalexin [From KEFLEX] Allergy (Unknown, Verified 11/11/22 11:14) UNKNOWN Cephalosporins [CEPHALOSPORINS] Allergy (Unknown, Verified 11/11/22 11:14) UNKNOWN codeine [CODEINE] Allergy (Unknown, Verified 11/11/22 11:14) UNKNOWN dicyclomine [DICYCLOMINE] Allergy (Unknown, Verified 11/11/22 11:14) UNKNOWN doxycycline Allergy (Unknown, Verified 11/11/22 11:14) Unknown erythromycin base [ERYTHROMYCIN BASE] Allergy (Unknown, Verified 11/11/22 11:14) UNKNOWN Iodinated Contrast Media [IV CONTRAST] Allergy (Unknown, Verified 11/11/22 11:14) UNKNOWN lansoprazole [LANSOPRAZOLE] Allergy (Unknown, Verified 11/11/22 11:14) UNKNOWN meperidine [From DEMEROL] Allergy (Unknown, Verified 11/11/22 11:14) ANAPHYLAXIS oxycodone [OXYCODONE] Allergy (Unknown, Verified 11/11/22 11:14) UNKNOWN shellfish derived Allergy (Unknown, Verified 11/11/22 11:14) Unknown simvastatin [SIMVASTATIN] Allergy (Unknown, Verified 11/11/22 11:14) UNKNOWN Sulfa (Sulfonamide Antibiotics) [SULFA (SULFONAMIDE ANTIBIOTICS)] Allergy (Unknown, Verified 11/11/22 11:14) UNKNOWN tramadol [TRAMADOL] Allergy (Unknown, Verified 11/11/22 11:14) UNKNOWN verapamil [VERAPAMIL] Allergy (Unknown, Verified 11/11/22 11:14) ANAPHYLAXIS Nursing Note Patient was seen in office for BP check and comparison of BP with her home BP cuff. Patient's home BP cuff reported 138/82 w/ HR 111BPM. Manual BP taken in office 136/80 pulse ox gave a heart rate of 95BPM. Pt reported episodes of lightheadedness more so when she is standing. I completed an EKG due to high heart rate on pulse ox/BP cuff. EKG showed auto reading of sinus tachycardia with heart rate of 106BPM. EKG and BP readings reviewed by Dr. Vargas he will start her on Meclizine 25mg QD for lightheadedness she will call us on Wednesday with an update. Pt verbalized understanding. Office Procedures EKG [id number], Complete Coding Diagnoses CPT Codes EKG - CPT: 83659-[id number], Complete ([id number])
[2022-11-11 11:13] VITALS: BP 136/80; PULSE 106; BMI 28.2
== END 2022-11-11 10:12 | disposition home or self-care (01) ==
PROVIDERS: PCP Pediatrics; Referring Provider Pediatrics; Visit Provider Internal Medicine Cardiovascular Disease
DX: R00.0 Tachycardia, unspecified (principal); R94.31 Abnormal electrocardiogram [ECG] [EKG]
CPT/HCPCS: 93010

== ENCOUNTER → 2022-11-11 09:39 | Outpatient (BNVA) | payer MEDICARE, OTHER, SELFPAY ==
[2022-08-04 10:18] VITALS: BP 122/60; BP 136/84; BP 144/70; BMI 28.1
== END ==
PROVIDERS: PCP Pediatrics; Referring Provider Pediatrics; Visit Provider Internal Medicine Cardiovascular Disease
DX: Z01.31 Encounter for examination of blood pressure with abnormal findings (principal)
CPT/HCPCS: 93005

== ENCOUNTER → 2022-11-18 23:59 | Outpatient (BNV) | payer MEDICARE, OTHER, SELFPAY ==
[2022-08-04 10:18] VITALS: BP 122/60; BP 136/84; BP 144/70; BMI 28.1
--- NOTE | 2022-12-09 21:08 | MHC.OFFVIS ---
Intake Intake Visit Reasons: Remote ILR Check- [employer] Allergies metoprolol [METOPROLOL] Allergy (Severe, Verified 11/11/22 11:14) angioedema amoxicillin [AMOXICILLIN] Allergy (Unknown, Verified 11/11/22 11:14) UNKNOWN bupropion [BUPROPION] Allergy (Unknown, Verified 11/11/22 11:14) UNKNOWN cephalexin [From KEFLEX] Allergy (Unknown, Verified 11/11/22 11:14) UNKNOWN Cephalosporins [CEPHALOSPORINS] Allergy (Unknown, Verified 11/11/22 11:14) UNKNOWN codeine [CODEINE] Allergy (Unknown, Verified 11/11/22 11:14) UNKNOWN dicyclomine [DICYCLOMINE] Allergy (Unknown, Verified 11/11/22 11:14) UNKNOWN doxycycline Allergy (Unknown, Verified 11/11/22 11:14) Unknown erythromycin base [ERYTHROMYCIN BASE] Allergy (Unknown, Verified 11/11/22 11:14) UNKNOWN Iodinated Contrast Media [IV CONTRAST] Allergy (Unknown, Verified 11/11/22 11:14) UNKNOWN lansoprazole [LANSOPRAZOLE] Allergy (Unknown, Verified 11/11/22 11:14) UNKNOWN meperidine [From DEMEROL] Allergy (Unknown, Verified 11/11/22 11:14) ANAPHYLAXIS oxycodone [OXYCODONE] Allergy (Unknown, Verified 11/11/22 11:14) UNKNOWN shellfish derived Allergy (Unknown, Verified 11/11/22 11:14) Unknown simvastatin [SIMVASTATIN] Allergy (Unknown, Verified 11/11/22 11:14) UNKNOWN Sulfa (Sulfonamide Antibiotics) [SULFA (SULFONAMIDE ANTIBIOTICS)] Allergy (Unknown, Verified 11/11/22 11:14) UNKNOWN tramadol [TRAMADOL] Allergy (Unknown, Verified 11/11/22 11:14) UNKNOWN verapamil [VERAPAMIL] Allergy (Unknown, Verified 11/11/22 11:14) ANAPHYLAXIS PFSH Medical History CVA (cerebral vascular accident) Diet-controlled diabetes mellitus H/O paroxysmal supraventricular tachycardia Hyperlipidemia Hypertension Hypothyroidism Migraine headache PAF (paroxysmal atrial fibrillation) Postablative hypothyroidism Thyroid nodule Toxic multinodular goiter Vitamin D deficiency Surgical History H/O bladder repair surgery H/O pelvic surgery H/O: hysterectomy History of cardiac cath Hx of appendectomy Family History Mother High blood sugar Myocardial infarction Father Diabetes Myocardial infarction Stroke Brother Myocardial infarction Social History Household Members: None Housing: House Do you presently have visiting nurse or other home services: No Alcohol intake: never Patient Tobacco Use Status: Never used Tobacco e-Cigarette/Vaping Use: Never Used Second Hand Smoke Exposure: No Advance Directives Date on File: 03/02/22 service: No Current occupational status: retired Office Procedures Cardiac Device Check Cardiac Device Check Details: ILR No new alerts. [id number] Cardiac Interrogation, subcut cardiac rhythm monitor Procedure code (CPT) selection complete Assessment & Plan Assessment & Plan (1) PAF (paroxysmal atrial fibrillation): Code(s): I48.0 - Paroxysmal atrial fibrillation Coding Level of Care Code Procedure Only Diagnoses PAF (paroxysmal atrial fibrillation) I48.0 CPT Codes Cardiac Device Check - Cardiac Device 16: [id number] Cardiac Interrogation, subcut cardiac rhythm monitor ([id number])
== END ==
PROVIDERS: PCP Pediatrics; Visit Provider Internal Medicine Cardiovascular Disease
DX: I48.0 Paroxysmal atrial fibrillation (principal)
CPT/HCPCS: 93298

== ENCOUNTER → 2022-12-23 23:59 | Outpatient (BNV) | payer MEDICARE, OTHER, SELFPAY ==
[2022-08-04 10:18] VITALS: BP 122/60; BP 136/84; BP 144/70; BMI 28.1
--- NOTE | 2023-01-02 17:58 | MHC.OFFVIS ---
Intake Intake Visit Reasons: Remote ILR Check- [employer] Allergies metoprolol [METOPROLOL] Allergy (Severe, Verified 11/11/22 11:14) angioedema amoxicillin [AMOXICILLIN] Allergy (Unknown, Verified 11/11/22 11:14) UNKNOWN bupropion [BUPROPION] Allergy (Unknown, Verified 11/11/22 11:14) UNKNOWN cephalexin [From KEFLEX] Allergy (Unknown, Verified 11/11/22 11:14) UNKNOWN Cephalosporins [CEPHALOSPORINS] Allergy (Unknown, Verified 11/11/22 11:14) UNKNOWN codeine [CODEINE] Allergy (Unknown, Verified 11/11/22 11:14) UNKNOWN dicyclomine [DICYCLOMINE] Allergy (Unknown, Verified 11/11/22 11:14) UNKNOWN doxycycline Allergy (Unknown, Verified 11/11/22 11:14) Unknown erythromycin base [ERYTHROMYCIN BASE] Allergy (Unknown, Verified 11/11/22 11:14) UNKNOWN Iodinated Contrast Media [IV CONTRAST] Allergy (Unknown, Verified 11/11/22 11:14) UNKNOWN lansoprazole [LANSOPRAZOLE] Allergy (Unknown, Verified 11/11/22 11:14) UNKNOWN meperidine [From DEMEROL] Allergy (Unknown, Verified 11/11/22 11:14) ANAPHYLAXIS oxycodone [OXYCODONE] Allergy (Unknown, Verified 11/11/22 11:14) UNKNOWN shellfish derived Allergy (Unknown, Verified 11/11/22 11:14) Unknown simvastatin [SIMVASTATIN] Allergy (Unknown, Verified 11/11/22 11:14) UNKNOWN Sulfa (Sulfonamide Antibiotics) [SULFA (SULFONAMIDE ANTIBIOTICS)] Allergy (Unknown, Verified 11/11/22 11:14) UNKNOWN tramadol [TRAMADOL] Allergy (Unknown, Verified 11/11/22 11:14) UNKNOWN verapamil [VERAPAMIL] Allergy (Unknown, Verified 11/11/22 11:14) ANAPHYLAXIS PFSH Medical History CVA (cerebral vascular accident) Diet-controlled diabetes mellitus H/O paroxysmal supraventricular tachycardia Hyperlipidemia Hypertension Hypothyroidism Migraine headache PAF (paroxysmal atrial fibrillation) Postablative hypothyroidism Thyroid nodule Toxic multinodular goiter Vitamin D deficiency Surgical History H/O bladder repair surgery H/O pelvic surgery H/O: hysterectomy History of cardiac cath Hx of appendectomy Family History Mother High blood sugar Myocardial infarction Father Diabetes Myocardial infarction Stroke Brother Myocardial infarction Social History Household Members: None Housing: House Do you presently have visiting nurse or other home services: No Alcohol intake: never Patient Tobacco Use Status: Never used Tobacco e-Cigarette/Vaping Use: Never Used Second Hand Smoke Exposure: No Advance Directives Date on File: 03/02/22 service: No Current occupational status: retired Office Procedures Cardiac Device Check Cardiac Device Check Details: ILR No new alerts. [id number] Cardiac Interrogation, subcut cardiac rhythm monitor Procedure code (CPT) selection complete Assessment & Plan Assessment & Plan (1) Encounter for loop recorder check: Code(s): Z45.09 - Encounter for adjustment and management of other cardiac device Coding Level of Care Code Procedure Only Diagnoses Encounter for loop recorder check Z45.09 CPT Codes Cardiac Device Check - Cardiac Device 16: [id number] Cardiac Interrogation, subcut cardiac rhythm monitor ([id number])
== END ==
PROVIDERS: PCP Pediatrics; Visit Provider Internal Medicine Cardiovascular Disease
DX: I48.0 Paroxysmal atrial fibrillation (principal)
CPT/HCPCS: 93298

== ENCOUNTER → 2023-01-27 23:59 | Outpatient (BNV) | payer MEDICARE, OTHER, SELFPAY ==
[2022-08-04 10:18] VITALS: BP 122/60; BP 136/84; BP 144/70; BMI 28.1
--- NOTE | 2023-01-29 16:08 | MHC.OFFVIS ---
Intake Intake Visit Reasons: Remote ILR Check- [employer] Allergies metoprolol [METOPROLOL] Allergy (Severe, Verified 11/11/22 11:14) angioedema amoxicillin [AMOXICILLIN] Allergy (Unknown, Verified 11/11/22 11:14) UNKNOWN bupropion [BUPROPION] Allergy (Unknown, Verified 11/11/22 11:14) UNKNOWN cephalexin [From KEFLEX] Allergy (Unknown, Verified 11/11/22 11:14) UNKNOWN Cephalosporins [CEPHALOSPORINS] Allergy (Unknown, Verified 11/11/22 11:14) UNKNOWN codeine [CODEINE] Allergy (Unknown, Verified 11/11/22 11:14) UNKNOWN dicyclomine [DICYCLOMINE] Allergy (Unknown, Verified 11/11/22 11:14) UNKNOWN doxycycline Allergy (Unknown, Verified 11/11/22 11:14) Unknown erythromycin base [ERYTHROMYCIN BASE] Allergy (Unknown, Verified 11/11/22 11:14) UNKNOWN Iodinated Contrast Media [IV CONTRAST] Allergy (Unknown, Verified 11/11/22 11:14) UNKNOWN lansoprazole [LANSOPRAZOLE] Allergy (Unknown, Verified 11/11/22 11:14) UNKNOWN meperidine [From DEMEROL] Allergy (Unknown, Verified 11/11/22 11:14) ANAPHYLAXIS oxycodone [OXYCODONE] Allergy (Unknown, Verified 11/11/22 11:14) UNKNOWN shellfish derived Allergy (Unknown, Verified 11/11/22 11:14) Unknown simvastatin [SIMVASTATIN] Allergy (Unknown, Verified 11/11/22 11:14) UNKNOWN Sulfa (Sulfonamide Antibiotics) [SULFA (SULFONAMIDE ANTIBIOTICS)] Allergy (Unknown, Verified 11/11/22 11:14) UNKNOWN tramadol [TRAMADOL] Allergy (Unknown, Verified 11/11/22 11:14) UNKNOWN verapamil [VERAPAMIL] Allergy (Unknown, Verified 11/11/22 11:14) ANAPHYLAXIS PFSH Medical History CVA (cerebral vascular accident) Diet-controlled diabetes mellitus H/O paroxysmal supraventricular tachycardia Hyperlipidemia Hypertension Hypothyroidism Migraine headache PAF (paroxysmal atrial fibrillation) Postablative hypothyroidism Thyroid nodule Toxic multinodular goiter Vitamin D deficiency Surgical History H/O bladder repair surgery H/O pelvic surgery H/O: hysterectomy History of cardiac cath Hx of appendectomy Family History Mother High blood sugar Myocardial infarction Father Diabetes Myocardial infarction Stroke Brother Myocardial infarction Social History Household Members: None Housing: House Do you presently have visiting nurse or other home services: No Alcohol intake: never Patient Tobacco Use Status: Never used Tobacco e-Cigarette/Vaping Use: Never Used Second Hand Smoke Exposure: No Advance Directives Date on File: 03/02/22 service: No Current occupational status: retired Office Procedures Cardiac Device Check Cardiac Device Check Details: ILR No new alerts. [id number] Cardiac Interrogation, subcut cardiac rhythm monitor Procedure code (CPT) selection complete Assessment & Plan Assessment & Plan (1) Encounter for loop recorder check: Code(s): Z45.09 - Encounter for adjustment and management of other cardiac device Orders: Orders AMB Cardiac Device Follow-up 01/27/23 Z45.09 - Encounter for adjustment and management of other cardiac device Coding Level of Care Code Procedure Only Diagnoses Encounter for loop recorder check Z45.09 CPT Codes Cardiac Device Check - Cardiac Device 16: [id number] Cardiac Interrogation, subcut cardiac rhythm monitor ([id number])
== END ==
PROVIDERS: PCP Pediatrics; Visit Provider Internal Medicine Cardiovascular Disease
DX: I45.5 Other specified heart block (principal); Z95.818 Presence of other cardiac implants and grafts
CPT/HCPCS: 93298

== ENCOUNTER → 2023-03-03 23:59 | Outpatient (BNV) | payer MEDICARE, OTHER, SELFPAY ==
[2022-08-04 10:18] VITALS: BP 122/60; BP 136/84; BP 144/70; BMI 28.1
--- NOTE | 2023-03-04 20:36 | MHC.OFFVIS ---
Intake Intake Visit Reasons: Remote ILR Check- [employer] Allergies metoprolol [METOPROLOL] Allergy (Severe, Verified 11/11/22 11:14) angioedema amoxicillin [AMOXICILLIN] Allergy (Unknown, Verified 11/11/22 11:14) UNKNOWN bupropion [BUPROPION] Allergy (Unknown, Verified 11/11/22 11:14) UNKNOWN cephalexin [From KEFLEX] Allergy (Unknown, Verified 11/11/22 11:14) UNKNOWN Cephalosporins [CEPHALOSPORINS] Allergy (Unknown, Verified 11/11/22 11:14) UNKNOWN codeine [CODEINE] Allergy (Unknown, Verified 11/11/22 11:14) UNKNOWN dicyclomine [DICYCLOMINE] Allergy (Unknown, Verified 11/11/22 11:14) UNKNOWN doxycycline Allergy (Unknown, Verified 11/11/22 11:14) Unknown erythromycin base [ERYTHROMYCIN BASE] Allergy (Unknown, Verified 11/11/22 11:14) UNKNOWN Iodinated Contrast Media [IV CONTRAST] Allergy (Unknown, Verified 11/11/22 11:14) UNKNOWN lansoprazole [LANSOPRAZOLE] Allergy (Unknown, Verified 11/11/22 11:14) UNKNOWN meperidine [From DEMEROL] Allergy (Unknown, Verified 11/11/22 11:14) ANAPHYLAXIS oxycodone [OXYCODONE] Allergy (Unknown, Verified 11/11/22 11:14) UNKNOWN shellfish derived Allergy (Unknown, Verified 11/11/22 11:14) Unknown simvastatin [SIMVASTATIN] Allergy (Unknown, Verified 11/11/22 11:14) UNKNOWN Sulfa (Sulfonamide Antibiotics) [SULFA (SULFONAMIDE ANTIBIOTICS)] Allergy (Unknown, Verified 11/11/22 11:14) UNKNOWN tramadol [TRAMADOL] Allergy (Unknown, Verified 11/11/22 11:14) UNKNOWN verapamil [VERAPAMIL] Allergy (Unknown, Verified 11/11/22 11:14) ANAPHYLAXIS PFSH Medical History CVA (cerebral vascular accident) Diet-controlled diabetes mellitus H/O paroxysmal supraventricular tachycardia Hyperlipidemia Hypertension Hypothyroidism Migraine headache PAF (paroxysmal atrial fibrillation) Postablative hypothyroidism Thyroid nodule Toxic multinodular goiter Vitamin D deficiency Surgical History H/O bladder repair surgery H/O pelvic surgery H/O: hysterectomy History of cardiac cath Hx of appendectomy Family History Mother High blood sugar Myocardial infarction Father Diabetes Myocardial infarction Stroke Brother Myocardial infarction Social History Household Members: None Housing: House Do you presently have visiting nurse or other home services: No Alcohol intake: never Comment: [phone] Patient Tobacco Use Status: Never used Tobacco e-Cigarette/Vaping Use: Never Used Second Hand Smoke Exposure: No Advance Directives Date on File: 03/02/22 service: No Current occupational status: retired Office Procedures Cardiac Device Check Cardiac Device Check Details: ILR No new alerts, [id number] Cardiac Interrogation, subcut cardiac rhythm monitor Procedure code (CPT) selection complete Assessment & Plan Assessment & Plan (1) PAF (paroxysmal atrial fibrillation): Code(s): I48.0 - Paroxysmal atrial fibrillation Plan: Orders: Orders AMB Cardiac Device Follow-up 03/03/23 I48.0 - Paroxysmal atrial fibrillation Coding Level of Care Code Procedure Only Diagnoses PAF (paroxysmal atrial fibrillation) I48.0 CPT Codes Cardiac Device Check - Cardiac Device 16: [id number] Cardiac Interrogation, subcut cardiac rhythm monitor ([id number])
== END ==
PROVIDERS: PCP Pediatrics; Visit Provider Internal Medicine Cardiovascular Disease
DX: I48.0 Paroxysmal atrial fibrillation (principal); Z95.818 Presence of other cardiac implants and grafts
CPT/HCPCS: 93298

== ENCOUNTER 2023-03-10 12:31 | Outpatient (AMB) | payer MEDICARE, OTHER, SELFPAY ==
[2022-08-04 10:18] VITALS: BP 122/60; BP 136/84; BP 144/70; BMI 28.1
--- NOTE | 2023-03-10 12:54 | MHC.OFFVIS ---
Intake Vital Signs 03/10/23 12:57 Height 5 ft 1 in Weight 154 lb 5.177 oz BMI 29.2 BP 120/82 Blood Pressure Location Lt brachial Position Sitting Pulse 90 Intake Visit Reasons: 6 MON FUP Intake Note: 6 month follow-up [employer] [place] feeling good Ty[employer] Retreader Required: No Allergies metoprolol [METOPROLOL] Allergy (Severe, Verified 11/11/22 11:14) angioedema amoxicillin [AMOXICILLIN] Allergy (Unknown, Verified 11/11/22 11:14) UNKNOWN bupropion [BUPROPION] Allergy (Unknown, Verified 11/11/22 11:14) UNKNOWN cephalexin [From KEFLEX] Allergy (Unknown, Verified 11/11/22 11:14) UNKNOWN Cephalosporins [CEPHALOSPORINS] Allergy (Unknown, Verified 11/11/22 11:14) UNKNOWN codeine [CODEINE] Allergy (Unknown, Verified 11/11/22 11:14) UNKNOWN dicyclomine [DICYCLOMINE] Allergy (Unknown, Verified 11/11/22 11:14) UNKNOWN doxycycline Allergy (Unknown, Verified 11/11/22 11:14) Unknown erythromycin base [ERYTHROMYCIN BASE] Allergy (Unknown, Verified 11/11/22 11:14) UNKNOWN Iodinated Contrast Media [IV CONTRAST] Allergy (Unknown, Verified 11/11/22 11:14) UNKNOWN lansoprazole [LANSOPRAZOLE] Allergy (Unknown, Verified 11/11/22 11:14) UNKNOWN meperidine [From DEMEROL] Allergy (Unknown, Verified 11/11/22 11:14) ANAPHYLAXIS oxycodone [OXYCODONE] Allergy (Unknown, Verified 11/11/22 11:14) UNKNOWN shellfish derived Allergy (Unknown, Verified 11/11/22 11:14) Unknown simvastatin [SIMVASTATIN] Allergy (Unknown, Verified 11/11/22 11:14) UNKNOWN Sulfa (Sulfonamide Antibiotics) [SULFA (SULFONAMIDE ANTIBIOTICS)] Allergy (Unknown, Verified 11/11/22 11:14) UNKNOWN tramadol [TRAMADOL] Allergy (Unknown, Verified 11/11/22 11:14) UNKNOWN verapamil [VERAPAMIL] Allergy (Unknown, Verified 11/11/22 11:14) ANAPHYLAXIS Medication List - Last Reconciled 03/10/23 by Robles Vargas MD acetaminophen 650 mg PO Q6H PRN albuterol sulfate 90 mcg/actuation 90 mcg inhalation NEEDED apixaban (Eliquis) 5 mg PO BID citalopram 10 mg PO DAILY clopidogrel 75 mg PO DAILY cyclobenzaprine 5 mg PO BEDTIME diltiazem HCl ER (Tiadylt ER) 240 mg PO DAILY fenofibrate micronized 200 mg PO BEDTIME fluticasone propionate 50 mcg/actuation 50 mcg intranasal DAILY fluvastatin ER 80 mg PO BEDTIME levothyroxine 75 mcg PO DAILY@0600 losartan 50 mg PO DAILY omeprazole 20 mg PO BEDTIME riboflavin (vitamin B2) (Vitamin B-2) 400 mg PO DAILY ubrogepant (Ubrelvy) 50 mg PO DAILY HPI HPI Comments History of Present Illness Details Pleasant 67-year-old female here for follow-up. She was recently seen at [facility] when she presented with chest discomfort. Her clinical story was consistent with unstable angina. After discussion she was taken for cardiac catheterization. Cardiac catheterization showed hazy 65-70% mid LAD lesion. We performed IFR which was abnormal and we stented with a drug-eluting stent. She was started on Plavix along with Eliquis and was discharged home. On follow-up she was doing well. After she some in the clinic she had sharp left-sided chest discomfort as well as some burning sensation the chest with chest pressure. She went to the emergency department with these symptoms and was ruled out. EKG did not show any dynamic changes 2. No CRP or ESR was performed and no echocardiography/imaging was done of the heart but she was felt to have pericarditis. She was sent home with this diagnosis. She is saying she has felt better since then on her own. On follow up doing well. No CP or SOB. Taking medications regularly. 10/19/22: She returns for follow-up. She was at [facility] end of September with dizziness and presyncope. She said she was feeling fine and went out to throw some vegetables in her composter when she started feeling nauseous and dizzy. She said she had on to something to prevent herself from falling. She said she was very weak and unsteady walking back to the house. She said she checked her blood pressure and it was high. She went to [facility] with she had workup which did not show any obvious issues. She was told that she probably had vasovagal syncope. She was feeling quite hot and was sweating 2. I agree that she likely had vasovagal syncope. She is saying that she drinks a lot of water. She is compliant with medications. She also had some chest pain in ambulance but workup was okay at [facility]. She has not had any further chest discomfort. 03/10/2023: She returns for follow-up. She has been under lot of stress because of her father who is 91 years old and at the end of his life. Denying any palpitations. She continues to get some vertigo like feeling. She tried meclizine but developed headache and stop using it. She has never seen ENT for vertigo. She has also asking whether Plavix can be stopped or not. [facility] Medical History CVA (cerebral vascular accident) Diet-controlled diabetes mellitus H/O paroxysmal supraventricular tachycardia Hyperlipidemia Hypertension Hypothyroidism Migraine headache PAF (paroxysmal atrial fibrillation) Postablative hypothyroidism Thyroid nodule Toxic multinodular goiter Vitamin D deficiency Surgical History H/O bladder repair surgery H/O pelvic surgery H/O: hysterectomy History of cardiac cath Hx of appendectomy Family History Mother High blood sugar Myocardial infarction Father Diabetes Myocardial infarction Stroke Brother Myocardial infarction Social History Household Members: None Housing: House Do you presently have visiting nurse or other home services: No Alcohol intake: never Comment: 457 Patient Tobacco Use Status: Never used Tobacco e-Cigarette/Vaping Use: Never Used Second Hand Smoke Exposure: No Advance Directives Date on File: 03/02/22 service: No Current occupational status: retired Review of Systems Const Denies chills, Denies fatigue, Denies fever(s), Denies frequent falls, Denies weakness, Denies weight gain and Denies weight loss ENT Denies dizziness Card Denies chest pain, Denies leg edema, Denies lightheadedness, Denies palpitations, Denies dyspnea, Denies dyspnea on exertion, Denies orthopnea and Denies other (loss of consciousness) Resp Denies cough, Denies dyspnea and Denies dyspnea on exertion GI Denies hematochezia and Denies change in stool character Musc Denies abnormal gait, Denies muscle weakness, Denies numbness, Denies radiating pain into limb and Denies tingling Neuro Denies abnormal gait, Denies dizziness, Denies frequent falls, Denies numbness, Denies tingling and Denies weakness Endo Denies fatigue and Denies palpitations Physical Exam Vital Signs: Last Vital Signs Pulse 90 03/10/23 12:57 BP 120/82 03/10/23 12:57 BMI result Body Mass Index 29.2 GENERAL APPEARANCE: in no acute distress, pleasant. NECK: no carotid bruit, no jugular venous distention. SKIN: no suspicious lesions, warm and dry. HEART: no murmurs, regular rate and rhythm. LUNGS: clear to auscultation bilaterally. ABDOMEN: soft, nontender. EXTREMITIES: no edema. PERIPHERAL PULSES: equal. NEUROLOGIC: No gross deficits, AAO X 3 Office Procedures Cardiac Device Check Cardiac Device Check Details: Implantable loop. Good battery life. No new alerts. [id number] Cardiac Interrogation, subcut cardiac rhythm monitor Procedure code (CPT) selection complete Assessment & Plan Assessment & Plan (1) Stable angina: Code(s): I20.8 - Other forms of angina pectoris (2) Vasovagal syncope: Code(s): R55 - Syncope and collapse Plan Pleasant 67 year female who is here for follow-up. She has background history of paroxysmal atrial fibrillation and TIA. She has been on apixaban and clopidogrel. She had LAD PCI and is currently on Plavix for that reason. We decrease the diltiazem previously to see if her dizziness improved but she continues to get dizziness and is describing more like a vertigo. She was given meclizine but developed headache due to meclizine. I think she would benefit from seeing ENT. Blood pressure control is good. She can continue Plavix for a year from her PCI and after that Plavix can be changed to baby aspirin. Alternatively she can continue Plavix but she feels that Plavix is more expensive than [id number] baby aspirin and she wishes to change to aspirin. Continue apixaban as before. Thank you for allowing me to participate in the care of your patient. Please feel free to contact me if you have any questions. Orders: Orders AMB Cardiac Device Follow-up Today Z45.09 - Encounter for adjustment and management of other cardiac device Robles Vargas MD Medications: Resumed apixaban (Eliquis) 5 mg PO BID 60 tabs 0RF Lexus Monet MD Coding Level of Care Code Est Pt Level 4 (06068) Diagnoses Stable angina I20.8 Vasovagal syncope R55 CPT Codes Cardiac Device Check - Cardiac Device 16: [id number] Cardiac Interrogation, subcut cardiac rhythm monitor ([id number])
[2023-03-10 12:57] VITALS: BP 120/82; PULSE 90; BMI 29.2
== END 2023-03-10 13:38 | disposition home or self-care (01) ==
PROVIDERS: PCP Pediatrics; Visit Provider Internal Medicine Cardiovascular Disease
DX: I20.8 Other forms of angina pectoris (principal); R55 Syncope and collapse
CPT/HCPCS: 99214

== ENCOUNTER → 2023-03-10 12:31 | Outpatient (BNVA) | payer MEDICARE, OTHER, SELFPAY ==
[2022-08-04 10:18] VITALS: BP 122/60; BP 136/84; BP 144/70; BMI 28.1
== END ==
PROVIDERS: PCP Pediatrics; Visit Provider Internal Medicine Cardiovascular Disease
DX: Z45.09 Encounter for adjustment and management of other cardiac device (principal); I20.89 Other forms of angina pectoris; R55 Syncope and collapse
CPT/HCPCS: 99212

== ENCOUNTER → 2023-04-07 23:59 | Outpatient (BNV) | payer MEDICARE, SELFPAY ==
[2022-08-04 10:18] VITALS: BP 122/60; BP 136/84; BP 144/70; BMI 28.1
--- NOTE | 2023-04-12 14:13 | MHC.OFFVIS ---
Intake Intake Visit Reasons: Remote ILR Check- [employer] Allergies metoprolol [METOPROLOL] Allergy (Severe, Verified 11/11/22 11:14) angioedema amoxicillin [AMOXICILLIN] Allergy (Unknown, Verified 11/11/22 11:14) UNKNOWN bupropion [BUPROPION] Allergy (Unknown, Verified 11/11/22 11:14) UNKNOWN cephalexin [From KEFLEX] Allergy (Unknown, Verified 11/11/22 11:14) UNKNOWN Cephalosporins [CEPHALOSPORINS] Allergy (Unknown, Verified 11/11/22 11:14) UNKNOWN codeine [CODEINE] Allergy (Unknown, Verified 11/11/22 11:14) UNKNOWN dicyclomine [DICYCLOMINE] Allergy (Unknown, Verified 11/11/22 11:14) UNKNOWN doxycycline Allergy (Unknown, Verified 11/11/22 11:14) Unknown erythromycin base [ERYTHROMYCIN BASE] Allergy (Unknown, Verified 11/11/22 11:14) UNKNOWN Iodinated Contrast Media [IV CONTRAST] Allergy (Unknown, Verified 11/11/22 11:14) UNKNOWN lansoprazole [LANSOPRAZOLE] Allergy (Unknown, Verified 11/11/22 11:14) UNKNOWN meperidine [From DEMEROL] Allergy (Unknown, Verified 11/11/22 11:14) ANAPHYLAXIS oxycodone [OXYCODONE] Allergy (Unknown, Verified 11/11/22 11:14) UNKNOWN shellfish derived Allergy (Unknown, Verified 11/11/22 11:14) Unknown simvastatin [SIMVASTATIN] Allergy (Unknown, Verified 11/11/22 11:14) UNKNOWN Sulfa (Sulfonamide Antibiotics) [SULFA (SULFONAMIDE ANTIBIOTICS)] Allergy (Unknown, Verified 11/11/22 11:14) UNKNOWN tramadol [TRAMADOL] Allergy (Unknown, Verified 11/11/22 11:14) UNKNOWN verapamil [VERAPAMIL] Allergy (Unknown, Verified 11/11/22 11:14) ANAPHYLAXIS PFSH Medical History CVA (cerebral vascular accident) Diet-controlled diabetes mellitus H/O paroxysmal supraventricular tachycardia Hyperlipidemia Hypertension Hypothyroidism Migraine headache PAF (paroxysmal atrial fibrillation) Postablative hypothyroidism Thyroid nodule Toxic multinodular goiter Vitamin D deficiency Surgical History H/O bladder repair surgery H/O pelvic surgery H/O: hysterectomy History of cardiac cath Hx of appendectomy Family History Mother High blood sugar Myocardial infarction Father Diabetes Myocardial infarction Stroke Brother Myocardial infarction Social History Household Members: None Housing: House Do you presently have visiting nurse or other home services: No Alcohol intake: never Comment: [phone] Patient Tobacco Use Status: Never used Tobacco e-Cigarette/Vaping Use: Never Used Second Hand Smoke Exposure: No Advance Directives Date on File: 03/02/22 service: No Current occupational status: retired Office Procedures Cardiac Device Check Cardiac Device Check Details: ILR No new alerts [id number] Cardiac Interrogation, subcut cardiac rhythm monitor Procedure code (CPT) selection complete Assessment & Plan Assessment & Plan (1) PAF (paroxysmal atrial fibrillation): Code(s): I48.0 - Paroxysmal atrial fibrillation Plan: Orders: Orders AMB Cardiac Device Follow-up 04/07/23 I48.0 - Paroxysmal atrial fibrillation Coding Level of Care Code Procedure Only Diagnoses PAF (paroxysmal atrial fibrillation) I48.0 CPT Codes Cardiac Device Check - Cardiac Device 16: [id number] Cardiac Interrogation, subcut cardiac rhythm monitor ([id number])
== END ==
PROVIDERS: PCP Pediatrics; Visit Provider Internal Medicine Cardiovascular Disease
DX: I48.0 Paroxysmal atrial fibrillation (principal); Z95.818 Presence of other cardiac implants and grafts
CPT/HCPCS: 93298

== ENCOUNTER → 2023-05-12 23:59 | Outpatient (BNV) | payer MEDICARE, OTHER, SELFPAY ==
[2022-08-04 10:18] VITALS: BP 122/60; BP 136/84; BP 144/70; BMI 28.1
--- NOTE | 2023-05-26 11:47 | MHC.OFFVIS ---
Intake Intake Visit Reasons: Remote ILR Check- [employer] Allergies metoprolol [METOPROLOL] Allergy (Severe, Verified 11/11/22 11:14) angioedema amoxicillin [AMOXICILLIN] Allergy (Unknown, Verified 11/11/22 11:14) UNKNOWN bupropion [BUPROPION] Allergy (Unknown, Verified 11/11/22 11:14) UNKNOWN cephalexin [From KEFLEX] Allergy (Unknown, Verified 11/11/22 11:14) UNKNOWN Cephalosporins [CEPHALOSPORINS] Allergy (Unknown, Verified 11/11/22 11:14) UNKNOWN codeine [CODEINE] Allergy (Unknown, Verified 11/11/22 11:14) UNKNOWN dicyclomine [DICYCLOMINE] Allergy (Unknown, Verified 11/11/22 11:14) UNKNOWN doxycycline Allergy (Unknown, Verified 11/11/22 11:14) Unknown erythromycin base [ERYTHROMYCIN BASE] Allergy (Unknown, Verified 11/11/22 11:14) UNKNOWN Iodinated Contrast Media [IV CONTRAST] Allergy (Unknown, Verified 11/11/22 11:14) UNKNOWN lansoprazole [LANSOPRAZOLE] Allergy (Unknown, Verified 11/11/22 11:14) UNKNOWN meperidine [From DEMEROL] Allergy (Unknown, Verified 11/11/22 11:14) ANAPHYLAXIS oxycodone [OXYCODONE] Allergy (Unknown, Verified 11/11/22 11:14) UNKNOWN shellfish derived Allergy (Unknown, Verified 11/11/22 11:14) Unknown simvastatin [SIMVASTATIN] Allergy (Unknown, Verified 11/11/22 11:14) UNKNOWN Sulfa (Sulfonamide Antibiotics) [SULFA (SULFONAMIDE ANTIBIOTICS)] Allergy (Unknown, Verified 11/11/22 11:14) UNKNOWN tramadol [TRAMADOL] Allergy (Unknown, Verified 11/11/22 11:14) UNKNOWN verapamil [VERAPAMIL] Allergy (Unknown, Verified 11/11/22 11:14) ANAPHYLAXIS PFSH Medical History CVA (cerebral vascular accident) Diet-controlled diabetes mellitus H/O paroxysmal supraventricular tachycardia Hyperlipidemia Hypertension Hypothyroidism Migraine headache PAF (paroxysmal atrial fibrillation) Postablative hypothyroidism Thyroid nodule Toxic multinodular goiter Vitamin D deficiency Surgical History H/O bladder repair surgery H/O pelvic surgery H/O: hysterectomy History of cardiac cath Hx of appendectomy Family History Mother High blood sugar Myocardial infarction Father Diabetes Myocardial infarction Stroke Brother Myocardial infarction Social History Household Members: None Housing: House Do you presently have visiting nurse or other home services: No Alcohol intake: never Comment: [phone] Patient Tobacco Use Status: Never used Tobacco e-Cigarette/Vaping Use: Never Used Second Hand Smoke Exposure: No Advance Directives Date on File: 03/02/22 service: No Current occupational status: retired Office Procedures Cardiac Device Check Cardiac Device Check Details: ILR No new alerts. [id number] Cardiac Interrogation, subcut cardiac rhythm monitor Procedure code (CPT) selection complete Assessment & Plan Assessment & Plan (1) PAF (paroxysmal atrial fibrillation): Code(s): I48.0 - Paroxysmal atrial fibrillation Plan Coding Level of Care Code Procedure Only Diagnoses PAF (paroxysmal atrial fibrillation) I48.0 CPT Codes Cardiac Device Check - Cardiac Device 16: [id number] Cardiac Interrogation, subcut cardiac rhythm monitor ([id number])
== END ==
PROVIDERS: PCP Pediatrics; Visit Provider Internal Medicine Cardiovascular Disease
DX: I48.0 Paroxysmal atrial fibrillation (principal)
CPT/HCPCS: 93298

== ENCOUNTER 2023-06-10 22:02 | Inpatient (IN) | payer MEDICARE, OTHER, SELFPAY ==
[2022-08-04 10:18] VITALS: BP 122/60; BP 136/84; BP 144/70; BMI 28.1
[2023-06-10 22:13] VITALS: BP 116/80; BP 122/78; PULSE 118; PULSE 128; RESP 16; TEMP 36.6; O2SAT 94; BMI 29.3
[2023-06-10 22:28] VITALS: BP 116/67; PULSE 118; RESP 16; TEMP 37.3; O2SAT 95
[2023-06-10 22:32] LABS: MANUAL DIFF FLAG NO
[2023-06-10 22:36] LABS: Basophils Absolute Auto 0.1 X10*3/uL (0.0-0.2); Basophils Percent Auto 0.3 % (0-2); Eosinophils Percent Auto 0.2 % (0-4); Hematocrit 39.8 % (37.0-47.0); Hemoglobin 13.3 g/dl (12.0-16.0); Imm Gran Abs Auto 0.05 X10*3/uL (0.00-0.03); Imm Gran Pct Auto 0.3 % (0.0-0.4); Lymphocytes Percent Auto 19.6 % (20-40); Mean Corpuscular HGB Conc 33.4 g/dl (31.0-35.0); Mean Corpuscular Hemoglobin 30.4 pg (27.0-33.0); Mean Corpuscular Volume 91.1 fL (80.0-98.0); Mean Platelet Volume 9.1 fL (9.4-12.3); Monocytes Absolute Auto 0.9 X10*3/uL (0.1-1.2); Monocytes Percent Auto 5.8 % (2-11); Neutrophils Absolute Auto 11.1 x10*3/uL (2.0-8.3); Neutrophils Percent Auto 73.8 % (45-73); Platelet Count 376 X10*3/uL (160-400); Red Blood Count 4.37 X10*6/uL (4.20-5.50); White Blood Count 15.1 X10*3/uL (4.8-10.8)
[2023-06-10 22:51] LABS: Alanine Aminotransferase 32 U/L (0-31); Albumin Level 4.4 g/dL (3.5-5.0); Alkaline Phosphatase 61 U/L (39-117); Anion Gap 21 (12-20); Aspartate Amino Transferase 45 U/L (5-31); Bilirubin Total 0.5 mg/dL (0.0-1.0); Blood Urea Nitrogen 15 mg/dL (9-16); Calcium 9.8 mg/dL (8.4-10.2); Carbon Dioxide 21 mmol/L (22-29); Chloride 104 mmol/L (96-108); Creatinine Clr Calc Pharmacy 64.3; Estimated Glomerular Filt Rate > 60; Glucose Random 183 mg/dL (60-115); Sodium 142 mmol/L (135-145); Total Protein 7.3 g/dL (6.5-8.0)
--- NOTE | 2023-06-10 23:06 | ECG_ITS ---
Test Reason : CHEST PAIN Blood Pressure : / mmHG Vent. Rate : 108 BPM Atrial Rate : 108 BPM P-R Int : 142 ms QRS Dur : 078 ms QT Int : 328 ms P-R-T Axes : 063 024 053 degrees QTc Int : 439 ms Sinus tachycardia Low voltage QRS Borderline ECG When compared with ECG of 10-JUN-2023 22:13, Criteria for Septal infarct are no longer Present Referred By: Homer Cabello Electronically Signed By:Robles Vargas
[2023-06-10 23:22] LABS: Troponin-I High Sensitivity 4090.5 ng/L (<3.5-17.0)
--- NOTE | 2023-06-11 | ED.CHESTPAIN ---
HPI - Chest Pain General Chief Complaint: Chest Pain Stated Complaint: CHEST PAIN,NAUSEA Time Seen by Provider: 06/10/23 23:06 Source: patient and RN notes reviewed Mode of arrival: EMS Limitations: no limitations History of Present Illness HPI narrative: 68-year-old female with past medical history significant for AFib on Eliquis, coronary artery disease status post stenting x1, CVA history presents for evaluation of chest pain. Patient reports doing lots of family related stress over the last couple of weeks. She states that a family member this morning. The patient got into an argument with her sister in law around 3:00 p.m. today She states ?I was the Maddest I have ever been and when I was screaming I started to have chest pain. ? She states the pain was initially 10/10. Currently her pain is a 6/10 and has been constant for the last 7 hours or so The pain radiates to her back but does not radiate to her arm or jaw She had some associated shortness of breath No other complaints or concerns at this time Related Data Home Medications Medication Instructions Recorded Confirmed albuterol sulfate 90 mcg/actuation 90 mcg inhalation NEEDED 01/24/20 03/10/23 aerosol inhaler fenofibrate micronized 200 mg 200 mg PO BEDTIME 01/24/20 03/10/23 capsule fluticasone propionate 50 50 mcg intranasal DAILY 01/24/20 03/10/23 mcg/actuation nasal spray,suspension fluvastatin 80 mg tablet,extended 80 mg PO BEDTIME 01/24/20 03/10/23 release 24 hr cyclobenzaprine 5 mg tablet 5 mg PO BEDTIME 04/17/20 03/10/23 omeprazole 20 mg capsule,delayed 20 mg PO BEDTIME 08/08/20 03/10/23 release riboflavin (vitamin B2) 100 mg 400 mg PO DAILY 11/25/21 03/10/23 tablet (Vitamin B-2) acetaminophen 325 mg tablet 650 mg PO Q6H PRN Pain 03/02/22 03/10/23 levothyroxine 75 mcg tablet 75 mcg PO DAILY@0600 03/02/22 03/10/23 ubrogepant 50 mg tablet (Ubrelvy) 50 mg PO DAILY 03/02/22 03/10/23 citalopram 10 mg tablet 10 mg PO DAILY 03/10/23 03/10/23 Previous Rx's Medication Instructions Recorded apixaban 5 mg tablet (Eliquis) 5 mg PO BID #60 tabs 05/11/20 losartan 50 mg tablet 50 mg PO DAILY #90 tabs 08/31/22 diltiazem HCl 240 mg capsule,24 240 mg PO DAILY #90 caps 10/19/22 hr,extended release (Tiadylt ER) clopidogrel 75 mg tablet 75 mg PO DAILY #90 tabs 06/08/23 Allergies Allergy/AdvReac Type Severity Reaction Status Date / Time metoprolol [METOPROLOL] Allergy Severe angioedema Verified 11/11/22 11:14 amoxicillin [AMOXICILLIN] Allergy Unknown UNKNOWN Verified 11/11/22 11:14 bupropion [BUPROPION] Allergy Unknown UNKNOWN Verified 11/11/22 11:14 cephalexin [From KEFLEX] Allergy Unknown UNKNOWN Verified 11/11/22 11:14 Cephalosporins Allergy Unknown UNKNOWN Verified 11/11/22 11:14 [CEPHALOSPORINS] codeine [CODEINE] Allergy Unknown UNKNOWN Verified 11/11/22 11:14 dicyclomine [DICYCLOMINE] Allergy Unknown UNKNOWN Verified 11/11/22 11:14 doxycycline Allergy Unknown Unknown Verified 11/11/22 11:14 erythromycin base Allergy Unknown UNKNOWN Verified 11/11/22 11:14 [ERYTHROMYCIN BASE] Iodinated Contrast Media Allergy Unknown UNKNOWN Verified 11/11/22 11:14 [IV CONTRAST] lansoprazole [LANSOPRAZOLE] Allergy Unknown UNKNOWN Verified 11/11/22 11:14 meperidine [From DEMEROL] Allergy Unknown ANAPHYLAXIS Verified 11/11/22 11:14 oxycodone [OXYCODONE] Allergy Unknown UNKNOWN Verified 11/11/22 11:14 shellfish derived Allergy Unknown Unknown Verified 11/11/22 11:14 simvastatin [SIMVASTATIN] Allergy Unknown UNKNOWN Verified 11/11/22 11:14 Sulfa (Sulfonamide Allergy Unknown UNKNOWN Verified 11/11/22 11:14 Antibiotics) [SULFA (SULFONAMIDE ANTIBIOTICS)] tramadol [TRAMADOL] Allergy Unknown UNKNOWN Verified 11/11/22 11:14 verapamil [VERAPAMIL] Allergy Unknown ANAPHYLAXIS Verified 11/11/22 11:14 Review of Systems Constitutional: Constitutional: Denies body ache(s), Denies chills and Denies fever(s) Eyes: Eyes: Denies blurry vision ENT: Denies sore throat Cardiovascular: Cardiovascular: Reports chest pain and Reports dyspnea Respiratory: Respiratory: Denies cough and Reports dyspnea Gastrointestinal: Gastrointestinal: Denies abdominal pain, Denies nausea and Denies vomiting Musculoskeletal: Musculoskeletal: Denies back pain Integumentary/Breasts: Skin/Breast: Denies rash PMFSH Past Medical History Medical History CVA (cerebral vascular accident) Diet-controlled diabetes mellitus H/O paroxysmal supraventricular tachycardia Hyperlipidemia Hypertension Hypothyroidism Migraine headache PAF (paroxysmal atrial fibrillation) Postablative hypothyroidism Thyroid nodule Toxic multinodular goiter Vitamin D deficiency Surgical History H/O bladder repair surgery H/O pelvic surgery H/O: hysterectomy History of cardiac cath Hx of appendectomy Family History Family History Mother High blood sugar Myocardial infarction Father Diabetes Myocardial infarction Stroke Brother Myocardial infarction Social History Social History Household Members: None Housing: House Do you presently have visiting nurse or other home services: No Alcohol intake: never Comment: [phone] Patient Tobacco Use Status: Never used Tobacco e-Cigarette/Vaping Use: Never Used Second Hand Smoke Exposure: No Advance Directives: Yes Advance Directives Information Provided: No Advance Directives on File: No Advance Directives Date on File: 03/02/22 service: No Current occupational status: retired Physical Exam Vital Signs: Vital Signs: Last Vital Signs Temp 98 F 06/11/23 00:48 Pulse 113 H 06/11/23 00:48 Resp 16 06/11/23 00:48 BP 101/52 L 06/11/23 00:48 Pulse Ox 95 06/10/23 22:28 O2 Del Method Room Air 06/10/23 22:28 BMI result Body Mass Index 29.3 Const: General: healthy appearing, comfortable, no acute distress, alert and awake Nutritional Appearance: well nourished Orientation/consciousness: patient oriented x3 HEENT: Head: Yes normocephalic and Yes atraumatic Eyes: Eyelids: Yes eyelids normal Conjunctivae: conjunctivae normal Sclerae: sclerae normal Corneas: corneas normal Pupils: Equal, round and reactive pupils present EOM: EOMs intact bilaterally Neck: Neck: Yes full ROM Resp: Effort & Inspection: normal respiratory effort, able to speak in complete sentences, no audible wheezes and not labored Auscultation: clear to auscultation bilaterally Cardio: Rate: regular rate Rhythm: regular rhythm GI: Inspection: No distended Palpation (GI): Soft to palpation, not firm, nontender, no guarding and not rigid Skin: General skin exam: elasticity normal Neuro: General: patient oriented x3 Cranial nerves: Yes Equal, round and reactive pupils present and Yes Bilaterally intact EOM present Cognition (Neuro): normal cognition Course Course Course Narrative: I received a critical from the lab the patient's troponin was over 4000. I immediately ordered a repeat EKG and discussed with Cardiology, Dr. Vargas. Repeat EKG appear slightly improved with improved morphology of lead 3 and AVF. Reevaluation(s) Reevaluation #1: Discussed with Dr. Pitt who agrees with current plan of heparin. He recommends giving the patient chest pain-free. If we can can not get her chest pain-free the patient may require transfer to tertiary facility Time: 00:01 Reevaluation #2: Patient is chest pain-free on re-evaluation. She has not yet received nitro Time: 00:29 Reevaluation #3: Patient's repeat troponin slightly elevated compared to previous at 4657.4. She reports that she is chest pain-free. Plan discussed with the hospitalist for admission Time: 01:48 Medications Administered Generic Name Dose Route Start Last Admin Trade Name Freq PRN Reason Stop Dose Admin Heparin Sodium/Sodium Chloride 25,000 unit in 250 mls @ 0 mls/hr 06/10/23 23:45 06/11/23 00:44 Heparin Sodium,Porcine/1/2ns IVCONT 12 units/kg/hr .Q0M SELENE 8.44 mls/hr Administration Protocol Per Protocol Nitroglycerin 0.4 mg 06/11/23 00:00 06/11/23 01:14 Nitroglycerin 0.4 Mg Tab.Subl SUBLINGUAL 0.4 mg Q5MX3 PRN Administration Chest Pain Discontinued Medications Generic Name Dose Route Start Last Admin Trade Name Freq PRN Reason Stop Dose Admin Fentanyl 50 mcg 06/10/23 23:35 06/11/23 00:13 Fentanyl Citrate/Pf 100 Mcg/2 Ml Vial IVPUSH 06/10/23 23:36 50 mcg ONCE ONE Administration Protocol Sodium Chloride 1,000 mls @ 999 mls/hr 06/10/23 23:45 06/11/23 00:48 Ns IV 06/11/23 00:45 999 mls/hr .Q1H1M SELENE Administration Medical Decision Making Medical Decision Making [facility] Narrative: Patient with significant cardiac history presents for evaluation of chest pain. Initial EKG shows sinus tachycardia with a rate of 119 beats minute. She has questionable ST depressions in leads 3 and AVF.. Plan for labs including troponin. She took aspirin 324 mg at home prior to arriving after being instructed to do so by EMS. Differential Diagnosis Differential Diagnoses: The differential diagnosis associated with the presentation includes Chest pain ACS Costochondritis Anxiety Stress Admission/Observation Consideration of admission/observation: Escalation of care including admission/observation considered Patient will require admission for ACS Consult Healthcare Provider Management of the patient was discussed with: Events Intern (Cardiology) Lab Data [facility] Lab Attestation statement: I reviewed the patient's lab results. Patient has a leukocytosis to 15.1 K. No anemia. Normal platelet count. No significant electrolyte abnormalities. The patient's glucose is elevated to 183. Most notably, her troponin is 4090.5. 06/10/23 22:27 06/10/23 22:27 Labs: Lab Results 06/10/23 06/11/23 Range/Units 22:27 00:21 WBC 15.1 H (4.8-10.8) X10*3/uL RBC 4.37 (4.20-5.50) X10*6/uL Hgb 13.3 (12.0-16.0) g/dl Hct 39.8 (37.0-47.0) % MCV 91.1 (80.0-98.0) fL MCH 30.4 (27.0-33.0) pg MCHC 33.4 (31.0-35.0) g/dl RDW 13.0 (11.0-16.0) % Plt Count 376 (160-400) X10*3/uL MPV 9.1 L (9.4-12.3) fL Immature Gran % (Auto) 0.3 (0.0-0.4) % Neut % (Auto) 73.8 H (45-73) % Lymph % (Auto) 19.6 L (20-40) % Franklin % (Auto) 5.8 (2-11) % Eos % (Auto) 0.2 (0-4) % Baso % (Auto) 0.3 (0-2) % Lymph # (Auto) 3.0 (1.2-4.9) X10*3/uL Franklin # (Auto) 0.9 (0.1-1.2) X10*3/uL Eos # (Auto) 0.0 (0.0-0.4) X10*3/uL Baso # (Auto) 0.1 (0.0-0.2) X10*3/uL Abs Immat Gran (auto) 0.05 H (0.00-0.03) X10*3/uL Absolute Neuts (auto) 11.1 H (2.0-8.3) x10*3/uL Absolute Nucleated RBC 0.000 (0.0-0.012) X10*3/uL Nucleated RBC % (auto) 0.0 (0.0-0.2) /100WBC PT 17.0 H (11.1-13.3) SEC INR 1.4 H (0.9-1.1) aPTT Heparin Protocol 36.6 L D (53-77.9) SEC Sodium 142 (135-145) mmol/L Potassium 4.0 (3.3-5.1) mmol/L Chloride 104 (96-108) mmol/L Carbon Dioxide 21 L (22-29) mmol/L Anion Gap 21 H (12-20) BUN 15 (9-16) mg/dL Creatinine 0.74 (0.5-1.4) mg/dL Estim Creat Clear Calc 64.3 Estimated GFR > 60 Random Glucose 183 H (60-115) mg/dL Calcium 9.8 (8.4-10.2) mg/dL Total Bilirubin 0.5 (0.0-1.0) mg/dL AST 45 H (5-31) U/L ALT 32 H (0-31) U/L Alkaline Phosphatase 61 (39-117) U/L Troponin I High Sens 4090.5 H* D (<3.5-17.0) ng/L Total Protein 7.3 (6.5-8.0) g/dL Albumin 4.4 (3.5-5.0) g/dL Independent Interpretation I performed an independent interpretation of an: EKG (See above) Critical Care Time Critical Care Time Critical Care Time: Yes Total Critical Care Time: 50 Attestation: 68-year-old female presents for evaluation of chest pain. She is extensive cardiac history requiring review. She had a critical troponin of 4000, she required cardiology consultation and frequent re-evaluations Discharge Plan Discharge Clinical Impression: Non-ST elevation [place] (NSTEMI) Patient Disposition: Admitted As Inpatient
[2023-06-11 00:13] VITALS: RESP 16
[2023-06-11] MEDS: fentaNYL citrate/PF 100 MCG/2 ML VIAL 50 MCG IVPUSH (00:13)
[2023-06-11 00:34] LABS: INTERNATIONAL NORM RATIO 1.4 (0.9-1.1)
[2023-06-11 00:36] LABS: PTT Heparin Drip 36.6 SEC (53-77.9)
[2023-06-11] MEDS: Heparin Sodium,Porcine/1/2NS 25,000 UNIT/250 ML IV.SOLN 8.44 UNIT IVCONT (00:44)
[2023-06-11 00:48] VITALS: BP 101/52; PULSE 113; RESP 16; TEMP 36.6
[2023-06-11] MEDS: 0.9 % Sodium Chloride 1,000 ML 999 ML IV (00:48)
[2023-06-11] MEDS: Nitroglycerin 0.4 MG TAB.SUBL SUBLINGUAL (01:14)
[2023-06-11 01:48] LABS: Troponin-I High Sensitivity 4657.4 ng/L (<3.5-17.0)
--- NOTE | 2023-06-11 01:57 | P.HPHOSP_ITS ---
History of Present Illness Date of Service: 06/11/23 Chief Complaint: Chest pain This is a 68-year-old female with pertinent history of CAD status post stent, paroxysmal atrial fibrillation on Eliquis, essential hypertension, mixed hyperlipidemia, hypothyroidism, gastroesophageal reflux disease, mood disorder, history of CVA who presents to the emergency department for evaluation of chest discomfort. She has had stress due to her eujipa-tw-mup for the last few days. Patient states chest pain started when she was having an argument with her sister in law. It was midsternal and radiated to the left shoulder, neck and back. It was constant and lasted till the patient came to the ER. She took aspirin prior to coming to the ER. No fever, chills, palpitations, shortness of breath. Patient denies orthopnea, PND, abdominal pain, changes in urinary or bowel habits. In the emergency department, troponin was found to be elevated. Cardiology was consulted and patient was initiated on IV heparin. Review of Systems 2 Constitutional: Constitutional: Reports no additional constitutional complaints Cardiovascular: Cardiovascular: Reports chest pain and Reports chest pain at rest Respiratory: Respiratory: Reports no additional respiratory complaints Gastrointestinal: Gastrointestinal: Reports no additional gastrointestinal complaints Genitourinary: Genitourinary: Reports no additional female genitourinary complaints REPLACED BY [facility] Medical History Hypothyroidism Thyroid nodule PAF (paroxysmal atrial fibrillation) Vitamin D deficiency Postablative hypothyroidism H/O paroxysmal supraventricular tachycardia Migraine headache Hyperlipidemia Diet-controlled diabetes mellitus Toxic multinodular goiter CVA (cerebral vascular accident) Hypertension Family History Mother High blood sugar Myocardial infarction Father Diabetes Myocardial infarction Stroke Brother Myocardial infarction Surgical History History of cardiac cath H/O bladder repair surgery Hx of appendectomy H/O: hysterectomy H/O pelvic surgery Social History Household Members: None Housing: House Do you presently have visiting nurse or other home services: No Alcohol intake: never Comment: [phone] Patient Tobacco Use Status: Never used Tobacco e-Cigarette/Vaping Use: Never Used Second Hand Smoke Exposure: No Advance Directives: Yes Advance Directives Information Provided: No Advance Directives on File: No Advance Directives Date on File: 03/02/22 service: No Current occupational status: retired Meds Allergies Allergy/AdvReac Type Severity Reaction Status Date / Time metoprolol [METOPROLOL] Allergy Severe angioedema Verified 11/11/22 11:14 amoxicillin [AMOXICILLIN] Allergy Unknown UNKNOWN Verified 11/11/22 11:14 bupropion [BUPROPION] Allergy Unknown UNKNOWN Verified 11/11/22 11:14 cephalexin [From KEFLEX] Allergy Unknown UNKNOWN Verified 11/11/22 11:14 Cephalosporins Allergy Unknown UNKNOWN Verified 11/11/22 11:14 [CEPHALOSPORINS] codeine [CODEINE] Allergy Unknown UNKNOWN Verified 11/11/22 11:14 dicyclomine [DICYCLOMINE] Allergy Unknown UNKNOWN Verified 11/11/22 11:14 doxycycline Allergy Unknown Unknown Verified 11/11/22 11:14 erythromycin base Allergy Unknown UNKNOWN Verified 11/11/22 11:14 [ERYTHROMYCIN BASE] Iodinated Contrast Media Allergy Unknown UNKNOWN Verified 11/11/22 11:14 [IV CONTRAST] lansoprazole [LANSOPRAZOLE] Allergy Unknown UNKNOWN Verified 11/11/22 11:14 meperidine [From DEMEROL] Allergy Unknown ANAPHYLAXIS Verified 11/11/22 11:14 oxycodone [OXYCODONE] Allergy Unknown UNKNOWN Verified 11/11/22 11:14 shellfish derived Allergy Unknown Unknown Verified 11/11/22 11:14 simvastatin [SIMVASTATIN] Allergy Unknown UNKNOWN Verified 11/11/22 11:14 Sulfa (Sulfonamide Allergy Unknown UNKNOWN Verified 11/11/22 11:14 Antibiotics) [SULFA (SULFONAMIDE ANTIBIOTICS)] tramadol [TRAMADOL] Allergy Unknown UNKNOWN Verified 11/11/22 11:14 verapamil [VERAPAMIL] Allergy Unknown ANAPHYLAXIS Verified 11/11/22 11:14 Active Medications: Current Medications Heparin Sodium (Porcine) (Heparin Sodium,Porcine 5,000 Unit/Ml Vial) 2,800 unit 40 unit/kg (2800 unit) IVPUSH PROTOCOL BOLUS PRN; Protocol PRN Reason: 40 unit/kg - Heparin Protocol Heparin Sodium (Porcine) (Heparin Sodium,Porcine 5,000 Unit/Ml Vial) 5,600 unit 80 unit/kg (5600 unit) IVPUSH PROTOCOL BOLUS PRN; Protocol PRN Reason: 80 unit/kg - Heparin Protocol Heparin Sodium/Sodium Chloride (Heparin Sodium,Porcine/1/2ns) 25,000 unit in 250 mls @ 0 mls/hr IVCONT .Q0M SELENE; Protocol Last Admin: 06/11/23 00:44 Dose: 12 units/kg/hr, 8.44 mls/hr Nitroglycerin (Nitroglycerin 0.4 Mg Tab.Subl) 0.4 mg SUBLINGUAL Q5MX3 PRN PRN Reason: Chest Pain Last Admin: 06/11/23 01:14 Dose: 0.4 mg Home Medications Medication Instructions Recorded Confirmed Last Taken Type albuterol sulfate 90 mcg/actuation 90 mcg inhalation NEEDED 01/24/20 03/10/23 05/09/20 History aerosol inhaler fenofibrate micronized 200 mg 200 mg PO BEDTIME 01/24/20 03/10/23 03/01/22 History capsule fluticasone propionate 50 50 mcg intranasal DAILY 01/24/20 03/10/23 03/02/22 History mcg/actuation nasal spray,suspension fluvastatin 80 mg tablet,extended 80 mg PO BEDTIME 01/24/20 03/10/23 03/01/22 History release 24 hr cyclobenzaprine 5 mg tablet 5 mg PO BEDTIME 04/17/20 03/10/23 03/01/22 History omeprazole 20 mg capsule,delayed 20 mg PO BEDTIME 08/08/20 03/10/23 03/01/22 History release riboflavin (vitamin B2) 100 mg 400 mg PO DAILY 11/25/21 03/10/23 03/02/22 History tablet (Vitamin B-2) acetaminophen 325 mg tablet 650 mg PO Q6H PRN Pain 03/02/22 03/10/23 Unknown History levothyroxine 75 mcg tablet 75 mcg PO DAILY@0600 03/02/22 03/10/23 03/02/22 History ubrogepant 50 mg tablet (Ubrelvy) 50 mg PO DAILY 03/02/22 03/10/23 03/02/22 History citalopram 10 mg tablet 10 mg PO DAILY 03/10/23 03/10/23 Unknown History Physical Exam 2 Vital Signs and Narrative: Vital Signs: Last Vital Signs Temp 98 F 06/11/23 00:48 Pulse 113 H 06/11/23 00:48 Resp 16 06/11/23 00:48 BP 101/52 L 06/11/23 00:48 Pulse Ox 95 06/10/23 22:28 O2 Del Method Room Air 06/10/23 22:28 BMI result Body Mass Index 29.3 Middle-aged female lying in bed in no distress Neck supple, no JVD Regular rate and rhythm, S1-S2 heard Regular breath sounds bilaterally, no wheezing or crackles appreciated Abdomen soft nontender, no guarding, no rigidity Patient is awake, alert and oriented to self, place, time and person ; no focal motor deficit Psych: Normal mood No pedal edema Results Labs 06/10/23 22:27 06/10/23 22:27 Labs: Laboratory Results - last 24 hr 06/10/23 06/11/23 06/11/23 22:27 00:21 01:05 MCV 91.1 MCH 30.4 MCHC 33.4 RDW 13.0 Plt Count 376 MPV 9.1 L Immature Gran % (Auto) 0.3 Neut % (Auto) 73.8 H Lymph % (Auto) 19.6 L Larue % (Auto) 5.8 Eos % (Auto) 0.2 Baso % (Auto) 0.3 Lymph # (Auto) 3.0 Larue # (Auto) 0.9 Eos # (Auto) 0.0 Baso # (Auto) 0.1 Abs Immat Gran (auto) 0.05 H Absolute Neuts (auto) 11.1 H Absolute Nucleated RBC 0.000 Nucleated RBC % (auto) 0.0 PT 17.0 H INR 1.4 H aPTT Heparin Protocol 36.6 L D Anion Gap 21 H Estim Creat Clear Calc 64.3 Estimated GFR > 60 Random Glucose 183 H Calcium 9.8 Total Bilirubin 0.5 AST 45 H ALT 32 H Alkaline Phosphatase 61 Troponin I High Sens 4090.5 H* D 4657.4 H* Total Protein 7.3 Albumin 4.4 Assessment and Plan (1) Non-ST elevation [place] (NSTEMI): Status: Acute Plan This is a 68-year-old female with pertinent history of CAD status post stent, paroxysmal atrial fibrillation on Eliquis, essential hypertension, mixed hyperlipidemia, hypothyroidism, gastroesophageal reflux disease, mood disorder, history of CVA who presents to the emergency department for evaluation of chest discomfort. #. NSTEMI: Will admit patient with cardiac monitoring. Patient took aspirin prior to coming to the ER. Initiated on IV heparin. Not on beta-eric. Consulting Cardiology and obtaining echocardiogram. Patient is on antiplatelet agent and statin. #. Paroxysmal atrial fibrillation: Rate controlled in the ER. On Eliquis at home, continue anticoagulation with IV heparin #. Hypothyroidism: On Synthroid #. Gastroesophageal reflux disease: On PPI #. Mood disorder: Continue home mood stabilizers #. Essential hypertension: Continue home antihypertensives #. Reactive leukocytosis and tachycardia due to NSTEMI. Not due to sepsis #. Diet controlled type 2 diabetes mellitus with hyperglycemia: Initiating Accu-Cheks with sliding scale insulin Med rec pending DVT prophylaxis: IV heparin Full code Admit as inpatient and will require two night minimum hospital stay for IV heparin (as above), which is not possible in a lesser acute setting. Specialist consult pending Quality Stroke Does the patient have a stroke diagnosis?: No VTE Prior VTE?: No VTE Risk Level:: Medical - moderate - high VTE Device Contraindication: Treatment Not Indicated VTE Drug Contraindication: N/A - Med Ordered
[2023-06-11 05:34] LABS: Hematocrit 35.2 % (37.0-47.0); Hemoglobin 11.7 g/dl (12.0-16.0); Mean Corpuscular HGB Conc 33.2 g/dl (31.0-35.0); Mean Corpuscular Hemoglobin 30.9 pg (27.0-33.0); Mean Corpuscular Volume 92.9 fL (80.0-98.0); Mean Platelet Volume 9.2 fL (9.4-12.3); Platelet Count 311 X10*3/uL (160-400); Red Blood Count 3.79 X10*6/uL (4.20-5.50); Red Cell Distribution Width 13.2 % (11.0-16.0); White Blood Count 10.2 X10*3/uL (4.8-10.8)
[2023-06-11 05:49] LABS: INTERNATIONAL NORM RATIO 1.3 (0.9-1.1); Prothrombin Time 15.3 SEC (11.1-13.3)
[2023-06-11 05:55] LABS: Anion Gap 13 (12-20); Blood Urea Nitrogen 14 mg/dL (9-16); Calcium 8.8 mg/dL (8.4-10.2); Carbon Dioxide 22 mmol/L (22-29); Chloride 109 mmol/L (96-108); Creatinine Clr Calc Pharmacy 61.8; Estimated Glomerular Filt Rate > 60; Glucose Random 126 mg/dL (60-115); Potassium 4.5 mmol/L (3.3-5.1); Sodium 139 mmol/L (135-145)
--- NOTE | 2023-06-11 07:00 | CA_ITS ---
Transthoracic Echocardiogram Patient (Last, First, Middle): Bethanie Dillard, Gender: Female Date of : 1955 Age: 68 Procedure Date: 06/11/2023 Procedure Type: Transthoracic Echocardiogram Location: ER Height: 154.94 cm Weight: 70.31 kg BSA: 1.70 m2 Heart Rate: bpm BP: 108 / 65 mmHg Java Engineer: Referring MD: Stacey Cervantes MD Symptoms: NSTEMI Study Quality: Good ECG Rhythm: Sinus Conclusions: - severe LV dysfunction. Jyzy-lq-dlqxxjzi RV dysfunction. 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 Findings Procedure Information Contrast agent, definity, is being given per protocol without apparent complications. Left Ventricle Normal left ventricular cavity size. There is normal left ventricular wall thickness. The left ventricular systolic function is severely decreased. The visually estimated ejection fraction is between 15-20%. There is evidence of regional wall motion abnormalities. Wall Motion Rest Echo Findings The entire apex, the mid anterior, mid inferior, mid anterolateral, mid inferoseptal, mid anteroseptal, and mid inferolateral segments are akinetic. Right Ventricle Normal right ventricular cavity size. There is mild to moderately decreased right ventricular systolic function. Basal segment of right ventricular has normal function. Distal segment of the right ventricle is akinetic. Prior Study Comparison Changes noted compared to prior study. Severe LV dysfunction and mild-to moderate RV dysfunction. Measurements 2D Linear Measurements IVSd: 1.17 0.6-0.9/0.6-1.0 cm LVIDd: 4.76 3.9-5.3/4.2-5.9 cm LVIDd Index: 2.80 2.4-3.2/2.2-3.1 cm/m2 LVIDs: 4.17 2.0-3.6 cm LVPWd: 1.17 0.7-1.1 cm LV Mass: 260.06 67-162/88-224 g LV Mass Index: 152.98 43-95/49-115 g/m2 2D Systolic Function EF 4C: 28.70 >55% EF 2C: 28.60 >55% EF BiP: 29.30 >55% Updated in Other Vendor System with Status of Final Robles Vargas MD electronically signed on 06/11/2023 3:51:16 PM with status of Final
[2023-06-11] MEDS: Clopidogrel Bisulfate 75 MG TABLET PO (07:14)
[2023-06-11 08:01] LABS: Glucose, Whole Blood 150 mg/dL (60-115)
--- NOTE | 2023-06-11 08:01 | PC.NURSE ---
Report given to MARIO Desir at [facility]
--- NOTE | 2023-06-11 08:06 | PM.DS ---
DS: Providers Provider Date of Service: 06/11/23 Date of admission: 06/11/23 01:56 Date of discharge: 06/11/23 Primary care physician: Karo Tang MD Consults: 06/11/23 02:04 Consult to Cardiology Routine Consulting Provider: [facility] Cardiovascular Services Reason for consultation: NSTEMI Has provider been notified: Yes Attending physician on discharge: David Snyder Discharging clinician: Radha Chilel DS: Transfer Hospital Acceptance Reason for Transfer: Higher level of care Name of Facility: [facility] DS: Diagnosis Discharge Diagnosis (1) Non-ST elevation LA (NSTEMI): Status: Acute DS: Summary Hospital Course Hospital Course: From the H&P on the day of admission This is a 68-year-old female with pertinent history of CAD status post stent, paroxysmal atrial fibrillation on Eliquis, essential hypertension, mixed hyperlipidemia, hypothyroidism, gastroesophageal reflux disease, mood disorder, history of CVA who presents to the emergency department for evaluation of chest discomfort. She has had stress due to her njvgvr-qf-nez for the last few days. Patient states chest pain started when she was having an argument with her sister in law. It was midsternal and radiated to the left shoulder, neck and back. It was constant and lasted till the patient came to the ER. She took aspirin prior to coming to the ER. No fever, chills, palpitations, shortness of breath. Patient denies orthopnea, PND, abdominal pain, changes in urinary or bowel habits. In the emergency department, troponin was found to be elevated. Cardiology was consulted and patient was initiated on IV heparin. NSTEMI: Patient took aspirin prior to coming to the ER. High sensitivity Troponin 4090, 4657, 3948. Discussed with cardiology and started on IV heparin drip, started at around 11pm 06/09. Patient is on antiplatelet agent and statin at baseline although her med rec has not yet been completed. She received a dose of plavix 75 mg at 6:15 am 06/10. She reports ongoing chest and back discomfort. Plan to transfer to [facility] this morning for further management. #. Paroxysmal atrial fibrillation: Rate controlled in the ER. On Eliquis at home, continue anticoagulation with IV heparin. hold diltiazem per unit manager convenience stores #. Hypothyroidism: On Synthroid #. Gastroesophageal reflux disease: On PPI #. Mood disorder: Continue home mood stabilizers (med rec not yet complete) #. Essential hypertension: Hold diltiazem per Cardiology recommendation #. Reactive leukocytosis and tachycardia due to NSTEMI. Not due to sepsis #. Diet controlled type 2 diabetes mellitus with hyperglycemia: Initiating Accu-Cheks with sliding scale insulin Time Attestation Total time managing care of this patient today: 38 mintues. Discharge Coordination Time (in mins): 38 Quality: Safe Use of Opioids Does Pt have an Active Cancer Diagnosis on the Problem List?: No Quality: Stroke Does the patient have a stroke diagnosis?: No Physical Exam Vital Signs: Vital Signs: Last Vital Signs Temp 98 F 06/11/23 00:48 Pulse 113 H 06/11/23 00:48 Resp 16 06/11/23 00:48 BP 101/52 L 06/11/23 00:48 Pulse Ox 95 06/10/23 22:28 O2 Del Method Room Air 06/10/23 22:28 BMI result Body Mass Index 29.3 Const: General: cooperative, comfortable, no acute distress, alert and awake Nutritional Appearance: average body habitus Orientation/consciousness: patient oriented x3 Resp: Effort & Inspection: normal respiratory effort, able to speak in complete sentences, no respiratory distress and no use of accessory muscles Neuro: Other: grossly non-focal General: patient oriented x3 DS: Data Data Completed and Pending Labs on day of discharge: Laboratory Results - last 24 hr 06/10/23 06/11/23 06/11/23 22:27 00:21 01:05 WBC 15.1 H RBC 4.37 Hgb 13.3 Hct 39.8 MCV 91.1 MCH 30.4 MCHC 33.4 RDW 13.0 Plt Count 376 MPV 9.1 L Immature Gran % (Auto) 0.3 Neut % (Auto) 73.8 H Lymph % (Auto) 19.6 L [place] % (Auto) 5.8 Eos % (Auto) 0.2 Baso % (Auto) 0.3 Lymph # (Auto) 3.0 [place] # (Auto) 0.9 Eos # (Auto) 0.0 Baso # (Auto) 0.1 Abs Immat Gran (auto) 0.05 H Absolute Neuts (auto) 11.1 H Absolute Nucleated RBC 0.000 Nucleated RBC % (auto) 0.0 PT 17.0 H INR 1.4 H aPTT Heparin Protocol 36.6 L D Sodium 142 Potassium 4.0 Chloride 104 Carbon Dioxide 21 L Anion Gap 21 H BUN 15 Creatinine 0.74 Estim Creat Clear Calc 64.3 Estimated GFR > 60 POC Glucose Random Glucose 183 H Calcium 9.8 Total Bilirubin 0.5 AST 45 H ALT 32 H Alkaline Phosphatase 61 Troponin I High Sens 4090.5 H* D 4657.4 H* Total Protein 7.3 Albumin 4.4 06/11/23 06/11/23 05:04 07:56 WBC 10.2 RBC 3.79 L Hgb 11.7 L Hct 35.2 L MCV 92.9 MCH 30.9 MCHC 33.2 RDW 13.2 Plt Count 311 MPV 9.2 L Immature Gran % (Auto) Neut % (Auto) Lymph % (Auto) [place] % (Auto) Eos % (Auto) Baso % (Auto) Lymph # (Auto) [place] # (Auto) Eos # (Auto) Baso # (Auto) Abs Immat Gran (auto) Absolute Neuts (auto) Absolute Nucleated RBC 0.000 Nucleated RBC % (auto) 0.0 PT 15.3 H INR 1.3 H aPTT Heparin Protocol Sodium 139 Potassium 4.5 Chloride 109 H Carbon Dioxide 22 Anion Gap 13 BUN 14 Creatinine 0.77 Estim Creat Clear Calc 61.8 Estimated GFR > 60 POC Glucose 150 H Random Glucose 126 H Calcium 8.8 D Total Bilirubin AST ALT Alkaline Phosphatase Troponin I High Sens 3948.8 H* Total Protein Albumin Discharge Plan Discharge Anticipated Discharge Date/Time: 06/11/23 08:23 Patient Disposition: Xfer Acute Care Hospital Discharge Diagnosis: NSTEMI, ACS Referrals: Karo Tang MD [Primary Care Provider] - 1 Week Discharge Medications: Continued losartan 50 mg tablet 50 mg PO DAILY Qty: 90 3RF clopidogrel 75 mg tablet 75 mg PO DAILY Qty: 90 3RF levothyroxine 75 mcg tablet 75 mcg PO DAILY@0600 acetaminophen 325 mg Tablet 650 mg PO Q6H PRN (Reason: Pain) Ubrelvy 50 mg tablet 50 mg PO DAILY fluvastatin 80 mg tablet extended release 24 hr 80 mg PO BEDTIME fenofibrate micronized 200 mg capsule 200 mg PO BEDTIME fluticasone propionate 50 mcg/actuation spray,suspension 50 mcg intranasal DAILY albuterol sulfate 90 mcg/actuation HFA aerosol inhaler 90 mcg inhalation NEEDED cyclobenzaprine 5 mg tablet 5 mg PO BEDTIME omeprazole 20 mg capsule,delayed release(DR/EC) 20 mg PO BEDTIME riboflavin (vitamin B2) [Vitamin B-2] 100 mg tablet 400 mg PO DAILY citalopram 10 mg tablet 10 mg PO DAILY Held Eliquis 5 mg Tablet 5 mg PO BID Qty: 60 0RF Hold Instructions: Resume on 03/04/22. Discontinued diltiazem HCl [Tiadylt ER] 240 mg capsule,extended release 24 hr 240 mg PO DAILY Qty: 90 3RF Discharge Orders: Discharge Order (Routine); Ordered 06/11/23 Ordered By: Radha Chilel Activity on Discharge: As tolerated Stand Alone Forms: Patient Portal Discharge page Care Plan Goals: see below Health Concerns: NSTEMI on heparin drip Plan of Treatment: Transferred to [facility] for higher level of care/further workup, including cardiac catheterization Assessment: see discharge summary
[2023-06-11 08:53] VITALS: BP 122/68; PULSE 116; RESP 16; TEMP 37; O2SAT 94
--- NOTE | 2023-06-11 09:02 | MHC.CM.PN ---
Patient transferred to [facility] before being seen by case management.
--- NOTE | 2023-06-11 15:00 | ECG_ITS ---
Test Reason : cp Blood Pressure : / mmHG Vent. Rate : 119 BPM Atrial Rate : 119 BPM P-R Int : 148 ms QRS Dur : 074 ms QT Int : 316 ms P-R-T Axes : 078 065 059 degrees QTc Int : 444 ms Sinus tachycardia Low voltage QRS Septal infarct (cited on or before 24-MAR-2022) Subtle lateral ST elevations Abnormal ECG When compared with ECG of 24-MAR-2022 12:29, Subtle lateral ST elevations present Referred By: Lance Cannon Electronically Signed By:Robles Vargas
== END 2023-06-11 17:37 | disposition short-term general hospital (02) | DRG 282 ==
LOC: HO.ED 06-11 00:39 → HO.EDOVER 06-11 02:19
PROVIDERS: Physician Assistant; Admitting Provider Student in an Organized Health Care Education/Training Program; Emergency Provider Emergency Medicine; PCP Pediatrics; Visit Provider Physician Assistant Medical
DX: I21.4 Non-ST elevation (NSTEMI) myocardial infarction (principal); E03.9 Hypothyroidism, unspecified; I25.10 Atherosclerotic heart disease of native coronary artery without angina pectoris; Z95.5 Presence of coronary angioplasty implant and graft; I48.0 Paroxysmal atrial fibrillation; E78.2 Mixed hyperlipidemia; K21.9 Gastro-esophageal reflux disease without esophagitis; F39 Unspecified mood [affective] disorder; E11.65 Type 2 diabetes mellitus with hyperglycemia; Z91.041 Radiographic dye allergy status; Z79.01 Long term (current) use of anticoagulants; Z79.51 Long term (current) use of inhaled steroids; Z79.890 Hormone replacement therapy; Z79.899 Other long term (current) drug therapy
CPT/HCPCS: 36415; 80048; 80053; 82947; 84484; 85025; 85027; 85610; 85730; 93005; 93308; 99285; J1644; J3010; Q9957

== ENCOUNTER → 2023-06-10 22:51 | Outpatient (BNV) | payer MEDICARE, OTHER, SELFPAY ==
[2022-08-04 10:18] VITALS: BP 122/60; BP 136/84; BP 144/70; BMI 28.1
== END ==
PROVIDERS: Emergency Provider Emergency Medicine; PCP Pediatrics; Visit Provider Student in an Organized Health Care Education/Training Program
DX: I21.4 Non-ST elevation (NSTEMI) myocardial infarction (principal)
CPT/HCPCS: 99235; 99499

== ENCOUNTER → 2023-06-10 23:06 | Outpatient (BNV) | payer MEDICARE, OTHER, SELFPAY ==
[2022-08-04 10:18] VITALS: BP 122/60; BP 136/84; BP 144/70; BMI 28.1
== END ==
PROVIDERS: Admitting Provider Student in an Organized Health Care Education/Training Program; Emergency Provider Emergency Medicine; PCP Pediatrics; Visit Provider Internal Medicine Cardiovascular Disease
DX: R00.0 Tachycardia, unspecified (principal)
CPT/HCPCS: 93010

== ENCOUNTER → 2023-06-11 23:59 | Outpatient (BNV) | payer MEDICARE, OTHER, SELFPAY ==
[2022-08-04 10:18] VITALS: BP 122/60; BP 136/84; BP 144/70; BMI 28.1
== END ==
PROVIDERS: PCP Pediatrics; Visit Provider Internal Medicine Cardiovascular Disease
DX: R00.0 Tachycardia, unspecified (principal); I51.81 Takotsubo syndrome
CPT/HCPCS: 93010; 93308; 93458; 99152

== ENCOUNTER → 2023-06-16 23:59 | Outpatient (BNV) | payer MEDICARE, OTHER, SELFPAY ==
[2022-08-04 10:18] VITALS: BP 122/60; BP 136/84; BP 144/70; BMI 28.1
--- NOTE | 2023-06-18 20:34 | A.OFFVIS_ITS ---
Intake Intake Visit Reasons: Remote ILR- [employer] Allergies metoprolol [METOPROLOL] Allergy (Severe, Verified 11/11/22 11:14) angioedema amoxicillin [AMOXICILLIN] Allergy (Unknown, Verified 11/11/22 11:14) UNKNOWN bupropion [BUPROPION] Allergy (Unknown, Verified 11/11/22 11:14) UNKNOWN cephalexin [From KEFLEX] Allergy (Unknown, Verified 11/11/22 11:14) UNKNOWN Cephalosporins [CEPHALOSPORINS] Allergy (Unknown, Verified 11/11/22 11:14) UNKNOWN codeine [CODEINE] Allergy (Unknown, Verified 11/11/22 11:14) UNKNOWN dicyclomine [DICYCLOMINE] Allergy (Unknown, Verified 11/11/22 11:14) UNKNOWN doxycycline Allergy (Unknown, Verified 11/11/22 11:14) Unknown erythromycin base [ERYTHROMYCIN BASE] Allergy (Unknown, Verified 11/11/22 11:14) UNKNOWN Iodinated Contrast Media [IV CONTRAST] Allergy (Unknown, Verified 11/11/22 11:14) UNKNOWN lansoprazole [LANSOPRAZOLE] Allergy (Unknown, Verified 11/11/22 11:14) UNKNOWN meperidine [From DEMEROL] Allergy (Unknown, Verified 11/11/22 11:14) ANAPHYLAXIS oxycodone [OXYCODONE] Allergy (Unknown, Verified 11/11/22 11:14) UNKNOWN shellfish derived Allergy (Unknown, Verified 11/11/22 11:14) Unknown simvastatin [SIMVASTATIN] Allergy (Unknown, Verified 11/11/22 11:14) UNKNOWN Sulfa (Sulfonamide Antibiotics) [SULFA (SULFONAMIDE ANTIBIOTICS)] Allergy (Unknown, Verified 11/11/22 11:14) UNKNOWN tramadol [TRAMADOL] Allergy (Unknown, Verified 11/11/22 11:14) UNKNOWN verapamil [VERAPAMIL] Allergy (Unknown, Verified 11/11/22 11:14) ANAPHYLAXIS [facility] Medical History Hypothyroidism Thyroid nodule PAF (paroxysmal atrial fibrillation) Vitamin D deficiency Postablative hypothyroidism H/O paroxysmal supraventricular tachycardia Migraine headache Hyperlipidemia Diet-controlled diabetes mellitus Toxic multinodular goiter CVA (cerebral vascular accident) Hypertension Surgical History History of cardiac cath H/O bladder repair surgery Hx of appendectomy H/O: hysterectomy H/O pelvic surgery Family History Mother High blood sugar Myocardial infarction Father Diabetes Myocardial infarction Stroke Brother Myocardial infarction Social History Household Members: None Housing: House Do you presently have visiting nurse or other home services: No Alcohol intake: never Comment: [phone] Patient Tobacco Use Status: Never used Tobacco e-Cigarette/Vaping Use: Never Used Second Hand Smoke Exposure: No Advance Directives Date on File: 03/02/22 service: No Current occupational status: retired Office Procedures Cardiac Device Check Cardiac Device Check Details: ILR No new alerts [id number] Cardiac Interrogation, subcut cardiac rhythm monitor Procedure code (CPT) selection complete Assessment & Plan Assessment & Plan (1) PAF (paroxysmal atrial fibrillation): Code(s): I48.0 - Paroxysmal atrial fibrillation Plan: Orders: Orders AMB Cardiac Device Follow-up 06/16/23 I48.0 - Paroxysmal atrial fibrillation Coding Level of Care Code Procedure Only Diagnoses PAF (paroxysmal atrial fibrillation) I48.0 CPT Codes Cardiac Device Check - Cardiac Device 16: [id number] Cardiac Interrogation, subcut cardiac rhythm monitor ([id number])
== END ==
PROVIDERS: PCP Pediatrics; Visit Provider Internal Medicine Cardiovascular Disease
DX: I48.0 Paroxysmal atrial fibrillation (principal); Z95.818 Presence of other cardiac implants and grafts
CPT/HCPCS: 93298

== ENCOUNTER 2023-07-09 10:44 | Outpatient (AMB) | payer MEDICARE, OTHER, SELFPAY ==
[2022-08-04 10:18] VITALS: BP 122/60; BP 136/84; BP 144/70; BMI 28.1
[2023-07-09 10:57] VITALS: BP 120/62; PULSE 73; BMI 29.2
--- NOTE | 2023-07-09 10:57 | A.OFFVIS_ITS ---
Vital Signs 07/09/23 10:57 Height 5 ft 1 in Weight 154 lb 12.232 oz BMI 29.2 BP 120/62 Blood Pressure Location Lt brachial Position Sitting Pulse 73 Pulse Source Pulse Oximeter Intake Visit Reasons: fu cardiac cath Automotive Customer Experience Advisor Required: No Accompanied by: Self / Same As Patient Allergies metoprolol [METOPROLOL] Allergy (Severe, Verified 11/11/22 11:14) angioedema amoxicillin [AMOXICILLIN] Allergy (Unknown, Verified 11/11/22 11:14) UNKNOWN bupropion [BUPROPION] Allergy (Unknown, Verified 11/11/22 11:14) UNKNOWN cephalexin [From KEFLEX] Allergy (Unknown, Verified 11/11/22 11:14) UNKNOWN Cephalosporins [CEPHALOSPORINS] Allergy (Unknown, Verified 11/11/22 11:14) UNKNOWN codeine [CODEINE] Allergy (Unknown, Verified 11/11/22 11:14) UNKNOWN dicyclomine [DICYCLOMINE] Allergy (Unknown, Verified 11/11/22 11:14) UNKNOWN doxycycline Allergy (Unknown, Verified 11/11/22 11:14) Unknown erythromycin base [ERYTHROMYCIN BASE] Allergy (Unknown, Verified 11/11/22 11:14) UNKNOWN Iodinated Contrast Media [IV CONTRAST] Allergy (Unknown, Verified 11/11/22 11:14) UNKNOWN lansoprazole [LANSOPRAZOLE] Allergy (Unknown, Verified 11/11/22 11:14) UNKNOWN meperidine [From DEMEROL] Allergy (Unknown, Verified 11/11/22 11:14) ANAPHYLAXIS oxycodone [OXYCODONE] Allergy (Unknown, Verified 11/11/22 11:14) UNKNOWN shellfish derived Allergy (Unknown, Verified 11/11/22 11:14) Unknown simvastatin [SIMVASTATIN] Allergy (Unknown, Verified 11/11/22 11:14) UNKNOWN Sulfa (Sulfonamide Antibiotics) [SULFA (SULFONAMIDE ANTIBIOTICS)] Allergy (Unknown, Verified 11/11/22 11:14) UNKNOWN tramadol [TRAMADOL] Allergy (Unknown, Verified 11/11/22 11:14) UNKNOWN verapamil [VERAPAMIL] Allergy (Unknown, Verified 11/11/22 11:14) ANAPHYLAXIS Medication List - Last Reconciled 07/09/23 by Robles Vargas MD acetaminophen 650 mg PO Q6H PRN albuterol sulfate 90 mcg/actuation 90 mcg inhalation NEEDED amlodipine 5 mg PO DAILY apixaban (Eliquis) 5 mg PO BID citalopram 10 mg PO DAILY clopidogrel 75 mg PO DAILY cyclobenzaprine 5 mg PO BEDTIME dapagliflozin propanediol (Farxiga) 10 mg PO DAILY fenofibrate micronized 200 mg PO BEDTIME fluticasone propionate 50 mcg/actuation 50 mcg intranasal DAILY fluvastatin ER 80 mg PO BEDTIME levothyroxine 75 mcg PO DAILY@0600 losartan 50 mg PO DAILY omeprazole 20 mg PO BEDTIME riboflavin (vitamin B2) (Vitamin B-2) 400 mg PO DAILY ubrogepant (Ubrelvy) 50 mg PO DAILY HPI Comments Details: Pleasant 67-year-old female here for follow-up. She was recently seen at [facility] when she presented with chest discomfort. Her clinical story was consistent with unstable angina. After discussion she was taken for cardiac catheterization. Cardiac catheterization showed hazy 65-70% mid LAD lesion. We performed IFR which was abnormal and we stented with a drug-eluting stent. She was started on Plavix along with Eliquis and was discharged home. On follow-up she was doing well. After she some in the clinic she had sharp left-sided chest discomfort as well as some burning sensation the chest with chest pressure. She went to the emergency department with these symptoms and was ruled out. EKG did not show any dynamic changes 2. No CRP or ESR was performed and no echocardiography/imaging was done of the heart but she was felt to have pericarditis. She was sent home with this diagnosis. She is saying she has felt better since then on her own. On follow up doing well. No CP or SOB. Taking medications regularly. 10/19/22: She returns for follow-up. She was at [facility] end of September with dizziness and presyncope. She said she was feeling fine and went out to throw some vegetables in her composter when she started feeling nauseous and dizzy. She said she had on to something to prevent herself from falling. She said she was very weak and unsteady walking back to the house. She said she checked her blood pressure and it was high. She went to [facility] with she had workup which did not show any obvious issues. She was told that she probably had vasovagal syncope. She was feeling quite hot and was sweating 2. I agree that she likely had vasovagal syncope. She is saying that she drinks a lot of water. She is compliant with medications. She also had some chest pain in ambulance but workup was okay at [facility]. She has not had any further chest discomfort. 03/10/2023: She returns for follow-up. She has been under lot of stress because of her father who is 91 years old and at the end of his life. Denying any palpitations. She continues to get some vertigo like feeling. She tried meclizine but developed headache and stop using it. She has never seen ENT for vertigo. She has also asking whether Plavix can be stopped or not. 07/09/23: She returns for follow-up. She had recent presentation to [facility] with chest discomfort and NSTEMI. Echocardiography showed tpoy-bq-[id number] RV dysfunction and severe LV dysfunction. 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 She underwent cardiac catheterization which confirmed takotsubo as there was no significant coronary artery disease and previous LAD stent was also patent. She is getting some shortness of breath when going upstairs. No significant chest discomfort. [facility] Medical History Hypothyroidism Thyroid nodule PAF (paroxysmal atrial fibrillation) Vitamin D deficiency Postablative hypothyroidism H/O paroxysmal supraventricular tachycardia Migraine headache Hyperlipidemia Diet-controlled diabetes mellitus Toxic multinodular goiter CVA (cerebral vascular accident) Hypertension Surgical History History of cardiac cath H/O bladder repair surgery Hx of appendectomy H/O: hysterectomy H/O pelvic surgery Family History Mother High blood sugar Myocardial infarction Father Diabetes Myocardial infarction Stroke Brother Myocardial infarction Social History Household Members: None Housing: House Do you presently have visiting nurse or other home services: No Alcohol intake: never Comment: 457 Patient Tobacco Use Status: Never used Tobacco e-Cigarette/Vaping Use: Never Used Second Hand Smoke Exposure: No Advance Directives Date on File: 03/02/22 service: No Current occupational status: retired Review of Systems Const Denies chills, Denies fatigue, Denies fever(s), Denies frequent falls, Denies weakness, Denies weight gain and Denies weight loss ENT Denies dizziness Card Denies chest pain, Denies leg edema, Denies lightheadedness, Denies palpitations, Denies dyspnea and Denies dyspnea on exertion Resp Denies cough, Denies dyspnea and Denies dyspnea on exertion GI Denies hematochezia Musc Denies abnormal gait, Denies muscle weakness, Denies numbness, Denies radiating pain into limb and Denies tingling Neuro Denies abnormal gait, Denies dizziness, Denies frequent falls, Denies numbness, Denies tingling and Denies weakness Endo Denies fatigue and Denies palpitations Physical Exam Vital Signs: Last Vital Signs Pulse 73 07/09/23 10:57 BP 120/62 07/09/23 10:57 BMI result Body Mass Index 29.2 GENERAL APPEARANCE: in no acute distress, pleasant. NECK: no carotid bruit, no jugular venous distention. SKIN: no suspicious lesions, warm and dry. HEART: no murmurs, regular rate and rhythm. LUNGS: clear to auscultation bilaterally. ABDOMEN: soft, nontender. EXTREMITIES: no edema. PERIPHERAL PULSES: equal. NEUROLOGIC: No gross deficits, AAO X 3 Assessment & Plan Assessment & Plan (1) Non-ST elevation SD (NSTEMI): Code(s): I21.4 - Non-ST elevation (NSTEMI) myocardial infarction Category: Medical (2) Takotsubo cardiomyopathy: Code(s): I51.81 - Takotsubo syndrome Category: Medical Plan Pleasant 68-year-old female who is here for follow-up. She has known history of coronary disease with previous LAD PCI. Recent admission to [facility] after argument with her sister in law. She ruled in for NSTEMI and had biventricular takotsubo by echocardiography. She was transferred to [facility] where she underwent cardiac catheterization which confirmed absence of plaque rupture and her previous LAD stent was patent. She was started on medications and was discharged back home. She has been doing reasonably okay since then. Some shortness of breath when she goes up hill otherwise no symptoms. I have explained to her that emotional stress is the reason that she developed takotsubo cardiomyopathy. I have also explained to her that in variably takotsubo cardiomyopathy improves over few months. We will repeat echocardiography in 1 month to reassess ejection fraction. Continue same medications in the meantime. Thank you for allowing me to participate in the care of your patient. Please feel free to contact me if you have any questions. Orders: Orders CA echo limited 1 Month I51.81 - Takotsubo syndrome Coding Level of Care Code Est Pt Level 4 (20912) Diagnoses Non-ST elevation SD (NSTEMI) I21.4 Takotsubo cardiomyopathy I51.81
== END 2023-07-09 11:23 | disposition home or self-care (01) ==
PROVIDERS: PCP Pediatrics; Visit Provider Internal Medicine Cardiovascular Disease
DX: I21.4 Non-ST elevation (NSTEMI) myocardial infarction (principal); I51.81 Takotsubo syndrome
CPT/HCPCS: 99214

== ENCOUNTER → 2023-07-09 10:44 | Outpatient (BNVA) | payer MEDICARE, OTHER, SELFPAY ==
[2022-08-04 10:18] VITALS: BP 122/60; BP 136/84; BP 144/70; BMI 28.1
== END ==
PROVIDERS: PCP Pediatrics; Visit Provider Internal Medicine Cardiovascular Disease
DX: I21.4 Non-ST elevation (NSTEMI) myocardial infarction (principal); I51.81 Takotsubo syndrome; I25.10 Atherosclerotic heart disease of native coronary artery without angina pectoris
CPT/HCPCS: 99212

== ENCOUNTER → 2023-08-11 09:54 | Outpatient (REF) | payer MEDICARE, OTHER, SELFPAY ==
[2022-08-04 10:18] VITALS: BP 122/60; BP 136/84; BP 144/70; BMI 28.1
--- NOTE | 2023-08-11 09:56 | CA_ITS ---
Transthoracic Echocardiogram Patient (Last, First, Middle): Bethanie Dillard, Gender: Female Date of : 1955 Age: 68 Procedure Date: 08/11/2023 Procedure Type: Transthoracic Echocardiogram Location: OP Height: 154.94 cm Weight: 67.59 kg BSA: 1.67 m2 Heart Rate: bpm BP: 124 / 80 mmHg Merchandising Execution Associate: Referring MD: Robles Vargas MD Symptoms: I51.81 - Takotsubo syndrome Study Quality: Good ECG Rhythm: Sinus Conclusions: - Normal left ventricular size and systolic function. There is mildly increased left ventricular wall thickness. The visually estimated ejection fraction is between 55-60%. There is no evidence of regional wall motion abnormalities. Findings Left Ventricle Normal left ventricular size and systolic function. There is mildly increased left ventricular wall thickness. The visually estimated ejection fraction is between 55-60%. There is no evidence of regional wall motion abnormalities. Right Ventricle Normal right ventricular cavity size and systolic function. Pericardium/Pleural There is no evidence of pericardial effusion. Prior Study Comparison Changes noted compared to prior study dated: 06/11/2023. Normal LVEF. No RWMA. Measurements 2D Linear Measurements IVSd: 0.98 0.6-0.9/0.6-1.0 cm LVIDd: 4.23 3.9-5.3/4.2-5.9 cm LVIDd Index: 2.53 2.4-3.2/2.2-3.1 cm/m2 LVIDs: 2.62 2.0-3.6 cm LVPWd: 0.99 0.7-1.1 cm LV Mass: 169.15 67-162/88-224 g LV Mass Index: 101.29 43-95/49-115 g/m2 LVOT Diam: 2.00 3.0+(-)1.3 cm 2D Systolic Function EF 4C: 55.90 >55% EF 2C: 61.90 >55% EF BiP: 58.70 >55% LVOT LVOT Pk Samson: 0.85 LVOT Mn Samson: 0.56 LVOT VTI: 0.19 LVOT Pk Grad: 3.00 LVOT Mn Grad: 1.00 LVOT Diam: 2.00 LVOT Area: 3.14 Updated in Other Vendor System with Status of Final Robles Vargas MD electronically signed on 08/11/2023 4:19:55 PM with status of Final
== END ==
LOC: HO.CARD 09:54
PROVIDERS: PCP Pediatrics; Visit Provider Internal Medicine Cardiovascular Disease
DX: I51.81 Takotsubo syndrome (principal)
CPT/HCPCS: 93308

== ENCOUNTER → 2023-08-11 09:56 | Outpatient (BNV) | payer MEDICARE, OTHER, SELFPAY ==
[2022-08-04 10:18] VITALS: BP 122/60; BP 136/84; BP 144/70; BMI 28.1
== END ==
PROVIDERS: PCP Pediatrics; Visit Provider Internal Medicine Cardiovascular Disease
DX: I51.81 Takotsubo syndrome (principal)
CPT/HCPCS: 93308

== ENCOUNTER → 2023-09-29 23:59 | Outpatient (BNV) | payer MEDICARE, OTHER, SELFPAY ==
[2022-08-04 10:18] VITALS: BP 122/60; BP 136/84; BP 144/70; BMI 28.1
--- NOTE | 2023-11-16 18:29 | MHC.OFFVIS ---
Intake Visit Reasons: Remote ILR check- [employer] Allergies metoprolol [METOPROLOL] Allergy (Severe, Verified 11/11/22 11:14) angioedema amoxicillin [AMOXICILLIN] Allergy (Unknown, Verified 11/11/22 11:14) UNKNOWN bupropion [BUPROPION] Allergy (Unknown, Verified 11/11/22 11:14) UNKNOWN cephalexin [From KEFLEX] Allergy (Unknown, Verified 11/11/22 11:14) UNKNOWN Cephalosporins [CEPHALOSPORINS] Allergy (Unknown, Verified 11/11/22 11:14) UNKNOWN codeine [CODEINE] Allergy (Unknown, Verified 11/11/22 11:14) UNKNOWN dicyclomine [DICYCLOMINE] Allergy (Unknown, Verified 11/11/22 11:14) UNKNOWN doxycycline Allergy (Unknown, Verified 11/11/22 11:14) Unknown erythromycin base [ERYTHROMYCIN BASE] Allergy (Unknown, Verified 11/11/22 11:14) UNKNOWN Iodinated Contrast Media [IV CONTRAST] Allergy (Unknown, Verified 11/11/22 11:14) UNKNOWN lansoprazole [LANSOPRAZOLE] Allergy (Unknown, Verified 11/11/22 11:14) UNKNOWN meperidine [From DEMEROL] Allergy (Unknown, Verified 11/11/22 11:14) ANAPHYLAXIS oxycodone [OXYCODONE] Allergy (Unknown, Verified 11/11/22 11:14) UNKNOWN shellfish derived Allergy (Unknown, Verified 11/11/22 11:14) Unknown simvastatin [SIMVASTATIN] Allergy (Unknown, Verified 11/11/22 11:14) UNKNOWN Sulfa (Sulfonamide Antibiotics) [SULFA (SULFONAMIDE ANTIBIOTICS)] Allergy (Unknown, Verified 11/11/22 11:14) UNKNOWN tramadol [TRAMADOL] Allergy (Unknown, Verified 11/11/22 11:14) UNKNOWN verapamil [VERAPAMIL] Allergy (Unknown, Verified 11/11/22 11:14) ANAPHYLAXIS [facility] Medical History Hypothyroidism Thyroid nodule PAF (paroxysmal atrial fibrillation) Vitamin D deficiency Postablative hypothyroidism H/O paroxysmal supraventricular tachycardia Migraine headache Hyperlipidemia Diet-controlled diabetes mellitus Toxic multinodular goiter CVA (cerebral vascular accident) Hypertension Surgical History History of cardiac cath H/O bladder repair surgery Hx of appendectomy H/O: hysterectomy H/O pelvic surgery Family History Mother High blood sugar Myocardial infarction Father Diabetes Myocardial infarction Stroke Brother Myocardial infarction Social History Household Members: None Housing: House Do you presently have visiting nurse or other home services: No Alcohol intake: never Comment: 457 Patient Tobacco Use Status: Never used Tobacco e-Cigarette/Vaping Use: Never Used Second Hand Smoke Exposure: No Advance Directives Date on File: 03/02/22 service: No Current occupational status: retired Office Procedures Cardiac Device Check Cardiac Device Check Details: ILR No new alerts [id number] Cardiac Interrogation, subcut cardiac rhythm monitor Procedure code (CPT) selection complete Assessment & Plan Assessment & Plan (1) PAF (paroxysmal atrial fibrillation): Code(s): I48.0 - Paroxysmal atrial fibrillation Category: Medical Plan: Coding Level of Care Code Procedure Only Diagnoses PAF (paroxysmal atrial fibrillation) I48.0 CPT Codes Cardiac Device Check - Cardiac Device 16: [id number] Cardiac Interrogation, subcut cardiac rhythm monitor ([id number])
== END ==
PROVIDERS: PCP Pediatrics; Visit Provider Internal Medicine Cardiovascular Disease
DX: I48.0 Paroxysmal atrial fibrillation (principal); Z95.818 Presence of other cardiac implants and grafts
CPT/HCPCS: 93298

== ENCOUNTER → 2023-11-03 23:59 | Outpatient (BNV) | payer MEDICARE, OTHER, SELFPAY ==
[2022-08-04 10:18] VITALS: BP 122/60; BP 136/84; BP 144/70; BMI 28.1
--- NOTE | 2023-11-16 18:24 | MHC.OFFVIS ---
Intake Visit Reasons: Remote ILR check- [employer] Allergies metoprolol [METOPROLOL] Allergy (Severe, Verified 11/11/22 11:14) angioedema amoxicillin [AMOXICILLIN] Allergy (Unknown, Verified 11/11/22 11:14) UNKNOWN bupropion [BUPROPION] Allergy (Unknown, Verified 11/11/22 11:14) UNKNOWN cephalexin [From KEFLEX] Allergy (Unknown, Verified 11/11/22 11:14) UNKNOWN Cephalosporins [CEPHALOSPORINS] Allergy (Unknown, Verified 11/11/22 11:14) UNKNOWN codeine [CODEINE] Allergy (Unknown, Verified 11/11/22 11:14) UNKNOWN dicyclomine [DICYCLOMINE] Allergy (Unknown, Verified 11/11/22 11:14) UNKNOWN doxycycline Allergy (Unknown, Verified 11/11/22 11:14) Unknown erythromycin base [ERYTHROMYCIN BASE] Allergy (Unknown, Verified 11/11/22 11:14) UNKNOWN Iodinated Contrast Media [IV CONTRAST] Allergy (Unknown, Verified 11/11/22 11:14) UNKNOWN lansoprazole [LANSOPRAZOLE] Allergy (Unknown, Verified 11/11/22 11:14) UNKNOWN meperidine [From DEMEROL] Allergy (Unknown, Verified 11/11/22 11:14) ANAPHYLAXIS oxycodone [OXYCODONE] Allergy (Unknown, Verified 11/11/22 11:14) UNKNOWN shellfish derived Allergy (Unknown, Verified 11/11/22 11:14) Unknown simvastatin [SIMVASTATIN] Allergy (Unknown, Verified 11/11/22 11:14) UNKNOWN Sulfa (Sulfonamide Antibiotics) [SULFA (SULFONAMIDE ANTIBIOTICS)] Allergy (Unknown, Verified 11/11/22 11:14) UNKNOWN tramadol [TRAMADOL] Allergy (Unknown, Verified 11/11/22 11:14) UNKNOWN verapamil [VERAPAMIL] Allergy (Unknown, Verified 11/11/22 11:14) ANAPHYLAXIS [facility] Medical History Hypothyroidism Thyroid nodule PAF (paroxysmal atrial fibrillation) Vitamin D deficiency Postablative hypothyroidism H/O paroxysmal supraventricular tachycardia Migraine headache Hyperlipidemia Diet-controlled diabetes mellitus Toxic multinodular goiter CVA (cerebral vascular accident) Hypertension Surgical History History of cardiac cath H/O bladder repair surgery Hx of appendectomy H/O: hysterectomy H/O pelvic surgery Family History Mother High blood sugar Myocardial infarction Father Diabetes Myocardial infarction Stroke Brother Myocardial infarction Social History Household Members: None Housing: House Do you presently have visiting nurse or other home services: No Alcohol intake: never Comment: 457 Patient Tobacco Use Status: Never used Tobacco e-Cigarette/Vaping Use: Never Used Second Hand Smoke Exposure: No Advance Directives Date on File: 03/02/22 service: No Current occupational status: retired Office Procedures Cardiac Device Check Cardiac Device Check Details: ILR No new alerts [id number] Cardiac Interrogation, subcut cardiac rhythm monitor Procedure code (CPT) selection complete Assessment & Plan Assessment & Plan (1) PAF (paroxysmal atrial fibrillation): Code(s): I48.0 - Paroxysmal atrial fibrillation Category: Medical Plan: Coding Level of Care Code Procedure Only Diagnoses PAF (paroxysmal atrial fibrillation) I48.0 CPT Codes Cardiac Device Check - Cardiac Device 16: [id number] Cardiac Interrogation, subcut cardiac rhythm monitor ([id number])
== END ==
PROVIDERS: PCP Pediatrics; Visit Provider Internal Medicine Cardiovascular Disease
DX: I48.0 Paroxysmal atrial fibrillation (principal); Z95.818 Presence of other cardiac implants and grafts
CPT/HCPCS: 93298

== ENCOUNTER 2023-11-17 10:14 | Outpatient (AMB) | payer MEDICARE, OTHER, SELFPAY ==
[2022-08-04 10:18] VITALS: BP 122/60; BP 136/84; BP 144/70; BMI 28.1
[2023-11-17 10:33] VITALS: BP 120/70; PULSE 75; BMI 28.8
--- NOTE | 2023-11-17 10:33 | A.OFFVIS_ITS ---
Vital Signs 11/17/23 10:33 Height 5 ft 1 in Weight 152 lb 8.958 oz BMI 28.8 BP 120/70 Blood Pressure Location Lt brachial Position Sitting Pulse 75 Pulse Source Pulse Oximeter Intake Visit Reasons: 4m follow up Intake Note: 4 mth f/up Telescope Repairer Required: No Accompanied by: Self / Same As Patient Allergies metoprolol [METOPROLOL] Allergy (Severe, Verified 11/11/22 11:14) angioedema amoxicillin [AMOXICILLIN] Allergy (Unknown, Verified 11/11/22 11:14) UNKNOWN bupropion [BUPROPION] Allergy (Unknown, Verified 11/11/22 11:14) UNKNOWN cephalexin [From KEFLEX] Allergy (Unknown, Verified 11/11/22 11:14) UNKNOWN Cephalosporins [CEPHALOSPORINS] Allergy (Unknown, Verified 11/11/22 11:14) UNKNOWN codeine [CODEINE] Allergy (Unknown, Verified 11/11/22 11:14) UNKNOWN dicyclomine [DICYCLOMINE] Allergy (Unknown, Verified 11/11/22 11:14) UNKNOWN doxycycline Allergy (Unknown, Verified 11/11/22 11:14) Unknown erythromycin base [ERYTHROMYCIN BASE] Allergy (Unknown, Verified 11/11/22 11:14) UNKNOWN Iodinated Contrast Media [IV CONTRAST] Allergy (Unknown, Verified 11/11/22 11:14) UNKNOWN lansoprazole [LANSOPRAZOLE] Allergy (Unknown, Verified 11/11/22 11:14) UNKNOWN meperidine [From DEMEROL] Allergy (Unknown, Verified 11/11/22 11:14) ANAPHYLAXIS oxycodone [OXYCODONE] Allergy (Unknown, Verified 11/11/22 11:14) UNKNOWN shellfish derived Allergy (Unknown, Verified 11/11/22 11:14) Unknown simvastatin [SIMVASTATIN] Allergy (Unknown, Verified 11/11/22 11:14) UNKNOWN Sulfa (Sulfonamide Antibiotics) [SULFA (SULFONAMIDE ANTIBIOTICS)] Allergy (Unknown, Verified 11/11/22 11:14) UNKNOWN tramadol [TRAMADOL] Allergy (Unknown, Verified 11/11/22 11:14) UNKNOWN verapamil [VERAPAMIL] Allergy (Unknown, Verified 11/11/22 11:14) ANAPHYLAXIS Medication List - Last Reconciled 11/17/23 by Robles Vargas MD acetaminophen 650 mg PO Q6H PRN albuterol sulfate 90 mcg/actuation 90 mcg inhalation NEEDED amlodipine 5 mg PO DAILY apixaban (Eliquis) 5 mg PO BID citalopram 10 mg PO DAILY clopidogrel 75 mg PO DAILY cyclobenzaprine 5 mg PO BEDTIME dapagliflozin propanediol (Farxiga) 10 mg PO DAILY fenofibrate micronized 200 mg PO BEDTIME fluticasone propionate 50 mcg/actuation 50 mcg intranasal DAILY fluvastatin ER 80 mg PO BEDTIME levothyroxine 75 mcg PO DAILY@0600 losartan 50 mg PO DAILY omeprazole 20 mg PO BEDTIME riboflavin (vitamin B2) (Vitamin B-2) 400 mg PO DAILY ubrogepant (Ubrelvy) 50 mg PO DAILY HPI Comments Details: Pleasant 67-year-old female here for follow-up. She was recently seen at [facility] when she presented with chest discomfort. Her clinical story was consistent with unstable angina. After discussion she was taken for cardiac catheterization. Cardiac catheterization showed hazy 65-70% mid LAD lesion. We performed IFR which was abnormal and we stented with a drug-eluting stent. She was started on Plavix along with Eliquis and was discharged home. On follow-up she was doing well. After she some in the clinic she had sharp left-sided chest discomfort as well as some burning sensation the chest with chest pressure. She went to the emergency department with these symptoms and was ruled out. EKG did not show any dynamic changes 2. No CRP or ESR was performed and no echocardiogr aphy/imaging was done of the heart but she was felt to have pericarditis. She was sent home with this diagnosis. She is saying she has felt better since then on her own. On follow up doing well. No CP or SOB. Taking medications regularly. 10/19/22: She returns for follow-up. She was at [facility] end of September with dizziness and presyncope. She said she was feeling fine and went out to throw some vegetables in her composter when she started feeling nauseous and dizzy. She said she had on to something to prevent herself from falling. She said she was very weak and unsteady walking back to the house. She said she checked her blood pressure and it was high. She went to [facility] with she had workup which did not show any obvious issues. She was told that she probably had vasovagal syncope. She was feeling quite hot and was sweating 2. I agree that she likely had vasovagal syncope. She is saying that she drinks a lot of water. She is compliant with medications. She also had some chest pain in ambulance but workup was okay at [facility]. She has not had any further chest discomfort. 03/10/2023: She returns for follow-up. She has been under lot of stress because of her father who is 91 years old and at the end of his life. Denying any palpitations. She continues to get some vertigo like feeling. She tried meclizine but developed headache and stop using it. She has never seen ENT for vertigo. She has also asking whether Plavix can be stopped or not. 07/09/23: She returns for follow-up. She had recent presentation to [facility] with chest discomfort and NSTEMI. Echocardiography showed [id number] RV dysfunction and severe LV dysfunction. 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 She underwent cardiac catheterization which confirmed takotsubo as there was no significant coronary artery disease and previous LAD stent was also patent. She is getting some shortness of breath when going upstairs. No significant chest discomfort. 11/17/23: She is here for f/u. No significant symptoms on follow up. Taking meds regularly. No concerns for bleeding. [facility] Medical History Hypothyroidism Thyroid nodule PAF (paroxysmal atrial fibrillation) Vitamin D deficiency Postablative hypothyroidism H/O paroxysmal supraventricular tachycardia Migraine headache Hyperlipidemia Diet-controlled diabetes mellitus Toxic multinodular goiter CVA (cerebral vascular accident) Hypertension Surgical History History of cardiac cath H/O bladder repair surgery Hx of appendectomy H/O: hysterectomy H/O pelvic surgery Family History Mother High blood sugar Myocardial infarction Father Diabetes Myocardial infarction Stroke Brother Myocardial infarction Social History Household Members: None Housing: House Do you presently have visiting nurse or other home services: No Alcohol intake: never Comment: 457 Patient Tobacco Use Status: Never used Tobacco e-Cigarette/Vaping Use: Never Used Second Hand Smoke Exposure: No Advance Directives Date on File: 03/02/22 service: No Current occupational status: retired Review of Systems Const Denies chills, Denies fatigue, Denies fever(s), Denies frequent falls, Denies weakness, Denies weight gain and Denies weight loss ENT Denies dizziness Card Denies chest pain, Denies leg edema, Denies lightheadedness, Denies palpitations, Denies dyspnea and Denies dyspnea on exertion Resp Denies cough, Denies dyspnea and Denies dyspnea on exertion GI Denies hematochezia Musc Denies abnormal gait, Denies muscle weakness, Denies numbness, Denies radiating pain into limb and Denies tingling Neuro Denies abnormal gait, Denies dizziness, Denies frequent falls, Denies numbness, Denies tingling and Denies weakness Endo Denies fatigue and Denies palpitations Physical Exam Vital Signs: Last Vital Signs Pulse 75 11/17/23 10:33 BP 120/70 11/17/23 10:33 BMI result Body Mass Index 28.8 GENERAL APPEARANCE: in no acute distress, pleasant. NECK: no carotid bruit, no jugular venous distention. SKIN: no suspicious lesions, warm and dry. HEART: no murmurs, regular rate and rhythm. LUNGS: clear to auscultation bilaterally. ABDOMEN: soft, nontender. EXTREMITIES: no edema. PERIPHERAL PULSES: equal. NEUROLOGIC: No gross deficits, AAO X 3 Assessment & Plan Assessment & Plan (1) Non-ST elevation NH (NSTEMI): Code(s): I21.4 - Non-ST elevation (NSTEMI) myocardial infarction Category: Medical (2) Takotsubo cardiomyopathy: Code(s): I51.81 - Takotsubo syndrome Category: Medical Plan Pleasant 68-year-old female who is here for follow-up. She has known history of coronary disease with previous LAD PCI. Recent admission to [facility] after argument with her sister in law. She ruled in for NSTEMI and had biventricular takotsubo by echocardiography. She was transferred to [facility] where she underwent cardiac catheterization which confirmed absence of plaque rupture and her previous LAD stent was patent. She was started on medications and was discharged back home. She has been doing reasonably okay since then. Repeat echo has shown resolution of Takotsubo. Same medications for now. Thank you for allowing me to participate in the care of your patient. Please feel free to contact me if you have any questions. Coding Level of Care Code Est Pt Level 4 (73699) Diagnoses Non-ST elevation NH (NSTEMI) I21.4 Takotsubo cardiomyopathy I51.81
== END 2023-11-17 11:10 | disposition home or self-care (01) ==
PROVIDERS: PCP Pediatrics; Visit Provider Internal Medicine Cardiovascular Disease
DX: I21.4 Non-ST elevation (NSTEMI) myocardial infarction (principal); I51.81 Takotsubo syndrome
CPT/HCPCS: 99214

== ENCOUNTER → 2023-11-17 10:14 | Outpatient (BNVA) | payer MEDICARE, OTHER, SELFPAY ==
[2022-08-04 10:18] VITALS: BP 122/60; BP 136/84; BP 144/70; BMI 28.1
== END ==
PROVIDERS: PCP Pediatrics; Visit Provider Internal Medicine Cardiovascular Disease
DX: I21.4 Non-ST elevation (NSTEMI) myocardial infarction (principal); I51.81 Takotsubo syndrome
CPT/HCPCS: 99212

== ENCOUNTER → 2023-12-08 23:59 | Outpatient (BNV) | payer MEDICARE, OTHER, SELFPAY ==
[2022-08-04 10:18] VITALS: BP 122/60; BP 136/84; BP 144/70; BMI 28.1
--- NOTE | 2023-12-26 18:57 | MHC.OFFVIS ---
Intake Visit Reasons: Remote ILR check- [employer] Allergies metoprolol [METOPROLOL] Allergy (Severe, Verified 11/11/22 11:14) angioedema amoxicillin [AMOXICILLIN] Allergy (Unknown, Verified 11/11/22 11:14) UNKNOWN bupropion [BUPROPION] Allergy (Unknown, Verified 11/11/22 11:14) UNKNOWN cephalexin [From KEFLEX] Allergy (Unknown, Verified 11/11/22 11:14) UNKNOWN Cephalosporins [CEPHALOSPORINS] Allergy (Unknown, Verified 11/11/22 11:14) UNKNOWN codeine [CODEINE] Allergy (Unknown, Verified 11/11/22 11:14) UNKNOWN dicyclomine [DICYCLOMINE] Allergy (Unknown, Verified 11/11/22 11:14) UNKNOWN doxycycline Allergy (Unknown, Verified 11/11/22 11:14) Unknown erythromycin base [ERYTHROMYCIN BASE] Allergy (Unknown, Verified 11/11/22 11:14) UNKNOWN Iodinated Contrast Media [IV CONTRAST] Allergy (Unknown, Verified 11/11/22 11:14) UNKNOWN lansoprazole [LANSOPRAZOLE] Allergy (Unknown, Verified 11/11/22 11:14) UNKNOWN meperidine [From DEMEROL] Allergy (Unknown, Verified 11/11/22 11:14) ANAPHYLAXIS oxycodone [OXYCODONE] Allergy (Unknown, Verified 11/11/22 11:14) UNKNOWN shellfish derived Allergy (Unknown, Verified 11/11/22 11:14) Unknown simvastatin [SIMVASTATIN] Allergy (Unknown, Verified 11/11/22 11:14) UNKNOWN Sulfa (Sulfonamide Antibiotics) [SULFA (SULFONAMIDE ANTIBIOTICS)] Allergy (Unknown, Verified 11/11/22 11:14) UNKNOWN tramadol [TRAMADOL] Allergy (Unknown, Verified 11/11/22 11:14) UNKNOWN verapamil [VERAPAMIL] Allergy (Unknown, Verified 11/11/22 11:14) ANAPHYLAXIS [facility] Medical History Hypothyroidism Thyroid nodule PAF (paroxysmal atrial fibrillation) Vitamin D deficiency Postablative hypothyroidism H/O paroxysmal supraventricular tachycardia Migraine headache Hyperlipidemia Diet-controlled diabetes mellitus Toxic multinodular goiter CVA (cerebral vascular accident) Hypertension Surgical History History of cardiac cath H/O bladder repair surgery Hx of appendectomy H/O: hysterectomy H/O pelvic surgery Family History Mother High blood sugar Myocardial infarction Father Diabetes Myocardial infarction Stroke Brother Myocardial infarction Social History Household Members: None Housing: House Do you presently have visiting nurse or other home services: No Alcohol intake: never Comment: 457 Patient Tobacco Use Status: Never used Tobacco e-Cigarette/Vaping Use: Never Used Second Hand Smoke Exposure: No Advance Directives Date on File: 03/02/22 service: No Current occupational status: retired Office Procedures Cardiac Device Check Cardiac Device Check Details: ILR No new alerts. [id number] Cardiac Device Check, subcut cardiac rhythm monitor Procedure code (CPT) selection complete Assessment & Plan Assessment & Plan (1) PAF (paroxysmal atrial fibrillation): Code(s): I48.0 - Paroxysmal atrial fibrillation Category: Medical Plan: Coding Level of Care Code Procedure Only Diagnoses PAF (paroxysmal atrial fibrillation) I48.0 CPT Codes Cardiac Device Check - Cardiac Device 7: [id number] Cardiac Device Check, subcut cardiac rhythm monitor ([id number])
== END ==
PROVIDERS: PCP Pediatrics; Visit Provider Internal Medicine Cardiovascular Disease
DX: I48.0 Paroxysmal atrial fibrillation (principal); Z95.818 Presence of other cardiac implants and grafts
CPT/HCPCS: 93298

== ENCOUNTER 2024-01-06 12:50 | Outpatient (AMB) | payer MEDICARE, OTHER, SELFPAY ==
[2022-08-04 10:18] VITALS: BP 122/60; BP 136/84; BP 144/70; BMI 28.1
--- NOTE | 2024-01-06 12:52 | A.OFFVIS_ITS ---
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: No Accompanied by: Self / Same As Patient Allergies metoprolol [METOPROLOL] Allergy (Severe, Verified 11/11/22 11:14) angioedema amoxicillin [AMOXICILLIN] Allergy (Unknown, Verified 11/11/22 11:14) UNKNOWN bupropion [BUPROPION] Allergy (Unknown, Verified 11/11/22 11:14) UNKNOWN cephalexin [From KEFLEX] Allergy (Unknown, Verified 11/11/22 11:14) UNKNOWN Cephalosporins [CEPHALOSPORINS] Allergy (Unknown, Verified 11/11/22 11:14) UNKNOWN codeine [CODEINE] Allergy (Unknown, Verified 11/11/22 11:14) UNKNOWN dicyclomine [DICYCLOMINE] Allergy (Unknown, Verified 11/11/22 11:14) UNKNOWN doxycycline Allergy (Unknown, Verified 11/11/22 11:14) Unknown erythromycin base [ERYTHROMYCIN BASE] Allergy (Unknown, Verified 11/11/22 11:14) UNKNOWN Iodinated Contrast Media [IV CONTRAST] Allergy (Unknown, Verified 11/11/22 11:14) UNKNOWN lansoprazole [LANSOPRAZOLE] Allergy (Unknown, Verified 11/11/22 11:14) UNKNOWN meperidine [From DEMEROL] Allergy (Unknown, Verified 11/11/22 11:14) ANAPHYLAXIS oxycodone [OXYCODONE] Allergy (Unknown, Verified 11/11/22 11:14) UNKNOWN shellfish derived Allergy (Unknown, Verified 11/11/22 11:14) Unknown simvastatin [SIMVASTATIN] Allergy (Unknown, Verified 11/11/22 11:14) UNKNOWN Sulfa (Sulfonamide Antibiotics) [SULFA (SULFONAMIDE ANTIBIOTICS)] Allergy (Unknown, Verified 11/11/22 11:14) UNKNOWN tramadol [TRAMADOL] Allergy (Unknown, Verified 11/11/22 11:14) UNKNOWN verapamil [VERAPAMIL] Allergy (Unknown, Verified 11/11/22 11:14) ANAPHYLAXIS Medication List - Last Reconciled 01/09/24 by Robles Vargas MD acetaminophen 650 mg PO Q6H PRN albuterol sulfate 90 mcg/actuation 90 mcg inhalation NEEDED amlodipine 5 mg PO DAILY apixaban (Eliquis) 5 mg PO BID citalopram 10 mg PO DAILY clopidogrel 75 mg PO DAILY cyclobenzaprine 5 mg PO BEDTIME dapagliflozin propanediol (Farxiga) 10 mg PO DAILY fenofibrate micronized 200 mg PO BEDTIME fluticasone propionate 50 mcg/actuation 50 mcg intranasal DAILY fluvastatin ER 80 mg PO BEDTIME levothyroxine 75 mcg PO DAILY@0600 losartan 50 mg PO DAILY omeprazole 20 mg PO BEDTIME riboflavin (vitamin B2) (Vitamin B-2) 400 mg PO DAILY ubrogepant (Ubrelvy) 50 mg PO DAILY HPI Comments Details: Pleasant 67-year-old female here for follow-up. She was recently seen at [facility] when she presented with chest discomfort. Her clinical story was consistent with unstable angina. After discussion she was taken for cardiac catheterization. Cardiac catheterization showed hazy 65-70% mid LAD lesion. We performed IFR which was abnormal and we stented with a drug-eluting stent. She was started on Plavix along with Eliquis and was discharged home. On follow-up she was doing well. After she some in the clinic she had sharp left-sided chest discomfort as well as some burning sensation the chest with chest pressure. She went to the [facility] department with these symptoms and was ruled out. EKG did not show any dynamic changes 2. No CRP or ESR was performed and no echocardiography/imaging was done of the heart but she was felt to have pericarditis. She was sent home with this diagnosis. She is saying she has felt better since then on her own. On follow up doing well. No CP or SOB. Taking medications regularly. 10/19/22: She returns for follow-up. She was at [facility] end of September with dizziness and presyncope. She said she was feeling fine and went out to throw some vegetables in her composter when she started feeling nauseous and dizzy. She said she had on to something to prevent herself from falling. She said she was very weak and unsteady walking back to the house. She said she checked her blood pressure and it was high. She went to [facility] with she had workup which did not show any obvious issues. She was told that she probably had vasovagal syncope. She was feeling quite hot and was sweating 2. I agree that she likely had vasovagal syncope. She is saying that she drinks a lot of water. She is compliant with medications. She also had some chest pain in ambulance but workup was okay at [facility]. She has not had any further chest discomfort. 03/10/2023: She returns for follow-up. She has been under lot of stress because of her father who is 91 years old and at the end of his life. Denying any palpitations. She continues to get some vertigo like feeling. She tried meclizine but developed headache and stop using it. She has never seen ENT for vertigo. She has also asking whether Plavix can be stopped or not. 07/09/23: She returns for follow-up. She had recent presentation to [facility] with chest discomfort and NSTEMI. Echocardiography showed [id number]-[id number] RV dysfunction and severe LV dysfunction. 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 She underwent cardiac catheterization which confirmed takotsubo as there was no significant coronary artery disease and previous LAD stent was also patent. She is getting some shortness of breath when going upstairs. No significant chest discomfort. 11/17/23: She is here for f/u. No significant symptoms on follow up. Taking meds regularly. No concerns for bleeding. 01/06/2024: she is here for follow-up. She is complaining of some shortness of breath. She has been under lot of stress. One of her dogs has been having seizures at nighttime and she is worried that the dog has brain tumor. She also has been taking care of family members who are sick. She is quite stressed and has been noticing shortness of breath at times. She has sometimes gets short of breath even talking. No concerning symptoms otherwise. [facility] Medical History Hypothyroidism Thyroid nodule PAF (paroxysmal atrial fibrillation) Vitamin D deficiency Postablative hypothyroidism H/O paroxysmal supraventricular tachycardia Migraine headache Hyperlipidemia Diet-controlled diabetes mellitus Toxic multinodular goiter CVA (cerebral vascular accident) Hypertension Surgical History History of cardiac cath H/O bladder repair surgery Hx of appendectomy H/O: hysterectomy H/O pelvic surgery Family History Mother High blood sugar Myocardial infarction Father Diabetes Myocardial infarction Stroke Brother Myocardial infarction Social History Household Members: None Housing: House Do you presently have visiting nurse or other home services: No Alcohol intake: never Comment: 457 Patient Tobacco Use Status: Never used Tobacco e-Cigarette/Vaping Use: Never Used Second Hand Smoke Exposure: No Advance Directives Date on File: 03/02/22 service: No Current occupational status: retired Review of Systems Const Denies chills, Denies fatigue, Denies fever(s), Denies weight gain and Denies weight loss ENT Denies dizziness Card Reports chest pain, Denies leg edema, Denies lightheadedness, Denies palpitations, Reports dyspnea on exertion, Denies orthopnea and Denies other Resp Denies cough and Reports dyspnea on exertion GI Denies hematochezia and Denies change in stool character Musc Denies abnormal gait, Denies muscle weakness, Denies numbness, Denies radiating pain into limb and Denies tingling Neuro Denies abnormal gait, Denies dizziness, Denies numbness and Denies tingling Endo Denies fatigue and Denies palpitations Physical Exam Vital Signs: Last Vital Signs Pulse 93 01/06/24 12:53 BP 132/60 01/06/24 12:53 BMI result Body Mass Index 29.1 GENERAL APPEARANCE: in no acute distress, pleasant. NECK: no carotid bruit, no jugular venous distention. SKIN: no suspicious lesions, warm and dry. HEART: no murmurs, regular rate and rhythm. LUNGS: clear to auscultation bilaterally. ABDOMEN: soft, nontender. EXTREMITIES: no edema. PERIPHERAL PULSES: equal. NEUROLOGIC: No gross deficits, AAO X 3 Office Procedures EKG Details: Sinus rhythm 93 beats per minute, normal axis, nonspecific ST changes, QTC 427 milliseconds. [id number]-[id number], Complete Assessment & Plan Assessment & Plan (1) Takotsubo cardiomyopathy: Code(s): I51.81 - Takotsubo syndrome Category: Medical (2) Stable angina: Code(s): I20.8 - Other forms of angina pectoris Category: Medical (3) Shortness of breath: Code(s): R06.02 - Shortness of breath Category: Medical Plan 68 year female who is here for follow-up. She has known history of coronary disease with previous LAD PCI. She subsequently had episode of chest pain and mild NSTEMI in the setting of emotional stress and was noticed to have takotsubo cardiomyopathy. Her LAD stent was patent at that time. She has recovered from that. She is returning and is under lot of stress and has been short of breath. These symptoms are mostly when she is under stress and can happen at rest and even while talking. With activity she does not have any significant symptoms at this point. she will continue her citalopram. She will continue rest of her medications for now. I have advised her that if she has any exertional symptoms then she will reach out to us otherwise these symptoms are related to significant stress and anxiety at this point. Thank you for allowing me to participate in the care of your patient. Please feel free to contact me if you have any questions. Coding Level of Care Code Est Pt Level 4 (24319) Diagnoses Takotsubo cardiomyopathy I51.81 Stable angina I20.8 Shortness of breath R06.02 CPT Codes EKG - CPT: 51778-[id number], Complete ([id number])
[2024-01-06 12:53] VITALS: BP 132/60; PULSE 93; BMI 29.1
== END 2024-01-06 13:22 | disposition home or self-care (01) ==
PROVIDERS: PCP Pediatrics; Visit Provider Internal Medicine Cardiovascular Disease
DX: R94.31 Abnormal electrocardiogram [ECG] [EKG] (principal)
CPT/HCPCS: 93010; 99214

== ENCOUNTER → 2024-01-06 12:50 | Outpatient (BNVA) | payer MEDICARE, OTHER, SELFPAY ==
[2022-08-04 10:18] VITALS: BP 122/60; BP 136/84; BP 144/70; BMI 28.1
== END ==
PROVIDERS: PCP Pediatrics; Visit Provider Internal Medicine Cardiovascular Disease
DX: R06.02 Shortness of breath (principal); I51.81 Takotsubo syndrome; I20.89 Other forms of angina pectoris
CPT/HCPCS: 93005; 99212

== ENCOUNTER → 2024-01-12 23:59 | Outpatient (BNV) | payer MEDICARE, OTHER, SELFPAY ==
[2022-08-04 10:18] VITALS: BP 122/60; BP 136/84; BP 144/70; BMI 28.1
--- NOTE | 2024-01-17 20:36 | A.OFFVIS_ITS ---
Intake Visit Reasons: Remote ILR- [employer] Allergies metoprolol [METOPROLOL] Allergy (Severe, Verified 11/11/22 11:14) angioedema amoxicillin [AMOXICILLIN] Allergy (Unknown, Verified 11/11/22 11:14) UNKNOWN bupropion [BUPROPION] Allergy (Unknown, Verified 11/11/22 11:14) UNKNOWN cephalexin [From KEFLEX] Allergy (Unknown, Verified 11/11/22 11:14) UNKNOWN Cephalosporins [CEPHALOSPORINS] Allergy (Unknown, Verified 11/11/22 11:14) UNKNOWN codeine [CODEINE] Allergy (Unknown, Verified 11/11/22 11:14) UNKNOWN dicyclomine [DICYCLOMINE] Allergy (Unknown, Verified 11/11/22 11:14) UNKNOWN doxycycline Allergy (Unknown, Verified 11/11/22 11:14) Unknown erythromycin base [ERYTHROMYCIN BASE] Allergy (Unknown, Verified 11/11/22 11:14) UNKNOWN Iodinated Contrast Media [IV CONTRAST] Allergy (Unknown, Verified 11/11/22 11:14) UNKNOWN lansoprazole [LANSOPRAZOLE] Allergy (Unknown, Verified 11/11/22 11:14) UNKNOWN meperidine [From DEMEROL] Allergy (Unknown, Verified 11/11/22 11:14) ANAPHYLAXIS oxycodone [OXYCODONE] Allergy (Unknown, Verified 11/11/22 11:14) UNKNOWN shellfish derived Allergy (Unknown, Verified 11/11/22 11:14) Unknown simvastatin [SIMVASTATIN] Allergy (Unknown, Verified 11/11/22 11:14) UNKNOWN Sulfa (Sulfonamide Antibiotics) [SULFA (SULFONAMIDE ANTIBIOTICS)] Allergy (Unknown, Verified 11/11/22 11:14) UNKNOWN tramadol [TRAMADOL] Allergy (Unknown, Verified 11/11/22 11:14) UNKNOWN verapamil [VERAPAMIL] Allergy (Unknown, Verified 11/11/22 11:14) ANAPHYLAXIS [facility] Medical History Hypothyroidism Thyroid nodule PAF (paroxysmal atrial fibrillation) Vitamin D deficiency Postablative hypothyroidism H/O paroxysmal supraventricular tachycardia Migraine headache Hyperlipidemia Diet-controlled diabetes mellitus Toxic multinodular goiter CVA (cerebral vascular accident) Hypertension Surgical History History of cardiac cath H/O bladder repair surgery Hx of appendectomy H/O: hysterectomy H/O pelvic surgery Family History Mother High blood sugar Myocardial infarction Father Diabetes Myocardial infarction Stroke Brother Myocardial infarction Social History Household Members: None Housing: House Do you presently have visiting nurse or other home services: No Alcohol intake: never Comment: 457 Patient Tobacco Use Status: Never used Tobacco e-Cigarette/Vaping Use: Never Used Second Hand Smoke Exposure: No Advance Directives Date on File: 03/02/22 service: No Current occupational status: retired Office Procedures Cardiac Device Check Cardiac Device Check Details: ILR No new alerts [id number] Cardiac Device Check, subcut cardiac rhythm monitor Procedure code (CPT) selection complete Assessment & Plan Assessment & Plan (1) PAF (paroxysmal atrial fibrillation): Code(s): I48.0 - Paroxysmal atrial fibrillation Category: Medical Plan Orders: Orders AMB Cardiac Device Follow-up 01/12/24 I48.0 - Paroxysmal atrial fibrillation Coding Level of Care Code Procedure Only Diagnoses PAF (paroxysmal atrial fibrillation) I48.0 CPT Codes Cardiac Device Check - Cardiac Device 7: [id number] Cardiac Device Check, subcut cardiac rhythm monitor ([id number])
== END ==
PROVIDERS: PCP Pediatrics; Visit Provider Internal Medicine Cardiovascular Disease
DX: I48.0 Paroxysmal atrial fibrillation (principal); Z95.818 Presence of other cardiac implants and grafts
CPT/HCPCS: 93298

== ENCOUNTER → 2024-01-31 23:59 | Outpatient (BNV) | payer MEDICARE, OTHER, SELFPAY ==
[2022-08-04 10:18] VITALS: BP 122/60; BP 136/84; BP 144/70; BMI 28.1
--- NOTE | 2024-02-05 20:17 | A.OFFVIS_ITS ---
Intake Visit Reasons: Remote ILR check- [employer] Allergies metoprolol [METOPROLOL] Allergy (Severe, Verified 11/11/22 11:14) angioedema amoxicillin [AMOXICILLIN] Allergy (Unknown, Verified 11/11/22 11:14) UNKNOWN bupropion [BUPROPION] Allergy (Unknown, Verified 11/11/22 11:14) UNKNOWN cephalexin [From KEFLEX] Allergy (Unknown, Verified 11/11/22 11:14) UNKNOWN Cephalosporins [CEPHALOSPORINS] Allergy (Unknown, Verified 11/11/22 11:14) UNKNOWN codeine [CODEINE] Allergy (Unknown, Verified 11/11/22 11:14) UNKNOWN dicyclomine [DICYCLOMINE] Allergy (Unknown, Verified 11/11/22 11:14) UNKNOWN doxycycline Allergy (Unknown, Verified 11/11/22 11:14) Unknown erythromycin base [ERYTHROMYCIN BASE] Allergy (Unknown, Verified 11/11/22 11:14) UNKNOWN Iodinated Contrast Media [IV CONTRAST] Allergy (Unknown, Verified 11/11/22 11:14) UNKNOWN lansoprazole [LANSOPRAZOLE] Allergy (Unknown, Verified 11/11/22 11:14) UNKNOWN meperidine [From DEMEROL] Allergy (Unknown, Verified 11/11/22 11:14) ANAPHYLAXIS oxycodone [OXYCODONE] Allergy (Unknown, Verified 11/11/22 11:14) UNKNOWN shellfish derived Allergy (Unknown, Verified 11/11/22 11:14) Unknown simvastatin [SIMVASTATIN] Allergy (Unknown, Verified 11/11/22 11:14) UNKNOWN Sulfa (Sulfonamide Antibiotics) [SULFA (SULFONAMIDE ANTIBIOTICS)] Allergy (Unknown, Verified 11/11/22 11:14) UNKNOWN tramadol [TRAMADOL] Allergy (Unknown, Verified 11/11/22 11:14) UNKNOWN verapamil [VERAPAMIL] Allergy (Unknown, Verified 11/11/22 11:14) ANAPHYLAXIS [facility] Medical History Hypothyroidism Thyroid nodule PAF (paroxysmal atrial fibrillation) Vitamin D deficiency Postablative hypothyroidism H/O paroxysmal supraventricular tachycardia Migraine headache Hyperlipidemia Diet-controlled diabetes mellitus Toxic multinodular goiter CVA (cerebral vascular accident) Hypertension Surgical History History of cardiac cath H/O bladder repair surgery Hx of appendectomy H/O: hysterectomy H/O pelvic surgery Family History Mother High blood sugar Myocardial infarction Father Diabetes Myocardial infarction Stroke Brother Myocardial infarction Social History Household Members: None Housing: House Do you presently have visiting nurse or other home services: No Alcohol intake: never Comment: 457 Patient Tobacco Use Status: Never used Tobacco e-Cigarette/Vaping Use: Never Used Second Hand Smoke Exposure: No Advance Directives Date on File: 03/02/22 service: No Current occupational status: retired Office Procedures Cardiac Device Check Cardiac Device Check Details: ILR No new alerts. [id number] Cardiac Device Check, subcut cardiac rhythm monitor Procedure code (CPT) selection complete Assessment & Plan Assessment & Plan (1) Encounter for loop recorder check: Code(s): Z45.09 - Encounter for adjustment and management of other cardiac device Category: Medical Plan: Orders: Orders AMB Cardiac Device Follow-up 01/31/24 Z45.09 - Encounter for adjustment and management of other cardiac device Coding Level of Care Code Procedure Only Diagnoses Encounter for loop recorder check Z45.09 CPT Codes Cardiac Device Check - Cardiac Device 7: [id number] Cardiac Device Check, subcut cardiac rhythm monitor ([id number])
== END ==
PROVIDERS: PCP Pediatrics; Visit Provider Internal Medicine Cardiovascular Disease
DX: Z45.09 Encounter for adjustment and management of other cardiac device (principal)
CPT/HCPCS: 93298

== ENCOUNTER → 2024-02-16 23:59 | Outpatient (BNV) | payer MEDICARE, OTHER, SELFPAY ==
[2022-08-04 10:18] VITALS: BP 122/60; BP 136/84; BP 144/70; BMI 28.1
--- NOTE | 2024-02-24 10:45 | A.OFFVIS_ITS ---
Intake Visit Reasons: Remote ILR check- [employer] Allergies metoprolol [METOPROLOL] Allergy (Severe, Verified 11/11/22 11:14) angioedema amoxicillin [AMOXICILLIN] Allergy (Unknown, Verified 11/11/22 11:14) UNKNOWN bupropion [BUPROPION] Allergy (Unknown, Verified 11/11/22 11:14) UNKNOWN cephalexin [From KEFLEX] Allergy (Unknown, Verified 11/11/22 11:14) UNKNOWN Cephalosporins [CEPHALOSPORINS] Allergy (Unknown, Verified 11/11/22 11:14) UNKNOWN codeine [CODEINE] Allergy (Unknown, Verified 11/11/22 11:14) UNKNOWN dicyclomine [DICYCLOMINE] Allergy (Unknown, Verified 11/11/22 11:14) UNKNOWN doxycycline Allergy (Unknown, Verified 11/11/22 11:14) Unknown erythromycin base [ERYTHROMYCIN BASE] Allergy (Unknown, Verified 11/11/22 11:14) UNKNOWN Iodinated Contrast Media [IV CONTRAST] Allergy (Unknown, Verified 11/11/22 11:14) UNKNOWN lansoprazole [LANSOPRAZOLE] Allergy (Unknown, Verified 11/11/22 11:14) UNKNOWN meperidine [From DEMEROL] Allergy (Unknown, Verified 11/11/22 11:14) ANAPHYLAXIS oxycodone [OXYCODONE] Allergy (Unknown, Verified 11/11/22 11:14) UNKNOWN shellfish derived Allergy (Unknown, Verified 11/11/22 11:14) Unknown simvastatin [SIMVASTATIN] Allergy (Unknown, Verified 11/11/22 11:14) UNKNOWN Sulfa (Sulfonamide Antibiotics) [SULFA (SULFONAMIDE ANTIBIOTICS)] Allergy (Unknown, Verified 11/11/22 11:14) UNKNOWN tramadol [TRAMADOL] Allergy (Unknown, Verified 11/11/22 11:14) UNKNOWN verapamil [VERAPAMIL] Allergy (Unknown, Verified 11/11/22 11:14) ANAPHYLAXIS [facility] Medical History Hypothyroidism Thyroid nodule PAF (paroxysmal atrial fibrillation) Vitamin D deficiency Postablative hypothyroidism H/O paroxysmal supraventricular tachycardia Migraine headache Hyperlipidemia Diet-controlled diabetes mellitus Toxic multinodular goiter CVA (cerebral vascular accident) Hypertension Surgical History History of cardiac cath H/O bladder repair surgery Hx of appendectomy H/O: hysterectomy H/O pelvic surgery Family History Mother High blood sugar Myocardial infarction Father Diabetes Myocardial infarction Stroke Brother Myocardial infarction Social History Household Members: None Housing: House Do you presently have visiting nurse or other home services: No Alcohol intake: never Comment: 457 Patient Tobacco Use Status: Never used Tobacco e-Cigarette/Vaping Use: Never Used Second Hand Smoke Exposure: No Advance Directives Date on File: 03/02/22 service: No Current occupational status: retired Office Procedures Cardiac Device Check Cardiac Device Check Details: ILR No new alerts. [id number] Cardiac Device Check, subcut cardiac rhythm monitor Procedure code (CPT) selection complete Assessment & Plan Assessment & Plan (1) PAF (paroxysmal atrial fibrillation): Code(s): I48.0 - Paroxysmal atrial fibrillation Category: Medical Plan: Coding Level of Care Code Procedure Only Diagnoses PAF (paroxysmal atrial fibrillation) I48.0 CPT Codes Cardiac Device Check - Cardiac Device 7: [id number] Cardiac Device Check, subcut cardiac rhythm monitor ([id number])
== END ==
PROVIDERS: PCP Pediatrics; Visit Provider Internal Medicine Cardiovascular Disease
DX: I48.0 Paroxysmal atrial fibrillation (principal); Z95.818 Presence of other cardiac implants and grafts
CPT/HCPCS: 93298

== ENCOUNTER 2024-03-17 11:58 | Outpatient (REF) | payer MEDICARE, OTHER, SELFPAY ==
[2022-08-04 10:18] VITALS: BP 122/60; BP 136/84; BP 144/70; BMI 28.1
[2024-03-17 12:30] VITALS: BP 142/80; PULSE 95; RESP 19; TEMP 36.4; O2SAT 98; BMI 29.3
--- NOTE | 2024-03-17 13:22 | P.BOP_ITS ---
Brief Operative Note Date of Service: 03/17/24 Pre-op diagnosis: Implantable loop recorder in place Post-op diagnosis: same Procedure: Removal of implantable loop recorder Implants: After obtaining informed consent patient was brought to the minor surgery suite. Patient was laid on the operating table in supine position. The device location was identified in the area marked. The precordial area was then prepped and draped in a sterile fashion. Patient was then given 2% lidocaine with epinephrine intradermally and subcutaneously. A small incision was made. After some blunt dissection, the device head was identified. It was then removed after holding with the Janette forcep. Minimal blood loss was noted. Hemostasis was then achieved. The wound was then closed with Steri-Strips. A sterile pressure dressing was then applied. Surgeon: Herrera García MD Anesthesia: local Was an Senior Staff Specialized Employment used for this Procedure?: Yes Senior Staff Specialized Employment: [employer] Estimated blood loss (mL): 5 Pathology: none sent Condition: stable Disposition: same day
== END 2024-03-17 11:59 | disposition home or self-care (01) ==
LOC: HO.MS 11:58
PROVIDERS: PCP Pediatrics; Visit Provider Internal Medicine Cardiovascular Disease
PROC: (CPT 33286; principal; 2024-03-17 12:30)
DX: Z45.09 Encounter for adjustment and management of other cardiac device (principal)
CPT/HCPCS: 33286; J2004

== ENCOUNTER → 2024-03-17 11:58 | Outpatient (BNV) | payer MEDICARE, OTHER, SELFPAY ==
[2024-03-17 13:17] VITALS: BP 122/60; BP 136/84; BP 144/70; BMI 28.1
== END ==
PROVIDERS: PCP Pediatrics; Visit Provider Internal Medicine Cardiovascular Disease
DX: Z45.09 Encounter for adjustment and management of other cardiac device (principal)
CPT/HCPCS: 33286

== ENCOUNTER → 2024-03-28 09:25 | Outpatient (BNVA) | payer MEDICARE, OTHER, SELFPAY ==
[2024-03-17 13:17] VITALS: BP 122/60; BP 136/84; BP 144/70; BMI 28.1
== END ==
PROVIDERS: PCP Pediatrics; Visit Provider Internal Medicine Cardiovascular Disease

== ENCOUNTER 2024-05-17 10:50 | Outpatient (AMB) | payer MEDICARE, OTHER, SELFPAY ==
[2022-08-04 10:18] VITALS: BP 122/60; BP 136/84; BP 144/70; BMI 28.1
[2024-03-17 13:17] VITALS: BP 122/60; BP 136/84; BP 144/70; BMI 28.1
--- NOTE | 2024-05-17 11:18 | MHC.OFFVIS ---
Vital Signs 05/17/24 11:20 Height 5 ft 1 in Weight 159 lb 9.835 oz BMI 30.2 BP 110/64 Blood Pressure Location Lt brachial Position Sitting Pulse 88 Pulse Source Pulse Oximeter Intake Visit Reasons: 6m follow up Intake Note: 6 mth f/up Cardiographer Required: No Accompanied by: Self / Same As Patient Allergies metoprolol [METOPROLOL] Allergy (Severe, Verified 11/11/22 11:14) angioedema amoxicillin [AMOXICILLIN] Allergy (Unknown, Verified 11/11/22 11:14) UNKNOWN bupropion [BUPROPION] Allergy (Unknown, Verified 11/11/22 11:14) UNKNOWN cephalexin [From KEFLEX] Allergy (Unknown, Verified 11/11/22 11:14) UNKNOWN Cephalosporins [CEPHALOSPORINS] Allergy (Unknown, Verified 11/11/22 11:14) UNKNOWN codeine [CODEINE] Allergy (Unknown, Verified 11/11/22 11:14) UNKNOWN dicyclomine [DICYCLOMINE] Allergy (Unknown, Verified 11/11/22 11:14) UNKNOWN doxycycline Allergy (Unknown, Verified 11/11/22 11:14) Unknown erythromycin base [ERYTHROMYCIN BASE] Allergy (Unknown, Verified 11/11/22 11:14) UNKNOWN Iodinated Contrast Media [IV CONTRAST] Allergy (Unknown, Verified 11/11/22 11:14) UNKNOWN lansoprazole [LANSOPRAZOLE] Allergy (Unknown, Verified 11/11/22 11:14) UNKNOWN meperidine [From DEMEROL] Allergy (Unknown, Verified 11/11/22 11:14) ANAPHYLAXIS oxycodone [OXYCODONE] Allergy (Unknown, Verified 11/11/22 11:14) UNKNOWN shellfish derived Allergy (Unknown, Verified 11/11/22 11:14) Unknown simvastatin [SIMVASTATIN] Allergy (Unknown, Verified 11/11/22 11:14) UNKNOWN Sulfa (Sulfonamide Antibiotics) [SULFA (SULFONAMIDE ANTIBIOTICS)] Allergy (Unknown, Verified 11/11/22 11:14) UNKNOWN tramadol [TRAMADOL] Allergy (Unknown, Verified 11/11/22 11:14) UNKNOWN verapamil [VERAPAMIL] Allergy (Unknown, Verified 11/11/22 11:14) ANAPHYLAXIS Medication List - Last Reconciled 05/17/24 by Robles Vargas MD acetaminophen 650 mg PO Q6H PRN albuterol sulfate 90 mcg/actuation 90 mcg inhalation NEEDED amlodipine 5 mg PO DAILY apixaban (Eliquis) 5 mg PO BID citalopram 10 mg PO DAILY clopidogrel 75 mg PO DAILY cyclobenzaprine 5 mg PO BEDTIME dapagliflozin propanediol (Farxiga) 10 mg PO DAILY fenofibrate micronized 200 mg PO BEDTIME fluticasone propionate 50 mcg/actuation 50 mcg intranasal DAILY fluvastatin ER 80 mg PO BEDTIME levothyroxine 75 mcg PO DAILY@0600 losartan 50 mg PO DAILY omeprazole 20 mg PO BEDTIME riboflavin (vitamin B2) (Vitamin B-2) 400 mg PO DAILY ubrogepant (Ubrelvy) 50 mg PO DAILY HPI Comments Details: Pleasant 69-year-old female here for follow-up. She was recently seen at [facility] when she presented with chest discomfort. Her clinical story was consistent with unstable angina. After discussion she was taken for cardiac catheterization. Cardiac catheterization showed hazy 65-70% mid LAD lesion. We performed IFR which was abnormal and we stented with a drug-eluting stent. She was started on Plavix along with Eliquis and was discharged home. On follow-up she was doing well. After she some in the clinic she had sharp left-sided chest discomfort as well as some burning sensation the chest with chest pressure. She went to the emergency department with these symptoms and was ruled out. EKG did not show any dynamic changes 2. No CRP or ESR was performed and no echocardiography/imaging was done of the heart but she was felt to have pericarditis. She was sent home with this diagnosis. She is saying she has felt better since then on her own. On follow up doing well. No CP or SOB. Taking medications regularly. 10/19/22: She returns for follow-up. She was at [facility] end of September with dizziness and presyncope. She said she was feeling fine and went out to throw some vegetables in her composter when she started feeling nauseous and dizzy. She said she had on to something to prevent herself from falling. She said she was very weak and unsteady walking back to the house. She said she checked her blood pressure and it was high. She went to [facility] with she had workup which did not show any obvious issues. She was told that she probably had vasovagal syncope. She was feeling quite hot and was sweating 2. I agree that she likely had vasovagal syncope. She is saying that she drinks a lot of water. She is compliant with medications. She also had some chest pain in ambulance but workup was okay at [facility]. She has not had any further chest discomfort. 03/10/2023: She returns for follow-up. She has been under lot of stress because of her father who is 91 years old and at the end of his life. Denying any palpitations. She continues to get some vertigo like feeling. She tried meclizine but developed headache and stop using it. She has never seen ENT for vertigo. She has also asking whether Plavix can be stopped or not. 07/09/23: She returns for follow-up. She had recent presentation to [facility] with chest discomfort and NSTEMI. Echocardiography showed onem-ue-ttwryily RV dysfunction and severe LV dysfunction. 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 She underwent cardiac catheterization which confirmed takotsubo as there was no significant coronary artery disease and previous LAD stent was also patent. She is getting some shortness of breath when going upstairs. No significant chest discomfort. 11/17/23: She is here for f/u. No significant symptoms on follow up. Taking meds regularly. No concerns for bleeding. 01/06/2024: she is here for follow-up. She is complaining of some shortness of breath. She has been under lot of stress. One of her dogs has been having seizures at nighttime and she is worried that the dog has brain tumor. She also has been taking care of family members who are sick. She is quite stressed and has been noticing shortness of breath at times. She has sometimes gets short of breath even talking. No concerning symptoms otherwise. 05/17/2024: She is here for follow-up. No chest discomfort or shortness of breath. Denying any significant palpitations. Blood pressure well controlled. No significant complaints on follow-up. [facility] Medical History Hypothyroidism Thyroid nodule PAF (paroxysmal atrial fibrillation) Vitamin D deficiency Postablative hypothyroidism H/O paroxysmal supraventricular tachycardia Migraine headache Hyperlipidemia Diet-controlled diabetes mellitus Toxic multinodular goiter CVA (cerebral vascular accident) Hypertension Surgical History History of cardiac cath H/O bladder repair surgery Hx of appendectomy H/O: hysterectomy H/O pelvic surgery Family History Mother High blood sugar Myocardial infarction Father Diabetes Myocardial infarction Stroke Brother Myocardial infarction Social History Household Members: None Housing: House Do you presently have visiting nurse or other home services: No Alcohol intake: never Comment: 457 Patient Tobacco Use Status: Never used Tobacco e-Cigarette/Vaping Use: Never Used Second Hand Smoke Exposure: No Advance Directives Date on File: 03/02/22 service: No Current occupational status: retired Review of Systems Const Denies chills, Denies fatigue, Denies fever(s), Denies frequent falls, Denies weakness, Denies weight gain and Denies weight loss ENT Denies dizziness Card Denies chest pain, Denies leg edema, Denies lightheadedness, Denies palpitations, Denies dyspnea and Denies dyspnea on exertion Resp Denies cough, Denies dyspnea and Denies dyspnea on exertion GI Denies hematochezia Musc Denies abnormal gait, Denies muscle weakness, Denies numbness, Denies radiating pain into limb and Denies tingling Neuro Denies abnormal gait, Denies dizziness, Denies frequent falls, Denies numbness, Denies tingling and Denies weakness Endo Denies fatigue and Denies palpitations Physical Exam Vital Signs: Last Vital Signs Pulse 88 05/17/24 11:20 BP 110/64 05/17/24 11:20 BMI result Body Mass Index 30.2 GENERAL APPEARANCE: in no acute distress, pleasant. NECK: no carotid bruit, no jugular venous distention. SKIN: no suspicious lesions, warm and dry. HEART: no murmurs, regular rate and rhythm. LUNGS: clear to auscultation bilaterally. ABDOMEN: soft, nontender. EXTREMITIES: no edema. PERIPHERAL PULSES: equal. NEUROLOGIC: No gross deficits, AAO X 3 Assessment & Plan Assessment & Plan (1) Takotsubo cardiomyopathy: Code(s): I51.81 - Takotsubo syndrome Category: Medical (2) Stable angina: Code(s): I20.8 - Other forms of angina pectoris Category: Medical (3) Shortness of breath: Code(s): R06.02 - Shortness of breath Category: Medical Plan 69 year female who is here for follow-up. She has known history of coronary disease with previous LAD PCI. She subsequently had episode of chest pain and mild NSTEMI in the setting of emotional stress and was noticed to have takotsubo cardiomyopathy. Her LAD stent was patent at that time. She has recovered from that. She is saying her shortness of breath episodes are much better. She said she was under a lot of stress due to family but more recently things have been calmer and she feels good. Her ILR has been taken out. She is asking about duration of Plavix. More than 1 year has passed and I think she can stop Plavix and can stay on apixaban monotherapy at this stage. Thank you for allowing me to participate in the care of your patient. Please feel free to contact me if you have any questions. Coding Level of Care Code Est Pt Level 4 (66914) Diagnoses Takotsubo cardiomyopathy I51.81 Stable angina I20.8 Shortness of breath R06.02
[2024-05-17 11:20] VITALS: BP 110/64; PULSE 88; BMI 30.2
--- OUTSIDE RECORDS SUMMARY | 2024-05-17 13:00 | XMS_ITS | Continuity of Care Document ---
Author Organization [facility] [address] [place] [address] Phone [phone] Care Team Providers Care Elevators Inspector Name Role Phone Karo Tang MD Care Team Information Re ceiver [phone] Problems Active Problems Provider Date Primary hypothyroidism Citlalli Hernandez Onset: 01/13/2022 Graves' disease Thais Lay M.D. Ons et: 01/13/2022 Multinodular goiter Thais Lay M.D. Onset: 01/13/2022 Essential hypertension Citlalli Hernandez Onset: 01/13/2022 Supraventricular tachycardia Thais goldman M.D. Onset: 01/13/2022 Paroxysmal atrial fibrillation Thais carver M.D. Onset: 01/13/2022 Depressive disorder Thais Lay M.D. Onset: 01/13/2022 Cerebrovascular accident Thais Lay M.D. Onset: 01/13/2022 Complicated migraine Oracio Hernandez Onset: 01/13/2022 Fibromyalgia Thais Lay M.D. Ons et: 01/13/2022 Lichen planus Thais Lay M.D. Ons et: 01/13/2022 Osteopenia Thais Lay M.D. Ons et: 01/13/2022 Dyslipidemia Thais Lay M.D. Ons et: 01/13/2022 Type 2 diabetes mellitus Thais Lay M.D. Onset: 01/13/2022 Myocardial infarction Ross Hernandez Onset: 06/16/2022 Pericarditis Thais Lay M.D. Ons et: 06/16/2022 Social History Type Date Description Comments Sex Unknown Lives With Alone Work Status Retired ETOH Use Denies alcohol use Tobacco Use Start: Unknown Patient has never smoked Smoking Status Reviewed: 06/16/22 Patient has never sm oked Allergies and adverse reactions Active Allergies Criticality Reaction Severity Comments Date Verapamil Unable to assess criticality 01/13/2022 Demerol Unable to assess criticality 01/13/2022 Cephalosporins Unable to assess criticality 01/13/2022 Codeine Unable to assess criticality 01/13/2022 Dicyclomine Unable to assess criticality 01/13/2022 Erythromycin Unable to assess criticality 01/13/2022 Amoxicillin Unable to assess criticality 01/13/2022 Lansoprazole Unable to assess criticality 01/13/2022 Sulfamethoxazole Unable to assess criticality 01/13/2022 Contrast Dye Unable to assess criticality 01/13/2022 Prednisone Unable to assess criticality 01/13/2022 Metoprolol Unable to assess criticality 01/13/2022 Medications Active Medications SIG Qnty Indications Order ing Provider Date [id number] Capsules DR 1 by mouth every day Thais Lay M.D. 01/13/2022 Jqzidvx37ft Tablets Take 1 Tablet (50 MG) By Oral Route as Needed For Migraine May Repeat In 4 Hours Unknown Losartan Otgpibeum96ke Tablets Take 1 Tablet By Mouth Every Day Robles Vargas MD Fenofibrate Knzhbvgbks064zz Capsules Take 1 Capsule By Mouth Every Day Unknown Awegokb1ie Tablets Take 1 Tablet By Mouth Twice A Day Siva Wooten MD Levothyroxine Aptgap97zgs Tablets Take 1 Tablet By Mouth Every Day Except Skip Sundays 90tabs Thais Lay M.D. Cyclobenzaprine HCL5mg Tablets Take 1 Tablet By Mouth AT Bedtime as Needed For Muscle Spasms. Karo Tang MD Fluvastatin Sodium ER80mg Tablets ER 24HR Take 1 Tablet By Mouth Every Day Karo Tang MD Fluticasone Mctecsefch96hkz/Act Suspension Rebuck 2 Sprays Into Each Nostril Once A Day Karo Tang MD Yqztpp67zj Tablets 1 by mouth every day 90tabs Thais Lay M.D. Citalopram Nzuntuhhgzeg28dc Tablets 1 by mouth every day Unknown Amlodipine Czhxgiym8hj Tablets Take 1 Tablet By Mouth Every Day Unknown Nhjjxyh92us Tablets Take 1 Tablet By Mouth Every Day Unknown Albuterol Sulfate VNN456(90Base) mcg/Act Aerosol use 2 puffs every 4 to 6 hours as needed Unknown Vital Signs Date Vital Result Comment 05/08/2024 10:07am BP Systolic 126 mmHg BP Diastolic 70 mmHg Heart Rate 98 /min Height 61 inches 5'1 Weight 161.25 lb BMI (Body Mass Index) 30.5 kg/m2 Results Test Acquired Date Facility Test Result H/L Range N ote Laboratory test finding 05/08/2024 [facility] TSH Rfx on Abnormal to Free T4 3.830 uIU/mL 0.450-4.5 00 Laboratory test finding 07/10/2023 [facility] TSH RFX On Abnormal To Free T4 <pending> TSH Rfx on Abnormal to Free T4 07/06/2023 [facility] TSH RFX On Abnormal To Free T4 0.260 uIU/mL Low 0.450-4.5 00 T4,Free (Direct) 1.44 ng/dL 0.82-1.77 Laboratory test finding 12/25/2022 [facility] TSH With Reflex To FT4 0.52 uIU/mL (0.4-4.2) Laboratory test finding 06/16/2022 [facility] TSH With Reflex To FT4 1.17 uIU/mL (0.4-4.2) Complete Abc With Diff 01/13/2022 [facility] WBC 7.7 K/MM3 (4.0-11.0 ) RBC 4.30 M/MM3 (4.20-5.4 0) HGB 12.8 GM/DL (11.7-15. 5) HCT 41.5 % (35.7-45. 8) MCV 96.5 FL (80.0-100 .0) MCH 29.8 pg (27.0-34. 0) MCHC 30.8 g/dL Low (33.0-37. 0) PLT 395 K/MM3 (150-460) RDW-SD 49.0 FL High (<47.0) MPV 9.9 FL (9.4-12.4 ) Automated NRBC 0.0 #/100WBC'S Abs. NRBC 0.0 K/MM3 Neut # 4.7 K/MM3 (1.3-7.0) Lymph # 2.3 K/MM3 (0.8-3.1) [place]# 0.6 K/MM3 (0.4-0.9) Eo # 0.1 K/MM3 (0.0-0.4) Baso # 0.0 K/MM3 (0.0-0.1) Abs. Imm Gran 0.0 K/MM3 Neut 61.3 % (44-76) Lymph 29.6 % (15-43) Monocyte 7.1 % (4.5-10.5 ) Eo 1.4 % (0-6) Baso 0.5 % (0-2) Imm Gran 0.1 % Laboratory test finding 01/13/2022 [facility] TSH With Reflex To FT4 1.39 uIU/mL (0.4-4.2) Procedures Date Code Description Status 05/08/2024 21976 Collection Of Venous Blood B y Venipuncture Completed 07/06/2023 47805 Collection Of Venous Blood B y Venipuncture Completed 12/25/2022 14736 Collection Of Venous Blood B y Venipuncture Completed 06/16/2022 10596 Collection Of Venous Blood B y Venipuncture Completed 01/13/2022 00018 Collection Of Venous Blood B y Venipuncture Completed Medical Devices Description No Information Available Encounters Type Date Location Provider Dx Diagnosis Office Visit 05/08/2024 10:15a Main Office Thais Lay M.D. 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 05/08/2024 E05.00 Graves' disease Thais Kemp M.D. 05/08/2024 E04.2 Nontoxic multinodular goiter Thais Lay M.D. Plan of Treatment Future Appointment(s):* 11/06/2024 10:15 am - Thais Lay M.D. at Main Office 01/13/2022 - Thais Lay M.D.* E03.9 Hypothyroidism, unspecified * E04.2 Nontoxic multinodular goiter * E05.00 Graves' disease * R53.83 Other fatigue * Functional Status Description No Information Available Mental Status Description No Information Available Referrals Description No Information Available
--- OUTSIDE RECORDS SUMMARY | 2024-05-17 13:00 | XMS_ITS | Clinical Summary ---
Author Organization [facility] Address [address] [place] [address] Care Team Providers Care Straight Cutter Machine Name Role Phone Siva Wooten MD Primary Care Provider [phone] Allergies Active Allergy Reactions Criticality Noted Date Comments Amoxicillin Rash 10/18/2014 Atorvastatin Rash 08/16/2018 Bupropion Rash 10/18/2014 Cephalexin Monohydrate Rash 10/18/2014 Cephalosporins Rash Medium 10/18/2014 Codeine 10/18/2014 Dicyclomine Rash 10/18/2014 Erythromycin Rash 10/18/2014 Iodinated Contrast Media Hives 10/18/2014 Lansoprazole Rash 10/18/2014 Meperidine Anaphylaxis High 10/18/2014 Metoprolol Hives,Swelling High 11/01/2018 Oxycodone Rash 10/18/2014 Pravastatin Sodium Rash 08/16/2018 Shellfish Derived Hives 10/18/2014 Simvastatin Rash 10/18/2014 Sulfa (Sulfonamide Antibiotics) 08/08/2014 Unknown Tramadol Hives 10/18/2014 Verapamil Anaphylaxis High 10/18/2014 Medications apixaban (Eliquis) 5 mg tablet TAKE 1 TABLET BY MOUTH TWICE A DAY 3 Active fluticasone propionate (FLONASE) 50 mcg/actuation nasal spray 2 Sprays by Each Nare route daily. 2 Active fenofibrate micronized (LOFIBRA) 200 mg capsule Take 1 Capsule by mouth daily. 2 Active cyclobenzaprine (FLEXERIL) 5 mg tablet Take 1 Tablet by mouth at bedtime as needed for Muscle spasms. 2 Active fluvastatin XL (LESCOL XL) 80 mg 24 hr tablet Take 1 Tablet by mouth daily. 2 Active RIBOFLAVIN, VITAMIN B2, ORAL Take 400 mg by mouth daily. Active doxylamine (UNISOM) 25 mg tablet Take by mouth at bedtime as needed. Active losartan (COZAAR) 50 mg tablet Take 50 mg by mouth daily. Active dilTIAZem (TIAZAC) 360 mg 24 hr capsule Take 1 Cap by mouth daily. 0 Active albuterol HFA (PROAIR HFA ; PROVENTIL HFA ; VENTOLIN HFA) 90 mcg/actuation inhaler Inhale 2 Puffs into the lungs every 4 hours as needed for Cough, Wheezing or Shortness of Breath. 0 Active BABY ASPIRIN ORAL Take 81 mg by mouth. Active multivitamin/ir on/folic acid (CENTRUM ORAL) Take by mouth. Active vitamin E, dl, acetate, 90 mg (200 unit) capsule Take 200 Units by mouth daily. Active omeprazole (PriLOSEC) [address] capsule Take 20 mg by mouth daily. Active UNABLE TO FIND Vit C-Cholecalcifero l-Hien Hip 500-1000-20 MG-UNIT-MG Cap Elastic Bandages & Supports (MEDICAL COMPRESSION THIGH HIGH) Misc Active Active Problems Problem Noted Date Diagnosed Date Hypothyroidism 08/15/2021 Age-related cataract 06/26/2021 Postablative hypothyroidism 05/18/2020 Overview (03/10/2024): Hyperthyroidism due to toxic multinodular goiter, negative FNA treated Uriostegui 131; 28.6 mci 05/16/20 : Evaluated by [facility], advised to continue levothyroxine and follow-up in 18 months. Migraine headache 02/08/2017 Calcification of abdominal aorta 01/01/2017 Degenerative cervical disc 12/29/2016 Low back pain 12/29/2016 Essential hypertension 01/26/2016 Cervical radiculopathy 12/24/2014 Osteopenia 12/24/2014 Anxiety 10/18/2014 Atrial fibrillation 10/18/2014 Overview (03/10/2024): On Eliquis cardiac, cath 2006 Diabetes mellitus type 2, uncomplicated 10/19/19 15 Overview (03/10/2024): HGBA1C 6.7 2013 Esophageal reflux 10/18/2014 Osteoarthritis 10/18/2014 Nephrolithiasis 10/18/2014 Major depression, single episode 10/18/2014 Hyperlipidemia 10/18/2014 Fibromyalgia 10/18/2014 RAD (reactive airway disease) 10/18/2014 Immunizations Name Administration Dates Next Due Influenza Quadravalent, MDCK , 0.5ml, with preservative (Flucelvax) 6mo and older 12/29/2016 Influenza trivalent, 0.5mL, preservative free (Fluarix; FluLaval; Fluzone) ages 6mo and older (Afluria) 3 years and older 12/21/2019,12/28/2014 Influenza, Unspecified 01/22/2022 Zoster recombinant (Shingrix) 19yo and older Surgical History Surgery Date Site/Laterality Comments OTHER SURGICAL HISTORY PROCEDURE: HISTORICAL TOTAL HYSTERECTOMY W/O BSO; COMMENT: polycystic ovaries OTHER SURGICAL HISTORY PROCEDURE: KIDNEY STONE PANEL; COMMENT: removal of renal stone OTHER SURGICAL HISTORY PROCEDURE: HISTORICAL PELVISCOPY; COMMENT: pelvic recontructive surgery OTHER SURGICAL HISTORY PROCEDURE: [place] CSTOTOMY/CSTOST CRYOSURG DSTRJ INTRAVESICAL LES; COMMENT: bladder suspension TONSILLECTOMY PROCEDURE: HISTORICAL TONSILLECTOMY WISDOM TOOTH EXTRACTION PROCEDURE: HISTORICAL WISDOM TEETH EXTRACTION OTHER SURGICAL HISTORY PROCEDURE: TEMPORAL ARTERY BIOPSY SPCMN PATHOLOGY EXAM OTHER SURGICAL HISTORY 2014 PROCEDURE: ---- OTHER ----; COMMENT: left lateral tibial plateu fracture Medical History Medical History Date Comments SVT (supraventricular tachyc ardia) ([facility]) 10/18/2014 DX:SVT (supraventricular tac hycardia) ([facility]) Hyperlipidemia 10/18/2014 DX:Hyperlipidemi a Fibromyalgia 10/18/2014 DX:Fibromyalgia Esophageal reflux 10/18/2014 DX:Esophageal reflux Tibial plateau fracture DX:Tibia l plateau fracture; COMMENT: left not requiring surgery Diabetes type 2, controlled ([facility]) 10/18/2014 DX:Diabetes type 2, controlled ([facility]) Osteopenia 12/24/2014 DX:Osteopenia Cervical radiculopathy 12/24/2014 DX:Cervic al radiculopathy Calcification of abdominal a matthew ([facility]/HCC) 01/01/2017 DX:Calcification of abdomina l aorta (HCC) Headache disorder 02/08/2017 DX:Headache di sorder Diabetes mellitus type 2, uncomplicated (CMS/HCC) 10/18/2014 DX:Diabetes mellitus type 2, uncomplicated (HCC); COMMENT: HGBA1C 6.7 2012 History of stroke 12/17/2020 DX:History of stroke; COMMENT: March 2020 Postablative hypothyroidism 05/18/2020 DX:P ostablative hypothyroidism; COMMENT: Hyperthyroidism due to toxic multinodular goiter, negative FNA treated Uriostegui 131; 28.6 mci 05/16/20 Family History Medical History Relation Name Comments Heart attack Brother Heart attack Father diabetes, htn Heart attack Mother PE, htn, hep c Asthma Son pneumonia Breast cancer Neg Hx Relation Name Status Comments Brother Father Mother Son Social History Tobacco Use Types Packs/Day Years Used Date Smoking Tobacco: Never Smokeless Tobacco: Never Alcohol Use Standard Drinks/Week Comments No 0 (1 standard drink = 0.6 oz pur e alcohol) Comments Unknown Sex and Gender Information Value Date Recorded Sex Assigned at Not on file Legal Sex Female 10:59 PM EST Gender Identity Not on file Sexual Orientation Not on file Obstetrics History Last Filed Vital Signs Vital Sign Reading Time Taken Comments Blood Pressure 130/60 11/19/2021 11:35 AM EDT Pulse 94 11/19/2021 10:43 AM EDT Temperature - - Respiratory Rate - - Oxygen Saturation - - Inhaled Oxygen Concentration - - Weight 69.9 kg (154 lb 3.2 oz) 11/19/2021 10:43 AM EDT Height 154.9 cm (5' 1 ) 11/19/2021 10:43 AM EDT Body Mass Index 29.14 11/19/2021 10:43 AM EDT Plan of Treatment Health Maintenance Due Date Last Done Comments Diabetes: Annual Foot Exam 1964 Diabetes: Annual Retina Eye Exam 1964 DTaP,Tdap,and Td Vaccines (1 - Tdap) 1973 Pneumococcal Vaccine: 50+ Years (1 of 2 - PCV) 1973 Colorectal Cancer Screening: Colonoscopy 02/21/2022 Depression Screening 02/21/2022 Falls Risk Assessment 02/21/2022 Hepatitis C Screening 02/21/2022 Medicare Annual Wellness Visit 02/21/2022 Osteoporosis Screening (Bone Density Screening) 02/21/2022 Social Influencers of Health Screening 02/21/2022 Zoster Vaccines (2 of 2) 03/25/2022 01/28/2022 Diabetes: Blood Sugar Control Test (HGBA1C) 05/13/2022 11/13/2021 Diabetes: Annual Urine Albumin-Creatinine Ratio (uACR) 11/13/2022 11/13/2021 Diabetes: Annual GFR (Glomerular Filtration Rate) 11/13/2022 11/13/2021 Hypertension/CHF/CAD Annual BMP Blood Test 11/13/2022 11/13/2021 Breast Cancer Screening 06/28/2023 06/28/19, 06/24/2021, 04/11/2020, Additional history exists COVID-19 Vaccine ( season) 2023 01/06/2021, 07/06/2020, 06/15/2020 Influenza Vaccine (#1) 2023 , 01/06/2021, 12/21/2019, Additional history exists Cholesterol Screening (Lipid Panel) 11/13/2026 11/13/2021 RSV Immunization Patients 60+ Years Old (1 - 1-dose 75+ series) 2029 HIB Vaccines Aged Out No longer eligi ble based on patient's age to complete this topic HPV Vaccines Aged Out No longer eligi ble based on patient's age to complete this topic Hepatitis A Vaccines Aged Out No long er eligible based on patient's age to complete this topic Hepatitis B Vaccines Aged Out No long er eligible based on patient's age to complete this topic IPV Vaccines Aged Out No longer eligi ble based on patient's age to complete this topic MMR Vaccines Aged Out No longer eligi ble based on patient's age to complete this topic Meningococcal ACWY Vaccine Aged Out N o longer eligible based on patient's age to complete this topic Meningococcal B Vacine Aged Out No lo nger eligible based on patient's age to complete this topic RSV Immunization Patients Under 20 months Aged Out No longer eligible based on patient's age to complete this topic Varicella Vaccines Aged Out No longer eligible based on patient's age to complete this topic Procedures Procedure Name Priority Date/Time Associated Diagnosis Comments HM URINE ALBUMIN CREATININE RATIO Routine 11/13/2021 ANNUAL BMP BLOOD TEST Routine 11/13/2021 HEMOGLOBIN A1C Routine 11/13/2021 LIPID PANEL Routine 11/13/2021 DX MAMMO INCL CAD UNI Routine 06/27/2021 3:30 PM EDT Other abnormal and inconclusive findings on diagnostic imaging of breast from Last 3 Months or Most Recently Relevant to Health Maintenance Results * Urine Albumin Creatinine Ratio (11/13/2021) Urine Albumin Creatinine Ratio abstracted Result [facility] Provider [place] HEALTH MAINTENANCE Final Result * Annual BMP Blood Test (11/13/2021) Pathologist [facility] Annual BMP Blood Test abstracted [facility] HEALTH MAINTENANCE Final Result * (ABNORMAL) Hemoglobin A1c (11/13/2021) Pathologist [facility] Hemoglobin A1C 6.9(A) <=6.5 % Blood Venous blood specimen / Unknown Result [facility] Provider LAB BLOOD ORDERABLES Enma l Result * (ABNORMAL) Lipid panel (11/13/2021) Pathologist [facility] LDL/HDL Ratio 7(A) 0 - 4 Triglycerides 329(A) 0 - 150 mg/dL Cholesterol 211(A) 0 - 200 mg/dL HDL 32(A) >=40 mg/dL LDL Cholesterol 114(A) 0 - 100 mg/dL Blood Venous blood specimen / Unknown [facility] Provider LAB BLOOD ORDERABLES Enma l Result * DX MAMMO INCL CAD UNI (06/27/2021 3:30 PM EDT) Anatomical Region Laterality Modality Mammography 06/25/2021 7:34 AM EDT Narrative 06/27/2021 3:33 PM EDT This is a summary report. The complete report is available in the patient's medical record. If you cannot access the medical record, please contact the sending organization for a detailed fax or copy. Unilateral Right Breast Diagnostic Digital Mammogram History: Subtle microcalcifications right breast on screening mammogram of 06/24/2021. Technique: Magnification views of the right breast in the CC medial projections are obtained. Findings: There are vascular calcifications in the slightly outer upper right breast, and these correspond to the calcifications circled on the screening mammogram. Impression: No mammographic evidence of malignancy. BI-RADS 1-negative Procedure Note Mary Carmen Patel MD - 03/03/2022 This is a summary report. The complete report is available in thepatient's medical record. If you cannot access the medical record, pleasecontact the sending organization for a detailed fax or copy. Unilateral Right Breast Diagnostic Digital Mammogram History: Subtle microcalcifications right breast on screening mammogram of06/24/2021. Technique: Magnification views of the right breast in the CC medialprojections are obtained. Findings: There are vascular calcifications in the slightly outer upperright breast, and these correspond to the calcifications circled on thescreening mammogram. Impression: No mammographic evidence of malignancy. BI-RADS 1-negative Kaor Tang MD IMG BI PROCEDURES Final Result from Last 3 Months or Most Recently Relevant to Health Maintenance Advance Directives Documents on File Type Date Recorded Patient Vehicle Body Sander Expl anation Health Care Decision (hx) 04/26/2020 AD GARCIA DIRECTIVE Health Care Decision (hx) 04/26/2020 AD GARCIA DIRECTIVE Health Care Decision (hx) 04/26/2020 AD GARCIA DIRECTIVE Health Care Decision (hx) 04/26/2020 AD GARCIA DIRECTIVE Health Care Decision (hx) 04/26/2020 AD GARCIA DIRECTIVE Health Care Decision (hx) 04/24/2020 AD GARCIA DIRECTIVE Health Care Decision (hx) 04/24/2020 AD GARCIA DIRECTIVE Health Care Decision (hx) 04/24/2020 AD GARCIA DIRECTIVE Health Care Decision (hx) 04/24/2020 AD GARCIA DIRECTIVE Health Care Decision (hx) 04/24/2020 AD GARCIA DIRECTIVE Health Care Decision (hx) 04/24/2020 AD JOSE DIRECTIVE Care Teams Straight Cutter Machine Relationship Specialty Start Date End Date Siva Wooten MD [address] [place] [address] PCP - General Internal Medicine 06/26/21
== END 2024-05-17 11:46 | disposition home or self-care (01) ==
PROVIDERS: PCP Pediatrics; Visit Provider Internal Medicine Cardiovascular Disease
DX: I51.81 Takotsubo syndrome (principal); I20.89 Other forms of angina pectoris; R06.02 Shortness of breath
CPT/HCPCS: 99214

== ENCOUNTER → 2024-05-17 10:50 | Outpatient (BNVA) | payer MEDICARE, OTHER, SELFPAY ==
[2024-03-17 13:17] VITALS: BP 122/60; BP 136/84; BP 144/70; BMI 28.1
== END ==
PROVIDERS: PCP Pediatrics; Visit Provider Internal Medicine Cardiovascular Disease
DX: I51.81 Takotsubo syndrome (principal); I20.89 Other forms of angina pectoris; R06.02 Shortness of breath
CPT/HCPCS: 99212

== ENCOUNTER 2024-09-13 10:19 | Outpatient (AMB) | payer MEDICARE, OTHER, SELFPAY ==
[2024-03-17 13:17] VITALS: BP 122/60; BP 136/84; BP 144/70; BMI 28.1
--- NOTE | 2024-09-13 10:40 | A.OFFVIS_ITS ---
Vital Signs 09/13/24 10:42 Height 5 ft 1 in Weight 156 lb 1.396 oz BMI 29.5 BP 100/70 Blood Pressure Location Lt brachial Position Sitting Pulse 93 Pulse Source Monitor Intake Visit Reasons: 4 mth f/up Intake Note: 4 mth f/up Veneer Measurer Required: No Accompanied by: Self / Same As Patient Allergies metoprolol (METOPROLOL) Allergy (Severe, Verified 11/11/22 11:14) angioedema amoxicillin (AMOXICILLIN) Allergy (Unknown, Verified 11/11/22 11:14) UNKNOWN bupropion (BUPROPION) Allergy (Unknown, Verified 11/11/22 11:14) UNKNOWN cephalexin (From KEFLEX) Allergy (Unknown, Verified 11/11/22 11:14) UNKNOWN Cephalosporins (CEPHALOSPORINS) Allergy (Unknown, Verified 11/11/22 11:14) UNKNOWN codeine (CODEINE) Allergy (Unknown, Verified 11/11/22 11:14) UNKNOWN dicyclomine (DICYCLOMINE) Allergy (Unknown, Verified 11/11/22 11:14) UNKNOWN doxycycline Allergy (Unknown, Verified 11/11/22 11:14) Unknown erythromycin base (ERYTHROMYCIN BASE) Allergy (Unknown, Verified 11/11/22 11:14) UNKNOWN Iodinated Contrast Media (IV CONTRAST) Allergy (Unknown, Verified 11/11/22 11:14) UNKNOWN lansoprazole (LANSOPRAZOLE) Allergy (Unknown, Verified 11/11/22 11:14) UNKNOWN meperidine (From DEMEROL) Allergy (Unknown, Verified 11/11/22 11:14) ANAPHYLAXIS oxycodone (OXYCODONE) Allergy (Unknown, Verified 11/11/22 11:14) UNKNOWN shellfish derived Allergy (Unknown, Verified 11/11/22 11:14) Unknown simvastatin (SIMVASTATIN) Allergy (Unknown, Verified 11/11/22 11:14) UNKNOWN Sulfa (Sulfonamide Antibiotics) (SULFA (SULFONAMIDE ANTIBIOTICS)) Allergy (Un known, Verified 11/11/22 11:14) UNKNOWN tramadol (TRAMADOL) Allergy (Unknown, Verified 11/11/22 11:14) UNKNOWN verapamil (VERAPAMIL) Allergy (Unknown, Verified 11/11/22 11:14) ANAPHYLAXIS Medication List - Last Reconciled 09/13/24 by Robles Vargas MD acetaminophen 650 mg PO Q6H PRN albuterol sulfate 90 mcg/actuation 90 mcg inhalation NEEDED amlodipine 5 mg PO DAILY apixaban (Eliquis) 5 mg PO BID Held on 06/11/23. Instructions: currently on heparin drip citalopram 10 mg PO DAILY cyclobenzaprine 5 mg PO BEDTIME dapagliflozin propanediol (Farxiga) 10 mg PO DAILY fenofibrate micronized 200 mg PO BEDTIME fluticasone propionate 50 mcg/actuation 50 mcg intranasal DAILY fluvastatin ER 80 mg PO BEDTIME levothyroxine 75 mcg PO DAILY@0600 losartan 50 mg PO DAILY omeprazole 20 mg PO BEDTIME riboflavin (vitamin B2) (Vitamin B-2) 400 mg PO DAILY ubrogepant (Ubrelvy) 50 mg PO DAILY HPI Comments Details: Pleasant 69-year-old female here for follow-up. She was recently seen at [facility] when she presented with chest discomfort. Her clinical story was consistent with unstable angina. After discussion she was taken for cardiac catheterization. Cardiac catheterization showed hazy 65-70% mid LAD lesion. We performed IFR which was abnormal and we stented with a drug-eluting stent. She was started on Plavix along with Eliquis and was discharged home. On follow-up she was doing well. After she some in the clinic she had sharp left-sided chest discomfort as well as some burning sensation the chest with chest pressure. She went to the emergency department with these symptoms and was ruled out. EKG did not show any dynamic changes 2. No CRP or ESR was performed and no echocardiogra phy/imaging was done of the heart but she was felt to have pericarditis. She was sent home with this diagnosis. She is saying she has felt better since then on her own. On follow up doing well. No CP or SOB. Taking medications regularly. 10/19/22: She returns for follow-up. She was at [facility] end of September with dizziness and presyncope. She said she was feeling fine and went out to throw some vegetables in her composter when she started feeling nauseous and dizzy. She said she had on to something to prevent herself from falling. She said she was very weak and unsteady walking back to the house. She said she checked her blood pressure and it was high. She went to [facility] with she had workup which did not show any obvious issues. She was told that she probably had vasovagal syncope. She was feeling quite hot and was sweating 2. I agree that she likely had vasovagal syncope. She is saying that she drinks a lot of water. She is compliant with medications. She also had some chest pain in ambulance but workup was okay at [facility]. She has not had any further chest discomfort. 03/10/2023: She returns for follow-up. She has been under lot of stress because of her father who is 91 years old and at the end of his life. Denying any palpitations. She continues to get some vertigo like feeling. She tried meclizine but developed headache and stop using it. She has never seen ENT for vertigo. She has also asking whether Plavix can be stopped or not. 07/09/23: She returns for follow-up. She had recent presentation to [facility] with chest discomfort and NSTEMI. Echocardiography showed [id number] RV dysfunction and severe LV dysfunction. 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 She underwent cardiac catheterization which confirmed takotsubo as there was no significant coronary artery disease and previous LAD stent was also patent. She is getting some shortness of breath when going upstairs. No significant chest discomfort. 11/17/23: She is here for f/u. No significant symptoms on follow up. Taking meds regularly. No concerns for bleeding. 01/06/2024: she is here for follow-up. She is complaining of some shortness of breath. She has been under lot of stress. One of her dogs has been having seizures at nighttime and she is worried that the dog has brain tumor. She also has been taking care of family members who are sick. She is quite stressed and has been noticing shortness of breath at times. She has sometimes gets short of breath even talking. No concerning symptoms otherwise. 05/17/2024: She is here for follow-up. No chest discomfort or shortness of breath. Denying any significant palpitations. Blood pressure well controlled. No significant complaints on follow-up. 09/13/2024: She is here for follow-up. Denying any chest pain or shortness of breath. She has been getting some tingling in the left arm and at times also she has the arm to be very weak. She also has noticed some jerking of the left leg. She has neck problems. She is waiting to see Neurology. She is asking whether these symptoms can be related to her previous CVA. She also gets a head spicer like feeling before these symptoms. [facility] Medical History Hypothyroidism Thyroid nodule PAF (paroxysmal atrial fibrillation) Vitamin D deficiency Postablative hypothyroidism H/O paroxysmal supraventricular tachycardia Migraine headache Hyperlipidemia Diet-controlled diabetes mellitus Toxic multinodular goiter CVA (cerebral vascular accident) Hypertension Surgical History History of cardiac cath H/O bladder repair surgery Hx of appendectomy H/O: hysterectomy H/O pelvic surgery Family History Mother High blood sugar Myocardial infarction Father Diabetes Myocardial infarction Stroke Brother Myocardial infarction Social History Household Members: None Housing: House Do you presently have visiting nurse or other home services: No Alcohol intake: never Comment: [id number] Patient Tobacco Use Status: Never used Tobacco e-Cigarette/Vaping Use: Never Used Second Hand Smoke Exposure: No Advance Directives Date on File: 03/02/22 service: No Current occupational status: retired Review of Systems Const Denies chills, Denies fatigue, Denies fever(s), Denies frequent falls, Denies weakness, Denies weight gain and Denies weight loss ENT Denies dizziness Card Denies chest pain, Denies leg edema, Denies lightheadedness, Denies palpitations, Denies dyspnea and Denies dyspnea on exertion Resp Denies cough, Denies dyspnea and Denies dyspnea on exertion GI Denies hematochezia Musc Denies abnormal gait, Denies muscle weakness, Denies numbness, Denies radiating pain into limb and Denies tingling Neuro Denies abnormal gait, Denies dizziness, Denies frequent falls, Denies numbness, Denies tingling and Denies weakness Endo Denies fatigue and Denies palpitations Physical Exam Vital Signs: Last Vital Signs Pulse 93 09/13/24 10:42 BP 100/70 09/13/24 10:42 BMI result Body Mass Index 29.5 GENERAL APPEARANCE: in no acute distress, pleasant. NECK: no carotid bruit, no jugular venous distention. SKIN: no suspicious lesions, warm and dry. HEART: no murmurs, regular rate and rhythm. LUNGS: clear to auscultation bilaterally. ABDOMEN: soft, nontender. EXTREMITIES: no edema. PERIPHERAL PULSES: equal. NEUROLOGIC: No gross deficits, AAO X 3 Office Procedures EKG Details: Normal sinus rhythm 93 beats per minute, normal axis, low voltage, QTC 420 milliseconds [id number], Complete Assessment & Plan Assessment & Plan (1) Stable angina: Code(s): I20.8 - Other forms of angina pectoris Category: Medical Plan 69 year female who is here for follow-up. She has known history of coronary disease with previous LAD PCI. She subsequently had episode of chest pain and mild NSTEMI in the setting of emotional stress and was noticed to have takotsubo cardiomyopathy. Her LAD stent was patent at that time. She has recovered from that. She is complaining of some neurological complaints and we will be seeing Neurology at [facility]. On apixaban for anticoagulation for atrial fibrillation. Thank you for allowing me to participate in the care of your patient. Please feel free to contact me if you have any questions. Coding Level of Care Code Est Pt Level 4 (79059) Diagnoses Stable angina I20.8 CPT Codes EKG - CPT: 23073-[id number], Complete ([id number])
[2024-09-13 10:42] VITALS: BP 100/70; PULSE 93; BMI 29.5
--- OUTSIDE RECORDS SUMMARY | 2024-09-13 10:54 | XMS_ITS | Continuity of Care Document ---
Author Organization [facility] [address] [place] [address] Phone [phone] Care Team Providers Care Ultrasound Supervisor Name Role Phone Karo Tang MD Care Team Information Re ceiver [phone] Problems Active Problems Provider Date Primary hypothyroidism Citlalli Hernandez Onset: 01/13/2022 Graves' disease Thais Lay M.D. Ons et: 01/13/2022 Multinodular goiter Thais Lay M.D. Onset: 01/13/2022 Essential hypertension Citlalli Hernandez Onset: 01/13/2022 Supraventricular tachycardia Thais goldmna M.D. Onset: 01/13/2022 Paroxysmal atrial fibrillation Thais [...] Social History Type Date Description Comments Sex Female Sex Unknown Lives With Alone Work Status Retired ETOH Use Denies alcohol use Tobacco Use Start: Unknown Patient has never smoked Allergies and adverse reactions Active Allergies Criticality [...] SIG Qnty Indications Order ing Provider Date [id number] Capsules DR 1 by mouth every day Thais Lay M.D. 01/13/2022 Cykcdbl96dz Tablets Take 1 Tablet (50 MG) By Oral Route as Needed For Migraine May Repeat In 4 Hours Unknown Losartan Qmbjibpcr51fv Tablets Take 1 Tablet By Mouth Every Day Robles Vargas MD Fenofibrate Coaoxwmlma389de Capsules Take 1 Capsule By Mouth Every Day Unknown Locpsaq9yz Tablets Take 1 Tablet By Mouth Twice A Day Siva Wooten MD Levothyroxine Lctdsg37fek Tablets Take 1 Tablet By Mouth Every Day Except Skip Sundays 90tabs Thais Lay M.D. Cyclobenzaprine HCL5mg Tablets Take 1 Tablet By Mouth AT Bedtime as Needed For Muscle Spasms. Karo Tang MD Fluvastatin Sodium ER80mg Tablets ER 24HR Take 1 Tablet By Mouth Every Day Karo Tang MD Fluticasone Lambthrovx43pnq/Act Suspension [place] 2 Sprays Into Each Nostril Once A Day Karo Tang MD Xjtjck68vw Tablets 1 by mouth every day 90tabs Thais Lay M.D. Citalopram Qzldgsqcohql86gz Tablets 1 by mouth every day Unknown Amlodipine Mdmnhxjx2vn Tablets Take 1 Tablet By Mouth Every Day Unknown Ibdoluc17ut Tablets Take 1 Tablet By Mouth Every Day Unknown Albuterol Sulfate RSK647(90Base) mcg/Act Aerosol use 2 puffs every 4 to 6 hours as needed Unknown Vital Signs Date Vital Result Comment 05/08/2024 10:07am BP Systolic 126 mmHg BP Diastolic 70 mmHg Heart Rate 98 /min Height 61 inches 5'1 Weight 161.25 lb BMI (Body Mass Index) 30.5 kg/m2 Results Test Acquired Date Facility Test Result H/L Range N ote TSH Rfx on Abnormal to Free T4 05/08/2024 [facility] TSH Rfx on Abnormal to Free T4 3.830 uIU/mL 0.450-4.50 0 TSH RFX On Abnormal To Free T4 07/10/2023 [facility] TSH RFX On Abnormal To Free T4 <pending> TSH Rfx on Abnormal to Free T4 07/06/2023 [facility] TSH RFX On Abnormal To Free T4 0.260 uIU/mL Low 0.450-4.50 0 T4,Free (Direct) 1.44 ng/dL 0.82-1.77 TSH With Reflex To FT4 12/25/2022 [facility] TSH With Reflex To FT4 0.52 uIU/mL (0.4-4.2) TSH With Reflex To FT4 06/16/2022 [facility] TSH With Reflex To FT4 1.17 uIU/mL (0.4-4.2) Complete Abc With Diff 01/13/2022 [facility] WBC 7.7 K/MM3 (4.0-11.0) RBC 4.30 M/MM3 (4.20-5.40 ) HGB 12.8 GM/DL (11.7-15.5 ) HCT 41.5 % (35.7-45.8 ) MCV 96.5 FL (80.0-100. 0) MCH 29.8 pg (27.0-34.0 ) MCHC 30.8 g/dL Low (33.0-37.0 ) PLT 395 K/MM3 (150-460) RDW-SD 49.0 FL High (<47.0) MPV 9.9 FL (9.4-12.4) Automated NRBC 0.0 #/100WBC'S Abs. NRBC 0.0 K/MM3 Neut # 4.7 K/MM3 (1.3-7.0) Lymph # 2.3 K/MM3 (0.8-3.1) [place]# 0.6 K/MM3 (0.4-0.9) Eo # 0.1 K/MM3 (0.0-0.4) Baso # 0.0 K/MM3 (0.0-0.1) Abs. Imm Gran 0.0 K/MM3 Neut 61.3 % (44-76) Lymph 29.6 % (15-43) Monocyte 7.1 % (4.5-10.5) Eo 1.4 % (0-6) Baso 0.5 % (0-2) Imm Gran 0.1 % TSH With Reflex To FT4 01/13/2022 [facility] TSH With Reflex To FT4 1.39 uIU/mL (0.4-4.2) Procedures Date Code Description Status 05/08/2024 12245 Collection Of Venous Blood B y Venipuncture Completed 07/06/2023 29214 Collection Of Venous Blood B y Venipuncture Completed 12/25/2022 54027 Collection Of Venous Blood B y Venipuncture Completed 06/16/2022 21152 Collection Of Venous Blood B y Venipuncture Completed 01/13/2022 27021 Collection Of Venous Blood B y Venipuncture Completed Medical Devices Description No Information Available Encounters Type Date Location Provider Dx Diagnosis Office Visit 05/08/2024 10:15a Main Office Thais Dalal-Juan Carlos, M.D. E89.0 Postprocedural hypothyroidism E05.00 Thyrotoxicosis w [...]
--- OUTSIDE RECORDS SUMMARY | 2024-09-13 10:54 | XMS_ITS | Clinical Summary ---
Author Organization [facility] it Address [address] [place] [address] Care Team Providers Care Cabbage Salter Name Role Phone Siva Wooten MD Primary Care Provider [phone] Allergies Active Allergy Reactions Criticality Noted Date [...] 10/18/2014 Simvastatin Rash 10/18/2014 Sulfa (Sulfonamide Antibiotics) 08/2014 Unknown Tramadol Hives 10/18/2014 Verapamil Anaphylaxis High [...] 05/16/20 : Evaluated by [facility], advised to continue levothyroxine and follow-up in 18 months. Migraine headache 02/08/2017 Calcification of abdominal aorta (CMS/HCC V24) 1 Degenerative cervical disc 12/29/2016 Low back pain 12/29/2016 Essential hypertension 01/26/2016 Cervical radiculopathy 12/24/2014 Osteopenia 12/24/2014 Anxiety 10/18/2014 Atrial fibrillation (CMS/HCC V24, CMS/HCC V28) 0 10/18/2014 Overview (03/10/2024): On Eliquis cardiac, cath 2006 Diabetes mellitus type 2, un complicated ([facility] V24, [facility] V28) 10/18/2014 Overview (03/10/2024): HGBA1C 6.7 2013 Esophageal reflux [...] pelvic recontructive surgery OTHER SURGICAL HISTORY PROCEDURE: [place] CSTOTOMY/CSTOST CRYOSURG DSTRJ INTRAVESICAL LES; COMMENT: bladder suspension TONSILLECTOMY PROCEDURE: HISTORICAL TONSILLECTOMY WISDOM TOOTH EXTRACTION PROCEDURE: HISTORICAL WISDOM TEETH EXTRACTION OTHER SURGICAL HISTORY PROCEDURE: TEMPORAL ARTERY BIOPSY SPCMN PATHOLOGY EXAM OTHER SURGICAL HISTORY 2014 PROCEDURE: ---- OTHER ----; COMMENT: left lateral tibial plateu fracture Medical History Medical History Date Comments SVT (supraventricular tachyc ardia) ([facility] V24) 10/18/2014 DX:SVT (supraventricular tac hycardia) ([facility]) Hyperlipidemia 10/18/2014 DX:Hyperlipidemi a Fibromyalgia 10/18/2014 DX:Fibromyalgia Esophageal reflux 10/18/2014 DX:Esophageal reflux Tibial plateau fracture DX:Tibia l plateau fracture; COMMENT: left not requiring surgery Diabetes type 2, controlled ([facility] V24, [facility] V28) 10/18/2014 DX:Diabetes type 2, controll ed ([facility]) Osteopenia 12/24/2014 DX:Osteopenia Cervical radiculopathy 12/24/2014 DX:Cervic al radiculopathy Calcification of abdominal a matthew ([facility] V24) 01/01/2017 DX:Calcification of abdomina l aorta ([facility]) Headache disorder 02/08/2017 DX:Headache di sorder Diabetes mellitus type 2, uncomplicated ([facility] V24, [facility] V28) 10/18/2014 DX:Diabetes mellitus type 2, uncomplicated ([facility]); COMMENT: HGBA1C 6.7 2012 History of stroke [...] 11/19/2021 10:43 AM EDT Plan of Treatment Upcoming Encounters Date Type Department Care Team (Late st Contact Info) Description 09/26/2024 11:00 AM EDT Consult [address] [place] [address] Gely Cartagena MD [address] [place] [address] [address] [place] [address] Health Maintenance Due Date Last Done Comments [...] Test 11/13/2022 11/13/2021 Breast Cancer Screening 06/28/2023 06/28/19 22, 06/24/2021, 04/11/2020, Additional history exists COVID-19 Vaccine ( season) 2023 01/06/2021, 07/06/2020, 06/15/2020 Influenza Vaccine (Season Ended) 2024 01/22/2022, 01/06/2021, 12/21/2019, Additional history exists Cholesterol Screening (Lipid Panel) 11/13/2026 11/13/2021 RSV Immunization Adult Patients (1 - 1-dose 75+ series) 2029 HIB [...] age to complete this topic Meningococcal B Vaccine Aged Out No l onger eligible based on patient's age to complete this topic RSV Immunization Patients Under 20 months Aged Out No longer eligible based on patient's age to complete this topic Varicella Vaccines Aged Out No longer eligible based on patient's age to complete this topic Procedures Procedure Name Priority Date/Time Associated Diagnosis Comments EXTERNAL CLINICAL LAB 08/31/2024 URINE ALBUMIN CREATININE RATIO Routine 11/13/2021 ANNUAL BMP BLOOD TEST Routine 11/13/2021 HEMOGLOBIN A1C Routine 11/13/2021 LIPID PANEL Routine 11/13/2021 DX MAMMO INCL CAD UNI Routine 06/27/2021 3:30 PM EDT Other abnormal and inconclusive findings on diagnostic imaging of breast from Last 3 Months or Most Recently Relevant to Health Maintenance Results * External clinical lab (08/31/2024) [facility] LAB BLOOD ORDERABLES Fin al Result * Urine Albumin Creatinine Ratio (11/13/2021) Urine Albumin Creatinine Ratio abstracted Historical Provider HEALTH MAINTENANCE Final Result * Annual BMP Blood Test (11/13/2021) Annual BMP Blood Test abstracted Result [facility] Historical Provider HEALTH MAINTENANCE Final Result * (ABNORMAL) Hemoglobin A1c (11/13/2021) Hemoglobin A1C 6.9(A) <=6.5 % Blood Venous blood specimen / Unknown us Historical Provider MD LAB BLOOD ORDERABLES Enma l Result * (ABNORMAL) Lipid panel (11/13/2021) LDL/HDL Ratio 7(A) 0 - 4 Triglycerides 329(A) 0 - 150 mg/dL Cholesterol 211(A) 0 - 200 mg/dL HDL 32(A) >=40 mg/dL LDL Cholesterol 114(A) 0 - 100 mg/dL Blood Venous blood specimen / Unknown [facility] Provider MD LAB BLOOD ORDERABLES Enma l Result * [...] No mammographic evidence of malignancy. 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
== END 2024-09-13 11:06 | disposition home or self-care (01) ==
LOC: HO.HCS 10:20
PROVIDERS: PCP Pediatrics; Visit Provider Internal Medicine Cardiovascular Disease
DX: I20.89 Other forms of angina pectoris (principal)
CPT/HCPCS: 93010; 99214

== ENCOUNTER → 2024-09-13 10:19 | Outpatient (BNVA) | payer MEDICARE, OTHER, SELFPAY ==
[2024-03-17 13:17] VITALS: BP 122/60; BP 136/84; BP 144/70; BMI 28.1
== END ==
PROVIDERS: PCP Pediatrics; Visit Provider Internal Medicine Cardiovascular Disease
DX: I20.89 Other forms of angina pectoris (principal); R94.31 Abnormal electrocardiogram [ECG] [EKG]
CPT/HCPCS: 93005; 99212

== ENCOUNTER 2024-10-21 09:05 | Outpatient (AMB) | payer MEDICARE, OTHER, SELFPAY ==
[2024-03-17 13:17] VITALS: BP 122/60; BP 136/84; BP 144/70; BMI 28.1
[2024-10-21 09:07] VITALS: BP 126/78; PULSE 108; RESP 20; TEMP 36.9; O2SAT 98; BMI 29.7
--- NOTE | 2024-10-21 09:07 | MHC.OFFWIV ---
Intake Vital Signs 10/21/24 09:07 Height 5 ft 1 in Weight 157 lb BMI 29.7 BP 126/78 Blood Pressure Location Lt brachial Position Sitting Respiration 20 Pulse 108 H Pulse Source Pulse Oximeter Temp 98.5 F Temp Source Oral Pulse Oximetry (%) 98 Oxygen Delivery Method Room Air Intake Visit Reasons: EP-High BP, passing out, chest pain Intake Note: Pt is here today for a walk in visit. Pt c/o elevated BP last night, chest pain and passing out. Pt also has episodes that her body shakes. Patient Tobacco Use Status: Never used Tobacco Allergies metoprolol (METOPROLOL) Allergy (Severe, Verified 10/21/24 09:11) angioedema amoxicillin (AMOXICILLIN) Allergy (Unknown, Verified 10/21/24 09:11) UNKNOWN bupropion (BUPROPION) Allergy (Unknown, Verified 10/21/24 09:11) UNKNOWN cephalexin (From KEFLEX) Allergy (Unknown, Verified 10/21/24 09:11) UNKNOWN Cephalosporins (CEPHALOSPORINS) Allergy (Unknown, Verified 10/21/24 09:11) UNKNOWN codeine (CODEINE) Allergy (Unknown, Verified 10/21/24 09:11) UNKNOWN dicyclomine (DICYCLOMINE) Allergy (Unknown, Verified 10/21/24 09:11) UNKNOWN doxycycline Allergy (Unknown, Verified 10/21/24 09:11) Unknown erythromycin base (ERYTHROMYCIN BASE) Allergy (Unknown, Verified 10/21/24 09:11) UNKNOWN Iodinated Contrast Media (IV CONTRAST) Allergy (Unknown, Verified 10/21/24 09:11) UNKNOWN lansoprazole (LANSOPRAZOLE) Allergy (Unknown, Verified 10/21/24 09:11) UNKNOWN meperidine (From DEMEROL) Allergy (Unknown, Verified 10/21/24 09:11) ANAPHYLAXIS oxycodone (OXYCODONE) Allergy (Unknown, Verified 10/21/24 09:11) UNKNOWN shellfish derived Allergy (Unknown, Verified 10/21/24 09:11) Unknown simvastatin (SIMVASTATIN) Allergy (Unknown, Verified 10/21/24 09:11) UNKNOWN Sulfa (Sulfonamide Antibiotics) (SULFA (SULFONAMIDE ANTIBIOTICS)) Allergy (Unknown, Verified 10/21/24 09:11) UNKNOWN tramadol (TRAMADOL) Allergy (Unknown, Verified 10/21/24 09:11) UNKNOWN verapamil (VERAPAMIL) Allergy (Unknown, Verified 10/21/24 09:11) ANAPHYLAXIS HPI EP-High BP, passing out, chest pain HPI Details Patient is a 69-year-old female with multiple comorbidities including SVT, takotsubo cardiomyopathy, atrial fibrillation (with an implanted quality assurance monitor body), coronary artery disease status post NSTEMI, and CVA who comes to the walk-in clinic complaining of persistent chest pain and dizziness since last night, when she started experiencing severe lightheadedness as near-syncope, nausea, chest pain, and was found to be hypertensive at home with a severe headache. Her reason for not calling 911 and going to the hospital last night was that she has a dog who lives with her and has multiple seizures. She states that she took her migraine medication. She gives history of having similar episodes with a prior MT, when she came to the walk-in clinic the day after chest pain and near-syncope. [facility] Medical History Hypothyroidism Thyroid nodule PAF (paroxysmal atrial fibrillation) Vitamin D deficiency Postablative hypothyroidism H/O paroxysmal supraventricular tachycardia Migraine headache Hyperlipidemia Diet-controlled diabetes mellitus Toxic multinodular goiter CVA (cerebral vascular accident) Hypertension Surgical History History of cardiac cath H/O bladder repair surgery Hx of appendectomy H/O: hysterectomy H/O pelvic surgery Family History Mother High blood sugar Myocardial infarction Father Diabetes Myocardial infarction Stroke Brother Myocardial infarction Social History Household Members: None Housing: House Do you presently have visiting nurse or other home services: No Alcohol intake: never Comment: [phone] Patient Tobacco Use Status: Never used Tobacco e-Cigarette/Vaping Use: Never Used Second Hand Smoke Exposure: No Advance Directives Date on File: 03/02/22 service: No Current occupational status: retired Review of Systems Const All systems reviewed & are unremarkable except as noted in HPI and below Physical Exam Vital Signs: Last Vital Signs Temp 98.5 F 10/21/24 09:07 Pulse 108 H 10/21/24 09:07 Resp 20 10/21/24 09:07 BP 126/78 10/21/24 09:07 Pulse Ox 98 10/21/24 09:07 Oxygen Delivery Method Room Air 10/21/24 09:07 BMI result Body Mass Index 29.7 Const General: cooperative, healthy appearing, no acute distress, alert, awake, Physically active and well groomed; No diaphoretic, intoxicated appearing, poor hygiene or tired appearing Nutritional Appearance: average body habitus Orientation/consciousness: oriented to person Limitations: no limitations Eyes General: appearance normal, both eyes and all related structures Neck Neck: Yes normal visual inspection, Yes full ROM, Yes no lymphadenopathy, Yes trachea midline, Yes supple and No anterior neck swelling Chest Chest palpation & inspection: normal palpation of entire chest wall Resp Effort & Inspection: normal respiratory effort, able to speak in complete sentences, no audible wheezes, no cough, no grunting, not labored, no nasal flaring, no retractions and symmetric chest movement Auscultation: clear to auscultation bilaterally, no crackles, no rales, no rhonchi, no wheezes, lung sounds not diminished and No rub present Cardio Palpation: normal PMI Rate: regular rate Skin Other: Good color, warm and dry Neuro General: oriented to person Psych Appearance: grossly normal Mental Status: mental status grossly normal Speech and movement: Normal speech and movement present Affect: normal affect Attitude: cooperative Thought process: Normal thought process present Insight: Good insight present (Psych) Judgement: Fair judgement present (Psych) Results Reviewed Results Reviewed: 12 lead with T-wave changes suggestive of lateral ischemia Assessment & Plan Assessment & Plan (1) Chest pain: Code(s): R07.9 - Chest pain, unspecified Qualifiers: Chest pain type: unspecified Qualified Code(s): R07.9 - Chest pain, unspecified Plan: Patient is a 69-year-old female with multiple comorbidities including SVT, takotsubo cardiomyopathy, atrial fibrillation (with an implanted quality assurance monitor body), coronary artery disease status post NSTEMI, and CVA who comes to the walk-in clinic complaining of persistent chest pain and dizziness since last night, when she started experiencing severe lightheadedness as near-syncope, nausea, chest pain, and was found to be hypertensive at home with a severe headache. On exam today she is tachycardic, in mild apparent distress, no diaphoresis or pale skin, and still complains of mild chest pain and lightheadedness. Twelve lead showed possible lateral ischemia. I advised that she go to to the emergency department for further evaluation and she was amenable to this. 911 was called and expect to be called in to [facility] Coding Level of Care Code Est Pt Level 4 (55993) Diagnoses Chest pain, unspecified type R07.9 Chest pain type: unspecified
--- OUTSIDE RECORDS SUMMARY | 2024-10-21 09:07 | XMS_ITS | Clinical Summary ---
Author Organization [facility] Address [address] [place] [address] Phone Care Team Providers Care Utility System Repairer Name Role Phone Unavailable Primary Care Provider Unavailabl e Allergies Active Allergy Reactions Criticality Noted Date [...] Rash 10/18/2014 Sulfa (Sulfonamide Antibiotics) 08/2014 Unknown Topiramate 09/26/2024 Tramadol Hives 10/18/2014 Verapamil Anaphylaxis High 10/18/2014 Medications apixaban (Eliquis) 5 mg tablet TAKE 1 TABLET BY MOUTH TWICE A DAY 3 Active fluticasone propionate (FLONASE) 50 mcg/actuation nasal spray 2 Sprays by Each Nare route daily. 2 Active fenofibrate micronized (LOFIBRA) 200 mg capsule Take 1 Capsule by mouth daily. 2 Active cyclobenzaprin e (FLEXERIL) 5 mg tablet Take 1 Tablet by mouth at bedtime as needed for Muscle spasms. 2 Active fluvastatin XL (LESCOL XL) 80 mg 24 hr tablet Take 1 Tablet by mouth daily. 2 Active RIBOFLAVIN, VITAMIN B2, ORAL Take 400 mg by mouth daily. Active losartan (COZAAR) 50 mg tablet Take 50 mg by mouth daily. Active albuterol HFA (PROAIR HFA ; PROVENTIL HFA ; VENTOLIN HFA) 90 mcg/actuation inhaler Inhale 2 Puffs into the lungs every 4 hours as needed for Cough, Wheezing or Shortness of Breath. 0 Active multivitamin/i andrea/folic acid (CENTRUM ORAL) Take by mouth. Active vitamin E, dl, acetate, 90 mg (200 unit) capsule Take 200 Units by mouth daily. Active omeprazole (PriLOSEC) [address] capsule Take 20 mg by mouth daily. Active UNABLE TO FIND Vit C-Cholecalcifer ol-Hien Hip 500-1000-20 MG-UNIT-MG Cap Elastic Bandages & Supports (MEDICAL COMPRESSION THIGH HIGH) Misc Active ubrogepant (Ubrelvy) 50 mg tablet Take 1 tablet (50 mg total) by mouth 1 (one) time if needed for migraine. Active doxylamine (UNISOM) 25 mg tablet Take by mouth at bedtime as needed. 09/27/19 25 Discontin ued(Thera py completed ) dilTIAZem (TIAZAC) 360 mg 24 hr capsule Take 1 Cap by mouth daily. 0 09/27/19 25 Discontin ued(Thera py completed ) BABY ASPIRIN ORAL Take 81 mg by mouth. 09/27/19 25 Discontin ued(Thera py completed ) magnesium oxide (MAG-OX) 400 mg magnesium tablet Take 1 tablet (400 mg total) by mouth 1 (one) time each day. 30 tablet 2 5 09/27/19 25 Discontin ued(Thera py completed ) Active Problems Problem Noted Date Diagnosed Date Hypothyroidism 08/15/2021 Age-related cataract 06/26/2021 Postablative hypothyroidism 05/18/2020 Overview (03/10/2024): Hyperthyroidism due to toxic multinodular goiter, negative FNA treated Uriostegui 131; 28.6 mci 05/16/20 : Evaluated by [facility], advised to continue levothyroxine and follow-up in 18 months. Migraine headache 02/08/2017 Calcification of abdominal aorta ([facility] V24) 1 Degenerative cervical disc 12/29/2016 Low back pain 12/29/2016 Essential hypertension 01/26/2016 Cervical radiculopathy 12/24/2014 Osteopenia 12/24/2014 Anxiety 10/18/2014 Atrial fibrillation ([facility] V24, [facility] V28) 0 10/18/2014 Overview (03/10/2024): On Eliquis cardiac, cath 2006 Diabetes mellitus type 2, un complicated ([facility] V24, [facility] V28) 10/18/2014 Overview (03/10/2024): HGBA1C 6.7 2012 Esophageal reflux 10/18/2014 Osteoarthritis 10/18/2014 Nephrolithiasis 10/18/2014 Major depression, single episode 10/18/2014 Hyperlipidemia 10/18/2014 Fibromyalgia 10/18/2014 RAD (reactive airway disease) 10/18/2014 Encounters Date Type Department Care Team Description 09/26/2024 11:00 AM EDT Consult [address] [place] [address] Gely Cartagena MD Chronic migraine with aura without status migrainosus, not intractable (Primary Dx); Vitamin D deficiency; Type 2 diabetes mellitus without complication, without long-term current use of insulin ([facility] V24, [facility] V28); Atrial fibrillation, unspecified type ([facility] V24, [facility] V28); Hyperlipidemia, unspecified hyperlipidemia type 09/26/2024 Telephone Adult Medicine [address] [phone] Siva Wooten MD 09/26/2024 Telephone Adult Medicine [address] [phone] Desire Trejo PA from Last 3 Months Immunizations Name Administration Dates Next Due Influenza [...] pelvic recontructive surgery OTHER SURGICAL HISTORY PROCEDURE: CA CSTOTOMY/CSTOST CRYOSURG DSTRJ INTRAVESICAL LES; COMMENT: bladder suspension TONSILLECTOMY PROCEDURE: HISTORICAL TONSILLECTOMY WISDOM TOOTH EXTRACTION PROCEDURE: HISTORICAL WISDOM TEETH EXTRACTION OTHER SURGICAL HISTORY PROCEDURE: TEMPORAL ARTERY BIOPSY SPCMN PATHOLOGY EXAM OTHER SURGICAL HISTORY 2014 PROCEDURE: ---- OTHER ----; COMMENT: left lateral tibial plateu fracture APPENDECTOMY BLADDER 2 surgeries to lift bladder Medical History Medical History Date Comments SVT (supraventricular tachyc ardia) ([facility] V24) 10/18/2014 DX:SVT (supraventricular tac hycardia) ([facility]) Hyperlipidemia 10/18/2014 DX:Hyperlipidemi a Fibromyalgia 10/18/2014 DX:Fibromyalgia Esophageal reflux 10/18/2014 DX:Esophageal reflux Tibial plateau fracture DX:Tibia l plateau fracture; COMMENT: left not requiring surgery Diabetes type 2, controlled ([facility] V24, [facility] V28) 10/18/2014 DX:Diabetes type 2, controll ed ([facility]) Osteopenia 12/24/2014 DX:Osteopenia Cervical radiculopathy 12/24/2014 DX:Cervic al radiculopathy Calcification of abdominal a matthew ([facility] V24) 01/01/2017 DX:Calcification of abdomina l aorta ([facility]) Headache disorder 02/08/2017 DX:Headache di sorder Diabetes mellitus type 2, uncomplicated ([facility] V24, [facility] V28) 10/18/2014 DX:Diabetes mellitus type 2, uncomplicated (HCC); [...] Information Value Date Recorded Sex Assigned at Female 09/26/2024 7:14 PM EDT Legal Sex Female 10:59 PM EST Gender Identity Female 09/26/2024 7:14 PM EDT Sexual Orientation Something else 09/26/2024 7: 14 PM EDT Obstetrics History Last Filed Vital Signs Vital Sign Reading Time Taken Comments Blood Pressure 131/79 09/26/2024 11:10 AM EDT Pulse 93 09/26/2024 11:10 AM EDT Temperature 36 C (96.8 F) 09/26/2024 11:10 AM EDT Respiratory Rate - - Oxygen Saturation 94% 09/26/2024 11:10 AM EDT Inhaled Oxygen Concentration - - Weight 70.3 kg (155 lb) 09/26/2024 11:10 AM EDT Height 154.9 cm (5' 1 ) 09/26/2024 11:10 AM EDT Body Mass Index 29.29 09/26/2024 11:10 AM EDT Plan of Treatment Upcoming Encounters Date Type Department Care Team (Late st Contact Info) Description 01/02/2025 1:30 PM EDT Office Visit [facility] [address] [place] [phone] Gely Cartagena MD [address] [place] [phone] Health Maintenance Due Date Last Done Comments Diabetes: Annual Foot Exam 1965 Diabetes: Annual Retina Eye Exam 1965 Pneumococcal Vaccine: 50+ Years (2 of 2 - PCV) 12/10/2012 12/11/2011 DTaP,Tdap,and Td Vaccines (2 - Td or Tdap) 10/01/2021 10/02/2011 Colorectal Cancer Screening: Colonoscopy 02/21/2022 Falls Risk Assessment 02/21/2022 Hepatitis C Screening 02/21/2022 Medicare Annual Wellness Visit 02/21/2022 Osteoporosis Screening (Bone Density Screening) 02/21/2022 Social Influencers of Health Screening 02/21/2022 Diabetes: Blood Sugar Control Test (HGBA1C) 05/13/2022 11/13/2021 Diabetes: Annual Urine Albumin-Creatinine Ratio (uACR) 11/13/2022 11/13/2021 Breast Cancer Screening 06/28/2023 06/28/19 22, 06/24/2021, 04/11/2020, Additional history exists COVID-19 Vaccine ( season) 2023 01/09/2022, 01/06/2021, 07/06/2020, Additional history exists Depression Screening 03/15/2024 Influenza Vaccine (#1) 2024 , 12/18/2022, 01/22/2022, Additional history exists Diabetes: Annual GFR (Glomerular Filtration Rate) 09/26/2025 09/26/2024, 11/13/2021 Hypertension/CHF/CAD Annual BMP Blood Test 09/26/2025 09/26/2024, 11/13/2021 Cholesterol Screening (Lipid Panel) 11/13/2026 11/13/2021 RSV Immunization Adult Patients (1 - 1-dose 75+ series) 2029 Zoster Vaccines Completed 01/28/2022, 12/13, 12/11/2011 HIB Vaccines Aged Out No longer eligi [...] Procedure Name Priority Date/Time Associated Diagnosis Comments CBC WITH AUTO DIFFERENTIAL Routine 09/26/2024 12:33 PM EDT Chronic migraine with aura without status migrainosus, not intractable ELECTROLYTE PANEL Routine 09/26/2024 12: 33 PM EDT Chronic migraine with aura without status migrainosus, not intractable HEPATIC FUNCTION PANEL Routine 09/26/2024 12:33 PM EDT Chronic migraine with aura without status migrainosus, not intractable SEDIMENTATION RATE Routine 09/26/2024 12 :33 PM EDT Chronic migraine with aura without status migrainosus, not intractable BORRELIA BURGDORFERI ANTIBODY Routine 09/26/2024 12:33 PM EDT Chronic migraine with aura without status migrainosus, not intractable CBC AND DIFFERENTIAL Routine 09/26/2024 12:33 PM EDT Chronic migraine with aura without status migrainosus, not intractable BUN Routine 09/26/2024 12:33 PM EDT Chronic migraine with aura without status migrainosus, not intractable CREATININE, SERUM Routine 09/26/2024 12: 33 PM EDT Chronic migraine with aura without status migrainosus, not intractable VITAMIN D 25 HYDROXY Routine 09/26/2024 12:33 PM EDT Chronic migraine with aura without status migrainosus, not intractable Vitamin D deficiency VITAMIN B12 Routine 09/26/2024 12:33 PM EDT Chronic migraine with aura without status migrainosus, not intractable EXTERNAL CLINICAL LAB 08/31/2024 HM URINE ALBUMIN CREATININE RATIO Routine 11/13/2021 HEMOGLOBIN A1C Routine 11/13/2021 LIPID PANEL Routine 11/13/2021 DX MAMMO INCL CAD UNI Routine 06/27/2021 3:30 PM EDT Other abnormal and inconclusive findings on diagnostic imaging of breast from Last 3 Months or Most Recently Relevant to Health Maintenance Results * (ABNORMAL) CBC auto differential (09/26/2024 12:33 PM EDT) WBC 7.5 4.8 - 10.8 K/mcL LAB HEMETOLOGY METHOD 09/26/2024 2:15 PM EDT [facility] RBC 4.50 3.80 - 4.80 M/mcL LAB HEMETOLOGY METHOD 09/26/2024 2:15 PM EDT [facility] Hemoglobin 13.7 11.5 - 16.0 g/dL LAB HEMETOLOGY METHOD 09/26/2024 2:15 PM EDT [facility] Hematocrit 42.1 35.0 - 47.0 % LAB HEMETOLOGY METHOD 09/26/2024 2:15 PM EDT [facility] MCV 94.2 79.0 - 98.0 FL LAB HEMETOLOGY METHOD 09/26/2024 2:15 PM EDT [facility] MCH 30.6 27.0 - 32.0 pcg LAB HEMETOLOGY METHOD 09/26/2024 2:15 PM EDT [facility] MCHC 32.5 32.0 - 37.0 g/dL LAB HEMETOLOGY METHOD 09/26/2024 2:15 PM EDT [facility] RDW 13.2 11.0 - 15.0 % LAB HEMETOLOGY METHOD 09/26/2024 2:15 PM EDT [facility] Platelets 335 130 - 400 K/mcL LAB HEMETOLOGY METHOD 09/26/2024 2:15 PM EDT [facility] MPV 9.7 7.0 - 11.0 FL LAB HEMETOLOGY METHOD 09/26/2024 2:15 PM EDT [facility] NRBC 0.0 <1.0 % LAB HEMETOLOGY METHOD 09/26/2024 2:15 PM EDT [facility] NRBC Absolute 0.00 <0.10 K/mcL LAB HEMETOLOGY METHOD [facility]24 [facility] Neutrophils Relative 57.6 % LAB HEMETOLOGY METHOD 09/26/2024 2:15 PM EDT [facility] Lymphocytes Relative 32.1 % LAB HEMETOLOGY METHOD 09/26/2024 2:15 PM EDT [facility] Monocytes Relative 7.4 % LAB HEMETOLOGY METHOD 09/26/2024 [facility] Eosinophils Relative 1.9 % LAB HEMETOLOGY METHOD 09/26/2024 2:[facility] Basophils Relative 0.5 % LAB HEMETOLOGY METHOD 09/26/2024 2:15 PM EDT [facility] Immature Granulocytes Relative 0.5 % LAB HEMETOLOGY METHOD 09/26/2024 2:15 PM EDT [facility] Neutrophils Absolute 4.34 1.50 - 7.00 K/mcL LAB HEMETOLOGY METHOD 09/26/2024 2:15 PM EDT [facility] Lymphocytes Absolute 2.42 1.00 - 5.00 K/mcL LAB HEMETOLOGY METHOD 09/26/2024 2:15 PM EDT [facility] Monocytes Absolute 0.56 0.20 - 1.00 K/mcL LAB HEMETOLOGY METHOD 09/26/2024 2:15 PM EDT [facility] Eosinophils Absolute 0.14 0.00 - 0.50 K/mcL LAB HEMETOLOGY METHOD 09/26/2024 2:15 PM EDT [facility] Basophils Absolute 0.04 0.00 - 0.20 K/mcL LAB HEMETOLOGY METHOD 09/26/2024 2:15 PM EDT [facility] Immature Granulocytes Absolute 0.04(H) 0.00 - 0.03 K/mcL LAB HEMETOLOGY METHOD 09/26/2024 2:15 PM EDT [facility] Blood Venous blood specimen / Unknown Venipuncture / Unknown 09/26/2024 12:33 PM EDT 09/26/2024 12:33 PM EDT us Gely Cartagena MD LAB BLOOD ORDERABLES Fin al Result [facility] [address] [place] [address], [place] [phone] * Borrelia burgdorferi antibody (09/26/2024 12:33 PM EDT) [facility] Lyme Ab Negative Negative LAB CHEMISTRY METHOD 09/26/2024 3:03 PM EDT [facility] Comment: No laboratory evidence of infection with B. burgdorferi (Lyme disease). Negative results may occur in patients recently infected (<=14 days) with B. burgdorferi. If recent infection is suspected, repeat testing on a new sample collected in 7- 14 days is recommended. Blood Venous blood specimen / Unknown Venipuncture / Unknown 09/26/2024 12:33 PM EDT 09/26/2024 12:33 PM EDT us Gely Cartagena MD LAB BLOOD ORDERABLES Fin al Result [facility] [address] [place] [address], * Creatinine (09/26/2024 12:33 PM EDT) Creatinine 0.77 0.50 - 1.10 mg/dL LAB CHEMISTRY METHOD 09/26/2024 3:02 PM EDT [facility] eGFR 83 >=60 mL/min/1. 73m2 LAB CHEMISTRY METHOD 09/26/2024 3:02 PM EDT [facility] Comment:Calculation based on the Chronic Kidney Disease Epidemiology Collaboration (CKD-EPI) equation refit without adjustment for race. Blood Venous blood specimen / Unknown Venipuncture / Unknown 09/26/2024 12:33 PM EDT 09/26/2024 12:33 PM EDT us Gely Cartagena MD LAB BLOOD ORDERABLES Fin al Result Performing Organization Address City/[facility]/ZIP Co de Phone Number [facility] [address] [place] [address], * Vitamin D 25 hydroxy (09/26/2024 12:33 PM EDT) Vit D, 25-Hydroxy 41.3 30.0 - 80.0 ng/mL LAB CHEMISTRY METHOD 09/26/2024 5:10 PM EDT [facility] Blood Venous blood specimen / Unknown Venipuncture / Unknown 09/26/2024 12:33 PM EDT 09/26/2024 12:33 PM EDT us Gely Cartagena MD LAB BLOOD ORDERABLES Fin al Result [facility] [address] [place] [address], * Sedimentation rate (09/26/2024 12:33 PM EDT) Pathologist [facility] Sed Rate 20 0 - 30 mm/hr LAB HEMETOLOGY METHOD 09/26/2024 2:36 PM EDT [facility] Blood Venous blood specimen / Unknown Venipuncture / Unknown 09/26/2024 12:33 PM EDT 09/26/2024 12:33 PM EDT us Gely Cartagena MD LAB BLOOD ORDERABLES Fin al Result Performing Organization Address City/[facility]/ZIP Co de Phone Number [facility] [address] [place] [address], [place] [phone] * BUN (09/26/2024 12:33 PM EDT) [facility] BUN 15 5 - 25 mg/dL LAB CHEMISTRY METHOD 09/26/2024 3:02 PM EDT [facility] Blood Venous blood specimen / Unknown Venipuncture / Unknown 09/26/2024 12:33 PM EDT 09/26/2024 12:33 PM EDT us Gely Cartagena MD LAB BLOOD ORDERABLES Fin al Result Performing Organization Address City/[facility]/ZIP Co de Phone Number [facility] [address] [place] [address], [place] [phone] * Vitamin B12 (09/26/2024 12:33 PM EDT) Pathologist [facility] Vitamin B-12 565 250 - 900 pcg/mL LAB CHEMISTRY METHOD 09/26/2024 3:27 PM EDT [facility] Blood Venous blood specimen / Unknown Venipuncture / Unknown 09/26/2024 12:33 PM EDT 09/26/2024 12:33 PM EDT us Gely Cartagena MD LAB BLOOD ORDERABLES Fin al Result [facility] [address] [place] [address], [place] [phone] * Hepatic function panel (09/26/2024 12:33 PM EDT) Total Protein 7.0 6.0 - 8.0 g/dL LAB CHEMISTRY METHOD 09/26/2024 3:27 PM EDT [facility] Albumin 4.1 3.2 - 5.0 g/dL LAB CHEMISTRY METHOD 09/26/2024 3:27 PM EDT [facility] Total Bilirubin 0.3 0.0 - 1.4 mg/dL LAB CHEMISTRY METHOD 09/26/2024 3:27 PM EDT [facility] Bilirubin, Direct <0.1 0.0 - 0.3 mg/dL LAB CHEMISTRY METHOD 09/26/2024 3:27 PM EDT [facility] Bilirubin, Indirect LAB CHEMISTRY METHOD 09/26/2024 3:27 PM EDT [facility] Comment:Unable to calculate Indirect Bilirubin. ALT (SGPT) 41 10 - 60 unit/L LAB CHEMISTRY METHOD 09/26/2024 3:27 PM EDT [facility] AST (SGOT) 37 10 - 42 unit/L LAB CHEMISTRY METHOD 09/26/2024 3:27 PM EDT [facility] Alkaline Phosphatase 73 42 - 121 unit/L LAB CHEMISTRY METHOD 09/26/2024 3:27 PM EDT [facility] Blood Venous blood specimen / Unknown Venipuncture / Unknown 09/26/2024 12:33 PM EDT 09/26/2024 12:33 PM EDT Gely Cartagena MD LAB BLOOD ORDERABLES Fin al Result [facility] [address] [place] [address], [place] [phone] * Electrolyte panel (09/26/2024 12:33 PM EDT) Sodium 137 133 - 145 mmol/L LAB CHEMISTRY METHOD 09/26/2024 3:02 PM EDT [facility] Potassium 4.1 3.5 - 5.5 mmol/L LAB CHEMISTRY METHOD 09/26/2024 3:02 PM EDT [facility] Chloride 102 96 - 110 mmol/L LAB CHEMISTRY METHOD 09/26/2024 3:02 PM EDT [facility] CO2 30 21 - 32 mmol/L LAB CHEMISTRY METHOD 09/26/2024 3:02 PM EDT [facility] Anion Gap 5 3 - 11 LAB CHEMISTRY METHOD 09/26/2024 3:02 PM EDT [facility] Blood Venous blood specimen / Unknown Venipuncture / Unknown 09/26/2024 12:33 PM EDT 09/26/2024 12:33 PM EDT Gely Cartagena MD LAB BLOOD ORDERABLES Fin al Result [facility] [address] [place] [address], [place] [phone] * External clinical lab (08/31/2024) Provider Daria Onbase LAB BLOOD ORDERABLES Fin al Result * HM Urine Albumin Creatinine Ratio (11/13/2021) HM Urine Albumin Creatinine Ratio abstracted Historical Provider HEALTH MAINTENANCE Final Result * (ABNORMAL) Hemoglobin A1c (11/13/2021) Hemoglobin A1C 6.9(A) <=6.5 % Blood Venous blood specimen / Unknown Historical Provider LAB BLOOD ORDERABLES Enma l Result * (ABNORMAL) Lipid panel (11/13/2021) LDL/HDL Ratio 7(A) 0 - 4 Triglycerides 329(A) 0 - 150 mg/dL Cholesterol 211(A) 0 - 200 mg/dL HDL 32(A) >=40 mg/dL LDL Cholesterol 114(A) 0 - 100 mg/dL Blood Venous blood specimen / Unknown [facility] Provider LAB BLOOD ORDERABLES Enma l Result [...] Recently Relevant to Health Maintenance Insurance MEDICARE [facility] Advance Directives Documents on File Type Date Recorded Patient Certified Medication Aide Expl anation Health Care Decision (hx) 04/26/2020 [...]
--- OUTSIDE RECORDS SUMMARY | 2024-10-21 09:07 | XMS_ITS ---
Author Name [facility] Organization Unknown Care Team Organization Name Specialty Phone Email Start Date End Da te [facility] Termed, PROVIDER Primary Care 01/20/202210/13
--- OUTSIDE RECORDS SUMMARY | 2024-10-21 09:07 | XMS_ITS ---
Continuity of Care Document (CCD) Created on: October 21, 2024 Bethanie Dillard External Reference #: [id number] : [id number] Sex: Female Author Organization [facility] [address] [facility] [address] [place] [address] Phone [phone] Care Team Providers Care Cafe Site Attendant Name Role Phone Karo Tang MD Care Team Information Re ceiver [phone] Problems Active Problems Provider Date Primary hypothyroidism [...] SIG Qnty Indications Order ing Provider Date [id number] Capsules DR 1 by mouth every day Thais Lay M.D. 01/13/2022 Jvvuaxs11pk Tablets Take 1 Tablet (50 MG) By Oral Route as Needed For Migraine May Repeat In 4 Hours Unknown Losartan Vdhvzqnzz26tg Tablets Take 1 Tablet By Mouth Every Day Robles Vargas MD Fenofibrate Kgwhlszafx547rk Capsules Take 1 Capsule By Mouth Every Day Unknown Vpdavmr3cx Tablets Take 1 Tablet By Mouth Twice A Day Siva Wooten MD Levothyroxine Glheig06vse Tablets Take 1 Tablet By Mouth Every Day Except Skip Sundays 90tabs Thais Lay M.D. Cyclobenzaprine HCL5mg Tablets Take 1 Tablet By Mouth AT Bedtime as Needed For Muscle Spasms. Karo Tang MD Fluvastatin Sodium ER80mg Tablets ER 24HR Take 1 Tablet By Mouth Every Day Karo Tang MD Fluticasone Oaqsblljqd99hwo/Act Suspension [place] 2 Sprays Into Each Nostril Once A Day Karo Tang MD Gwgikc97np Tablets 1 by mouth every day 90tabs Thais Lay M.D. Citalopram Kyaasqcwghyh35ce Tablets 1 by mouth every day Unknown Amlodipine Oddmxaaq4xp Tablets Take 1 Tablet By Mouth Every Day Unknown Qzhlpxm21xr Tablets Take 1 Tablet By Mouth Every Day Unknown Albuterol Sulfate YSK414(90Base) mcg/Act Aerosol use 2 puffs every 4 [...] 0.82-1.77 TSH With Reflex To FT4 12/25/2022 [facility] TSH With Reflex To FT4 0.52 uIU/mL (0.4-4.2) TSH With Reflex To FT4 06/16/2022 [facility] TSH With Reflex To FT4 1.17 uIU/mL (0.4-4.2) Complete Abc With Diff 01/13/2022 [facility] WBC 7.7 K/MM3 (4.0-11.0) RBC [...] K/MM3 (1.3-7.0) Lymph # 2.3 K/MM3 (0.8-3.1) Frio# 0.6 K/MM3 (0.4-0.9) Eo # 0.1 K/MM3 (0.0-0.4) Baso # 0.0 K/MM3 (0.0-0.1) Abs. Imm Gran 0.0 K/MM3 Neut 61.3 % (44-76) Lymph 29.6 % (15-43) Monocyte 7.1 % (4.5-10.5) Eo 1.4 % (0-6) Baso 0.5 % (0-2) Imm Gran 0.1 % TSH With Reflex To FT4 01/13/2022 [facility] TSH With Reflex To FT4 1.39 uIU/mL (0.4-4.2) Procedures Date Code Description Status 05/08/2024 35156 Collection Of Venous Blood B y Venipuncture Completed 07/06/2023 47744 Collection Of Venous Blood B y Venipuncture Completed 12/25/2022 48738 Collection Of Venous Blood B y Venipuncture Completed 06/16/2022 41732 Collection Of Venous Blood B y Venipuncture Completed 01/13/2022 56537 Collection Of Venous Blood B y Venipuncture [...]
== END 2024-10-21 09:59 | disposition home or self-care (01) ==
LOC: HO.HMCWIC 09:05
PROVIDERS: PCP Pediatrics; Visit Provider Physician Assistant Medical
DX: R07.9 Chest pain, unspecified (principal)

== ENCOUNTER → 2024-10-21 09:05 | Outpatient (BNVA) | payer MEDICARE, OTHER, SELFPAY ==
[2024-03-17 13:17] VITALS: BP 122/60; BP 136/84; BP 144/70; BMI 28.1
== END ==
PROVIDERS: PCP Pediatrics; Visit Provider Physician Assistant Medical
DX: R07.9 Chest pain, unspecified (principal)
CPT/HCPCS: 99212

== ENCOUNTER 2024-10-31 08:04 | Outpatient (AMB) | payer MEDICARE, OTHER, SELFPAY ==
[2024-03-17 13:17] VITALS: BP 122/60; BP 136/84; BP 144/70; BMI 28.1
[2024-10-31 08:14] VITALS: BP 132/60; PULSE 98; BMI 29.8
--- NOTE | 2024-10-31 08:14 | MHC.OFFVIS ---
Vital Signs 10/31/24 08:14 Height 5 ft 1 in Weight 157 lb 13.616 oz BMI 29.8 BP 132/60 Blood Pressure Location Lt brachial Position Sitting Pulse 98 Pulse Source Pulse Oximeter Intake Visit Reasons: [id number] up-High BP/Chest Pain/Passing out Front Office Associate Required: No Allergies metoprolol (METOPROLOL) Allergy (Severe, Verified 10/31/24 08:18) angioedema amoxicillin (AMOXICILLIN) Allergy (Unknown, Verified 10/31/24 08:18) UNKNOWN bupropion (BUPROPION) Allergy (Unknown, Verified 10/31/24 08:18) UNKNOWN cephalexin (From KEFLEX) Allergy (Unknown, Verified 10/31/24 08:18) UNKNOWN Cephalosporins (CEPHALOSPORINS) Allergy (Unknown, Verified 10/31/24 08:18) UNKNOWN codeine (CODEINE) Allergy (Unknown, Verified 10/31/24 08:18) UNKNOWN dicyclomine (DICYCLOMINE) Allergy (Unknown, Verified 10/31/24 08:18) UNKNOWN doxycycline Allergy (Unknown, Verified 10/31/24 08:18) Unknown erythromycin base (ERYTHROMYCIN BASE) Allergy (Unknown, Verified 10/31/24 08:18) UNKNOWN Iodinated Contrast Media (IV CONTRAST) Allergy (Unknown, Verified 10/31/24 08:18) UNKNOWN lansoprazole (LANSOPRAZOLE) Allergy (Unknown, Verified 10/31/24 08:18) UNKNOWN meperidine (From DEMEROL) Allergy (Unknown, Verified 10/31/24 08:18) ANAPHYLAXIS oxycodone (OXYCODONE) Allergy (Unknown, Verified 10/31/24 08:18) UNKNOWN shellfish derived Allergy (Unknown, Verified 10/31/24 08:18) Unknown simvastatin (SIMVASTATIN) Allergy (Unknown, Verified 10/31/24 08:18) UNKNOWN Sulfa (Sulfonamide Antibiotics) (SULFA (SULFONAMIDE ANTIBIOTICS)) Allergy (Unknown, Verified 10/31/24 08:18) UNKNOWN tramadol (TRAMADOL) Allergy (Unknown, Verified 10/31/24 08:18) UNKNOWN verapamil (VERAPAMIL) Allergy (Unknown, Verified 10/31/24 08:18) ANAPHYLAXIS Medication List - Last Reconciled 10/31/24 by Abby Cooley, AIRLINE RESERVATIONIST-C acetaminophen 650 mg PO Q6H PRN albuterol sulfate 90 mcg/actuation 90 mcg inhalation NEEDED amlodipine 5 mg PO DAILY apixaban (Eliquis) 5 mg PO BID Held on 06/11/23. Instructions: currently on heparin drip citalopram 10 mg PO DAILY cyclobenzaprine 5 mg PO BEDTIME dapagliflozin propanediol (Farxiga) 10 mg PO DAILY fenofibrate micronized 200 mg PO BEDTIME fluticasone propionate 50 mcg/actuation 50 mcg intranasal DAILY fluvastatin ER 80 mg PO BEDTIME levothyroxine 75 mcg PO DAILY@0600 losartan 50 mg PO DAILY omeprazole 20 mg PO BEDTIME riboflavin (vitamin B2) (Vitamin B-2) 400 mg PO DAILY ubrogepant (Ubrelvy) 50 mg PO DAILY HPI HPI CBT-DQ-Pvyhkz up-High BP/Chest Pain/Passing out: Details: Bethanie is a 69-year-old female with past medical history of hypertension, hyperlipidemia, diabetes, NSTEMI, lad stent, vasovagal syncope, takotsubo cardiomyopathy, paroxysmal atrial fibrillation who was recently admitted to [facility] for chest discomfort and lightheadedness. She ruled out for ACS and now presents for follow-up. Today she reports that prior to her [facility] presentation she had an episode of weakness like her body felt like rubber followed by lightheadedness then chest discomfort. She has not had any full syncope but does get lightheaded at times. She is getting periodic twitching of her extremities and he is being evaluated by Neurology. She has a an appointment for an EEG coming up. No recurrent chest discomfort at rest or during activity. No shortness of breath, PND, orthopnea or edema. No heart palpitations. Taking meds as directed. [facility] Medical History (Updated 10/31/24 @ 11:44 by Abby Cooley, IESHA-C) Hypothyroidism Thyroid nodule PAF (paroxysmal atrial fibrillation) Vitamin D deficiency Postablative hypothyroidism H/O paroxysmal supraventricular tachycardia Migraine headache Hyperlipidemia Diet-controlled diabetes mellitus Toxic multinodular goiter CVA (cerebral vascular accident) Hypertension Surgical History (Updated 10/31/24 @ 12:41 by Abby Cooley NP-C) History of cardiac cath H/O bladder repair surgery Hx of appendectomy H/O: hysterectomy H/O pelvic surgery Family History Mother High blood sugar Myocardial infarction Father Diabetes Myocardial infarction Stroke Brother Myocardial infarction Social History Household Members: None Housing: House Do you presently have visiting nurse or other home services: No Alcohol intake: never Comment: 457 Patient Tobacco Use Status: Never used Tobacco e-Cigarette/Vaping Use: Never Used Second Hand Smoke Exposure: No Advance Directives Date on File: 03/02/22 service: No Current occupational status: retired Review of Systems Const All systems reviewed & are unremarkable except as noted in HPI and below ENT Reports dizziness Card Reports chest pain (episode prior to [facility] admit), Denies chest pain at rest, Denies chest pain with activity, Denies rapid heart rate, Denies pedal edema, Denies edema, Denies leg edema, Denies lightheadedness, Denies palpitations, Denies dyspnea, Denies dyspnea on exertion and Denies orthopnea Resp Denies cough, Denies dyspnea and Denies dyspnea on exertion GI Denies hematochezia and Denies change in stool character Musc Details: twitching of her extremities Denies abnormal gait, Reports limited range of motion, Reports muscle cramps, Denies muscle weakness, Denies numbness, Denies radiating pain into limb, Denies stiffness and Denies tingling Neuro Denies abnormal gait, Reports dizziness, Denies numbness and Denies tingling Endo Denies palpitations Physical Exam Vital Signs: Last Vital Signs Pulse 98 10/31/24 08:14 BP 132/60 10/31/24 08:14 BMI result Body Mass Index 29.8 Const General: cooperative, healthy appearing, comfortable and no acute distress Orientation/consciousness: patient oriented x3 Neck Neck: Yes normal visual inspection and Yes no JVD Resp Effort & Inspection: normal respiratory effort Auscultation: clear to auscultation bilaterally, no rales, no rhonchi and no wheezes Cardio Rate: regular rate Rhythm: regular rhythm Heart sounds: S1 normal heart sound present, S2 normal heart sound present, no gallops, no murmurs and no rubs Neuro General: patient oriented x3 Extrem General: Yes normal to inspection, No no pedal edema and No calf tenderness Psych Appearance: grossly normal Mental Status: mental status grossly normal Speech and movement: Normal speech and movement present Assessment & Plan Assessment & Plan (1) Chest discomfort: Code(s): R07.89 - Other chest pain Category: Medical Plan: Episode of chest discomfort prior to recent [facility] admission and ruled out for ACS. Discharge Notes indicate that bedside echocardiogram was grossly normal and cardiac stress test was normal. Will work on obtaining those test results. Currently no anginal symptoms. She has known LAD stent. Continue risk factor modification. She is not on aspirin since she is on Eliquis. Continue statin with LDL goal less than 70. Continue amlodipine. Signs and symptoms of angina reviewed. (2) Takotsubo cardiomyopathy: Code(s): I51.81 - Takotsubo syndrome Category: Medical Plan: History of takotsubo cardiomyopathy in 2023 with EF as low as 15-20%. Repeat echocardiogram done 2 months later, 08/11/2023 showing EF 55-60%, no regional wall motion abnormalities. Bedside echo done at [facility] reported as grossly normal. No signs of heart failure on examination. Continue losartan and Farxiga. (3) History of cardiac cath: Comment: 06/11/2023, left main normal, lad minimal luminal irregularities, stent in the mid LAD, left circumflex minimal luminal irregularities, RCA mild luminal irregularity Code(s): Z98.890 - Other specified postprocedural states Category: Surgical (4) PAF (paroxysmal atrial fibrillation): Code(s): I48.0 - Paroxysmal atrial fibrillation Category: Medical Plan: History of paroxysmal atrial fibrillation. No mention of recurrent PAF at time of [facility] admission. Last EKG in our system 10/21/2024 shows sinus rhythm. It looks like she has allergies to metoprolol and verapamil. Currently not on rate slowing agents. No recent heart palpitations. Continue Eliquis for anticoagulation. (5) Vasovagal syncope: Code(s): R55 - Syncope and collapse Category: Medical Plan: Prior reported vasovagal syncope. Recent episode of body weakness, head spinning and body twitching. No full syncope. Not clear if her symptoms of body weakness and head spinning are from low blood pressure. Blood pressure good at present. No med changes made. Instructed on good hydration and use caution when going sitting to standing. Obtain EEG as directed by Neurology. (6) Hypertension: Code(s): I10 - Essential (primary) hypertension Category: Medical Plan: Blood pressure goal less than 130/80. Near goal at present. No med changes made. (7) Hyperlipidemia: Code(s): E78.5 - Hyperlipidemia, unspecified Category: Medical Plan: Jackson LDL goal less than 70 and less than 55 if able. She is on fenofibrate and fluvastatin. No recent labs for review, followed by PCP. Will forward this note to her PCP. (8) Hospital discharge follow-up: Code(s): Z09 - Encounter for follow-up examination after completed treatment for conditions other than malignant neoplasm Category: Medical Plan: Discharge summary reviewed Plan as above Patient Instructions: - Schedule and complete the EEG as recommended. - Practice stress reduction techniques to manage chest discomfort. - Monitor blood pressure regularly and take medications as prescribed. - Stay physically active and use the stepper daily. - Follow up with endocrinology for medication adjustments. - Attend regular follow-up appointments to monitor cardiac health. Patient was informed and verbally consented to the use of an ambient scribe for clinic note documentation during this visit. Visit time spent on chart review, interview, assessment, orders, documentation. Coding Level of Care Code Est Pt Level 4 (71058) Complex EM visit Add On G2211 Diagnoses Chest discomfort R07.89 Takotsubo cardiomyopathy I51.81 History of cardiac cath Z98.890 PAF (paroxysmal atrial fibrillation) I48.0 Vasovagal syncope R55 Hypertension I10 Hyperlipidemia E78.5 Hospital discharge follow-up Z09 Time Spent (min) 36
== END 2024-10-31 08:42 | disposition home or self-care (01) ==
LOC: HO.HCS 08:05
PROVIDERS: PCP Pediatrics; Visit Provider Nurse Practitioner Family
DX: R07.89 Other chest pain (principal); I51.81 Takotsubo syndrome; Z98.890 Other specified postprocedural states; I48.0 Paroxysmal atrial fibrillation; R55 Syncope and collapse; I10 Essential (primary) hypertension; E78.5 Hyperlipidemia, unspecified; Z09 Encounter for follow-up examination after completed treatment for conditions other than malignant neoplasm
CPT/HCPCS: 99214; G2211

== ENCOUNTER → 2024-10-31 08:04 | Outpatient (BNVA) | payer MEDICARE, OTHER, SELFPAY ==
[2024-03-17 13:17] VITALS: BP 122/60; BP 136/84; BP 144/70; BMI 28.1
== END ==
PROVIDERS: PCP Pediatrics; Visit Provider Nurse Practitioner Family
DX: Z09 Encounter for follow-up examination after completed treatment for conditions other than malignant neoplasm (principal); R07.89 Other chest pain; I51.81 Takotsubo syndrome; I48.0 Paroxysmal atrial fibrillation; I10 Essential (primary) hypertension; R55 Syncope and collapse; E78.5 Hyperlipidemia, unspecified; Z98.890 Other specified postprocedural states
CPT/HCPCS: 99212

== ENCOUNTER 2025-03-01 18:52 | Emergency (ER) | payer MEDICARE, OTHER, SELFPAY ==
[2024-03-17 13:17] VITALS: BP 122/60; BP 136/84; BP 144/70; BMI 28.1
[2025-03-01] VITALS (7 sets, daily range): BP systolic 109–169; BP diastolic 55–82; PULSE 74–93; RESP 14–16; TEMP 36.5–36.7; O2SAT 96–98; BMI 32.8
--- NOTE | ~2025-03-01 | CT_ITS ---
CLINICAL HISTORY: sudded onset dizziness and syncope CT head without contrast Comparison: None provided Findings: There is no acute intracranial hemorrhage. Ventricles are within normal limits in size. No mass effect or midline shift is present. The tirado-white matter differentiation appears normal. The visualized portions of the orbits, paranasal sinuses, and mastoids are unremarkable. No fractures are identified. IMPRESSION: No acute intracranial abnormality. This document has been electronically signed by: Vickey Quiroga MD on 03/01/2025 20:38:49
--- NOTE | 2025-03-01 19:15 | ECG_ITS ---
Test Reason : SYNCOPE Blood Pressure : */* mmHG Vent. Rate : 72 BPM Atrial Rate : 72 BPM P-R Int : 138 ms QRS Dur : 82 ms QT Int : 418 ms P-R-T Axes : 56 16 47 degrees QTcB Int : 457 ms Normal sinus rhythm with sinus arrhythmia Normal ECG When compared with ECG of 10-Jun-2023 23:37, Vent. rate has decreased by 36 bpm Referred By: Generic ED Physician Electronically Signed By: Robles Vargas
[2025-03-01 19:41] LABS: Glucose, Whole Blood 130 mg/dL (60-115)
[2025-03-01 19:43] LABS: MANUAL DIFF FLAG NO
[2025-03-01 19:44] LABS: Hematocrit 39.5 % (37.0-47.0); Hemoglobin 13.1 g/dl (12.0-16.0); Imm Gran Abs Auto 0.02 X10*3/uL (0.00-0.03); Imm Gran Pct Auto 0.2 % (0.0-0.4); Lymphocytes Absolute Auto 2.6 X10*3/uL (1.2-4.9); Mean Corpuscular HGB Conc 33.2 g/dl (31.0-35.0); Mean Corpuscular Hemoglobin 30.8 pg (27.0-33.0); Mean Corpuscular Volume 92.7 fL (80.0-98.0); NRBC Abs Auto 0.000 X10*3/uL (0.0-0.012); NRBC Pct Auto 0.0 /100WBC (0.0-0.2); Platelet Count 262 X10*3/uL (160-400); Red Blood Count 4.26 X10*6/uL (4.20-5.50); White Blood Count 8.2 X10*3/uL (4.8-10.8)
--- NOTE | 2025-03-01 19:52 | PC.NURSE ---
Report taken from Tammy MARTIN assumed care of pt at this time. Pt sitting up in bed A&Ox3 skin pwd respirations even unlabored. PA to bedside for primary eval. Reports being at home at approx 1800 sitting at dining room table sorting puzzle pieces when her head sort of slumped down, sudden onset nausea, room spinning diaphoresis. Was unable to get up to walk initially then had to hold onto wall while walking down chi. Reports then puked my guts out . Pt felt fine prior to onset of symptoms, reports having flu vaccine this afternoon around 1330. Reports episode of room spinning last week as well while laying in bed reading. Hx afib, MN, and stroke. Neuros intact at this time, no deficits noted. Pt endorsing chest pressure at rest, headache, and just feeling lousy overall . Ambulatory to bathroom to change into hospital attire, ambulated independently with steady gait. Plan for CTA and labwork. Pt aware and agreeable to plan of care.
[2025-03-01 19:57] LABS: Alanine Aminotransferase 33 U/L (0-31); Albumin Level 4.4 g/dL (3.5-5.0); Alkaline Phosphatase 60 U/L (39-117); Anion Gap 14 (12-20); Aspartate Amino Transferase 44 U/L (5-31); Blood Urea Nitrogen 14 mg/dL (9-16); Calcium 9.0 mg/dL (8.4-10.2); Carbon Dioxide 25 mmol/L (22-29); Chloride 104 mmol/L (96-108); Creatinine Clr Calc Pharmacy 73.1; Estimated Glomerular Filt Rate > 60; Influenza B2 Negative (Negative); Magnesium 2.0 mg/dL (1.6-2.6); Potassium 3.7 mmol/L (3.3-5.1); Sodium 139 mmol/L (135-145); Total Protein 6.8 g/dL (6.5-8.0)
--- OUTSIDE RECORDS SUMMARY | 2025-03-01 20:00 | XMS_ITS | Clinical Summary ---
Author Organization [address] [facility] Address [address] [place] [address] Phone Care Team Providers Care Ribbon Tier Name Role Phone Karo Tang MD Primary Care Provider Allergies Active Allergy Reactions Criticality Noted Date [...] 10/18/2014 Medications apixaban (Eliquis) 5 mg tablet Take 1 tablet (5 mg total) by mouth 1 (one) time each day. 3 Active fenofibrate micronized (LOFIBRA) 200 mg capsule Take 1 capsule (200 mg total) by mouth 1 (one) time each day. 2 Active cyclobenzaprine (FLEXERIL) 5 mg tablet Take 1 tablet (5 mg total) by mouth if needed for muscle spasms. 2 Active fluvastatin XL (LESCOL XL) 80 mg 24 hr tablet Take 1 tablet (80 mg total) by mouth 1 (one) time each day. 2 Active RIBOFLAVIN, VITAMIN B2, ORAL Take 400 mg by mouth 1 (one) time each day. Active losartan (COZAAR) 50 mg tablet Take 1 tablet (50 mg total) by mouth 1 (one) time each day. Active albuterol HFA (PROAIR HFA ; PROVENTIL HFA ; VENTOLIN HFA) 90 mcg/actuation inhaler Inhale 2 puffs by mouth if needed. 0 Active multivitamin/iro n/folic acid (CENTRUM ORAL) 1 (one) time each day. Active vitamin E, dl, acetate, 90 mg (200 unit) capsule Take 1 capsule (200 Units total) by mouth 1 (one) time each day. Active omeprazole (PriLOSEC) [address] capsule Take 1 capsule (20 mg total) by mouth 1 (one) time each day. Active amLODIPine (NORVASC) 5 mg tablet Take 1 tablet (5 mg total) by mouth 1 (one) time each day. Active levothyroxine (SYNTHROID, LEVOTHROID) 75 mcg tablet Take by mouth 1 (one) time each day before breakfast. Active citalopram (CeleXA) 10 mg tablet Take 1 tablet (10 mg total) by mouth 1 (one) time each day. Active acetaminophen (TYLENOL 8 HOUR ORAL) Take by mouth 1 (one) time each day if needed. Active rimegepant (Nurtec) 75 mg dispersible tabletIndication s:Migraine without aura and without status migrainosus, not intractable Dissolve 1 tablet (75 mg total) on top of the tongue 1 (one) time each day if needed for migraine. 8 tablet 3 5 Active Active Problems Problem Noted Date Diagnosed Date Hypothyroidism 08/15/2021 Age-related cataract 06/26/2021 Postablative hypothyroidism 05/18/2020 Overview (03/10/2024): Hyperthyroidism due to toxic multinodular goiter, negative FNA treated Uriostegui 131; 28.6 mci 05/16/20 : Evaluated by [facility], advised to continue levothyroxine and follow-up in 18 months. Migraine headache 02/08/2017 Calcification of abdominal aorta 01/01/2017 Degenerative cervical disc 12/29/2016 Low back pain 12/29/2016 Essential hypertension 01/26/2016 Cervical radiculopathy 12/24/2014 Osteopenia 12/24/2014 Anxiety 10/18/2014 Atrial fibrillation 10/18/2014 Overview (03/10/2024): On Eliquis cardiac, cath 2006 Diabetes mellitus type 2, uncomplicated 10/19/19 Overview (03/10/2024): HGBA1C 6.7 2013 Esophageal reflux 10/18/2014 Osteoarthritis 10/18/2014 Nephrolithiasis 10/18/2014 Major depression, single episode 10/18/2014 Hyperlipidemia 10/18/2014 Fibromyalgia 10/18/2014 RAD (reactive airway disease) 10/18/2014 Encounters Date Type Department Care Team Description 01/02/2025 1:30 PM EDT Office Visit [facility] [address] [phone] Gely Cartagena MD Involuntary movements (Primary Dx); Syncope, unspecified syncope type; Chronic migraine with aura without status migrainosus, not intractable; Cerebrovascular accident (CVA), unspecified mechanism ([facility]/HCC V24, [facility]/HCC V28) 12/05/2024 Telephone [facility] [address] [phone] Tanya Quiros PA from Last 3 Months Immunizations Immunization Administration Dates Next Due Influenza Quadravalent, MDCK [...] pelvic recontructive surgery OTHER SURGICAL HISTORY PROCEDURE: NE CSTOTOMY/CSTOST CRYOSURG DSTRJ INTRAVESICAL LES; COMMENT: bladder suspension TONSILLECTOMY PROCEDURE: HISTORICAL TONSILLECTOMY WISDOM TOOTH EXTRACTION PROCEDURE: HISTORICAL WISDOM TEETH EXTRACTION OTHER SURGICAL HISTORY PROCEDURE: TEMPORAL ARTERY BIOPSY SPCMN PATHOLOGY EXAM OTHER SURGICAL HISTORY 2014 PROCEDURE: ---- OTHER ----; COMMENT: left lateral tibial plateu fracture APPENDECTOMY BLADDER 2 surgeries to lift bladder Medical History Medical History Date Comments SVT (supraventricular tachyc ardia) ([facility] V24) 10/18/2014 DX:SVT (supraventricular tac hycardia) ([facility]) Hyperlipidemia 10/18/2014 DX:Hyperlipidemi a Fibromyalgia 10/18/2014 DX:Fibromyalgia Esophageal reflux 10/18/2014 DX:Esophageal reflux Tibial plateau fracture DX:Tibia l plateau fracture; COMMENT: left not requiring surgery Diabetes type 2, controlled ([facility] V24, [facility] V28) 10/18/2014 DX:Diabetes type 2, controll ed ([facility]) Osteopenia 12/24/2014 DX:Osteopenia Cervical radiculopathy 12/24/2014 DX:Cervic al radiculopathy Calcification of abdominal a matthew ([facility] V24) 01/01/2017 DX:Calcification of abdomina l aorta ([facility]) Headache disorder 02/08/2017 DX:Headache di sorder Diabetes mellitus type 2, uncomplicated ([facility] V24, [facility] V28) 10/18/2014 DX:Diabetes mellitus type 2, uncomplicated ([facility]); COMMENT: HGBA1C 6.7 2012 History of stroke [...] Female 09/26/2024 7:14 PM EDT Sexual Orientation Straight 11/17/2024 7: 57 PM EDT Last Filed Vital Signs Vital Sign Reading Time Taken Comments Blood Pressure 122/77 01/02/2025 1:27 PM EDT Pulse 94 01/02/2025 1:27 PM EDT Temperature 36.6 C (97.9 F) 10/25/2024 4:17 PM EDT Respiratory Rate - - Oxygen Saturation 99% 01/02/2025 1:27 PM EDT Inhaled Oxygen Concentration - - Weight 70.8 kg (156 lb) 01/02/2025 1:27 PM EDT Height 154.9 cm (5' 1 ) 01/02/2025 1:27 PM EDT Body Mass Index 29.48 01/02/2025 1:27 PM EDT Plan of Treatment Upcoming Encounters Date Type Department Care Team (Late st Contact Info) Description 07/03/2025 10:30 AM EDT Office Visit [address] [place] [address] Tanya Quiros PA [address] [place] [phone] Health Maintenance Due Date Last Done Comments Colorectal Cancer Screening: Colonoscopy 1954 Diabetes: Annual Foot Exam 1964 Diabetes: Annual Retina Eye Exam 1965 Pneumococcal Vaccine: 50+ Years (2 of 2 - PCV) 12/10/2012 12/11/2011 DTaP,Tdap,and Td Vaccines (2 - Td or Tdap) 10/01/2021 10/02/2011 Falls Risk Assessment 02/21/2022 Hepatitis C Screening 02/21/2022 Medicare Annual Wellness Visit 02/21/2022 Osteoporosis Screening (Bone Density Screening) 02/21/2022 Social Influencers of Health Screening 02/21/2022 Diabetes: Blood Sugar Control Test (HGBA1C) 05/13/2022 11/13/2021 Diabetes: Annual Urine Albumin-Creatinine Ratio (uACR) 11/13/2022 11/13/2021 Breast Cancer Screening 06/28/2023 06/28/19 22, 06/24/2021, 04/11/2020, Additional history exists Depression Screening 03/15/2024 COVID-19 Vaccine ( season) 2024 01/09/2022, 01/06/2021, 07/06/2020, Additional history exists Influenza Vaccine (#1) 2024 , 12/18/2022, 01/22/2022, [...] Procedure Name Priority Date/Time Associated Diagnosis Comments CREATININE, SERUM Routine 09/26/2024 12: 33 PM EDT Chronic migraine with aura without status migrainosus, not intractable HM URINE ALBUMIN CREATININE RATIO Routine 11/13/2021 HEMOGLOBIN A1C Routine 11/13/2021 LIPID PANEL Routine 11/13/2021 DX MAMMO INCL CAD UNI Routine 06/27/2021 3:30 PM EDT Other abnormal and inconclusive findings on diagnostic imaging of breast from Last 3 Months or Most Recently Relevant to Health Maintenance Results * Creatinine (09/26/2024 12:33 PM EDT) Creatinine 0.77 0.50 - 1.10 mg/dL LAB CHEMISTRY METHOD 09/26/2024 3:02 PM EDT [facility] eGFR 83 >=60 mL/min/1. 73m2 LAB CHEMISTRY METHOD 09/26/2024 3:02 PM EDT [facility] Comment:Calculation based on the Chronic Kidney Disease Epidemiology Collaboration (CKD-EPI) equation refit without adjustment for race. Blood Venous blood specimen / Unknown Venipuncture / Unknown 09/26/2024 12:33 PM EDT 09/26/2024 12:33 PM EDT Gely Cartagena MD LAB BLOOD ORDERABLES Fin al Result [facility] [address] [place] [address], [place] [phone] * HM Urine Albumin Creatinine Ratio (11/13/2021) Urine Albumin Creatinine Ratio abstracted Historical Provider HEALTH MAINTENANCE Final Result * (ABNORMAL) Hemoglobin A1c (11/13/2021) Hemoglobin A1C 6.9(A) <=6.5 % Blood Venous blood specimen / Unknown [facility] Provider LAB BLOOD ORDERABLES Enma l Result * (ABNORMAL) Lipid panel (11/13/2021) LDL/HDL Ratio 7(A) 0 - 4 Triglycerides 329(A) 0 - 150 mg/dL Cholesterol 211(A) 0 - 200 mg/dL HDL 32(A) >=40 mg/dL LDL Cholesterol 114(A) 0 - 100 mg/dL Blood Venous blood specimen / Unknown [facility] Provider LAB BLOOD ORDERABLES Enma l [...] Recently Relevant to Health Maintenance Insurance MEDICARE [facility] Advance Directives Documents on File Type Date Recorded Patient [employer] Expl anation Health Care Decision (hx) 04/26/2020 [...] Care Decision (hx) 04/24/2020 AD GARCIA DIRECTIVE Care Teams Ribbon Tier Relationship Specialty Start Date End Date Karo Tang MD [address] [id number] PCP - General Internal Medicine 10/25/24
[2025-03-01 20:03] LABS: Troponin-I High Sensitivity 13.9 ng/L (<3.5-17.0)
--- NOTE | 2025-03-01 20:21 | ED.GENADULT ---
HPI - General Adult General Chief complaint: Syncope Stated complaint: near syncope, dizziness, nausea +thinner Time Seen by Provider: 03/01/25 19:47 Source: patient, RN notes reviewed and old records reviewed Mode of arrival: EMS Limitations: no limitations History of Present Illness ED Provider: Irineo HPI narrative: 69-year-old female with a past medical history significant for coronary artery disease, paroxysmal AFib on Eliquis, migraines, previous CVA, hyperthyroidism presenting for evaluation of near-syncope. The patient reports that she was seated at the table starting puzzle pieces. She reports a sudden onset of dizziness. She reports that she felt like she could not open her eyes. She did have an associated headache. She states that ?my head dropped to the table. She does not believe she lost consciousness entirely. She reports this has happened in the past, most recently 1 week ago but was not as severe. The patient reports that this happened around 6 p.m., about 2 hours prior to my evaluation. She reports her symptoms lasted for about an hour before improving. She still does not feel well and complains of a headache but reports that her dizziness has resolved She reports looking in the mirror when her symptoms started and did not noticed any facial droop, did not notice any difficulty speaking The patient had a previous lacunar infarct in the left occipital lobe in 2020. Related Data Home Medications ?Medication ?Instructions ?Recorded ?Confirmed albuterol sulfate 90 mcg/actuation 90 mcg inhalation NEEDED 01/24/20 10/31/24 aerosol inhaler fenofibrate micronized 200 mg 200 mg PO BEDTIME 01/24/20 10/31/24 capsule fluticasone propionate 50 50 mcg intranasal DAILY 01/24/20 10/31/24 mcg/actuation nasal spray,suspension fluvastatin 80 mg tablet,extended 80 mg PO BEDTIME 01/24/20 10/31/24 release 24 hr cyclobenzaprine 5 mg tablet 5 mg PO BEDTIME 04/17/20 10/31/24 omeprazole 20 mg capsule,delayed 20 mg PO BEDTIME 08/08/20 10/31/24 release riboflavin (vitamin B2) 100 mg 400 mg PO DAILY 11/25/21 10/31/24 tablet (Vitamin B-2) acetaminophen 325 mg tablet 650 mg PO Q6H PRN Pain 03/02/22 10/31/24 levothyroxine 75 mcg tablet 75 mcg PO DAILY@0600 03/02/22 10/31/24 ubrogepant 50 mg tablet (Ubrelvy) 50 mg PO DAILY 03/02/22 10/31/24 citalopram 10 mg tablet 10 mg PO DAILY 03/10/23 10/31/24 amlodipine 5 mg tablet 5 mg PO DAILY 07/09/23 10/31/24 dapagliflozin propanediol 10 mg 10 mg PO DAILY 07/09/23 10/31/24 tablet (Farxiga) Previous Rx's ?Medication ?Instructions ?Recorded apixaban 5 mg tablet (Eliquis) 5 mg PO BID #60 tabs 05/11/20 Held on 06/11/23. Instructions: currently on heparin drip losartan 50 mg tablet 50 mg PO DAILY #90 tabs 08/21/24 meclizine 25 mg tablet 25 mg PO TID PRN dizziness #15 tabs 03/01/25 Allergies Allergy/AdvReac Type Severity Reaction Status Date / Time metoprolol (METOPROLOL) Allergy Severe angioedema Verified 03/01/25 19:14 amoxicillin (AMOXICILLIN) Allergy Unknown UNKNOWN Verified 03/01/25 19:14 bupropion (BUPROPION) Allergy Unknown UNKNOWN Verified 03/01/25 19:14 cephalexin (From KEFLEX) Allergy Unknown UNKNOWN Verified 03/01/25 19:14 Cephalosporins Allergy Unknown UNKNOWN Verified 03/01/25 19:14 (CEPHALOSPORINS) codeine (CODEINE) Allergy Unknown UNKNOWN Verified 03/01/25 19:14 dicyclomine (DICYCLOMINE) Allergy Unknown UNKNOWN Verified 03/01/25 19:14 doxycycline Allergy Unknown Unknown Verified 03/01/25 19:14 erythromycin base Allergy Unknown UNKNOWN Verified 03/01/25 19:14 (ERYTHROMYCIN BASE) Iodinated Contrast Media (IV Allergy Unknown UNKNOWN Verified 03/01/25 19:14 CONTRAST) lansoprazole (LANSOPRAZOLE) Allergy Unknown UNKNOWN Verified 03/01/25 19:14 meperidine (From DEMEROL) Allergy Unknown ANAPHYLAXIS Verified 03/01/25 19:14 oxycodone (OXYCODONE) Allergy Unknown UNKNOWN Verified 03/01/25 19:14 shellfish derived Allergy Unknown Unknown Verified 03/01/25 19:14 simvastatin (SIMVASTATIN) Allergy Unknown UNKNOWN Verified 03/01/25 19:14 Sulfa (Sulfonamide Allergy Unknown UNKNOWN Verified 03/01/25 19:14 Antibiotics) (SULFA (SULFONAMIDE ANTIBIOTICS)) tramadol (TRAMADOL) Allergy Unknown UNKNOWN Verified 03/01/25 19:14 verapamil (VERAPAMIL) Allergy Unknown ANAPHYLAXIS Verified 03/01/25 19:14 Review of Systems Constitutional: Constitutional: Denies body ache(s), Denies chills, Denies fever(s), Reports headache(s) and Denies weakness Eyes: Eyes: Denies blind spots, Denies blurry vision and Denies loss of vision ENT: Denies dysphagia, Reports vertigo, Reports dizziness, Denies ear discharge, Reports headache(s) and Reports disequilibrium Cardiovascular: Cardiovascular: Denies chest pain and Denies dyspnea on exertion Respiratory: Respiratory: Denies cough and Denies dyspnea on exertion Gastrointestinal: Gastrointestinal: Denies abdominal pain, Denies dysphagia, Reports nausea and Reports vomiting Musculoskeletal: Musculoskeletal: Denies back pain, Denies numbness and Denies tingling Integumentary/Breasts: Skin/Breast: Denies rash Neurologic: Denies Abnormal speech present, Denies confusion, Reports vertigo, Reports dizziness, Reports headache(s), Denies loss of vision, Denies memory loss, Denies numbness, Denies tingling, Denies paresthesias, Reports disequilibrium and Denies weakness Psychiatric: Psychiatric: Denies confusion and Denies memory loss [facility] Past Medical History Medical History (Updated 03/01/25 @ 20:36 by Homer Cabello) Hypothyroidism Thyroid nodule PAF (paroxysmal atrial fibrillation) Vitamin D deficiency Postablative hypothyroidism H/O paroxysmal supraventricular tachycardia Migraine headache Hyperlipidemia Diet-controlled diabetes mellitus Toxic multinodular goiter CVA (cerebral vascular accident) Hypertension Surgical History History of cardiac cath H/O bladder repair surgery Hx of appendectomy H/O: hysterectomy H/O pelvic surgery Family History Family History Mother High blood sugar Myocardial infarction Father Diabetes Myocardial infarction Stroke Brother Myocardial infarction Social History Social History Household Members: None Housing: House Do you presently have visiting nurse or other home services: No Alcohol intake: never Comment: [id number] Patient Tobacco Use Status: Never used Tobacco e-Cigarette/Vaping Use: Never Used Second Hand Smoke Exposure: No Use of substances other than those prescribed or required for medical reasons: No Advance Directives: Yes Advance Directives on File: Yes Advance Directives Date on File: 03/02/22 Do you have a plan to hurt others: No Plan service: No Current occupational status: retired Physical Exam ED Vital Signs: Vital Signs - 24 hr 03/01/25 19:12 03/01/25 20:12 03/01/25 22:03 Temperature 97.7 F 98.0 F Pulse Rate 74 79 Respiratory Rate 16 14 Blood Pressure 160/55 H 109/59 L Pulse Oximetry 98 97 Oxygen Delivery Method Room Air Room Air Room Air 03/01/25 22:41 03/01/25 22:41 03/01/25 22:42 Temperature Pulse Rate 83 89 91 Respiratory Rate Blood Pressure 150/63 H 155/82 H 169/82 H Pulse Oximetry Oxygen Delivery Method BMI result Body Mass Index 32.8 Const General: No confusion Nutritional Appearance: well nourished Orientation/consciousness: patient oriented x3 and No confusion HENMT Head: Yes normocephalic and Yes atraumatic Eyes Eyelids: Yes eyelids normal Conjunctivae: conjunctivae normal Sclerae: sclerae normal Corneas: corneas normal Pupils: Equal, round and reactive pupils present EOM: EOMs intact bilaterally Neck Neck: Yes full ROM and Yes no meningeal signs Resp Effort & Inspection: normal respiratory effort, able to speak in complete sentences and not labored Cardio Rate: regular rate Rhythm: regular rhythm GI Inspection: No distended Palpation (GI): Soft to palpation, not firm, nontender, no guarding and not rigid Skin General skin exam: elasticity normal Neuro General: patient oriented x3, gait normal, tone normal, moves all extremities, no meningeal signs, no focal motor deficits, CN's II-XI intact bilaterally and No confusion Cranial nerves: Yes CN's II-XII intact bilaterally, Yes Equal, round and reactive pupils present and Yes Bilaterally intact EOM present Cognition (Neuro): normal cognition Speech: No Abnormal speech present Gait exam (Neuro): Normal gait present and not ataxic Motor exam (neuro): 5/5 motor strength present throughout, Pronator motor function not present, no tremor noted, no asterixis and Motor fasciculations not present Coordination: [id number] test normal, tandem gait normal, Romberg test negative and Normal rapid alternating movements of the distal upper extremity present (Neuro) Extrem Other: Moving all extremities well without any obvious deformities NIH Stroke Scale Internal: Initial- Upon Arrival Time: 20:00 Level of Consciousness: Alert Level of Consciousness Questions: Answers both questions correctly Level of Consciousness Commands: Performs both tasks correctly Best Gaze: Normal Visual: No visual loss Facial Palsy: Normal Motor Arm (Right): No drift Motor Arm (Left): No drift Motor Leg (Right): No drift Motor Leg (Left): No drift Limb Ataxia: Absent Sensory: Normal Best Language: No aphasia Dysarthia: Normal Extinction and Inattention: No abnormality Score: 0 Course Reevaluation(s) Reevaluation #1: Given the patient's sudden onset of headache, severe dizziness, and questionable syncopal episode a CT scan was ordered to evaluate for subarachnoid hemorrhage or CVA. The patient has an IV contrast allergy which she reports his facial swelling. Given the negative cerebellar exam I think it is appropriate to skip angiography at this time as I have a low suspicion for posterior stroke. The patient has no significant deficits to suggest LVO Time: 20:22 Reevaluation #2: The patient's symptoms improved with fluids and meclizine. She has a history of complex migraines as well as episodes of dizziness but has been diagnosed with vertigo. Her symptoms are most consistent with peripheral vertigo. She has been up and ambulating to the bathroom several times without any issue. She has no further chest pain. Troponins have been flat. Plan to discharge the patient with meclizine for peripheral vertigo Time: 22:54 Medications Administered Discontinued Medications Generic Name Dose Route Start Last Admin Trade Name Freq PRN Reason Stop Dose Admin Lactated Ringer's 1,000 mls @ 999 mls/hr 03/01/25 20:30 03/01/25 20:37 Lr IV 03/01/25 21:30 999 mls/hr .Q1H1M SELENE Administration Meclizine HCl 50 mg 03/01/25 20:25 03/01/25 20:37 Meclizine Hcl 25 Mg Tablet PO 03/01/25 20:26 50 mg ONCE ONE Administration Medical Decision Making Medical Decision Making [facility] Narrative: 69-year-old with past medical history as above presents for evaluation of sudden onset of dizziness with nausea vomiting and a headache. She reports this has happened in the past but denies any known history of vertigo. Her symptoms are consistent with vertigo, at the time my evaluation she has an NIH stroke score of 0. Including a negative cerebellar exam. We will get a CT scan of the brain to evaluate for subarachnoid hemorrhage but I feel that vertigo has a more likely diagnosis. There was no trauma. The patient is anticoagulated on Eliquis and presented within 2 hours of symptom onset. We will also work her up for cardiac disease as the patient reported chest pain that started after she called EMS. Her EKG is nonischemic. In his with trope is within normal limits. We will plan for a repeat troponin in 3 hours. I did consider a CT angiography but this was ultimately deferred due to NIH stroke score of 0 and negative cerebellar exam in addition to IV contrast allergy which the patient reports his facial swelling Differential Diagnosis Differential Diagnoses: The differential diagnosis associated with the presentation includes Vertigo Orthostasis ACS CVA Subarachnoid hemorrhage Admission/Observation Consideration of admission/observation: Escalation of care including admission/observation considered Lab Data MDM Lab Attestation statement: I reviewed the patient's lab results. No leukocytosis or anemia. Normal platelet count. No left shift. No chemistry abnormalities warranting dimension. 03/01/25 19:35 03/01/25 19:35 Labs: Lab Results 03/01/25 03/01/25 03/01/25 Range/Units 19:29 19:35 20:26 WBC 8.2 (4.8-10.8) X10*3/uL RBC 4.26 (4.20-5.50) X10*6/uL Hgb 13.1 (12.0-16.0) g/dl Hct 39.5 (37.0-47.0) % MCV 92.7 (80.0-98.0) fL MCH 30.8 (27.0-33.0) pg MCHC 33.2 (31.0-35.0) g/dl RDW 13.1 (11.0-16.0) % Plt Count 262 (160-400) X10*3/uL MPV 9.0 L (9.4-12.3) fL Immature Gran % (Auto) 0.2 (0.0-0.4) % Neut % (Auto) 55.4 (45-73) % Lymph % (Auto) 32.2 (20-40) % [place] % (Auto) 10.0 (2-11) % Eos % (Auto) 1.7 (0-4) % Baso % (Auto) 0.5 (0-2) % Lymph # (Auto) 2.6 (1.2-4.9) X10*3/uL [place] # (Auto) 0.8 (0.1-1.2) X10*3/uL Eos # (Auto) 0.1 (0.0-0.4) X10*3/uL Baso # (Auto) 0.0 (0.0-0.2) X10*3/uL Abs Immat Gran (auto) 0.02 (0.00-0.03) X10*3/uL Absolute Neuts (auto) 4.5 (2.0-8.3) x10*3/uL Absolute Nucleated RBC 0.000 (0.0-0.012) X10*3/uL Nucleated RBC % (auto) 0.0 (0.0-0.2) /100WBC Hold Blue Top SEE NOTE Sodium 139 (135-145) mmol/L Potassium 3.7 (3.3-5.1) mmol/L Chloride 104 (96-108) mmol/L Carbon Dioxide 25 (22-29) mmol/L Anion Gap 14 (12-20) BUN 14 (9-16) mg/dL Creatinine 0.68 (0.5-1.4) mg/dL Estim Creat Clear Calc 73.1 Estimated GFR > 60 POC Glucose 130 H (60-115) mg/dL Random Glucose 122 H (60-115) mg/dL Calcium 9.0 (8.4-10.2) mg/dL Magnesium 2.0 (1.6-2.6) mg/dL Total Bilirubin 0.2 (0.0-1.0) mg/dL AST 44 H (5-31) U/L ALT 33 H (0-31) U/L Alkaline Phosphatase 60 (39-117) U/L Troponin I High Sens 13.9 D (<3.5-17.0) ng/L Total Protein 6.8 (6.5-8.0) g/dL Albumin 4.4 (3.5-5.0) g/dL Urine Color DK YELLOW Urine Appearance Clear Urine pH 6.5 (5.0-9.0) Ur Specific [place] 1.020 (1.005-1.025) Urine Protein Negative (Neg-Trace) mg/dL Urine Glucose (UA) Negative (Negative) mg/dL Urine Ketones Negative (Negative) mg/dL Urine Blood Negative (Negative) Urine Nitrite Negative (Negative) Ur Leukocyte Esterase Trace H (Negative) Urine RBC 0-2 (0-2) /HPF Urine WBC 0-5 (0-5) /HPF Ur Squamous Epith Cells 0-2 (0-2) /HPF Calcium Oxalate Crystal Present Urine Bacteria None Seen (None Seen) Hyaline Casts 0-2 (0-2) /LPF Influenza Type A (OSMAR) Negative (Negative) Influenza Type B (OSMAR) Negative (Negative) Influenza A & B Note See Note 03/01/25 Range/Units 21:28 WBC (4.8-10.8) X10*3/uL RBC (4.20-5.50) X10*6/uL Hgb (12.0-16.0) g/dl Hct (37.0-47.0) % MCV (80.0-98.0) fL MCH (27.0-33.0) pg MCHC (31.0-35.0) g/dl RDW (11.0-16.0) % Plt Count (160-400) X10*3/uL MPV (9.4-12.3) fL Immature Gran % (Auto) (0.0-0.4) % Neut % (Auto) (45-73) % Lymph % (Auto) (20-40) % [place] % (Auto) (2-11) % Eos % (Auto) (0-4) % Baso % (Auto) (0-2) % Lymph # (Auto) (1.2-4.9) X10*3/uL [place] # (Auto) (0.1-1.2) X10*3/uL Eos # (Auto) (0.0-0.4) X10*3/uL Baso # (Auto) (0.0-0.2) X10*3/uL Abs Immat Gran (auto) (0.00-0.03) X10*3/uL Absolute Neuts (auto) (2.0-8.3) x10*3/uL Absolute Nucleated RBC (0.0-0.012) X10*3/uL Nucleated RBC % (auto) (0.0-0.2) /100WBC Hold Blue Top Sodium (135-145) mmol/L Potassium (3.3-5.1) mmol/L Chloride (96-108) mmol/L Carbon Dioxide (22-29) mmol/L Anion Gap (12-20) BUN (9-16) mg/dL Creatinine (0.5-1.4) mg/dL Estim Creat Clear Calc Estimated GFR POC Glucose (60-115) mg/dL Random Glucose (60-115) mg/dL Calcium (8.4-10.2) mg/dL Magnesium (1.6-2.6) mg/dL Total Bilirubin (0.0-1.0) mg/dL AST (5-31) U/L ALT (0-31) U/L Alkaline Phosphatase (39-117) U/L Troponin I High Sens 18.2 H (<3.5-17.0) ng/L Total Protein (6.5-8.0) g/dL Albumin (3.5-5.0) g/dL Urine Color Urine Appearance Urine pH (5.0-9.0) Ur Specific [place] (1.005-1.025) Urine Protein (Neg-Trace) mg/dL Urine Glucose (UA) (Negative) mg/dL Urine Ketones (Negative) mg/dL Urine Blood (Negative) Urine Nitrite (Negative) Ur Leukocyte Esterase (Negative) Urine RBC (0-2) /HPF Urine WBC (0-5) /HPF Ur Squamous Epith Cells (0-2) /HPF Calcium Oxalate Crystal Urine Bacteria (None Seen) Hyaline Casts (0-2) /LPF Influenza Type A (OSMAR) (Negative) Influenza Type B (OSMAR) (Negative) Influenza A & B Note Discharge Plan Discharge Clinical Impression: Dizziness, Near syncope Patient Disposition: Home, Self-Care Instructions: Vertigo (ED) Additional Instructions: Your workup in the ER today was reassuring pain This includes your CT scan of your head, EKG and labs. Your symptoms are most consistent with peripheral vertigo which may have been related to your recent flu vaccine. You may use meclizine as needed for further dizziness. Hydrate well. Follow up with the primary doctor, return for new or worsening symptoms Prescriptions: New meclizine 25 mg tablet 25 mg PO TID PRN (Reason: dizziness) Qty: 15 0RF No Action losartan 50 mg tablet 50 mg PO DAILY Qty: 90 3RF Eliquis 5 mg Tablet 5 mg PO BID Qty: 60 0RF levothyroxine 75 mcg tablet 75 mcg PO DAILY@0600 acetaminophen 325 mg Tablet 650 mg PO Q6H PRN (Reason: Pain) Ubrelvy 50 mg tablet 50 mg PO DAILY fluvastatin 80 mg tablet extended release 24 hr 80 mg PO BEDTIME fenofibrate micronized 200 mg capsule 200 mg PO BEDTIME fluticasone propionate 50 mcg/actuation spray,suspension 50 mcg intranasal DAILY albuterol sulfate 90 mcg/actuation HFA aerosol inhaler 90 mcg inhalation NEEDED cyclobenzaprine 5 mg tablet 5 mg PO BEDTIME omeprazole 20 mg capsule,delayed release(DR/EC) 20 mg PO BEDTIME riboflavin (vitamin B2) [Vitamin B-2] 100 mg tablet 400 mg PO DAILY citalopram 10 mg tablet 10 mg PO DAILY dapagliflozin propanediol [Farxiga] 10 mg tablet 10 mg PO DAILY amlodipine 5 mg tablet 5 mg PO DAILY Print Language: [place]anian
--- NOTE | 2025-03-01 20:23 | PC.NURSE ---
IV access obtained, pt off to CT.
[2025-03-01] MEDS: Lactated Ringers 1,000 ML 999 ML IV (20:37)
[2025-03-01 20:42] LABS: Appearance Urine Clear; Glucose Urine UA Negative (Negative); PH 6.5 (5.0-9.0); Specific Gravity - Urine 1.020 (1.005-1.025); UMIC TRIGGER UACC YES
--- NOTE | 2025-03-01 21:32 | PC.NURSE ---
Pt reports positive relief of room spinning after previous med administration. Denies dizziness or nausea. Ambulatory to bathroom with steady gait. Awaiting results and MD reeval.
[2025-03-01 21:58] LABS: Troponin-I High Sensitivity 18.2 ng/L (<3.5-17.0)
== END 2025-03-01 23:09 | disposition home or self-care (01) ==
PROVIDERS: Physician Assistant; Emergency Provider Emergency Medicine Emergency Medical Services; PCP Pediatrics
DX: R55 Syncope and collapse (principal); R29.700 NIHSS score 0; I48.0 Paroxysmal atrial fibrillation; Z79.01 Long term (current) use of anticoagulants; Z86.73 Personal history of transient ischemic attack (TIA), and cerebral infarction without residual deficits
CPT/HCPCS: 36415; 70450; 80053; 81001; 82947; 83735; 84484; 85025; 87502; 93005; 96360; 99284; 99285; J7120

== ENCOUNTER → 2025-03-01 19:15 | Outpatient (BNV) | payer MEDICARE, OTHER, SELFPAY ==
[2024-03-17 13:17] VITALS: BP 122/60; BP 136/84; BP 144/70; BMI 28.1
== END ==
PROVIDERS: Emergency Provider Emergency Medicine Emergency Medical Services; PCP Pediatrics; Visit Provider Internal Medicine Cardiovascular Disease
DX: R55 Syncope and collapse (principal)
CPT/HCPCS: 93010

== ENCOUNTER → 2025-03-01 20:15 | Outpatient (BNV) | payer MEDICARE, OTHER, SELFPAY ==
[2024-03-17 13:17] VITALS: BP 122/60; BP 136/84; BP 144/70; BMI 28.1
== END ==
PROVIDERS: Emergency Provider Emergency Medicine Emergency Medical Services; PCP Pediatrics; Visit Provider Radiology Diagnostic Radiology
DX: R42 Dizziness and giddiness (principal); R55 Syncope and collapse
CPT/HCPCS: 70450